=== PATIENT | male | born 1980 | race Caucasian/White ===

== ENCOUNTER 2021-05-09 17:23 | Inpatient (IN) ==
[2021-05-09] MEDS ORDERED: SODIUM CHLORIDE 0.9% 1000ML 1,000 ML IV STA (19:08)
--- NOTE | 2021-05-09 19:19 | Emergency Department Note ---
Impression & Plan Painless jaundice, Hyperbilirubinemia, Elevated INR ED Provider Note NAME: JACI HERNANDEZ AGE: 41 SEX: M : 1980 ARRIVES VIA: Walk-In INFORMANT: Patient, ED PROVIDER(S): Cesar Yousif DO CHIEF COMPLAINT: Jaundice HPI: The is a 41-year-old male who presented to the emergency department for an evaluation of jaundice. The patient's been dealing with symptoms for the last month. He is being managed at [facility]. Has been seen by a surgeon and a GI doctor. He was sent to the emergency department today to be admitted for further work-up of painless jaundice. The patient also needs his gallbladder removed. He denies having any nausea or vomiting. He does not drink alcohol as of the end of March but even before that he was not a heavy drinker. He has had no recent traveling. He does not have any fever or febrile symptoms. The patient has not had any recent exposures to hepatitis as far as he knows. He has had all the usual laboratory and radiographic studies done at [facility]. The patient has an INR that continues to go up so he was sent to the emergency department for further evaluation. The patient denies having any recent trauma. He does have some abdominal distention. He states he has shortness of breath because of abdominal distention. ROS: See above HPI for pertinent positives & negatives. A total of 10 systems reviewed and were otherwise negative. PAST MEDICAL HISTORY: See Below PAST SURGICAL HISTORY: See Below FAMILY HISTORY: See Below SOCIAL HISTORY: See Below HOME MEDICATIONS: See Below ALLERGIES: See Below VITALS: See Below PHYSICAL EXAMINATION: GENERAL: Patient is awake alert in no acute distress patient is resting comfort ably and showing no signs of anxiety EYES: The conjunctivae are jaundiced. The pupils are round and reactive. EARS, NOSE, MOUTH AND THROAT: The nose is without any evidence of any deformity. Mucous membranes are moist. NECK: The neck is nontender and supple. RESPIRATORY: Normal respiratory effort is noted there is no evidence of wheezing rhonchi or rales CARDIOVASCULAR: Regular rate and rhythm noted there no murmurs rubs or gallops normal S1 normal S2. GASTROINTESTINAL: The abdomen is moderately distended. There is no tenderness guarding rigidity elicited. MUSCULOSKELETAL/EXTREMITIES: There is no evidence of gross deformity full range of motion is noted in the hips and shoulders. SKIN: Jaundice was noted. Trace pedal edema was noted. NEUROLOGIC: Patient is awake alert and oriented x3 strength is symmetric patellar reflexes are 2+ bilaterally MEDICAL DECISION MAKING: The patient is a 41-year-old male who presented to the emergency department for an evaluation of abdominal distal angina and jaundice. The patient has had slowly worsening jaundice over the course the last few weeks. He does have a history of alcohol use but has had no alcohol use since the end of March. The patient has had worsening hyperbilirubinemia as well as jaundice. He was sent to the emergency department for further evaluation. He was felt to be a cand idate for admission because of the elevation in his bilirubin. He had no abdominal tenderness. I discussed the patient's laboratory and radiographic studies with him. I discussed his case with the on-call [facility] hospitalist. They have agreed to evaluate the patient in the emergency department for further management and disposition. Triage Nursing notes reviewed. Prior medical records reviewed Vital Signs: reviewed and remarkable for tachycardia. Differential diagnosis: Etiologies such as appendicitis, diverticulitis, obstruction, inflammatory bowel disease, renal colic, PUD, biliary pathology, pancreatitis, mesenteric ischemia, aortic pathology, infections, genitourinary, UTI, perforated viscus, as well as others were entertained. ER treatment provided: See below Diagnostics interpreted by me: ECG: none Laboratory studies: As stated above and show below. Imaging studies: See below Consultation(s): I discussed this case with Dr. Madden. He is agreed to evaluate the patient in the emergency department for further management and disposition. 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 Beliefs That Will Affect Care: None Current Living Situation: Alone Feels Safe at Home: Yes Assistive Devices: None Allergies Allergies Allergy/AdvReac Type Severity Reaction Status Date / Time bee pollen Allergy Intermediate HIVES/SWELL Verified 05/09/21 20:14 ING brompheniramine Allergy Intermediate Hives Verified 05/09/21 20:14 [From Dimetapp Cold-Allergy (PE)] phenylephrine Allergy Intermediate Hives Verified 05/09/21 20:14 [From Dimetapp Cold-Allergy (PE)] Sulfa (Sulfonamide Allergy Mild Rash Verified 05/09/21 20:14 Antibiotics) Home Meds Home Medications Medication Instructions Recorded Confirmed omeprazole 20 mg tablet,delayed 20 mg PO DAILYBB PRN 05/09/21 05/09/21 release Results & Data (ED) Vital Signs Vital Signs - 24 hr 05/09/21 17:38 Temperature 36.6 C Temperature Source Skin Pulse Rate 108 H Respiratory Rate 18 Blood Pressure 142/91 H Blood Pressure Mean 108 Pulse Oximetry 94 Sepsis Recent Fever Within 48 Hours No Sepsis New/Unexplained Change in Mental Status No Sepsis Action Taken by Nursing No Action Required Home Medications Current Medication List: was personally reviewed by me Laboratory Data Attestation: I reviewed the patient's lab results. Result diagrams: 05/09/21 19:25 05/09/21 19:25 Lab Results 05/09/21 05/09/21 05/09/21 Range/Units 19:25 19:25 19:25 WBC 7.16 (4.8-10.8) K/uL RBC 4.15 L (4.7-6.1) M/uL Hgb 14.9 (14.0-18.0) g/dL Hct 42.3 (42-52) % MCV 101.9 H (80-100) fL MCH 35.9 H (25-34) pg MCHC 35.2 (32-36) g/dL RDW Std Deviation 55.1 H (36.4-46.3) fL RDW Coeff of Michael 14.5 (11.5-14.5) % Plt Count 266 (130-400) K/uL MPV 11.1 H (7.4-10.4) fL Immature Gran % (Auto) 0.1 % Neut % (Auto) 80.3 % Lymph % (Auto) 12.8 % [place] % (Auto) 6.1 % Eos % (Auto) 0.4 % Baso % (Auto) 0.3 % Neut # (Auto) 5.74 (1.4-6.5) K/uL Lymph # (Auto) 0.92 L (1.2-3.4) K/uL [place] # (Auto) 0.44 (0.11-0.59) K/uL Eos # (Auto) 0.03 (0-0.5) K/uL Baso # (Auto) 0.02 (0-0.2) K/uL Immature Gran # (Auto) 0.01 (0.00-0.02) K/uL PT (9.0-12.0) Seconds INR (0.9-1.1) APTT (21.0-31.0) Seconds PTT Ratio Sodium 135 L (136-145) mmol/L Potassium 3.3 L (3.5-5.1) mmol/L Chloride 102 (98-107) mmol/L Carbon Dioxide 27 (21-32) mmol/L Anion Gap 6.0 (3-11) BUN 5 L (7-18) mg/dl Creatinine (0.6-1.4) mg/dl Glucose 111 H (70-99) mg/dl Calcium 8.1 L (8.5-10.1) mg/dl Magnesium (1.8-2.4) mg/dl Total Bilirubin 33.8 H (0.2-1) mg/dl Direct Bilirubin 30.0 H (0-0.2) mg/dl AST 213 H (15-37) U/L ALT 110 H (12-78) U/L Alkaline Phosphatase 164 H (45-117) U/L Total Protein (6.4-8.2) gm/dl Albumin 2.7 L (3.4-5.0) gm/dl Lipase 632 H (73-393) U/L Urine Color Urine Appearance (Clear) Urine pH (4.5-7.5) Ur Specific [place] (1.000-1.030) Urine Protein (Negative) Urine Glucose (UA) (Negative) Urine Ketones (Negative) Urine Blood (Negative) Urine Nitrite (Negative) Urine Bilirubin (Negative) Urine Urobilinogen (Negative) Ur Leukocyte Esterase (Negative) Urine WBC (Auto) (0-5) /hpf Urine RBC (Auto) (0-4) /hpf U Hyaline Cast (Auto) (0-5) /lpf U Epithel Cells (Auto) (0-5) /lpf Urine Bacteria (Auto) (Negative) Anaplasma Smear See Comment Lyme Disease IgG Ab Negative (Negative) Lyme Disease IgM Ab Equivocal A (Negative) COVID-19 Eval Order SARS-CoV-2 (PCR) (Negative) Hep Bs Antigen (Neg) Hepatitis C Antibody (Neg) Monoscreen (Negative) 05/09/21 05/09/21 05/09/21 Range/Units 19:25 19:25 19:25 WBC (4.8-10.8) K/uL RBC (4.7-6.1) M/uL Hgb (14.0-18.0) g/dL Hct (42-52) % MCV (80-100) fL MCH (25-34) pg MCHC (32-36) g/dL RDW Std Deviation (36.4-46.3) fL RDW Coeff of Michael (11.5-14.5) % Plt Count (130-400) K/uL MPV (7.4-10.4) fL Immature Gran % (Auto) % Neut % (Auto) % Lymph % (Auto) % [place] % (Auto) % Eos % (Auto) % Baso % (Auto) % Neut # (Auto) (1.4-6.5) K/uL Lymph # (Auto) (1.2-3.4) K/uL [place] # (Auto) (0.11-0.59) K/uL Eos # (Auto) (0-0.5) K/uL Baso # (Auto) (0-0.2) K/uL Immature Gran # (Auto) (0.00-0.02) K/uL PT 18.7 H (9.0-12.0) Seconds INR 1.9 H (0.9-1.1) APTT 32.2 H (21.0-31.0) Seconds PTT Ratio 1.2 Sodium (136-145) mmol/L Potassium (3.5-5.1) mmol/L Chloride (98-107) mmol/L Carbon Dioxide (21-32) mmol/L Anion Gap (3-11) BUN (7-18) mg/dl Creatinine (0.6-1.4) mg/dl Glucose (70-99) mg/dl Calcium (8.5-10.1) mg/dl Magnesium (1.8-2.4) mg/dl Total Bilirubin (0.2-1) mg/dl Direct Bilirubin (0-0.2) mg/dl AST (15-37) U/L ALT (12-78) U/L Alkaline Phosphatase (45-117) U/L Total Protein (6.4-8.2) gm/dl Albumin (3.4-5.0) gm/dl Lipase (73-393) U/L Urine Color Urine Appearance (Clear) Urine pH (4.5-7.5) Ur Specific [place] (1.000-1.030) Urine Protein (Negative) Urine Glucose (UA) (Negative) Urine Ketones (Negative) Urine Blood (Negative) Urine Nitrite (Negative) Urine Bilirubin (Negative) Urine Urobilinogen (Negative) Ur Leukocyte Esterase (Negative) Urine WBC (Auto) (0-5) /hpf Urine RBC (Auto) (0-4) /hpf U Hyaline Cast (Auto) (0-5) /lpf U Epithel Cells (Auto) (0-5) /lpf Urine Bacteria (Auto) (Negative) Anaplasma Smear Lyme Disease IgG Ab (Negative) Lyme Disease IgM Ab (Negative) COVID-19 Eval Order SARS-CoV-2 (PCR) (Negative) Hep Bs Antigen Neg (Neg) Hepatitis C Antibody Neg (Neg) Monoscreen Negative (Negative) 05/09/21 05/09/21 05/09/21 Range/Units 19:25 19:25 19:25 WBC (4.8-10.8) K/uL RBC (4.7-6.1) M/uL Hgb (14.0-18.0) g/dL Hct (42-52) % MCV (80-100) fL MCH (25-34) pg MCHC (32-36) g/dL RDW Std Deviation (36.4-46.3) fL RDW Coeff of Michael (11.5-14.5) % Plt Count (130-400) K/uL MPV (7.4-10.4) fL Immature Gran % (Auto) % Neut % (Auto) % Lymph % (Auto) % [place] % (Auto) % Eos % (Auto) % Baso % (Auto) % Neut # (Auto) (1.4-6.5) K/uL Lymph # (Auto) (1.2-3.4) K/uL [place] # (Auto) (0.11-0.59) K/uL Eos # (Auto) (0-0.5) K/uL Baso # (Auto) (0-0.2) K/uL Immature Gran # (Auto) (0.00-0.02) K/uL PT (9.0-12.0) Seconds INR (0.9-1.1) APTT (21.0-31.0) Seconds PTT Ratio Sodium (136-145) mmol/L Potassium (3.5-5.1) mmol/L Chloride (98-107) mmol/L Carbon Dioxide (21-32) mmol/L Anion Gap (3-11) BUN (7-18) mg/dl Creatinine (0.6-1.4) mg/dl Glucose (70-99) mg/dl Calcium (8.5-10.1) mg/dl Magnesium 2.5 H (1.8-2.4) mg/dl Total Bilirubin (0.2-1) mg/dl Direct Bilirubin (0-0.2) mg/dl AST (15-37) U/L ALT (12-78) U/L Alkaline Phosphatase (45-117) U/L Total Protein (6.4-8.2) gm/dl Albumin (3.4-5.0) gm/dl Lipase (73-393) U/L Urine Color Urine Appearance (Clear) Urine pH (4.5-7.5) Ur Specific [place] (1.000-1.030) Urine Protein (Negative) Urine Glucose (UA) (Negative) Urine Ketones (Negative) Urine Blood (Negative) Urine Nitrite (Negative) Urine Bilirubin (Negative) Urine Urobilinogen (Negative) Ur Leukocyte Esterase (Negative) Urine WBC (Auto) (0-5) /hpf Urine RBC (Auto) (0-4) /hpf U Hyaline Cast (Auto) (0-5) /lpf U Epithel Cells (Auto) (0-5) /lpf Urine Bacteria (Auto) (Negative) Anaplasma Smear Lyme Disease IgG Ab (Negative) Lyme Disease IgM Ab (Negative) COVID-19 Eval Order Covid19 at [facility] SARS-CoV-2 (PCR) NEGATIVE (Negative) Hep Bs Antigen (Neg) Hepatitis C Antibody (Neg) Monoscreen (Negative) 05/09/21 Range/Units 21:00 WBC (4.8-10.8) K/uL RBC (4.7-6.1) M/uL Hgb (14.0-18.0) g/dL Hct (42-52) % MCV (80-100) fL MCH (25-34) pg MCHC (32-36) g/dL RDW Std Deviation (36.4-46.3) fL RDW Coeff of Michael (11.5-14.5) % Plt Count (130-400) K/uL MPV (7.4-10.4) fL Immature Gran % (Auto) % Neut % (Auto) % Lymph % (Auto) % [place] % (Auto) % Eos % (Auto) % Baso % (Auto) % Neut # (Auto) (1.4-6.5) K/uL Lymph # (Auto) (1.2-3.4) K/uL [place] # (Auto) (0.11-0.59) K/uL Eos # (Auto) (0-0.5) K/uL Baso # (Auto) (0-0.2) K/uL Immature Gran # (Auto) (0.00-0.02) K/uL PT (9.0-12.0) Seconds INR (0.9-1.1) APTT (21.0-31.0) Seconds PTT Ratio Sodium (136-145) mmol/L Potassium (3.5-5.1) mmol/L Chloride (98-107) mmol/L Carbon Dioxide (21-32) mmol/L Anion Gap (3-11) BUN (7-18) mg/dl Creatinine (0.6-1.4) mg/dl Glucose (70-99) mg/dl Calcium (8.5-10.1) mg/dl Magnesium (1.8-2.4) mg/dl Total Bilirubin (0.2-1) mg/dl Direct Bilirubin (0-0.2) mg/dl AST (15-37) U/L ALT (12-78) U/L Alkaline Phosphatase (45-117) U/L Total Protein (6.4-8.2) gm/dl Albumin (3.4-5.0) gm/dl Lipase (73-393) U/L Urine Color Dark Yellow Urine Appearance Cloudy A (Clear) Urine pH 7.0 (4.5-7.5) Ur Specific [place] 1.009 (1.000-1.030) Urine Protein Negative (Negative) Urine Glucose (UA) Negative (Negative) Urine Ketones Negative (Negative) Urine Blood Negative (Negative) Urine Nitrite Positive A (Negative) Urine Bilirubin 3+ H (Negative) Urine Urobilinogen Negative (Negative) Ur Leukocyte Esterase Trace H (Negative) Urine WBC (Auto) 0 (0-5) /hpf Urine RBC (Auto) 10-30 H (0-4) /hpf U Hyaline Cast (Auto) 1-5 (0-5) /lpf U Epithel Cells (Auto) 0-5 (0-5) /lpf Urine Bacteria (Auto) Negative (Negative) Anaplasma Smear Lyme Disease IgG Ab (Negative) Lyme Disease IgM Ab (Negative) COVID-19 Eval Order SARS-CoV-2 (PCR) (Negative) Hep Bs Antigen (Neg) Hepatitis C Antibody (Neg) Monoscreen (Negative) Administered Medications Potassium Chloride 40 meq/ (Sodium Chloride) 1,020 mls @ 50 mls/hr IV .[id number] Stop: 06/08/21 22:14 Last Admin: 05/09/21 23:44 Dose: 50 mls/hr Documented by: [id number] Discontinued Medications Sodium Chloride (Nss 1000ml) 1,000 mls @ 999 mls/hr IV .[id number] STA Stop: 05/09/21 20:08 Last Infusion: 05/09/21 21:18 Dose: 0 mls/hr Documented by: [id number] Admin: 05/09/21 19:33 Dose: 999 mls/hr Documented by: [id number] Phytonadione 5 mg/ Sodium (Chloride) 50.5 mls @ 101 mls/hr IV ONE STA Stop: 05/09/21 21:57 Last Infusion: 05/09/21 23:05 Dose: 0 mls/hr Documented by: [id number] Admin: 05/09/21 21:52 Dose: 101 mls/hr Documented by: [id number] Potassium Chloride (Potassium Chloride Crtab 20 Meq Tabcr) 40 meq PO NOW STA Stop: 05/09/21 20:52 Last Admin: 05/09/21 21:18 Dose: 40 meq Documented by: [id number] Imaging Data Radiologist's Impression: Chest X-Ray 05/09/21 19:08 XR chest 1V portable CLINICAL HISTORY: SOB COMPARISON STUDY: No previous studies for comparison. FINDINGS: No pneumothorax. No pleural effusion. Right hemidiaphragm is elevated. Few linear densities are seen in bilateral bases likely representing atelectasis or infiltrates. Nodular prominence of pulmonary interstitium is seen within mid to lower lungs. Cardiomediastinal silhouette is within normal limits in size. No significant pulmonary vascular congestion.. Osseous structures: unremarkable IMPRESSION: 1. Atelectasis or infiltrates at bilateral bases. Right hemidiaphragm is elevated. ACT 112: Negative or not required by law. The above report was generated using voice recognition software. It may contain grammatical, syntax or spelling errors. Electronically signed by: Carine Unger DO 05/09/2021 8:12 PM Discharge Plan Visit Data Chief Complaint: Abnormal Labs/Diagnostic Testing Stated Complaint: Abnormal Labs Dr. Devi ED Provider: Cesar Yousif Discharge Problem: Painless jaundice, Hyperbilirubinemia, Elevated INR Patient Disposition: Admitted As Inpatient Condition: Good Discharge Instructions Interventions: ED Discharge Assessment Last Done: 05/09/21 23:06
[2021-05-09 19:46] LABS: Basophils # (auto) 0.02 K/uL (0-0.2); Basophils % (auto) 0.3 %; Eosinophils # (auto) 0.03 K/uL (0-0.5); Eosinophils % (auto) 0.4 %; Hematocrit (blood only) 42.3 % (42-52); Hemoglobin 14.9 g/dL (14.0-18.0); Immature Granulocytes # (auto) 0.01 K/uL (0.00-0.02); Immature Granulocytes % (auto) 0.1 %; Lymphocytes # (auto) 0.92 K/uL (1.2-3.4); Lymphocytes % (auto) 12.8 %; Mean Corpuscular Hemoglobin 35.9 pg (25-34); Mean Corpuscular Hgb Conc 35.2 g/dL (32-36); Mean Corpuscular Volume 101.9 fL (80-100); Mean Platelet Volume 11.1 fL (7.4-10.4); Monocytes # (auto) 0.44 K/uL (0.11-0.59); Monocytes % (auto) 6.1 %; Neutrophils # (auto) 5.74 K/uL (1.4-6.5); Neutrophils % (auto) 80.3 %; Platelet Count 266 K/uL (130-400); RDW Coefficient of Variation 14.5 % (11.5-14.5); RDW Standard Deviation 55.1 fL (36.4-46.3); Red Blood Count 4.15 M/uL (4.7-6.1); White Blood Count 7.16 K/uL (4.8-10.8)
[2021-05-09 19:58] LABS: INR 1.9 (0.9-1.1); Partial Thromboplastin Ratio 1.2; Partial Thromboplastin Time 32.2 Seconds (21.0-31.0); Prothrombin Time 18.7 Seconds (9.0-12.0)
--- NOTE | 2021-05-09 20:14 | XRay Report ---
XR chest 1V portable CLINICAL HISTORY: SOB COMPARISON STUDY: No previous studies for comparison. FINDINGS: No pneumothorax. No pleural effusion. Right hemidiaphragm is elevated. Few linear densities are seen in bilateral bases likely representing atelectasis or infiltrates. Nodular prominence of pulmonary interstitium is seen within mid to lower lungs. Cardiomediastinal silhouette is within normal limits in size. No significant pulmonary vascular congestion.. Osseous structures: unremarkable IMPRESSION: 1. Atelectasis or infiltrates at bilateral bases. Right hemidiaphragm is elevated. ACT 112: Negative or not required by law. The above report was generated using voice recognition software. It may contain grammatical, syntax o r spelling errors. Electronically signed by: Carine Unger DO 05/09/2021 8:12 PM
[2021-05-09 20:15] LABS: Alanine Aminotransferase 110 U/L (12-78); Albumin Level 2.7 gm/dl (3.4-5.0); Aspartate Aminotransferase 213 U/L (15-37); Blood Urea Nitrogen 5 mg/dl (7-18); Calcium 8.1 mg/dl (8.5-10.1); Carbon Dioxide 27 mmol/L (21-32); Chloride 102 mmol/L (98-107); Glucose 111 mg/dl (70-99); Lipase 632 U/L (73-393); Potassium 3.3 mmol/L (3.5-5.1); Sodium 135 mmol/L (136-145)
[2021-05-09 20:24] LABS: Alkaline Phosphatase 164 U/L (45-117); Bilirubin,Total 33.8 mg/dl (0.2-1)
[2021-05-09 20:40] LABS: Lyme Ab IgG w/WB Rflx Negative (Negative)
[2021-05-09] MEDS ORDERED: POTASSIUM CHLORIDE CRTAB 20 MEQ TABCR PO STA (20:51)
[2021-05-09 20:54] LABS: Lyme Ab IgM w/WB Rflx Equivocal (Negative)
[2021-05-09 21:22] LABS: Appearance Urine Cloudy (Clear); Bacteria Urine Automated Negative (Negative); Blood Urine Negative (Negative); Color Urine Dark Yellow; Epithelial Cell Urine Auto 0-5 /lpf (0-5); Glucose Urine UA Negative (Negative); Ketones Urine Negative (Negative); Leukocyte Esterase Urine Trace (Negative); Nitrite Urine Positive (Negative); Protein Urine Negative (Negative); Specific Gravity Urine 1.009 (1.000-1.030); Urobilinogen Urine Negative (Negative); WBC Urine Automated 0 /hpf (0-5)
[2021-05-09 21:24] LABS: Bilirubin Urine 3+ (Negative)
[2021-05-09] MEDS ORDERED: PHYTONADIONE 5 MG in SODIUM CHLORIDE 0.9% 50 ML IV STA (21:28)
--- NOTE | 2021-05-09 22:01 | History & Physical Report ---
Date of Service May 09, 2021 Assessment & Plan (1) Jaundice: Plan: History fatty liver on outpatient ultrasound December 2020 Possible alcoholic liver disease Rule out biliary pathology Hypokalemia secondary to poor p.o. intake Mood disorder, suboptimal, although patient denies suicidality. PCP following issue. 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 SCDs RE possible procedure Full code Text document was generated using [employer] voice recognition software. It may contain grammatical or spelling errors. Kindly contact undersigned for clarification of any documentation item in question. History of Present Illness Chief Complaint: Abnormal blood work, jaundice Primary Care Provider: Kyle Price DO History obtained from patient and records. Medical history significant for fatty liver, mood disorder. About 8 months ago, patient noted abdominal discomfort with bloating and fatigue symptoms. Denies inordinate Tylenol intake. Admits to alcohol consumption sometimes heavy. Outpatient provider ordered labs which showed abnormal LFTs. Outpatient abdominal ultrasound done last December 2020 showed mobile sludge within the gallbladder. Enlarged liver with increased echogenicity compatible with hepatic steatosis. Patient stopped alcohol consumption a few weeks ago. 2 weeks ago, patient noted to be jaundiced by a friend. Episodic right-sided abdominal discomfort with distention. Poor appetite. Stools pale and floating. No fever, no chills no chest pain, no S OB. Patient seen at GI office 3 days ago. LFTS at that time as follows: AST 220 ALT 102, alk phos 172, albumin 3.6, total Quinn 31.8. Differentials for jaundice and transaminitis included drug-induced versus alcoholic hepatitis versus biliary etiology as per documentation. Follow-up blood work, outpatient CT abdomen pelvis, EGD, EUS contemplated. Patient also seen [place] [facility] [place] 3 days ago. Laparoscopic cholecystectomy considered pending GI testing results. Outpatient follow-up LFTs drawn, and resulted today as follows: INR 1.83 AST 220, ALT 102, alk phos 172, total bilirubin 31.8, albumin 3.6, INR 1.83 Patient directed to ER by GI provider due to abnormal blood work. Medical History as above Surgical History : Dental surgery, inguinal hernia repair Family History : Colon cancer, liver disease Personal/Social history : Non-smoker, admits to occasional heavy alcohol intake, chiropractor Allergies Allergy/AdvReac Type Severity Reaction Status Date / Time bee pollen Allergy Intermediate HIVES/SWELL Verified 05/09/21 20:14 ING brompheniramine Allergy Intermediate Hives Verified 05/09/21 20:14 [From Dimetapp Cold-Allergy (PE)] phenylephrine Allergy Intermediate Hives Verified 05/09/21 20:14 [From Dimetapp Cold-Allergy (PE)] Sulfa (Sulfonamide Allergy Mild Rash Verified 05/09/21 20:14 Antibiotics) Home Medications Medication Instructions Recorded Confirmed Type omeprazole 20 mg tablet,delayed 20 mg PO DAILYBB PRN 05/09/21 05/09/21 History release Past Med/Surg History Medical History Anxiety and depression Elevated liver enzymes GERD (gastroesophageal reflux disease) Kidney stone on right side NO INTERVENTION "VERY SMALL" Surgical History H/O inguinal hernia repair Slow to wake up after anesthesia [place] teeth removed Family History Grandfather (Paternal) Family hx of colon cancer Other No family history of adverse response to anesthesia Social History Smoking Status: Never smoker Second Hand Exposure: Yes ( A CHILD); Hx Alcohol Use: Yes Alcohol type: beer and hard liquor Preferred Language: Canadian Communication Ability: Effective 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 Beliefs That Will Affect Care: None Current Living Situation: Alone Feels Safe at Home: Yes Safety Concerns: Feels Safe At This Time Assistive Devices: None Review of Systems Review of Systems: As per HPI, all 10 systems reviewed, all other ROS negative Physical Exam Physical Exam: GENERAL: Comfortable, slightly anxious, no respiratory distress SKIN: Jaundiced, warm HEENT: [place] palpebral conjunctivae, no ptosis, icteric sclerae, dry buccal mucosa NECK : Supple, no tenderness CHEST : CTA, no tenderness HEART : Tachycardic, no obvious murmurs ABDOMEN: distention, minimal epigastric tenderness EXTREMITIES : No LE swelling/tenderness, no other conspicuous deformities noted NEUROLOGIC : Coherent, no facial asymmetry, no other gross focality Results & Data Results & Data ([facility]) Vital Signs (Past 12 Hours) Vital Signs Temp Pulse Resp BP Pulse Ox 05/09/21 17:38 36.6 C 108 H 18 142/91 H 94 Laboratory Results Laboratory Results WBC 7.16 K/uL (4.8-10.8) 05/09/21 19:25 RBC 4.15 M/uL (4.7-6.1) L 05/09/21 19:25 Hgb 14.9 g/dL (14.0-18.0) 05/09/21 19:25 Hct 42.3 % (42-52) 05/09/21 19:25 MCV 101.9 fL (80-100) H 05/09/21 19:25 MCH 35.9 pg (25-34) H 05/09/21 19:25 MCHC 35.2 g/dL (32-36) 05/09/21 19:25 RDW Std Deviation 55.1 fL (36.4-46.3) H 05/09/21 19:25 RDW Coeff of Michael 14.5 % (11.5-14.5) 05/09/21 19:25 Plt Count 266 K/uL (130-400) 05/09/21 19:25 MPV 11.1 fL (7.4-10.4) H 05/09/21 19:25 Immature Gran % (Auto) 0.1 % 05/09/21 19:25 Neut % (Auto) 80.3 % 05/09/21 19:25 Lymph % (Auto) 12.8 % 05/09/21 19:25 [place] % (Auto) 6.1 % 05/09/21 19:25 Eos % (Auto) 0.4 % 05/09/21 19:25 Baso % (Auto) 0.3 % 05/09/21 19:25 Neut # (Auto) 5.74 K/uL (1.4-6.5) 05/09/21 19:25 Lymph # (Auto) 0.92 K/uL (1.2-3.4) L 05/09/21 19:25 [place] # (Auto) 0.44 K/uL (0.11-0.59) 05/09/21 19:25 Eos # (Auto) 0.03 K/uL (0-0.5) 05/09/21 19:25 Baso # (Auto) 0.02 K/uL (0-0.2) 05/09/21 19:25 Immature Gran # (Auto) 0.01 K/uL (0.00-0.02) 05/09/21 19:25 PT 18.7 Seconds (9.0-12.0) H 05/09/21 19:25 INR 1.9 (0.9-1.1) H 05/09/21 19:25 APTT 32.2 Seconds (21.0-31.0) H 05/09/21: PTT Ratio 1.2 05/09/21 19:25 Sodium 135 mmol/L (136-145) L 05/09/21 19: Potassium 3.3 mmol/L (3.5-5.1) L 05/09/21: Chloride 102 mmol/L (98-107) 05/09/21:25 Carbon Dioxide 27 mmol/L (21-32) 05/09/21 19:25 Anion Gap 6.0 (3-11) 05/09/21 19:25 BUN 5 mg/dl (7-18) L 05/09/21 19:25 Glucose 111 mg/dl (70-99) H 05/09/21 19:25 Calcium 8.1 mg/dl (8.5-10.1) L 05/09/21 19:25 Total Bilirubin 33.8 mg/dl (0.2-1) H 05/09/21 19:25 AST 213 U/L (15-37) H 05/09/21 19:25 ALT 110 U/L (12-78) H 05/09/21 19:25 Alkaline Phosphatase 164 U/L (45-117) H 05/09/21 19:25 Albumin 2.7 gm/dl (3.4-5.0) L 05/09/21 19:25 Lipase 632 U/L (73-393) H 05/09/21 19:25 Urine Color Dark Yellow 05/09/21 21:00 Urine Appearance Cloudy (Clear) A 05/09/21 21:00 Urine pH 7.0 (4.5-7.5) 05/09/21 21:00 Ur Specific [place] 1.009 (1.000-1.030) 05/09/21 21:00 Urine Protein Negative (Negative) 05/09/21 21:00 Urine Glucose (UA) Negative (Negative) 05/09/21 21:00 Urine Ketones Negative (Negative) 05/09/21 21:00 Urine Blood Negative (Negative) 05/09/21 21:00 Urine Nitrite Positive (Negative) A 05/09/21 21:00 Urine Bilirubin 3+ (Negative) H 05/09/21 21:00 Urine Urobilinogen Negative (Negative) 05/09/21 21:00 Ur Leukocyte Esterase Trace (Negative) H 05/09/21 21:00 Urine WBC (Auto) 0 /hpf (0-5) 05/09/21 21:00 Urine RBC (Auto) 10-30 /hpf (0-4) H 05/09/21 21:00 U Hyaline Cast (Auto) 1-5 /lpf (0-5) 05/09/21 21:00 U Epithel Cells (Auto) 0-5 /lpf (0-5) 05/09/21 21:00 Urine Bacteria (Auto) Negative (Negative) 05/09/21 21:00 Anaplasma Smear See Comment 05/09/21 19:25 Lyme Disease IgG Ab Negative (Negative) 05/09/21 19:25 Lyme Disease IgM Ab Equivocal (Negative) A 05/09/21 19:25 COVID-19 Eval Order Covid19 at [facility] 05/09/21 19:25 SARS-CoV-2 (PCR) NEGATIVE (Negative) 05/09/21 19:25 Monoscreen Negative (Negative) 05/09/21 19:25 Impressions Chest X-Ray 05/09/21 19:08 XR chest 1V portable CLINICAL HISTORY: SOB COMPARISON STUDY: No previous studies for comparison. FINDINGS: No pneumothorax. No pleural effusion. Right hemidiaphragm is elevated. Few linear densities are seen in bilateral b ases likely representing atelectasis or infiltrates. Nodular prominence of pulmonary interstitium is seen within mid to lower lungs. Cardiomediastinal silhouette is within normal limits in size. No significant pulmonary vascular congestion.. Osseous structures: unremarkable IMPRESSION: 1. Atelectasis or infiltrates at bilateral bases. Right hemidiaphragm is elevated. ACT 112: Negative or not required by law. The above report was generated using voice recognition software. It may contain grammatical, syntax or spelling errors. Electronically signed by: Carine Unger DO 05/09/2021 8:12 PM
[2021-05-09] MEDS ORDERED: THIAMINE HCL 100 MG in SYRINGE 9 ML IV STA (22:08)
[2021-05-09 23:15] LABS: Hepatitis B Surf Ag Rflx Conf Neg (Neg)
[2021-05-09] MEDS ORDERED: ACETAMINOPHEN 325 MG TAB PO PRN (23:32)
[2021-05-09] MEDS ORDERED: PROMETHAZINE HCL 12.5 MG in SODIUM CHLORIDE 0.9% 50 ML IV PRN (23:32)
[2021-05-09] MEDS ORDERED: MoRPHine SULFATE 4 MG/ML 1 ML CARP\\VIAL IV PRN (23:32)
[2021-05-09] MEDS ORDERED: LORazepam 0.5 MG/1 ML VIAL IV PRN (23:32)
[2021-05-09] MEDS ORDERED: oxyCODONE HCL IR 5 MG TAB (IMMEDIATE RELEASE) PO PRN (23:32)
[2021-05-09] MEDS ORDERED: PANTOprazole 40 MG TAB PO PRN (23:37)
[2021-05-09 23:44] LABS: Hepatitis C IgG 13Yrs+Old_Rflx Neg (Neg)
[2021-05-09] MEDS: POTASSIUM CHLORIDE 40 MEQ in SODIUM CHLORIDE 0.9% 1000ML 1,000 ML IV SCH (23:44)
[2021-05-10 06:16] LABS: Basophils # (auto) 0.04 K/uL (0-0.2); Basophils % (auto) 0.6 %; Eosinophils # (auto) 0.05 K/uL (0-0.5); Eosinophils % (auto) 0.8 %; Immature Granulocytes # (auto) 0.01 K/uL (0.00-0.02); Immature Granulocytes % (auto) 0.2 %; Lymphocytes # (auto) 1.16 K/uL (1.2-3.4); Lymphocytes % (auto) 18.2 %; Mean Corpuscular Hemoglobin 35.2 pg (25-34); Mean Corpuscular Volume 100.5 fL (80-100); Mean Platelet Volume 11.3 fL (7.4-10.4); Monocytes # (auto) 0.44 K/uL (0.11-0.59); Monocytes % (auto) 6.9 %; Neutrophils # (auto) 4.67 K/uL (1.4-6.5); Neutrophils % (auto) 73.3 %; Platelet Count 224 K/uL (130-400); RDW Coefficient of Variation 14.9 % (11.5-14.5); RDW Standard Deviation 54.7 fL (36.4-46.3); Red Blood Count 3.98 M/uL (4.7-6.1); White Blood Count 6.37 K/uL (4.8-10.8)
[2021-05-10 06:29] LABS: INR 1.7 (0.9-1.1); Prothrombin Time 16.8 Seconds (9.0-12.0)
[2021-05-10] MEDS ORDERED: PHYTONADIONE 5 MG in SODIUM CHLORIDE 0.9% 50 ML IV ONE (07:15)
[2021-05-10 07:22] LABS: Alanine Aminotransferase 95 U/L (12-78); Albumin Level 2.2 gm/dl (3.4-5.0); Alkaline Phosphatase 139 U/L (45-117); Aspartate Aminotransferase 187 U/L (15-37); Bilirubin,Total 28.5 mg/dl (0.2-1); Blood Urea Nitrogen 5 mg/dl (7-18); Calcium 7.5 mg/dl (8.5-10.1); Carbon Dioxide 24 mmol/L (21-32); Chloride 108 mmol/L (98-107); Glucose 78 mg/dl (70-99); Potassium 3.5 mmol/L (3.5-5.1); Sodium 138 mmol/L (136-145)
[2021-05-10 07:59] LABS: Estimated Average Glucose 85 mg/dl; Hemoglobin A1C 4.6 % (4.5-5.6)
[2021-05-10] MEDS ORDERED: PHYTONADIONE 10 MG in SODIUM CHLORIDE 0.9% 50 ML IV ONE (08:30)
--- NOTE | 2021-05-10 08:45 | CT Scan Report ---
ABDOMEN AND PELVIS CT WITHOUT CONTRAST CT DOSE: 666.88 mGy.cm HISTORY: Generalized abdominal pain. Jaundice. TECHNIQUE: Multiaxial CT images of the abdomen and pelvis were performed without contrast. A dose lo wering technique was utilized adhering to the principles of ALARA. COMPARISON STUDY: None. FINDINGS: Small focal superior endplate indentations within the lower thoracic and lumbar spine favor Schmorl's nodes. Old compression deformities could also have a similar appearance. There is elevatio n of the right hemidiaphragm. Bibasilar linear densities most pronounced on the right favor subsegmen andre atelectasis. No pneumoperitoneum. No pneumatosis. Diffuse hypodensity seen within the liver. This may represent hepatic steatosis or underlying hepatic pathology such as a hepatitis. The spleen is e nlarged measuring 19 cm in length. The liver is also enlarged. There is small amount of ascites seen throughout the abdomen and pelvis. Questionable minimal peripancreatic fat stranding which correlates the patient's edematous state. Multiple splenic varices are noted. There is mild periportal adenopat hy. Normal caliber abdominal aorta. There is a 5 mm stone within the right kidney. There is a punctat e left renal stone. No hydronephrosis. Hyperdensity within the gallbladder favors sludge or small sto lacho. The bladder is unremarkable. Suboptimal evaluation for bowel pathology due to the lack of intrav enous and oral contrast. However, there is no definite bowel wall thickening or obstruction. Normal a ppendix. IMPRESSION: 1. Hepatosplenomegaly with diffuse hypodensity within the liver suggesting fatty change or underlying hepatic pathology such as a hepatitis. 2. Small amount of ascites. 3. Suggestion of minimal peripancreatic inflammatory change. This could be due to the patient's diffu se edematous state or a mild acute pancreatitis. Recommend correlation with pancreatic enzymes. 4. Mild gallbladder wall thickening/edema. This likely due to the patient's diffuse edematous state. There is also increased density within the gallbladder lumen suggesting sludge or small stones. 5. No definite bowel wall thickening or obstruction. 6. Bilateral nephrolithiasis. No ureteral stones. No hydronephrosis. ACT 112: Negative or not required by law. Electronically signed by: Carlitos Abraham M.D. 05/10/2021 8:44 AM
--- NOTE | 2021-05-10 09:04 | Gastroenterology Progress Note ---
Date of Service May 10, 2021 Assessment & Plan (1) Jaundice: Plan: 41 year-old male known from outpatient clinc with jaundice, elevated transaminitis, rising INR. Etiology unknown: DILI, ETOH hepatitis, biliary etiology vs other - Vit K today - Check INR around 10 am - Arrange EGD/EUS-LB - No ETOH, No tylenol, No herbals/supplements Admission and Anticipated Discharge Date Admission Date: May 09, 2021 Supervising Physician Co-Signing Physician Notes I performed a history and physical examination of the patient today, including specifically on physical exam - soft abdomen. I have discussed the patient's management with the advanced practitioner. Please refer to the nurse practitioner's note for the documented findings and plan of care. EUS with LB today. Patient was explained in detail regarding risks, benefits, limitations and alternatives of the above endoscopic procedure. Risks of intravenous sedation used for procedure were also explained. Risks include, but not limited to perforation, bleeding, infection, respiratory distress, cardiac arrest and . Patient is also aware about the possibility of missed lesion. Patient's questions were answered. The patient verbalized understanding the information and agreed to undergo the procedure. Subjective 41 year old male admitted w/ rising INR and Tbili - Has had vague GI symptom since August. Right sided abdominal fullness associated with bloating. In december this seemed to get worse. Pain still intermittent but had episode associated with nausea, vomiting. Grew concerned as he became fatigued, had issues with sleep, had some mental health issues and took FMLA. Since FMLA started he has been watching his diet, trying to exercise more etc. Was feeling pretty well. His friend noticed her eyes and skin looking yellow about two weeks ago. Saw a friend who was a physician, started on IV vitamins unsure of specifics but he believes all fat soluble vitamins and multivitamins and noticed since this time he was jaundice. Today, he is feeling okay. No abd pain, nausea, vomiting. No GERD. Still bloated ETOH: at most 6 beers in a sitting a few times a week for about 6 months, none since April 24 Tattoos/Piercings: none IV/IN drug use: none Tylenol: none Herbals: none New medications: ativan but only used three tablets ABD US 2020: Mobile sludge within the gallbladder.Enlarged liver with increased echogenicity and attenuation compatible with hepatic steatosis CTAP: Hepatosplenomegaly with diffuse hypodensity within the liver suggesting fatty change or underlying hepatic pathology such as a hepatitis.Small amount of ascites. Suggestion of minimal peripancreatic inflammatory change. This could be due to the patient's diffuse edematous state or a mild acute pancreatitis. Recommend correlation with pancreatic enzymes. Mild gallbladder wall thickening/edema. This likely due to the patient's diffuse edematous state. There is also increased density within the gallbladder lumen suggesting sludge or small stones. No definite bowel wall thickening or obstruction. Bilateral nephrolithiasis. No ureteral stones. No hydronephrosis. Review of Systems Review of Systems: All systems reviewed & are unremarkable except as noted in HPI & below Physical Exam Constitutional: WD/WN, vitals as above Eyes: + icterus Respiratory: normal respiratory effort, lungs clear to auscultation Cardiovascular: RRR, no murmur, no edema Gastrointestinal (Abdomen): normal bowel sounds, soft, nontender, no hepatosplenomegaly Skin: + jaundice Results & Data ([facility]) Vital Signs (Past 12 Hours) Vital Signs Temp Pulse Resp BP BP Pulse Ox 05/10/21 07:11 37.2 C 99 H 16 122/73 94 05/09/21 23:15 37.4 C 104 H 16 138/85 95 05/09/21 23:06 136/88 Laboratory Results 05/10/21 05/10/21 05/10/21 Range/Units 05:23 05:23 05:23 WBC (4.8-10.8) K/uL RBC (4.7-6.1) M/uL Hgb (14.0-18.0) g/dL Hct (42-52) % MCV (80-100) fL MCH (25-34) pg MCHC (32-36) g/dL RDW Std Deviation (36.4-46.3) fL RDW Coeff of Michael (11.5-14.5) % Plt Count (130-400) K/uL MPV (7.4-10.4) fL Immature Gran % (Auto) % Neut % (Auto) % Lymph % (Auto) % [place] % (Auto) % Eos % (Auto) % Baso % (Auto) % Neut # (Auto) (1.4-6.5) K/uL Lymph # (Auto) (1.2-3.4) K/uL [place] # (Auto) (0.11-0.59) K/uL Eos # (Auto) (0-0.5) K/uL Baso # (Auto) (0-0.2) K/uL Immature Gran # (Auto) (0.00-0.02) K/uL PT 16.8 H (9.0-12.0) Seconds INR 1.7 H (0.9-1.1) APTT (21.0-31.0) Seconds PTT Ratio Sodium 138 (136-145) mmol/L Potassium 3.5 (3.5-5.1) mmol/L Chloride 108 H (98-107) mmol/L Carbon Dioxide 24 (21-32) mmol/L Anion Gap 6.0 (3-11) BUN 5 L (7-18) mg/dl Creatinine (0.6-1.4) mg/dl Est Cr Clr Drug Dosing Pending Est GFR ( Amer) Pending Est GFR (Non-Af Amer) Pending BUN/Creatinine Ratio TNP Glucose 78 (70-99) mg/dl Estimat Average Glucose mg/dl Hemoglobin A1c (4.5-5.6) % Calcium 7.5 L (8.5-10.1) mg/dl Magnesium (1.8-2.4) mg/dl Total Bilirubin 28.5 H (0.2-1) mg/dl Direct Bilirubin (0-0.2) mg/dl AST 187 H (15-37) U/L ALT 95 H (12-78) U/L Alkaline Phosphatase 139 H (45-117) U/L Total Protein (6.4-8.2) gm/dl Albumin 2.2 L (3.4-5.0) gm/dl Globulin TNP Albumin/Globulin Ratio TNP Lipase (73-393) U/L TSH 1.710 Urine Color Urine Appearance (Clear) Urine pH (4.5-7.5) Ur Specific [place] (1.000-1.030) Urine Protein (Negative) Urine Glucose (UA) (Negative) Urine Ketones (Negative) Urine Blood (Negative) Urine Nitrite (Negative) Urine Bilirubin (Negative) Urine Urobilinogen (Negative) Ur Leukocyte Esterase (Negative) Urine WBC (Auto) (0-5) /hpf Urine RBC (Auto) (0-4) /hpf U Hyaline Cast (Auto) (0-5) /lpf U Epithel Cells (Auto) (0-5) /lpf Urine Bacteria (Auto) (Negative) Anaplasma Smear A. phagocytophilum DNA Lyme Disease IgG Ab (Negative) Lyme IgG (Western Blot) Lyme IgG 18 kDa Band Lyme IgG 23 kDa Band Lyme IgG 28 kDa Band Lyme IgG 30 kDa Band Lyme IgG 39 kDa Band Lyme IgG 41 kDa Band Lyme IgG 45 kDa Band Lyme IgG 58 kDa Band Lyme IgG 66 kDa Band Lyme IgG 93 kDa Band Lyme IgM Ab (WB) Lyme Disease IgM Ab (Negative) Lyme IgM 23 kDa Band Lyme IgM 39 kDa Band Lyme IgM 41 kDa Band COVID-19 Eval Order SARS-CoV-2 (PCR) (Negative) Hepatitis A IgM Ab Hep Bs Antigen (Neg) Hep B Core IgM Ab Hepatitis C Antibody (Neg) Monoscreen (Negative) Miscellaneous Test Pending Miscellaneous Test 2 Pending Blood Type Antibody Screen 05/10/21 05/10/21 05/10/21 Range/Units 05:23 05:23 05:23 WBC 6.37 (4.8-10.8) K/uL RBC 3.98 L (4.7-6.1) M/uL Hgb 14.0 (14.0-18.0) g/dL Hct 40.0 L (42-52) % MCV 100.5 H (80-100) fL MCH 35.2 H (25-34) pg MCHC 35.0 (32-36) g/dL RDW Std Deviation 54.7 H (36.4-46.3) fL RDW Coeff of Michael 14.9 H (11.5-14.5) % Plt Count 224 (130-400) K/uL MPV 11.3 H (7.4-10.4) fL Immature Gran % (Auto) 0.2 % Neut % (Auto) 73.3 % Lymph % (Auto) 18.2 % Canyon % (Auto) 6.9 % Eos % (Auto) 0.8 % Baso % (Auto) 0.6 % Neut # (Auto) 4.67 (1.4-6.5) K/uL Lymph # (Auto) 1.16 L (1.2-3.4) K/uL [place] # (Auto) 0.44 (0.11-0.59) K/uL Eos # (Auto) 0.05 (0-0.5) K/uL Baso # (Auto) 0.04 (0-0.2) K/uL Immature Gran # (Auto) 0.01 (0.00-0.02) K/uL PT (9.0-12.0) Seconds INR (0.9-1.1) APTT (21.0-31.0) Seconds PTT Ratio Sodium (136-145) mmol/L Potassium (3.5-5.1) mmol/L Chloride (98-107) mmol/L Carbon Dioxide (21-32) mmol/L Anion Gap (3-11) BUN (7-18) mg/dl Creatinine (0.6-1.4) mg/dl Est Cr Clr Drug Dosing Est GFR ( Amer) Est GFR (Non-Af Amer) BUN/Creatinine Ratio Glucose (70-99) mg/dl Estimat Average Glucose 85 mg/dl Hemoglobin A1c 4.6 (4.5-5.6) % Calcium (8.5-10.1) mg/dl Magnesium (1.8-2.4) mg/dl Total Bilirubin (0.2-1) mg/dl Direct Bilirubin (0-0.2) mg/dl AST (15-37) U/L ALT (12-78) U/L Alkaline Phosphatase (45-117) U/L Total Protein (6.4-8.2) gm/dl Albumin (3.4-5.0) gm/dl Globulin Albumin/Globulin Ratio Lipase (73-393) U/L TSH Urine Color Urine Appearance (Clear) Urine pH (4.5-7.5) Ur Specific [place] (1.000-1.030) Urine Protein (Negative) Urine Glucose (UA) (Negative) Urine Ketones (Negative) Urine Blood (Negative) Urine Nitrite (Negative) Urine Bilirubin (Negative) Urine Urobilinogen (Negative) Ur Leukocyte Esterase (Negative) Urine WBC (Auto) (0-5) /hpf Urine RBC (Auto) (0-4) /hpf U Hyaline Cast (Auto) (0-5) /lpf U Epithel Cells (Auto) (0-5) /lpf Urine Bacteria (Auto) (Negative) Anaplasma Smear A. phagocytophilum DNA Lyme Disease IgG Ab (Negative) Lyme IgG (Western Blot) Lyme IgG 18 kDa Band Lyme IgG 23 kDa Band Lyme IgG 28 kDa Band Lyme IgG 30 kDa Band Lyme IgG 39 kDa Band Lyme IgG 41 kDa Band Lyme IgG 45 kDa Band Lyme IgG 58 kDa Band Lyme IgG 66 kDa Band Lyme IgG 93 kDa Band Lyme IgM Ab (WB) Lyme Disease IgM Ab (Negative) Lyme IgM 23 kDa Band Lyme IgM 39 kDa Band Lyme IgM 41 kDa Band COVID-19 Eval Order SARS-CoV-2 (PCR) (Negative) Hepatitis A IgM Ab Hep Bs Antigen (Neg) Hep B Core IgM Ab Hepatitis C Antibody (Neg) Monoscreen (Negative) Miscellaneous Test Miscellaneous Test 2 Blood Type A Positive Antibody Screen NEGATIVE 05/09/21 05/09/21 05/09/21 Range/Units 21:00 19:25 19:25 WBC (4.8-10.8) K/uL RBC (4.7-6.1) M/uL Hgb (14.0-18.0) g/dL Hct (42-52) % MCV (80-100) fL MCH (25-34) pg MCHC (32-36) g/dL RDW Std Deviation (36.4-46.3) fL RDW Coeff of Michael (11.5-14.5) % Plt Count (130-400) K/uL MPV (7.4-10.4) fL Immature Gran % (Auto) % Neut % (Auto) % Lymph % (Auto) % [place] % (Auto) % Eos % (Auto) % Baso % (Auto) % Neut # (Auto) (1.4-6.5) K/uL Lymph # (Auto) (1.2-3.4) K/uL [place] # (Auto) (0.11-0.59) K/uL Eos # (Auto) (0-0.5) K/uL Baso # (Auto) (0-0.2) K/uL Immature Gran # (Auto) (0.00-0.02) K/uL PT (9.0-12.0) Seconds INR (0.9-1.1) APTT (21.0-31.0) Seconds PTT Ratio Sodium (136-145) mmol/L Potassium (3.5-5.1) mmol/L Chloride (98-107) mmol/L Carbon Dioxide (21-32) mmol/L Anion Gap (3-11) BUN (7-18) mg/dl Creatinine (0.6-1.4) mg/dl Est Cr Clr Drug Dosing Est GFR ( Amer) Est GFR (Non-Af Amer) BUN/Creatinine Ratio Glucose (70-99) mg/dl Estimat Average Glucose mg/dl Hemoglobin A1c (4.5-5.6) % Calcium (8.5-10.1) mg/dl Magnesium (1.8-2.4) mg/dl Total Bilirubin (0.2-1) mg/dl Direct Bilirubin (0-0.2) mg/dl AST (15-37) U/L ALT (12-78) U/L Alkaline Phosphatase (45-117) U/L Total Protein (6.4-8.2) gm/dl Albumin (3.4-5.0) gm/dl Globulin Albumin/Globulin Ratio Lipase (73-393) U/L TSH Urine Color Dark Yellow Urine Appearance Cloudy A (Clear) Urine pH 7.0 (4.5-7.5) Ur Specific Hull 1.009 (1.000-1.030) Urine Protein Negative (Negative) Urine Glucose (UA) Negative (Negative) Urine Ketones Negative (Negative) Urine Blood Negative (Negative) Urine Nitrite Positive A (Negative) Urine Bilirubin 3+ H (Negative) Urine Urobilinogen Negative (Negative) Ur Leukocyte Esterase Trace H (Negative) Urine WBC (Auto) 0 (0-5) /hpf Urine RBC (Auto) 10-30 H (0-4) /hpf U Hyaline Cast (Auto) 1-5 (0-5) /lpf U Epithel Cells (Auto) 0-5 (0-5) /lpf Urine Bacteria (Auto) Negative (Negative) Anaplasma Smear A. phagocytophilum DNA Lyme Disease IgG Ab (Negative) Lyme IgG (Western Blot) Lyme IgG 18 kDa Band Lyme IgG 23 kDa Band Lyme IgG 28 kDa Band Lyme IgG 30 kDa Band Lyme IgG 39 kDa Band Lyme IgG 41 kDa Band Lyme IgG 45 kDa Band Lyme IgG 58 kDa Band Lyme IgG 66 kDa Band Lyme IgG 93 kDa Band Lyme IgM Ab (WB) Lyme Disease IgM Ab (Negative) Lyme IgM 23 kDa Band Lyme IgM 39 kDa Band Lyme IgM 41 kDa Band COVID-19 Eval Order SARS-CoV-2 (PCR) (Negative) Hepatitis A IgM Ab Hep Bs Antigen (Neg) Hep B Core IgM Ab Hepatitis C Antibody (Neg) Monoscreen (Negative) Miscellaneous Test Pending Miscellaneous Test 2 Pending Blood Type Antibody Screen 05/09/21 05/09/21 05/09/21 Range/Units 19:25 19:25 19:25 WBC (4.8-10.8) K/uL RBC (4.7-6.1) M/uL Hgb (14.0-18.0) g/dL Hct (42-52) % MCV (80-100) fL MCH (25-34) pg MCHC (32-36) g/dL RDW Std Deviation (36.4-46.3) fL RDW Coeff of Michael (11.5-14.5) % Plt Count (130-400) K/uL MPV (7.4-10.4) fL Immature Gran % (Auto) % Neut % (Auto) % Lymph % (Auto) % [place] % (Auto) % Eos % (Auto) % Baso % (Auto) % Neut # (Auto) (1.4-6.5) K/uL Lymph # (Auto) (1.2-3.4) K/uL [place] # (Auto) (0.11-0.59) K/uL Eos # (Auto) (0-0.5) K/uL Baso # (Auto) (0-0.2) K/uL Immature Gran # (Auto) (0.00-0.02) K/uL PT (9.0-12.0) Seconds INR (0.9-1.1) APTT (21.0-31.0) Seconds PTT Ratio Sodium (136-145) mmol/L Potassium (3.5-5.1) mmol/L Chloride (98-107) mmol/L Carbon Dioxide (21-32) mmol/L Anion Gap (3-11) BUN (7-18) mg/dl Creatinine (0.6-1.4) mg/dl Est Cr Clr Drug Dosing Est GFR ( Amer) Est GFR (Non-Af Amer) BUN/Creatinine Ratio Glucose (70-99) mg/dl Estimat Average Glucose mg/dl Hemoglobin A1c (4.5-5.6) % Calcium (8.5-10.1) mg/dl Magnesium 2.5 H (1.8-2.4) mg/dl Total Bilirubin (0.2-1) mg/dl Direct Bilirubin (0-0.2) mg/dl AST (15-37) U/L ALT (12-78) U/L Alkaline Phosphatase (45-117) U/L Total Protein (6.4-8.2) gm/dl Albumin (3.4-5.0) gm/dl Globulin Albumin/Globulin Ratio Lipase (73-393) U/L TSH Urine Color Urine Appearance (Clear) Urine pH (4.5-7.5) Ur Specific [place] (1.000-1.030) Urine Protein (Negative) Urine Glucose (UA) (Negative) Urine Ketones (Negative) Urine Blood (Negative) Urine Nitrite (Negative) Urine Bilirubin (Negative) Urine Urobilinogen (Negative) Ur Leukocyte Esterase (Negative) Urine WBC (Auto) (0-5) /hpf Urine RBC (Auto) (0-4) /hpf U Hyaline Cast (Auto) (0-5) /lpf U Epithel Cells (Auto) (0-5) /lpf Urine Bacteria (Auto) (Negative) Anaplasma Smear A. phagocytophilum DNA Lyme Disease IgG Ab (Negative) Lyme IgG (Western Blot) Pending Lyme IgG 18 kDa Band Pending Lyme IgG 23 kDa Band Pending Lyme IgG 28 kDa Band Pending Lyme IgG 30 kDa Band Pending Lyme IgG 39 kDa Band Pending Lyme IgG 41 kDa Band Pending Lyme IgG 45 kDa Band Pending Lyme IgG 58 kDa Band Pending Lyme IgG 66 kDa Band Pending Lyme IgG 93 kDa Band Pending Lyme IgM Ab (WB) Pending Lyme Disease IgM Ab (Negative) Lyme IgM 23 kDa Band Pending Lyme IgM 39 kDa Band Pending Lyme IgM 41 kDa Band Pending COVID-19 Eval Order SARS-CoV-2 (PCR) NEGATIVE (Negative) Hepatitis A IgM Ab Hep Bs Antigen (Neg) Hep B Core IgM Ab Hepatitis C Antibody (Neg) Monoscreen (Negative) Miscellaneous Test Miscellaneous Test 2 Blood Type Antibody Screen 05/09/21 05/09/21 05/09/21 Range/Units 19:25 19:25 19:25 WBC (4.8-10.8) K/uL RBC (4.7-6.1) M/uL Hgb (14.0-18.0) g/dL Hct (42-52) % MCV (80-100) fL MCH (25-34) pg MCHC (32-36) g/dL RDW Std Deviation (36.4-46.3) fL RDW Coeff of Michael (11.5-14.5) % Plt Count (130-400) K/uL MPV (7.4-10.4) fL Immature Gran % (Auto) % Neut % (Auto) % Lymph % (Auto) % [place] % (Auto) % Eos % (Auto) % Baso % (Auto) % Neut # (Auto) (1.4-6.5) K/uL Lymph # (Auto) (1.2-3.4) K/uL [place] # (Auto) (0.11-0.59) K/uL Eos # (Auto) (0-0.5) K/uL Baso # (Auto) (0-0.2) K/uL Immature Gran # (Auto) (0.00-0.02) K/uL PT (9.0-12.0) Seconds INR (0.9-1.1) APTT (21.0-31.0) Seconds PTT Ratio Sodium (136-145) mmol/L Potassium (3.5-5.1) mmol/L Chloride (98-107) mmol/L Carbon Dioxide (21-32) mmol/L Anion Gap (3-11) BUN (7-18) mg/dl Creatinine (0.6-1.4) mg/dl Est Cr Clr Drug Dosing Est GFR ( Amer) Est GFR (Non-Af Amer) BUN/Creatinine Ratio Glucose (70-99) mg/dl Estimat Average Glucose mg/dl Hemoglobin A1c (4.5-5.6) % Calcium (8.5-10.1) mg/dl Magnesium (1.8-2.4) mg/dl Total Bilirubin (0.2-1) mg/dl Direct Bilirubin (0-0.2) mg/dl AST (15-37) U/L ALT (12-78) U/L Alkaline Phosphatase (45-117) U/L Total Protein (6.4-8.2) gm/dl Albumin (3.4-5.0) gm/dl Globulin Albumin/Globulin Ratio Lipase (73-393) U/L TSH Urine Color Urine Appearance (Clear) Urine pH (4.5-7.5) Ur Specific [place] (1.000-1.030) Urine Protein (Negative) Urine Glucose (UA) (Negative) Urine Ketones (Negative) Urine Blood (Negative) Urine Nitrite (Negative) Urine Bilirubin (Negative) Urine Urobilinogen (Negative) Ur Leukocyte Esterase (Negative) Urine WBC (Auto) (0-5) /hpf Urine RBC (Auto) (0-4) /hpf U Hyaline Cast (Auto) (0-5) /lpf U Epithel Cells (Auto) (0-5) /lpf Urine Bacteria (Auto) (Negative) Anaplasma Smear A. phagocytophilum DNA Lyme Disease IgG Ab (Negative) Lyme IgG (Western Blot) Lyme IgG 18 kDa Band Lyme IgG 23 kDa Band Lyme IgG 28 kDa Band Lyme IgG 30 kDa Band Lyme IgG 39 kDa Band Lyme IgG 41 kDa Band Lyme IgG 45 kDa Band Lyme IgG 58 kDa Band Lyme IgG 66 kDa Band Lyme IgG 93 kDa Band Lyme IgM Ab (WB) Lyme Disease IgM Ab (Negative) Lyme IgM 23 kDa Band Lyme IgM 39 kDa Band Lyme IgM 41 kDa Band COVID-19 Eval [address] Covid19 at [facility] SARS-CoV-2 (PCR) (Negative) Hepatitis A IgM Ab Pending Hep Bs Antigen (Neg) Hep B Core IgM Ab Pending Hepatitis C Antibody (Neg) Monoscreen Negative (Negative) Miscellaneous Test Miscellaneous Test 2 Blood Type Antibody Screen 05/09/21 05/09/21 05/09/21 Range/Units 19:25 19:25 19:25 WBC (4.8-10.8) K/uL RBC (4.7-6.1) M/uL Hgb (14.0-18.0) g/dL Hct (42-52) % MCV (80-100) fL MCH (25-34) pg MCHC (32-36) g/dL RDW Std Deviation (36.4-46.3) fL RDW Coeff of Michael (11.5-14.5) % Plt Count (130-400) K/uL MPV (7.4-10.4) fL Immature Gran % (Auto) % Neut % (Auto) % Lymph % (Auto) % [place] % (Auto) % Eos % (Auto) % Baso % (Auto) % Neut # (Auto) (1.4-6.5) K/uL Lymph # (Auto) (1.2-3.4) K/uL [place] # (Auto) (0.11-0.59) K/uL Eos # (Auto) (0-0.5) K/uL Baso # (Auto) (0-0.2) K/uL Immature Gran # (Auto) (0.00-0.02) K/uL PT 18.7 H (9.0-12.0) Seconds INR 1.9 H (0.9-1.1) APTT 32.2 H (21.0-31.0) Seconds PTT Ratio 1.2 Sodium (136-145) mmol/L Potassium (3.5-5.1) mmol/L Chloride (98-107) mmol/L Carbon Dioxide (21-32) mmol/L Anion Gap (3-11) BUN (7-18) mg/dl Creatinine (0.6-1.4) mg/dl Est Cr Clr Drug Dosing Est GFR ( Amer) Est GFR (Non-Af Amer) BUN/Creatinine Ratio Glucose (70-99) mg/dl Estimat Average Glucose mg/dl Hemoglobin A1c (4.5-5.6) % Calcium (8.5-10.1) mg/dl Magnesium (1.8-2.4) mg/dl Total Bilirubin (0.2-1) mg/dl Direct Bilirubin (0-0.2) mg/dl AST (15-37) U/L ALT (12-78) U/L Alkaline Phosphatase (45-117) U/L Total Protein (6.4-8.2) gm/dl Albumin (3.4-5.0) gm/dl Globulin Albumin/Globulin Ratio Lipase (73-393) U/L TSH Urine Color Urine Appearance (Clear) Urine pH (4.5-7.5) Ur Specific [place] (1.000-1.030) Urine Protein (Negative) Urine Glucose (UA) (Negative) Urine Ketones (Negative) Urine Blood (Negative) Urine Nitrite (Negative) Urine Bilirubin (Negative) Urine Urobilinogen (Negative) Ur Leukocyte Esterase (Negative) Urine WBC (Auto) (0-5) /hpf Urine RBC (Auto) (0-4) /hpf U Hyaline Cast (Auto) (0-5) /lpf U Epithel Cells (Auto) (0-5) /lpf Urine Bacteria (Auto) (Negative) Anaplasma Smear A. phagocytophilum DNA Pending Lyme Disease IgG Ab (Negative) Lyme IgG (Western Blot) Lyme IgG 18 kDa Band Lyme IgG 23 kDa Band Lyme IgG 28 kDa Band Lyme IgG 30 kDa Band Lyme IgG 39 kDa Band Lyme IgG 41 kDa Band Lyme IgG 45 kDa Band Lyme IgG 58 kDa Band Lyme IgG 66 kDa Band Lyme IgG 93 kDa Band Lyme IgM Ab (WB) Lyme Disease IgM Ab (Negative) Lyme IgM 23 kDa Band Lyme IgM 39 kDa Band Lyme IgM 41 kDa Band COVID-19 Eval Order SARS-CoV-2 (PCR) (Negative) Hepatitis A IgM Ab Hep Bs Antigen Neg (Neg) Hep B Core IgM Ab Hepatitis C Antibody Neg (Neg) Monoscreen (Negative) Miscellaneous Test Miscellaneous Test 2 Blood Type Antibody Screen 05/09/21 05/09/21 05/09/21 Range/Units 19:25 19:25 19:25 WBC 7.16 (4.8-10.8) K/uL RBC 4.15 L (4.7-6.1) M/uL Hgb 14.9 (14.0-18.0) g/dL Hct 42.3 (42-52) % MCV 101.9 H (80-100) fL MCH 35.9 H (25-34) pg MCHC 35.2 (32-36) g/dL RDW Std Deviation 55.1 H (36.4-46.3) fL RDW Coeff of Michael 14.5 (11.5-14.5) % Plt Count 266 (130-400) K/uL MPV 11.1 H (7.4-10.4) fL Immature Gran % (Auto) 0.1 % Neut % (Auto) 80.3 % Lymph % (Auto) 12.8 % [place] % (Auto) 6.1 % Eos % (Auto) 0.4 % Baso % (Auto) 0.3 % Neut # (Auto) 5.74 (1.4-6.5) K/uL Lymph # (Auto) 0.92 L (1.2-3.4) K/uL [place] # (Auto) 0.44 (0.11-0.59) K/uL Eos # (Auto) 0.03 (0-0.5) K/uL Baso # (Auto) 0.02 (0-0.2) K/uL Immature Gran # (Auto) 0.01 (0.00-0.02) K/uL PT (9.0-12.0) Seconds INR (0.9-1.1) APTT (21.0-31.0) Seconds PTT Ratio Sodium 135 L (136-145) mmol/L Potassium 3.3 L (3.5-5.1) mmol/L Chloride 102 (98-107) mmol/L Carbon Dioxide 27 (21-32) mmol/L Anion Gap 6.0 (3-11) BUN 5 L (7-18) mg/dl Creatinine (0.6-1.4) mg/dl Est Cr Clr Drug Dosing TNP Est GFR ( Amer) TNP Est GFR (Non-Af Amer) TNP BUN/Creatinine Ratio TNP Glucose 111 H (70-99) mg/dl Estimat Average Glucose mg/dl Hemoglobin A1c (4.5-5.6) % Calcium 8.1 L (8.5-10.1) mg/dl Magnesium (1.8-2.4) mg/dl Total Bilirubin 33.8 H (0.2-1) mg/dl Direct Bilirubin 30.0 H (0-0.2) mg/dl AST 213 H (15-37) U/L ALT 110 H (12-78) U/L Alkaline Phosphatase 164 H (45-117) U/L Total Protein (6.4-8.2) gm/dl Albumin 2.7 L (3.4-5.0) gm/dl Globulin TNP Albumin/Globulin Ratio TNP Lipase 632 H (73-393) U/L TSH Cancelled Urine Color Urine Appearance (Clear) Urine pH (4.5-7.5) Ur Specific [place] (1.000-1.030) Urine Protein (Negative) Urine Glucose (UA) (Negative) Urine Ketones (Negative) Urine Blood (Negative) Urine Nitrite (Negative) Urine Bilirubin (Negative) Urine Urobilinogen (Negative) Ur Leukocyte Esterase (Negative) Urine WBC (Auto) (0-5) /hpf Urine RBC (Auto) (0-4) /hpf U Hyaline Cast (Auto) (0-5) /lpf U Epithel Cells (Auto) (0-5) /lpf Urine Bacteria (Auto) (Negative) Anaplasma Smear See Comment A. phagocytophilum DNA Lyme Disease IgG Ab Negative (Negative) Lyme IgG (Western Blot) Lyme IgG 18 kDa Band Lyme IgG 23 kDa Band Lyme IgG 28 kDa Band Lyme IgG 30 kDa Band Lyme IgG 39 kDa Band Lyme IgG 41 kDa Band Lyme IgG 45 kDa Band Lyme IgG 58 kDa Band Lyme IgG 66 kDa Band Lyme IgG 93 kDa Band Lyme IgM Ab (WB) Lyme Disease IgM Ab Equivocal A (Negative) Lyme IgM 23 kDa Band Lyme IgM 39 kDa Band Lyme IgM 41 kDa Band COVID-19 Eval Order SARS-CoV-2 (PCR) (Negative) Hepatitis A IgM Ab Hep Bs Antigen (Neg) Hep B Core IgM Ab Hepatitis C Antibody (Neg) Monoscreen (Negative) Miscellaneous Test Miscellaneous Test 2 Blood Type Antibody Screen
[2021-05-10] MEDS ORDERED: HEPARIN 100 UNIT/ML 5ML FLUSH ONE ×2 (09:38)
--- NOTE | 2021-05-10 10:29 | History & Physical Bridge Note ---
Date of Service May 10, 2021 History & Physical Bridge Note I have examined the patient, reviewed the History & Physical and in the interval since the performance of the History & Physical I have noted the following changes of clinical significance: no changes noted EUS +/- ERCP in case there is biliary obstruction.
[2021-05-10 10:30] LABS: INR 1.7 (0.9-1.1); Prothrombin Time 16.7 Seconds (9.0-12.0)
[2021-05-10] MEDS ORDERED: SODIUM CHLORIDE 0.9% 250 ML IV PRN (10:37)
--- NOTE | 2021-05-10 10:57 | Operative Report ---
Post Operative Report Pre & Post Diagnosis Operation Date: 05/10/21 13:30 <No data on this case meets the specified criteria> I identified the patient and participated in the time-out.: Yes Procedure Operation Date: 05/10/21 13:30 Actual Procedures p Endoscopic Ultrasonography Upper(Not Applicable) - Leola Garcia MD s Esophagogastroduodenoscopy with Liver Biopsy - Leola Garcia MD Surgeon Leola Garcia MD Nurseryperson None Estimated Blood Loss 0 Findings See Below (Hepatomegaly, biopsied) Specimens Liver biopsy Description of Procedure EUS I attest to the content of the Intraoperative Record and any orders documented therein. Any exceptions are noted below.
--- NOTE | 2021-05-10 11:09 | Communication Note ---
Date of Service: May 10, 2021 INR is 1.7, patient underwent Liver biopsy, will give 2 units FFP to avoid the risk of delayed bleeding.
--- NOTE | 2021-05-10 11:17 | GI REPORT ---
Patient Name: Jr Vera Procedure Date: 05/10/2021 10:32 AM Date of : 1980 Admit Type: Inpatient Age: 41 Gender: Male Attending MD: Leola Garcia MD Procedure: Upper GI endoscopy Providers: Leola Garcia MD Referring MD: Enedina Eddy Md Indications: Cirrhosis rule out esophageal varices Medicines: General Anesthesia Complications: No immediate complications. Estimated Blood Loss: Estimated blood loss: none. Procedure: Pre-Anesthesia Assessment: - Prior to the procedure, a History and Physical was performed, and patient medications, allergies and sensitivities were reviewed. The patient's tolerance of previous anesthesia was reviewed. - The risks and benefits of the procedure and the sedation options and risks were discussed with the patient. All questions were answered and informed consent was obtained. - Patient identification and proposed procedure were verified prior to the procedure by the physician and the nurse. The procedure was verified in the procedure room. - Pre-procedure physical examination revealed no contraindications to sedation. After obtaining informed consent, the endoscope was passed under direct vision. Throughout the procedure, the patient's blood pressure, pulse, and oxygen saturations were monitored continuously. The Endoscope was introduced through the mouth, and advanced to the second part of duodenum. The upper GI endoscopy was accomplished without difficulty. The patient tolerated the procedure well. Findings: The Z-line was regular and was found 40 cm from the incisors. Grade I varices were found in the lower third of the esophagus. Mild portal hypertensive gastropathy was found in the stomach. The duodenal bulb and second portion of the duodenum were normal. Impression: - Grade I esophageal varices. - Portal hypertensive gastropathy. - Normal duodenal bulb and second portion of the duodenum. Recommendation: - Perform an upper endoscopic ultrasound (UEUS) today. - Repeat upper endoscopy in 1 year for surveillance. Leola Garcia MD 05/10/2021 11:17:14 AM This report has been signed electronically. Note Initiated On: 05/10/2021 10:32 AM Number of Addenda: 0 I attest to the content of the Intraoperative Record and orders documented therein, exceptions below {[id number]}
--- NOTE | 2021-05-10 11:24 | GI REPORT ---
Patient Name: Jr Vera Procedure Date: 05/10/2021 10:35 AM Date of : 1980 Admit Type: Inpatient Age: 41 Gender: Male Attending MD: Leola Garcia MD Procedure: Upper EUS Providers: Leola Garcia MD Referring MD: Enedina Eddy Md Indications: Elevated liver enzymes Medicines: General Anesthesia Complications: No immediate complications. Estimated Blood Loss: Estimated blood loss: none. Procedure: Pre-Anesthesia Assessment: - Prior to the procedure, a History and Physical was performed, and patient medications, allergies and sensitivities were reviewed. The patient's tolerance of previous anesthesia was reviewed. - The risks and benefits of the procedure and the sedation options and risks were discussed with the patient. All questions were answered and informed consent was obtained. - Patient identification and proposed procedure were verified prior to the procedure by the physician and the nurse. The procedure was verified in the procedure room. - Pre-procedure physical examination revealed no contraindications to sedation. After obtaining informed consent, the endoscope was passed under direct vision. Throughout the procedure, the patient's blood pressure, pulse, and oxygen saturations were monitored continuously. The scope was introduced through the mouth, and advanced to the second part of duodenum. The upper EUS was accomplished without difficulty. The patient tolerated the procedure well. Findings: ENDOSONOGRAPHIC FINDING: : There was no sign of significant endosonographic abnormality in the ampulla. No masses were identified. There was no sign of significant endosonographic abnormality in the common bile duct. The maximum diameter of the duct was 4 mm. No stones and no biliary sludge were identified. Moderate hyperechoic material consistent with sludge was visualized endosonographically in the gallbladder. There was abnormal echogenicity in the entire examined liver. This area was hyperechoic. Fine needle biopsy was performed. Color Doppler imaging was utilized prior to needle puncture to confirm a lack of significant vascular structures within the needle path. One pass was made with the 19 gauge ultrasound core biopsy needle using a transgastric approach. A visible core of tissue was obtained. Verification of patient identification for the specimen was done by the physician and nurse using the patient's name and date. Pancreatic parenchymal abnormalities were noted in the entire pancreas. These consisted of hyperechoic strands, hyperechoic foci and lobularity. There was no sign of significant endosonographic abnormality in the visualized portion of the left adrenal gland. There was no sign of significant endosonographic abnormality involving the celiac trunk. A small amount of fluid, visualized as an anechoic feature, was found in the peritoneal cavity. Impression: - There was no sign of significant pathology in the ampulla. - There was no sign of significant pathology in the common bile duct. - Hyperechoic material consistent with sludge was visualized endosonographically in the gallbladder. - There was abnormal echogenicity in the entire examined liver suggestive of fatty infiltration. Fine needle biopsy performed. - Pancreatic parenchymal abnormalities consisting of hyperechoic strands, hyperechoic foci and lobularity were noted in the entire pancreas. - Endosonographic images of the left adrenal gland were unremarkable. - The celiac trunk was endosonographically normal. - Ascites was found on endosonographic examination of the peritoneal cavity. Recommendation: - Return patient to [facility] for [facility] care. - Await path results. - Refer to Hepatology at a Liver center in view of ongoing of decompensated liver disease, may eventually need OLT. Leola Garcia MD 05/10/2021 11:24:26 AM This report has been signed electronically. Note Initiated On: 05/10/2021 10:35 AM Number of Addenda: 0 I attest to the content of the Intraoperative Record and orders documented therein, exceptions below {[id number]}
--- NOTE | 2021-05-10 13:52 | Anesthesiology Progress Note ---
Date of Service May 10, 2021 Anesthesia Post Procedure Vital Signs Vital Signs: Temp Pulse Pulse Pulse Resp BP BP 05/10/21 13:31 36.8 C 98 H 18 116/72 05/10/21 12:49 36.8 C 97 H 20 05/10/21 12:25 37.2 C 96 H 18 122/76 05/10/21 12:15 102 H 16 131/81 05/10/21 12:05 95 H 24 121/81 05/10/21 11:55 37 C 102 H 28 H 126/81 05/10/21 11:45 106 H 28 H 132/78 05/10/21 11:35 95 H 26 H 112/73 05/10/21 11:25 95 H 26 H 110/69 05/10/21 11:15 95 H 26 H 109/68 05/10/21 11:08 36.3 C L 100 H 16 113/74 05/10/21 09:29 37.1 C 102 H 18 05/10/21 07:11 37.2 C 99 H 16 05/09/21 23:15 37.4 C 104 H 16 05/09/21 23:06 136/88 05/09/21 17:38 36.6 C 108 H 18 142/91 H BP Pulse Ox 05/10/21 13:31 94 05/10/21 12:49 114/69 91 05/10/21 12:25 93 05/10/21 12:15 93 05/10/21 12:05 93 05/10/21 11:55 92 05/10/21 11:45 92 05/10/21 11:35 95 05/10/21 11:25 94 05/10/21 11:15 94 05/10/21 11:08 94 05/10/21 09:29 126/80 94 05/10/21 07:11 122/73 94 05/09/21 23:15 138/85 95 05/09/21 23:06 05/09/21 17:38 94 Transfer of Care Handoff Completed per policy Notes Mental Status: alert / awake / arousable and participated in evaluation Patient Amnestic to Procedure: Yes Nausea / Vomiting: adequately controlled Pain: adequately controlled Airway Patency, RR, SpO2: stable & adequate BP & HR: stable & adequate Hydration State: stable & adequate Anesthetic Complications: no major complications apparent and Pt Satisfied with anesthetic care
--- NOTE | 2021-05-10 18:18 | Hospitalist Progress Note ---
Date of Service May 10, 2021 Assessment & Plan (1) Jaundice: Plan: 41-year-old male with medical history of fatty liver, alcohol abuse and mood disorder was sent to our ED 05/09 by outpatient PCP and GI evaluation for acute onset of jaundice and abnormal blood work. Is being managed for the following: #. Jaundice #. Alcohol abuse #. Fatty liver #. Elevated INR No inadvertent Tylenol use. Has been drinking couple of beers every day until few weeks ago when he stopped. Admitting CXR: Infiltrate bilateral bases. Right hemidiaphragm elevated. Admitting CTAP: Suggestive of underlying hepatic pathology versus hepatitis, s mall amount of ascites, mild gallbladder wall thickening/edema. Bilateral nephrolithiasisno ureteral stones and no hydronephrosis. Admitting hemoglobin 14.9, MCV 101, INR 1.9, albumin 2.7, total bilirubin 33.8 [direct bilirubin 30.0] Laparoscopic cholecystectomy considered pending GI testing results. Likely obstructive cholestasis 05/10 underwent upper scope and EUSliver biopsy sent, await results. Upper scope showed grade 1 esophageal varices and portal hypertensive gastropathy with normal duodenal bulb and second portion of the duodenum. Recommends upper endoscopy in 1 year for surveillance. GI on board. Appreciate recommendation. Continue monitor. Daily labs. #. Mood disorder suboptimal, although patient denies suicidality. PCP following issue. Will consult psychiatry while inpatient DVT prophylaxis. SCDs, INR elevated Full code Admission and Anticipated Discharge Date Admission Date: May 09, 2021 Subjective Patient was lying in bed, NAD, room air. Patient's reports tense belly with some lower belly pain but not tender on examination. Eating and moving bowels okay. Denies any other review of symptoms. Physical Exam Physical Exam: GENERAL: Alert and oriented x3. NAD, on RA. Yellowing of the sclera and skin noted. HEENT: No pallor, no icterus. Pupils equal, round and reactive to light. Oral mucosa moist. NECK: No JVD, no neck masses. HEART: S1 and S2 heard. Regular rate and rhythm. No murmur, no gallop. RESPIRATORY SYSTEM: Normal AP diameter. No accessory muscle use. No wheezing, no crackles. ABDOMEN: Soft, bowel sounds present, nontender, no distention. CENTRAL NERVOUS SYSTEM: Alert and oriented x3. No facial droop. Speech is clear. Obeys simple commands. Moves extremities. EXTREMITIES: 1+ edema, no erythema seen. Results & Data Results & Data ([facility]) Vital Signs (Past 12 Hours) Vital Signs Temp Pulse Pulse Resp BP BP Pulse Ox 05/10/21 15:21 36.6 C 95 H 16 126/72 94 05/10/21 14:27 36.9 C 97 H 18 121/76 94 05/10/21 13:31 36.8 C 98 H 18 116/72 94 05/10/21 12:49 36.8 C 97 H 20 114/69 91 05/10/21 12:25 37.2 C 96 H 18 122/76 93 05/10/21 12:15 102 H 16 131/81 93 05/10/21 12:05 95 H 24 121/81 93 05/10/21 11:55 37 C 102 H 28 H 126/81 92 05/10/21 11:45 106 H 28 H 132/78 92 05/10/21 11:35 95 H 26 H 112/73 95 05/10/21 11:25 95 H 26 H 110/69 94 05/10/21 11:15 95 H 26 H 109/68 94 05/10/21 11:08 36.3 C L 100 H 16 113/74 94 05/10/21 09:29 37.1 C 102 H 18 126/80 94 05/10/21 07:11 37.2 C 99 H 16 122/73 94
--- NOTE | 2021-05-10 18:46 | Ultrasound Report ---
US duplex portal hepatic veins HISTORY: 41 years-old Male Portal HTN, ? cirrhosis, r/o PVT acute upper abdominal pain with hepatosp lenomegaly and hepatic steatosis. COMPARISON: CT abdomen and pelvis of same day TECHNIQUE: Multiple real-time sonographic images of the hepatic vasculature were obtained assessing g rayscale appearance, color and spectral flow FINDINGS: Patent portal and hepatic veins. Trace perihepatic ascites. The liver is enlarged measuring up to 25 cm in length. The spleen is enlarged measuring up to 21 cm in length. Increased echogenicity of the h epatic parenchyma. The hepatic artery is also patent. IMPRESSION: 1. Hepatosplenomegaly with hepatic steatosis. 2. Patent hepatic and portal veins. 3. Trace perihepatic ascites. ACT 112: Negative or not required by law. The above report was generated using voice recognition software. It may contain grammatical, syntax o r spelling errors. Electronically signed by: Davide Sage M.D. 05/10/2021 6:45 PM
[2021-05-10] MEDS: POTASSIUM CHLORIDE 40 MEQ in SODIUM CHLORIDE 0.9% 1000ML 1,000 ML IV SCH (23:54)
[2021-05-11 05:26] LABS: Hepatitis A Antibody IgM NON-REACTIVE (NON-REACTIVE); Hepatitis B Core Antibody IgM NON-REACTIVE (NON-REACTIVE)
[2021-05-11 08:04] LABS: Alanine Aminotransferase 89 U/L (12-78); Albumin Level 2.2 gm/dl (3.4-5.0); Aspartate Aminotransferase 181 U/L (15-37); Blood Urea Nitrogen 5 mg/dl (7-18); Calcium 7.6 mg/dl (8.5-10.1); Carbon Dioxide 23 mmol/L (21-32); Chloride 108 mmol/L (98-107); Glucose 88 mg/dl (70-99); Magnesium 2.2 mg/dl (1.8-2.4); Potassium 3.4 mmol/L (3.5-5.1); Sodium 137 mmol/L (136-145)
[2021-05-11 08:22] LABS: Alkaline Phosphatase 143 U/L (45-117); Bilirubin,Total 28.7 mg/dl (0.2-1); Phosphorus 2.1 mg/dl (2.5-4.9)
[2021-05-11] MEDS ORDERED: POTASSIUM CHLORIDE CRTAB 20 MEQ TABCR PO STA (08:50)
[2021-05-11 10:24] LABS: INR 1.6 (0.9-1.1)
--- NOTE | 2021-05-11 11:55 | Gastroenterology Progress Note ---
Date of Service May 11, 2021 Assessment & Plan Admission and Anticipated Discharge Date Admission Date: May 09, 2021 Subjective Patient was seen and examined today, feels much better, says his stool color is better now. Denies abdominal pain, nausea or vomiting. Labs reviewed INR stable at 1.6 Hypokalemia Portal Doppler normal with patent PV. Recommend: Can go home from GI standpoint. He has appointment with Hepatology next week. Will follow up Liver Bx result, if consistent with alcoholic hepatitis then will treat with Prednisolone. Continue abstinence from Alcohol. Thiamin, folic acid and Potassium supplement. Recall Gi if needed. Results & Data ([facility]) Vital Signs (Past 12 Hours) Vital Signs Temp Pulse Resp BP Pulse Ox 05/11/21 08:02 37.1 C 106 H 16 129/67 93 05/11/21 00:10 37.3 C 102 H 16 126/77 92
--- NOTE | 2021-05-11 16:05 | Discharge Summary ---
Date of Service May 11, 2021 Admission HPI Per Admitting Provider History obtained from patient and records. Medical history significant for fatty liver, mood disorder. About 8 months ago, patient noted abdominal discomfort with bloating and fatigue symptoms. Denies inordinate Tylenol intake. Admits to alcohol consumption sometimes heavy. Outpatient provider ordered labs which showed abnormal LFTs. Outpatient abdominal ultrasound done last December 2020 showed mobile sludge within the gallbladder. Enlarged liver with increased echogenicity compatible with hepatic steatosis. Patient stopped alcohol consumption a few weeks ago. 2 weeks ago, patient noted to be jaundiced by a friend. Episodic right-sided abdominal discomfort with distention. Poor appetite. Stools pale and floating. No fever, no chills no chest pain, no S OB. Patient seen at GI office 3 days ago. LFTS at that time as follows: AST 220 ALT 102, alk phos 172, albumin 3.6, total Quinn 31.8. Differentials for jaundice and transaminitis included drug-induced versus alcoholic hepatitis versus biliary etiology as per documentation. Follow-up blood work, outpatient CT abdomen pelvis, EGD, EUS contemplated. Patient also seen at [facility] General Surgery 3 days ago. Laparoscopic cholecystectomy considered pending GI testing results. Outpatient follow-up LFTs drawn, and resulted today as follows: INR 1.83 AST 220, ALT 102, alk phos 172, total bilirubin 31.8, albumin 3.6, INR 1.83 Patient directed to ER by GI provider due to abnormal blood work. Medical History as above Surgical History : Dental surgery, inguinal hernia repair Family History : Colon cancer, liver disease Personal/Social history : Non-smoker, admits to occasional heavy alcohol intake, chiropractor Admission Exam Per Admitting Provider GENERAL: Comfortable, slightly anxious, no respiratory distress SKIN: Jaundiced, warm HEENT: [place] palpebral conjunctivae, no ptosis, icteric sclerae, dry buccal mucosa NECK : Supple, no tenderness CHEST : CTA, no tenderness HEART : Tachycardic, no obvious murmurs ABDOMEN: distention, minimal epigastric tenderness EXTREMITIES : No LE swelling/tenderness, no other conspicuous deformities noted NEUROLOGIC : Coherent, no facial asymmetry, no other gross focality Principal Diagnosis Obstructive jaundice Elevated INR Discharge Exam GENERAL: Alert and oriented x3. NAD, on RA. Yellowing of the sclera and skin noted. HEENT: No pallor, no icterus. Pupils equal, round and reactive to light. Oral mucosa moist. NECK: No JVD, no neck masses. HEART: S1 and S2 heard. Regular rate and rhythm. No murmur, no gallop. RESPIRATORY SYSTEM: Normal AP diameter. No accessory muscle use. No wheezing, no crackles. ABDOMEN: Soft, bowel sounds present, nontender, no distention. CENTRAL NERVOUS SYSTEM: Alert and oriented x3. No facial droop. Speech is clear. Obeys simple commands. Moves extremities. EXTREMITIES: trace edema, no erythema seen. Discharge Data Allergies Allergy/AdvReac Type Severity Reaction Status Date / Time bee pollen Allergy Intermediate HIVES/SWELL Verified 05/09/21 20:14 ING brompheniramine Allergy Intermediate Hives Verified 05/09/21 20:14 [From Dimetapp Cold-Allergy (PE)] phenylephrine Allergy Intermediate Hives Verified 05/09/21 20:14 [From Dimetapp Cold-Allergy (PE)] Sulfa (Sulfonamide Allergy Mild Rash Verified 05/09/21 20:14 Antibiotics) Consultations 05/09/21 19:25 ED Decision to Admit Stat 05/09/21 23:32 Consult Gastroenterology Routine Procedures Performed Operation Date: 05/10/21 13:30 Actual Procedures p Endoscopic Ultrasonography Upper(Not Applicable) - Leola Garcia MD s Esophagogastroduodenoscopy with Liver Biopsy - Leola Garcia MD Ordered Studies 05/10/21 01:36 CT abd pelvis wo con Urgent 05/10/21 10:10 US upper EUS PACS images Routine 05/10/21 16:51 US duplex portal hepatic veins Routine Hospital Course (1) Jaundice: 41-year-old male with medical history of fatty liver, alcohol abuse and mood disorder was sent to our ED 05/09 by outpatient PCP and GI evaluation for acute onset of jaundice and abnormal blood work. Was managed for the following: #. Jaundice #. Alcohol abuse #. Fatty liver #. Elevated INR No inadvertent Tylenol use. Has been drinking couple of beers every day until few weeks ago when he stopped. Admitting CXR: Infiltrate bilateral bases. Right hemidiaphragm elevated. Admitting CTAP: Suggestive of underlying hepatic pathology versus hepatitis, small amount of ascites, mild gallbladder wall thickening/edema. Bilateral nephrolithiasisno ureteral stones and no hydronephrosis. Admitting hemoglobin 14.9, MCV 101, INR 1.9, albumin 2.7, total bilirubin 33.8 [direct bilirubin 30.0] Laparoscopic cholecystectomy considered pending GI testing results. Likely obstructive cholestasis 05/10 underwent upper scope and EUSliver biopsy sent, await results. Upper scope showed grade 1 esophageal varices and portal hypertensive gastropathy with normal duodenal bulb and second portion of the duodenum. Recommends upper endoscopy in 1 year for surveillance. GI okay for discharge with thiamine and folic acid supplement. #. Mood disorder suboptimal, although patient denies suicidality. PCP following issue. Patient states that he was recently told not to take Remeron by his PCP as it was not helping him Full code Following instructions were communicated to the patient at time of discharge: Follow-up with your primary care physician within a week time. Get CMP and INR done in 3 to 5 days and have the results forwarded to your primary care physician. Follow-up with your GI doctor as scheduled. GI recommends upper endoscopy in 1 year for surveillance. Your liver biopsy result is pending. Follow-up with your primary care physician. Maintain follow-up with your general surgery doctor for already scheduled cholecystectomy. Take medications as prescribed. Strict alcohol avoidance. Continue to take folic acid and thiamine. Total Time Total Time Spent Total Time Spent (In Minutes): 45 Discharge Plan Discharge Items Patient Disposition: Home - Self-Care Reason For Visit: OBS JAUNDICE Discharge Diagnosis: Obstructive jaundice Elevated INR Condition on Discharge: Good Activity: Resume your previous activity Non-emergency contact: Primary Care Provider Call non-emergency contact if: you have any medication questions and your symptoms worsen Follow-up/Referrals: Benito Willoughby MD [Physician] - 05/13/21 9:15 am (Date & Time 05/13/2021 9:15 AM Provider Benito Willoughby MD Department General Surgery, [facility] ) Kyle Price DO [Primary Care Provider] - 05/17/21 11:00 am (Please arrive at office 15 min. before scheduled appointment) Silvino Alarcon MD [Outside Practitioners] - 05/25/21 10:40 am (Date & Time 05/25/2021 10:40 AM Provider [facility] Diet: Regular and Low Fat Addtl Attending Provider Instructions: Follow-up with your primary care physician within a week time. Get CMP and INR done in 3 to 5 days and have the results forwarded to your primary care physician. Follow-up with your GI doctor as scheduled. GI recommends upper endoscopy in 1 year for surveillance. Your liver biopsy result is pending. Follow-up with your primary care physician. Maintain follow-up with your general surgery doctor for already scheduled cholecystectomy. Take medications as prescribed. Strict alcohol avoidance. Continue to take folic acid and thiamine. Pending Studies at Discharge: Yes (05/10/2021 liver biopsy) Stand-Alone Forms: My [facility] Medications and DC Order Prescriptions: New folic acid 1 mg tablet 1 mg PO DAILY 30 Days Qty: 30 RF: 0 thiamine HCl (vitamin B1) 100 mg tablet 100 mg PO DAILY 30 Days Qty: 30 RF: 0 Continued omeprazole 20 mg Tablet,Delayed Release (Dr/Ec) 20 mg PO DAILYBB PRN (Reason: Heartburn) RF: 0 Discharge Orders: Discharge Order (Routine); Ordered 05/11/21 Ordered By: Enedina Melendez/Other Patient Handouts: Cholecystectomy Laparoscopic Dc Admission Data Admit Date/Time: 05/09/21 22:03 Attending Provider: Enedina Eddy Admit Provider: Rodriguez Cheek Primary Care Provider: Kyle Price Other Providers: Rodriguez Cheek ; Paola Michael ; Ally Razo ; Jordi Kerr ; Katerina Kingston ; Jonah Stauffer ; Naman Bosch ; Rosa Hernandez ; López Cabrera ; Nancy Merritt ; Yasemin Sandoval ; Gabby Eugene ; Argelia Quinones ; Leola Garcia Other Interventions: Discharge Summary Assessment (RN) Last Done: 05/11/21 11:56
[2021-05-12 02:07] LABS: 18KDIGG Band NON-REACTIVE; 23KDIGG Band NON-REACTIVE; 23KDIGM Band NON-REACTIVE; 28KDIGG Band NON-REACTIVE; 30KDIGG Band NON-REACTIVE; 39KDIGG Band NON-REACTIVE; 39KDIGM Band NON-REACTIVE; 41KDIGG Band REACTIVE; 41KDIGM Band NON-REACTIVE; 45KDIGG Band NON-REACTIVE; 58KDIGG Band NON-REACTIVE; 66KDIGG Band NON-REACTIVE; 93KDIGG Band NON-REACTIVE; Lyme Antibodies, WB IgG NEGATIVE (NEGATIVE); Lyme Antibodies, WB IgM NEGATIVE (NEGATIVE)
--- NOTE | 2021-05-19 13:38 | Coding Query ---
PATHOLOGY To promote full compliance with coding requirements relating to patient care, physician participation is requested in all cases of shoveler uncertainty. Please assist us with the question(s) below: Please review the Pathology report and please document any relevant diagnosis(es) below: Diagnosis(es): Bridging fibrosis, stage 3 of 4. Thank you Jef [facility]ASKINS [facility]
== END 2021-05-11 12:31 | disposition home or self-care (01) | DRG 421 ==
LOC: ED 17:23 → 3N 22:03 → SUATTDRO 22:03 → 3N 23:06

== ENCOUNTER 2021-08-20 19:09 | Inpatient (IN) ==
--- NOTE | 2021-08-20 20:14 | Emergency Department Note ---
Impression & Plan Acute hyponatremia, Hyperbilirubinemia, Elevated INR, Jaundice, Elevated lactic acid level, Alcohol abuse ED Provider Note Provider: Torres Graham MD DATE OF SERVICE: 08/20/2021 CHIEF COMPLAINT: Abdominal swelling, back pain, jaundice HISTORY OF PRESENT ILLNESS: Patient is a 41-year-old gentleman admitted in April for painless jaundice with a work-up finding combination of fatty live r and some alcohol abuse causing significant elevated bilirubin. Patient had paracentesis at that time. Patient states that there may be something wrong with his gallbladder but it has not been taken out in follow-up. Reports for the past 2 weeks has been feeling a bit off. States he feels a bit foggy at times. States he was fixing his shower door and bumped his right shoulder but has a bruise here. He states he does not believe he hit his head. Complaining again of feeling a bit foggy and having some pressure in his abdomen but denies abdominal pain. Reports some lower back pain but denies significant lifting. Patient states he is not been eating well but has been drinking liquids. Patient does report has been drinking some alcohol but does not answer to more specifics in my questioning. Patient denies any fevers or cold-like symptoms. REVIEW OF SYSTEMS: A total of 10 review of systems was obtained and negative except as stated above in the HPI. PAST MEDICAL HISTORY: As noted above MEDICATIONS: Reviewed home medication list SOCIAL HISTORY: History of alcohol abuse PHYSICAL EXAM: GENERAL: alert and oriented in no acute distress on stretcher Head: normocephalic and atraumatic EYES: No injection but very icteric. PERRL NECK: Trachea midline. Supple. ENT: Mucous membranes pink and moist. LUNGS: Airway patent. No retractions. Breath sounds clear with diminished bases HEART: Regular rate and rhythm. No chest wall tenderness ABDOMEN: Abdomen is distended and firm but not significantly tender. BACK: No midline tenderness, no SI joint tenderness. No bilateral flank tenderness. SKIN: Acyanotic but jaundiced in nature and dry. No significant rashes noted. EXTREMITIES: Without significant lower extremity deformity or tenderness with 1+ bilateral lower extremity edema. A healing contusion overlying the right lateral shoulder without significant bony tenderness is noted. Slight abrasion here but no laceration or foreign body noted. NEUROLOGICAL: No focal deficits. No aphasia. No facial droop or slurred speech. Patient somewhat slow to answer at times and a bit repetitive with questioning. EK bpm sinus tachycardia. No PVC. No acute ST segment elevation or depression. Normal axis. Clearly visualize P waves in this cardiogram. CONTINUOUS CARDIAC MONITORING: was ordered and showed a heart rate of 100s- 120sbpm in sinus tachycardia Patient's laboratory studies and imaging reviewed. Differential includes gastrointestinal, infection, dehydration, metabolic abnormality, hypo/hyperglycemia, electrolyte disturbance, anemia, hypoxia, cardi ac sources, intracerebral event, toxicologic, neurologic, as well as other pathologies. IMPRESSION/MEDICAL DECISION MAKING: Question if he is having some decompensated liver failure. He is quite j aundiced. Question hepatic encephalopathy. No significant reported trauma though he does have an old bruise in his right shoulder as such a CT of the head was ordered. Basic labs are ordered including ammonia level. Abdomen is not significant tender but is firm and believe he likely suffering from significant ascites. Blood work returns with a critically low sodium of 108 as well as some mild hypokalemia of 2.9. Alcohol level is detectable although the patient states he has not had any alcohol in 2 days on requestioning. Mild thrombocytopenia. No significant AV or leukocytosis. INR is elevated 3.7 and sodium again is critically low. Ammonia mildly elevated at 56 but believe his encephalopathy is likely from the sodium issue. Lactate is elevated at 5.4. Bilirubin 27.5. Negative Covid testing. Lipase not significantly elevated. AST mildly elevated ALT within normal limits. Procalcitonin 0.44. I doubt this represents sepsis picture at this point. Doubt SBP at this point. Given a small amount of normal saline. CTs per radiology report as below without significant emergent findings particularly in the head. Patient requires further admission and care regarding his liver dysfunction and his hyponatremia. Patient did complain of little bit of heartburn symptoms and given some Mylanta. The hospitalist was contacted. DIAGNOSIS: Jaundice, abdominal pain, acute hyponatremia, elevated lactate, elevated INR, alcohol abuse, confusion DISPOSITION: Hospitalist will evaluate Patient was agreeable with this plan. Critical Care I have personally spent 37 minutes of critical care time in the direct management of this patient. This includes bedside care, interpretation of diagnostic studies, and testing, discussion with consultants, patient, and other required patient management activities. These 37 minutes is in excess of all separately billable procedures. Preliminary Findings Only See Final Report For Complete Findings CT ABDOMEN & PELVIS Without Contrast: Comparison 05/10/2021 3 cm segment of jejunal jejunal small bowel intussusception left mid abdomen coronal 44 and axial 53 may be transient, clinically correlate No bowel dilation or free air Interval increase in volume of abdominal pelvic ascites now moderate to large Mesenteric and omental stranding, edema mildly increased Anasarca now present Elevation of the right hemidiaphragm with basilar atelectasis Enlarged heterogeneous fatty appearing liver and splenomegaly, varices, ascites consistent with stigmata of portal hypertension again noted Other abdominal solid organs and abdominal aorta appear within limits on noncontrast imaging Fluid within right inguinal hernia has increased in size/amount Radiologist: Mariano Camp M.D. Study ready at 21:29 and initial results transmitted at 22:05 Preliminary Findings Only See Final Report For Complete Findings CT HEAD: No intracranial hemorrhage, mass-effect or CT evidence of acute infarct Ventricles are within limits and midline Visualized paranasal sinuses, mastoids and orbits appear within limits Radiologist: Mariano Camp M.D. Study ready at 21:29 and initial results transmitted at 21:41 Past Med/Surg History Medical History Anxiety and depression Elevated liver enzymes GERD (gastroesophageal reflux disease) Kidney stone on right side NO INTERVENTION "VERY SMALL" Surgical History H/O inguinal hernia repair Slow to wake up after anesthesia Adair teeth removed Family History Grandfather (Paternal) Family hx of colon cancer Other No family history of adverse response to anesthesia Social History Smoking Status: Never smoker Second Hand Exposure: Yes ( A CHILD); Hx Alcohol Use: Yes Alcohol type: beer and hard liquor Preferred Language: Mohawk Communication Ability: Effective Tape Duplicator Required: No Beliefs That Will Affect Care: None Current Living Situation: Alone Feels Safe at Home: Yes Assistive Devices: None Allergies Allergies Allergy/AdvReac Type Severity Reaction Status Date / Time bee pollen Allergy Intermediate HIVES/SWELL Verified 08/20/21 19:41 ING brompheniramine Allergy Intermediate Hives Verified 08/20/21 19:41 [From Dimetapp Cold-Allergy (PE)] phenylephrine Allergy Intermediate Hives Verified 08/20/21 19:41 [From Dimetapp Cold-Allergy (PE)] Sulfa (Sulfonamide Allergy Mild Rash Verified 08/20/21 19:41 Antibiotics) Home Meds Home Medications Medication Instructions Recorded Confirmed omeprazole 20 mg tablet,delayed 20 mg PO DAILYBB 05/09/21 08/20/21 release Pancreat-Bet [id number] 250 1 cap PO QAM 08/20/21 08/20/21 mg-162 mg-65 mg-125 mg capsule (Super Enzyme) cetirizine 10 mg tablet 10 mg PO QAM 08/20/21 08/20/21 furosemide 20 mg tablet 20 mg PO QAM 08/20/21 08/20/21 lactulose 10 gram/15 mL oral 10 g PO QAM 08/20/21 08/20/21 solution lorazepam 0.5 mg tablet 0.5 mg PO DAILY PRN 08/20/21 08/20/21 spironolactone 50 mg tablet 50 mg PO HS 08/20/21 08/20/21 Results & Data (ED) Vital Signs Vital Signs - 24 hr 08/20/21 19:11 08/20/21 20:16 Temperature 36.7 C Temperature Source Temporal Artery Scan Pulse Rate 125 H 117 H Pulse Rhythm Regular Pulse Strength Normal Respiratory Rate 20 20 Respiratory Effort / Characteristics Non-Labored Respiratory Depth Normal Respiratory Pattern Regular Blood Pressure 155/95 H Blood Pressure Mean 115 Blood Pressure Position Lying Pulse Oximetry 93 94 Oxygen Delivery Method Room Air Room Air Sepsis Recent Fever Within 48 Hours No Sepsis New/Unexplained Change in Mental Status No Sepsis Action Taken by Nursing No Action Required Laboratory Data Result diagrams: 08/20/21 20:08 08/20/21 20:08 Lab Results 08/20/21 08/20/21 08/20/21 Range/Units 20:08 20:08 20:08 WBC 7.44 (4.8-10.8) K/uL RBC 4.16 L (4.7-6.1) M/uL Hgb 14.4 (14.0-18.0) g/dL Hct 38.0 L (42-52) % MCV 91.3 (80-100) fL MCH 34.6 H (25-34) pg MCHC 37.9 H (32-36) g/dL RDW Std Deviation 42.5 (36.4-46.3) fL RDW Coeff of Michael 12.7 (11.5-14.5) % Plt Count 116 L (130-400) K/uL MPV 12.1 H (7.4-10.4) fL Immature Gran % (Auto) 0.3 % Neut % (Auto) 85.3 % Lymph % (Auto) 6.9 % [place] % (Auto) 7.4 % Eos % (Auto) 0.0 % Baso % (Auto) 0.1 % Neut # (Auto) 6.64 H (1.4-6.5) K/uL Lymph # (Auto) 0.54 L (1.2-3.4) K/uL [place] # (Auto) 0.58 (0.11-0.59) K/uL Eos # (Auto) 0.00 (0-0.5) K/uL Baso # (Auto) 0.01 (0-0.2) K/uL Immature Gran # (Auto) 0.02 (0.00-0.02) K/uL Platelet Estimate Decreased L (Normal) Hypochromasia Present PT 33.5 H (9.0-12.0) Seconds INR 3.7 H (0.9-1.1) Sodium 108 L* (136-145) mmol/L Potassium 2.9 L (3.5-5.1) mmol/L Chloride 68 L (98-107) mmol/L Carbon Dioxide 25 (21-32) mmol/L Anion Gap 15.0 H (3-11) BUN 2 L (7-18) mg/dl Creatinine (0.6-1.4) mg/dl Est Cr Clr Drug Dosing Not Reportable Est GFR ( Amer) Not Reportable Est GFR (Non-Af Amer) Not Reportable BUN/Creatinine Ratio Not Reportable Glucose 138 H (70-99) mg/dl Lactate (0.4-2.0) mmol/L Calcium 8.5 (8.5-10.1) mg/dl Total Bilirubin 27.5 H (0.2-1) mg/dl AST 282 H (15-37) U/L ALT 54 (12-78) Alkaline Phosphatase 343 H D (45-117) U/L Ammonia (11-32) umol/L Troponin I < 0.015 (0-0.045) ng/ml Total Protein (6.4-8.2) gm/dl Albumin 2.5 L (3.4-5.0) gm/dl Globulin Not Reportable Albumin/Globulin Ratio Not Reportable Lipase 147 (73-393) U/L Procalcitonin (0-0.5) ng/ml TSH 1.470 (0.300-4.500) uIu/ml Ethyl Alcohol mg/dL (0-3) mg/dl SARS-CoV-2, RNA, NAAT (NEGATIVE) 08/20/21 08/20/21 08/20/21 Range/Units 20:08 20:08 20:08 WBC (4.8-10.8) K/uL RBC (4.7-6.1) M/uL Hgb (14.0-18.0) g/dL Hct (42-52) % MCV (80-100) fL MCH (25-34) pg MCHC (32-36) g/dL RDW Std Deviation (36.4-46.3) fL RDW Coeff of Michael (11.5-14.5) % Plt Count (130-400) K/uL MPV (7.4-10.4) fL Immature Gran % (Auto) % Neut % (Auto) % Lymph % (Auto) % [place] % (Auto) % Eos % (Auto) % Baso % (Auto) % Neut # (Auto) (1.4-6.5) K/uL Lymph # (Auto) (1.2-3.4) K/uL [place] # (Auto) (0.11-0.59) K/uL Eos # (Auto) (0-0.5) K/uL Baso # (Auto) (0-0.2) K/uL Immature Gran # (Auto) (0.00-0.02) K/uL Platelet Estimate (Normal) Hypochromasia PT (9.0-12.0) Seconds INR (0.9-1.1) Sodium (136-145) mmol/L Potassium (3.5-5.1) mmol/L Chloride (98-107) mmol/L Carbon Dioxide (21-32) mmol/L Anion Gap (3-11) BUN (7-18) mg/dl Creatinine (0.6-1.4) mg/dl Est Cr Clr Drug Dosing Est GFR ( Amer) Est GFR (Non-Af Amer) BUN/Creatinine Ratio Glucose (70-99) mg/dl Lactate (0.4-2.0) mmol/L Calcium (8.5-10.1) mg/dl Total Bilirubin (0.2-1) mg/dl AST (15-37) U/L ALT (12-78) Alkaline Phosphatase (45-117) U/L Ammonia 56.9 H (11-32) umol/L Troponin I (0-0.045) ng/ml Total Protein (6.4-8.2) gm/dl Albumin (3.4-5.0) gm/dl Globulin Albumin/Globulin Ratio Lipase (73-393) U/L Procalcitonin 0.44 (0-0.5) ng/ml TSH (0.300-4.500) uIu/ml Ethyl Alcohol mg/dL 69.4 H (0-3) mg/dl SARS-CoV-2, RNA, NAAT (NEGATIVE) 08/20/21 08/20/21 08/20/21 Range/Units 20:08 20:44 22:32 WBC (4.8-10.8) K/uL RBC (4.7-6.1) M/uL Hgb (14.0-18.0) g/dL Hct (42-52) % MCV (80-100) fL MCH (25-34) pg MCHC (32-36) g/dL RDW Std Deviation (36.4-46.3) fL RDW Coeff of Michael (11.5-14.5) % Plt Count (130-400) K/uL MPV (7.4-10.4) fL Immature Gran % (Auto) % Neut % (Auto) % Lymph % (Auto) % [place] % (Auto) % Eos % (Auto) % Baso % (Auto) % Neut # (Auto) (1.4-6.5) K/uL Lymph # (Auto) (1.2-3.4) K/uL [place] # (Auto) (0.11-0.59) K/uL Eos # (Auto) (0-0.5) K/uL Baso # (Auto) (0-0.2) K/uL Immature Gran # (Auto) (0.00-0.02) K/uL Platelet Estimate (Normal) Hypochromasia PT (9.0-12.0) Seconds INR (0.9-1.1) Sodium (136-145) mmol/L Potassium (3.5-5.1) mmol/L Chloride (98-107) mmol/L Carbon Dioxide (21-32) mmol/L Anion Gap (3-11) BUN (7-18) mg/dl Creatinine (0.6-1.4) mg/dl Est Cr Clr Drug Dosing Est GFR ( Amer) Est GFR (Non-Af Amer) BUN/Creatinine Ratio Glucose (70-99) mg/dl Lactate 5.4 H* 4.7 H* (0.4-2.0) mmol/L Calcium (8.5-10.1) mg/dl Total Bilirubin (0.2-1) mg/dl AST (15-37) U/L ALT (12-78) Alkaline Phosphatase (45-117) U/L Ammonia (11-32) umol/L Troponin I (0-0.045) ng/ml Total Protein (6.4-8.2) gm/dl Albumin (3.4-5.0) gm/dl Globulin Albumin/Globulin Ratio Lipase (73-393) U/L Procalcitonin (0-0.5) ng/ml TSH (0.300-4.500) uIu/ml Ethyl Alcohol mg/dL (0-3) mg/dl SARS-CoV-2, RNA, NAAT NEGATIVE (NEGATIVE) Administered Medications Discontinued Medications Al Hydrox/Mg Hydrox/Simethicone (Aluminum/Magnesium Susp 30 Ml Udc) Confirm Administered Dose 30 ml .ROUTE .STK-MED ONE Stop: 08/20/21 23:29 Last Admin: 08/20/21 23:31 Dose: Not Given Documented by: [id number] Al Hydrox/Mg Hydrox/Simethicone 18 ml/ Lidocaine HCl 6 ml/ BARCODE IDENTIFIER 1 ea 0 ml PO ONE ONE Stop: 08/20/21 23:05 Last Admin: 08/20/21 23:31 Dose: 24 ml Documented by: [id number] Sodium Chloride (Nss) 250 mls @ 999 mls/hr IV .Q16M ONE Stop: 08/20/21 22:24 Last Infusion: 08/20/21 23:01 Dose: 0 mls/hr Documented by: [id number] Admin: 08/20/21 22:28 Dose: 999 mls/hr Documented by: [id number] Lidocaine HCl (Lidocaine Viscous 2% 15 Ml Udc) Confirm Administered Dose 15 ml .ROUTE .STK-MED ONE Stop: 08/20/21 23:29 Last Admin: 08/20/21 23:31 Dose: Not Given Documented by: [id number] Imaging Data Radiologist's Impression: Chest X-Ray 08/20/21 19:48 XR chest 1V portable CLINICAL HISTORY: weakness. Evaluate cardiopulmonary status COMPARISON STUDY: 05/09/2021 TECHNIQUE: 1 view of the chest FINDINGS: Single frontal view of the chest demonstrates the cardiomediastinal silhouette to be within normal limits. There is again asymmetric elevation of the right hemidiaphragm. The lungs are clear of alveolar opacities. There is no evidence for pleural effusion. There is no evidence for vascular congestion. There is no acute osseous pathology. IMPRESSION: No acute cardiopulmonary disease. ACT 112: Negative or not required by law. Electronically signed by: Hima Moreira M.D. 08/20/2021 9:32 PM Abdomen/Pelvis CT 08/20/21 20:06 CT abd pelvis wo con CLINICAL HISTORY: abd pain, swelling . Vomiting and ascites with history of jaundice COMPARISON STUDY: 05/10/2021 CT DOSE: TECHNIQUE: Standard CT of the Abdomen and Pelvis was performed without IV contrast. The patient did not receive oral contrast. A dose lowering technique was utilized adhering to the principles of ALARA. FINDINGS: Lung base: The lung bases are clear. There is asymmetric elevation of the right hemidiaphragm. Abdominal cavity: There is moderate abdominal and pelvic ascites. Ascitic fluid also extends into right inguinal hernia which extends to the scrotal sac. There is no gross abdominal mass or adenopathy. However, there are extensive varices seen in the kenna hepatis at the gastric fundus. There is also mesenteric stranding related to the patient's ascites. Liver: There is marked hepatomegaly with diffuse fatty infiltration of the liver.. Spleen: There is evidence for some moderate splenomegaly with extensive splenic hilar varices. Pancreas: The pancreas is homogeneous in attenuation on these limited no ncontrast images. Gall Bladder: The gallbladder is well distended with no evidence for cholelithiasis, wall thickening or pericholecystic edema.. Adrenal glands: The adrenal glands are normal in size and attenuation on these limited noncontrast images. Kidneys: The kidneys are homogeneous in attenuation on these limited noncontrast images. There is a 5 mm nonobstructing right renal calculus. There is no evidence of left renal calculus or hydronephrosis bilaterally. There is no gross renal mass on these limited noncontrast images. Bowel: There is a focus of intussusception seen involving the jejunum in the left side of the abdomen. However, this does not produce bowel obstruction and is most likely transient. The bowel loops are otherwise normally placed within the abdomen and pelvis without evidence for dilatation or obstruction. There is no evidence for mass lesion. There are no inflammatory changes present. There is no evidence for free air. Bladder: There is no evidence for focal bladder wall thickening, calculus or diverticulum. : There is no evidence for pelvic mass or adenopathy. Vasculature: There is no evidence for focal aneurysmal dilatation of the abdominal aorta. Osseous structures: There is no acute osseous pathology. IMPRESSION: 1. Marked hepatomegaly with fatty infiltration of the liver, splenomegaly, portal and splenic varices 2. Moderate abdominal and pelvic ascites. 3. Evidence for a short loop of intussusception within the jejunum which is most likely transient. There is no bowel loop dilatation or obstruction. 4. Mesenteric stranding which is most likely related to the ascites present. 5. Nonobstructing right renal calculus. 6. Additional nonacute findings are delineated above. ACT 112: Negative or not required by law. Electronically signed by: Hima Moreira M.D. 08/20/2021 10:[address] 08/20/21 20:06 CT head/brain wo con CLINICAL HISTORY: confusion, ascites . Vomiting COMPARISON STUDY: No previous studies for comparison. CT DOSE: 2685.34 mGy.cm TECHNIQUE: Standard CT of the Brain was performed without IV contrast. A dose lowering technique was utilized adhering to the principles of ALARA. FINDINGS: Extraaxial space: There is no evidence for subdural hematoma. There are no extra-axial fluid collections. Ventricles and cisterns: The ventricles are normal in size and configuration. There is no evidence for midline shift or mass effect. Parenchyma: There is no subarachnoid or intraparenchymal hemorrhage. There is no evidence for an acute infarct or cerebral edema. There is homogeneous attenuation of the brain parenchyma. There are no gross mass lesions. Osseous structures: There is no evidence for an acute fracture. The visualized paranasal sinuses are clear. The mastoid air cells are clear bilaterally. Soft tissues: There is no evidence for focal soft tissue swelling. IMPRESSION: No acute intracerebral pathology. ACT 112: Negative or not required by law. Electronically signed by: Hima Moreira M.D. 08/20/2021 10:21 PM Discharge Plan Visit Data Chief Complaint: Illness Stated Complaint: ASCITES,BLOATING,BLOOD IN STOOL ED Provider: Torres Graham Discharge Problem: Acute hyponatremia, Hyperbilirubinemia, Elevated INR, Jaundice, Elevated lactic acid level, Alcohol abuse Patient Disposition: Admitted As Inpatient Forms Stand Alone Forms: My [facility] Prescriptions Prescriptions: No Action omeprazole 20 mg Tablet,Delayed Release (Dr/Ec) 20 mg PO DAILYBB RF: 0 cetirizine 10 mg Tablet 10 mg PO QAM RF: 0 lorazepam 0.5 mg tablet 0.5 mg PO DAILY PRN (Reason: Anxiety) RF: 0 furosemide 20 mg tablet 20 mg PO QAM RF: 0 spironolactone 50 mg tablet 50 mg PO HS RF: 0 lactulose [Cholac] 10 gram/15 mL Solution 10 g PO QAM RF: 0 Super Enzyme [id number] mg Capsule 1 cap PO QAM RF: 0 Referrals Referrals: Kyle Price DO [Primary Care Provider] -
[2021-08-20 20:43] LABS: INR 3.7 (0.9-1.1); Prothrombin Time 33.5 Seconds (9.0-12.0)
[2021-08-20 20:45] LABS: Alanine Aminotransferase 54 (12-78); Albumin Level 2.5 gm/dl (3.4-5.0); Aspartate Aminotransferase 282 U/L (15-37); Blood Urea Nitrogen 2 mg/dl (7-18); Calcium 8.5 mg/dl (8.5-10.1); Carbon Dioxide 25 mmol/L (21-32); Chloride 68 mmol/L (98-107); Glucose 138 mg/dl (70-99); Lipase 147 U/L (73-393); Potassium 2.9 mmol/L (3.5-5.1); Sodium 108 mmol/L (136-145)
[2021-08-20 20:53] LABS: Alkaline Phosphatase 343 U/L (45-117); Troponin I < 0.015 ng/ml (0-0.045)
[2021-08-20 21:10] LABS: Bilirubin,Total 27.5 mg/dl (0.2-1)
--- NOTE | 2021-08-20 21:34 | XRay Report ---
XR chest 1V portable CLINICAL HISTORY: weakness. Evaluate cardiopulmonary status COMPARISON STUDY: 05/09/2021 TECHNIQUE: 1 view of the chest FINDINGS: Single frontal view of the chest demonstrates the cardiomediastinal silhouette to be within normal li mits. There is again asymmetric elevation of the right hemidiaphragm. The lungs are clear of alveolar opacities. There is no evidence for pleural effusion. There is no evidence for vascular congestion. There is no acute osseous pathology. IMPRESSION: No acute cardiopulmonary disease. ACT 112: Negative or not required by law. Electronically signed by: Hima Moreira M.D. 08/20/2021 9:32 PM
[2021-08-20 21:40] LABS: Hemoglobin 14.4 g/dL (14.0-18.0); Mean Corpuscular Hemoglobin 34.6 pg (25-34); Mean Corpuscular Hgb Conc 37.9 g/dL (32-36); Mean Corpuscular Volume 91.3 fL (80-100); Mean Platelet Volume 12.1 fL (7.4-10.4); Platelet Count 116 K/uL (130-400); RDW Coefficient of Variation 12.7 % (11.5-14.5); RDW Standard Deviation 42.5 fL (36.4-46.3); Red Blood Count 4.16 M/uL (4.7-6.1); White Blood Count 7.44 K/uL (4.8-10.8)
[2021-08-20 21:49] LABS: Basophils # (auto) 0.01 K/uL (0-0.2); Basophils % (auto) 0.1 %; Hypochromasia Present; Immature Granulocytes # (auto) 0.02 K/uL (0.00-0.02); Immature Granulocytes % (auto) 0.3 %; Lymphocytes # (auto) 0.54 K/uL (1.2-3.4); Lymphocytes % (auto) 6.9 %; Monocytes # (auto) 0.58 K/uL (0.11-0.59); Monocytes % (auto) 7.4 %; Neutrophils # (auto) 6.64 K/uL (1.4-6.5); Neutrophils % (auto) 85.3 %; Platelet Estimate Decreased (Normal)
[2021-08-20] MEDS ORDERED: SODIUM CHLORIDE 0.9% 250 ML IV ONE (22:09)
--- NOTE | 2021-08-20 22:23 | CT Scan Report ---
CT head/brain wo con CLINICAL HISTORY: confusion, ascites . Vomiting COMPARISON STUDY: No previous studies for comparison. CT DOSE: 2685.34 mGy.cm TECHNIQUE: Standard CT of the Brain was performed without IV contrast. A dose lowering technique was utilized adhering to the principles of ALARA. FINDINGS: Extraaxial space: There is no evidence for subdural hematoma. There are no extra-axial fluid collecti ons. Ventricles and cisterns: The ventricles are normal in size and configuration. There is no evidence f or midline shift or mass effect. Parenchyma: There is no subarachnoid or intraparenchymal hemorrhage. There is no evidence for an acu te infarct or cerebral edema. There is homogeneous attenuation of the brain parenchyma. There are no gross mass lesions. Osseous structures: There is no evidence for an acute fracture. The visualized paranasal sinuses are clear. The mastoid air cells are clear bilaterally. Soft tissues: There is no evidence for focal soft tissue swelling. IMPRESSION: No acute intracerebral pathology. ACT 112: Negative or not required by law. Electronically signed by: Hima Moreira M.D. 08/20/2021 10:21 PM
--- NOTE | 2021-08-20 22:34 | CT Scan Report ---
CT abd pelvis wo con CLINICAL HISTORY: abd pain, swelling . Vomiting and ascites with history of jaundice COMPARISON STUDY: 05/10/2021 CT DOSE: TECHNIQUE: Standard CT of the Abdomen and Pelvis was performed without IV contrast. The patient did not receive oral contrast. A dose lowering technique was utilized adhering to the principles of SHIRLEY Coker. FINDINGS: Lung base: The lung bases are clear. There is asymmetric elevation of the right hemidiaphragm. Abdominal cavity: There is moderate abdominal and pelvic ascites. Ascitic fluid also extends into rig ht inguinal hernia which extends to the scrotal sac. There is no gross abdominal mass or adenopathy. However, there are extensive varices seen in the kenna hepatis at the gastric fundus. There is also mesenteric stranding related to the patient's ascites. Liver: There is marked hepatomegaly with diffuse fatty infiltration of the liver.. Spleen: There is evidence for some moderate splenomegaly with extensive splenic hilar varices. Pancreas: The pancreas is homogeneous in attenuation on these limited noncontrast images. Gall Bladder: The gallbladder is well distended with no evidence for cholelithiasis, wall thickening or pericholecystic edema.. Adrenal glands: The adrenal glands are normal in size and attenuation on these limited noncontrast im ages. Kidneys: The kidneys are homogeneous in attenuation on these limited noncontrast images. There is a 5 mm nonobstructing right renal calculus. There is no evidence of left renal calculus or hydronephrosi s bilaterally. There is no gross renal mass on these limited noncontrast images. Bowel: There is a focus of intussusception seen involving the jejunum in the left side of the abdomen . However, this does not produce bowel obstruction and is most likely transient. The bowel loops are otherwise normally placed within the abdomen and pelvis without evidence for dilatation or obstructio n. There is no evidence for mass lesion. There are no inflammatory changes present. There is no evide nce for free air. Bladder: There is no evidence for focal bladder wall thickening, calculus or diverticulum. : There is no evidence for pelvic mass or adenopathy. Vasculature: There is no evidence for focal aneurysmal dilatation of the abdominal aorta. Osseous structures: There is no acute osseous pathology. IMPRESSION: 1. Marked hepatomegaly with fatty infiltration of the liver, splenomegaly, portal and splenic varices 2. Moderate abdominal and pelvic ascites. 3. Evidence for a short loop of intussusception within the jejunum which is most likely transient. Th ere is no bowel loop dilatation or obstruction. 4. Mesenteric stranding which is most likely related to the ascites present. 5. Nonobstructing right renal calculus. 6. Additional nonacute findings are delineated above. ACT 112: Negative or not required by law. Electronically signed by: Hima Moreira M.D. 08/20/2021 10:33 PM
[2021-08-20] MEDS ORDERED: ALUMINUM/MAGNESIUM SUSP 18 ML, LIDOCAINE VISCOUS 2% SOLN 6 ML, BARCODE IDENTIFIER 1 EA PO ONE (23:04)
[2021-08-20] MEDS ORDERED: LIDOCAINE VISCOUS 2% 15 ML UDC ONE (23:28)
[2021-08-20] MEDS ORDERED: ALUMINUM/MAGNESIUM SUSP 30 ML UDC ONE (23:28)
[2021-08-21] MEDS ORDERED: POTASSIUM CHLORIDE CRTAB 20 MEQ TABCR PO STA ×2 (01:11→07:19)
[2021-08-21] MEDS ORDERED: LACTULOSE SYRUP 30 GM/45 ML UDP PO STA (01:11)
[2021-08-21] MEDS ORDERED: UREA (UREA-NA) 15 GM PACK PO STA (01:11)
[2021-08-21] MEDS ORDERED: POTASSIUM CHLORIDE / WTR 10 MEQ/100 ML PLCT IV STA (01:11)
[2021-08-21] MEDS ORDERED: GABAPENTIN 1200MG ALCOHOL WITHDRAWAL LOAD PO STA (01:11)
[2021-08-21] MEDS ORDERED: PHYTONADIONE 5 MG TAB PO STA (01:41)
[2021-08-21] MEDS ORDERED: NITROGLYCERIN SL 0.4 MG/TAB TAB SL PRN (02:01)
[2021-08-21] MEDS ORDERED: LORazepam 2 MG/4 ML VIAL IV PRN (02:01)
[2021-08-21] MEDS ORDERED: MULTI-VITAMIN INFUSION 10 ML, THIAMINE HCL 100 MG, FOLIC ACID 1 MG in SODIUM CHLORIDE 0... IV ONE (02:01)
[2021-08-21] MEDS ORDERED: GABAPENTIN 600 MG TAB PO ONE (02:01)
[2021-08-21] MEDS ORDERED: ATIVAN IV ALCOHOL WITHDRAWL IV PRN (02:01)
[2021-08-21] MEDS ORDERED: LORazepam 3 MG/6 ML VIAL IV PRN (02:01)
[2021-08-21 02:28] LABS: Appearance Urine Cloudy (Clear); Bacteria Urine Automated Negative (Negative); Bilirubin Urine 3+ (Negative); Blood Urine 3+ (Negative); Color Urine Dark Yellow; Epithelial Cell Urine Auto 0-5 /lpf (0-5); Glucose Urine UA Negative (Negative); Ketones Urine Negative (Negative); Leukocyte Esterase Urine Trace (Negative); Nitrite Urine Positive (Negative); Protein Urine Trace (Negative); RBC Urine Automated 0-4 /hpf (0-4); Specific Gravity Urine 1.016 (1.000-1.030); Urobilinogen Urine Negative (Negative); pH Urine 6.5 (4.5-7.5)
[2021-08-21] MEDS: SODIUM CHLORIDE 0.9% 1000ML 1,000 ML IV SCH ×2 (02:44→15:53)
[2021-08-21] MEDS: LORazepam 1 MG/2 ML VIAL IV PRN ×3 (02:56→23:53)
--- NOTE | 2021-08-21 03:45 | History and Physical Report ---
DATE OF ADMISSION: 08/21/2021. CHIEF COMPLAINT: Not feeling well. HISTORY OF PRESENT ILLNESS: A 41-year-old male with history of alcoholism, fatty liver, hepatic cirrhosis, adjustment disorder, persistent insomnia, ongoing alcoholism. The patient presents because of abdominal discomfort and increasing abdominal girth, not feeling well. He also says for the last 2 days is having some balance issues, some nausea, and the patient says he is not drinking much, has cut down, but his alcohol level is 69, he is smelling of alcohol. He says he was on protein shakes, but he stopped taking them 3 days ago. He was in seen in April with jaundice at that time and hepatitis, elevated INR. He underwent upper endoscopy and liver biopsy and grade 1 esophageal varices was found and portal hypertensive gastropathy was found. He also follows with hepatology. His liver biopsy showed steatohepatitis, mild iron deposition consistent with biliary obstruction. His exact cause of jaundice is unknown at this time. The patient, again today his sodium is 108, bilirubin is 27.5. Lactate is 4.7, potassium 2.9, platelets are 116. The patient is mentating fine, alert and oriented. Saturating fine. Denies any headache, no cough, no runny nose, no sore throat. Denies any chest pain, no shortness of breath. He says last week he had some blood in the stool, but he says he has internal hemorrhoids. He does not remember taking Lactulose. His ammonia level is 56. Normal bladder movements. ALLERGIES: BEE POLLEN, BROMPHENIRAMINE, PHENYLEPHRINE, SULFA. PAST MEDICAL HISTORY: As mentioned above. PAST SURGICAL HISTORY: Endoscopic ultrasound, colonoscopy, dental surgery, inguinal hernia repair. MEDICATIONS: The patient seems to be on Lasix 20 mg p.o. daily, cetirizine 10 mg p.o. a.m., lactulose 10 g p.o. a.m., lorazepam 0.5 mg p.o. daily p.r.n., omeprazole 20 mg p.o. daily, pancreatic enzymes 1 capsule p.o. a.m., spironolactone 50 mg p.o. at bedtime. FAMILY HISTORY: Significant for paternal grandmother with colon cancer, aunt has liver disease. SOCIAL HISTORY: Single, no smoking, drinking alcohol, currently he has cut down. No drug use. REVIEW OF SYSTEMS: As per HPI. Rest of the review of systems is negative. PHYSICAL EXAMINATION: GENERAL: The patient is of moderate build, not in acute distress. VITAL SIGNS: Temperature 36.7, pulse 117, respiratory rate 20, blood pressure 143/85, oxygen 93% on nasal cannula. HEENT: Icterus present. No pallor. Pupils equal, round and reactive to light. Oral mucosa moist. NECK: No JVD, no neck masses. CARDIOVASCULAR: S1 and S2 heard. Tachycardia. No murmurs. RESPIRATORY SYSTEM: Normal AP diameter. No accessory muscle use. No wheezing, no crackles. ABDOMEN: Tense, distended. Abdominal sounds present. Nontender. CENTRAL NERVOUS SYSTEM: Alert and oriented x3. Speech is clear. Insight is good. Moves extremities. EXTREMITIES: Trace pedal edema present, no erythema seen. SKIN: Jaundice. Yellow discoloration seen. LABORATORY DATA: WBC 7.4, hemoglobin 14.4, hematocrit 38, platelets 116. PT 38.5, INR 3.7. Sodium 108, potassium 2.9, chloride 68, CO2 of 25, BUN 2, serum glucose 138. Lactate 4.7, calcium 8.5, total bilirubin 27.5, AST 282, ALT 54, alkaline phosphatase 343. Ammonia 56. Troponin less than 0.015. Albumin 2.5. Procalcitonin 0.44, lipase 147. TSH is 1.4, ethyl alcohol 69. SARS-CoV-2 negative. IMAGING DATA: CT of the head, no acute findings. CT of the abdomen and pelvis, marked hepatomegaly with fatty infiltration of the liver, splenomegaly, portal and splenic varices, moderate abdominal and pelvic ascites. Evidence for short loops of intussusception within the jejunum, which is most likely transient. There is no bowel loop dilatation or obstruction. Mesenteric stranding which is most likely due to the ascites present. Nonobstructing right renal calculus. Chest x-ray, no acute cardiopulmonary disease. EKG: Accelerated junctional rhythm at 106, prolonged QT at 644. ASSESSMENT AND PLAN: This is a 41-year-old male who presents with ongoing alcoholism with liver cirrhosis with elevated bilirubin, hypokalemia, hyponatremia. 1. Hyponatremia, sodium of 108: Discussed with nephrology. Will give 15 g of urea and start on normal saline 75 mL per hour. Fluid restriction.Repeat labs in the a.m. Follow serum osmolality, urine osmolality and urine sodium levels. Possibly not eating much because of drinking alcohol, probably beer potomania. Will closely monitor for overcorrection. Monitor for any adverse reactions. 2.Hyponatremia, will replace. Follow the repeat labs. 3. Elevated lactate, most likely secondary to liver disease. His procalcitonin is negative, will monitor. 4. Liver cirrhosis: Elevated total bilirubin at 27.5. This could be possibly from alcoholic hepatitis or acute hepatitis of unknown etiology. Follows with [facility]. Endoscopic ultrasound in the last admission did not show any obvious obstruction. Discriminant function was very high at 126. Will start with methylprednisolone 30 mg daily. Holding the diuretics and getting fluids for hyponatremia. Monitor for volume overload. May need to get paracentesis when the patient is stable. The patient seems noncompliant with lactulose. Will give lactulose and follow the ammonia levels. Await GI input for further recommendations.Questionable transient intussusception on ct scan- await Gi input. 4. Alcoholism: Will place him on banana bag, IV thiamine and folic acid and gabapentin protocol and IV Ativan protocol. Monitor closely for alcohol withdrawal. 5. Gastroesophageal reflux disease: Will place him on IV Protonix. 6. Prolonged QTc: Avoid QT prolonging drugs. We will follow the electrolytes. Repeat EKG in the a.m. 7. Elevated INR from liver cirrhosis. Will give a dose of vitamin K. 8. Thrombocytopenia: From liver disease.Follow labs 9. Deep venous thrombosis prophylaxis: Sequential compression devices. DISPOSITION: Closely monitor in the tele floor. Level 1 full code. PT, OT prior to discharge. Social service to help with discharge planning. Job ID: [id number] [facility]
[2021-08-21 05:43] LABS: Basophils # (auto) 0.01 K/uL (0-0.2); Basophils % (auto) 0.1 %; Eosinophils # (auto) 0.01 K/uL (0-0.5); Eosinophils % (auto) 0.1 %; Hematocrit (blood only) 34.4 % (42-52); Immature Granulocytes # (auto) 0.02 K/uL (0.00-0.02); Immature Granulocytes % (auto) 0.2 %; Lymphocytes # (auto) 0.63 K/uL (1.2-3.4); Lymphocytes % (auto) 6.9 %; Mean Corpuscular Hemoglobin 34.7 pg (25-34); Mean Corpuscular Hgb Conc 37.8 g/dL (32-36); Mean Corpuscular Volume 91.7 fL (80-100); Mean Platelet Volume 11.2 fL (7.4-10.4); Monocytes # (auto) 1.05 K/uL (0.11-0.59); Monocytes % (auto) 11.5 %; Neutrophils # (auto) 7.38 K/uL (1.4-6.5); Neutrophils % (auto) 81.2 %; Platelet Count 122 K/uL (130-400); RDW Coefficient of Variation 12.9 % (11.5-14.5); RDW Standard Deviation 43.3 fL (36.4-46.3); Red Blood Count 3.75 M/uL (4.7-6.1)
[2021-08-21] MEDS ORDERED: cloNIDine HCL 0.1 MG TAB PO ONE (06:02)
[2021-08-21] MEDS ORDERED: cloNIDine HCL 0.1 MG TAB PO PRN (06:02)
[2021-08-21 06:06] LABS: INR 4.1 (0.9-1.1); Prothrombin Time 37.3 Seconds (9.0-12.0)
[2021-08-21] MEDS ORDERED: PANTOprazole 40 MG TAB PO SCH (06:30)
[2021-08-21 06:51] LABS: Alanine Aminotransferase 53 (12-78); Albumin Level 2.5 gm/dl (3.4-5.0); Alkaline Phosphatase 290 U/L (45-117); Aspartate Aminotransferase 274 U/L (15-37); Bilirubin,Total 26.6 mg/dl (0.2-1); Blood Urea Nitrogen 13 mg/dl (7-18); Calcium 8.6 mg/dl (8.5-10.1); Carbon Dioxide 27 mmol/L (21-32); Chloride 74 mmol/L (98-107); Glucose 95 mg/dl (70-99); Magnesium 1.5 mg/dl (1.8-2.4); Phosphorus 2.1 mg/dl (2.5-4.9); Sodium 110 mmol/L (136-145)
[2021-08-21 07:00] LABS: Bilirubin Direct 19.4 mg/dl (0-0.2); Potassium 3.4 mmol/L (3.5-5.1)
[2021-08-21] MEDS: methylPREDNISolone 30 MG in SYRINGE 0 ML IV SCH (07:51)
[2021-08-21] MEDS: CETIRIZINE HCL 10 MG TABLET PO SCH (07:51)
[2021-08-21] MEDS: THIAMINE HCL 100 MG in SYRINGE 9 ML IV SCH (07:52)
[2021-08-21] MEDS: LACTULOSE SYRUP 30 GM/45 ML UDP PO SCH ×3 (07:52→20:30)
[2021-08-21] MEDS: FOLIC ACID 1 MG in SYRINGE 9.8 ML IV SCH (07:52)
[2021-08-21] MEDS: MAGNESIUM SULFATE / D5W 1 GM/100 ML BAG IV SCH ×2 (07:53→09:58)
[2021-08-21] MEDS ORDERED: LACTULOSE SYRUP 20 GM/30 ML UDC PO SCH (09:00)
--- NOTE | 2021-08-21 09:49 | Communication Note ---
Date of Service: August 21, 2021 Patient admitted this morning. Patient seen and examined. Patient had just received Ativan for alcohol withdrawal symptoms per RN hence, was drowsy but arousable. Oriented to person and place. Review of systems limited at this time Due to drowsiness. Exam is notable for jaundice, skin, icterus distended abdomen, soft, nontender, positive ascites and pretibial edema Agree with findings and plans as detailed in H&P by Dr. Rebollar this morning. Continue to monitor sodium closely to avoid rapid correction. Nephrology consult GI consult Likely need paracentesis Other plans as detailed in H&P
[2021-08-21] MEDS ORDERED: POTASSIUM PHOS 3 MMOL/1 ML INFUSION IV STA (10:03)
[2021-08-21 10:05] LABS: Blood Urea Nitrogen 11 mg/dl (7-18); Calcium 8.4 mg/dl (8.5-10.1); Carbon Dioxide 26 mmol/L (21-32); Chloride 75 mmol/L (98-107); Glucose 123 mg/dl (70-99); Potassium 3.5 mmol/L (3.5-5.1); Sodium 112 mmol/L (136-145)
[2021-08-21] MEDS ORDERED: POTASSIUM PHOSPHATE 30 MMOL in SODIUM CHLORIDE 0.9% 500 ML IV ONE (10:30)
[2021-08-21] MEDS: GABAPENTIN 600 MG TAB PO SCH ×3 (10:52→23:53)
[2021-08-21] MEDS: PANTOprazole 40 MG in SYRINGE 0 ML IV SCH (10:52)
--- NOTE | 2021-08-21 11:24 | Consultation Report ---
NEPHROLOGY CONSULTATION NOTE DATE OF CONSULTATION: 08/21/2021. REASON FOR CONSULTATION: Critical hyponatremia. HISTORY OF PRESENT ILLNESS: The patient is a 41-year-old male with history of alcoholism, fatty liver, hepatic cirrhosis, adjustment disorder, persistent insomnia and ongoing heavy alcoholism. The patient presented to the hospital yesterday because of increasing abdominal discomfort and increasing abdominal girth and feeling very weak. He has also been having balance issues as well as nausea for the last few days prior to admission. He claimed he was drinking a lot less alcohol, but then his alcohol level was extremely high at 69 and was grossly intoxicated. His bilirubin was noted to be very low at 108 at the time of admission. Bilirubin was extremely high at 27. BUN was normal, but creatinine could not be calculated because of very high bilirubin. All of his electrolytes were also low with low potassium, low magnesium, low phosphorus. Since admission, patient has been getting normal saline at 75 mL per hour, fluid restriction and one dose of urea. He normally gets spironolactone and Lasix as an outpatient. I am not clear whether he was actually taking this medication or not. At this time, the patient just received Ativan and he is not able to give me any history. He is completely sedated at this time. His ammonia level is also very high and he is getting lactulose. ALLERGIES: List reviewed in detail. PAST MEDICAL HISTORY: Includes alcoholism, fatty liver, liver cirrhosis, adjustment disorder, persistent insomnia, ongoing heavy alcohol use. PAST SURGICAL HISTORY: Endoscopic ultrasound, colonoscopy, dental surgery, inguinal hernia. MEDICATIONS: At home was reviewed and includes Lasix 20 daily, lactulose, Ativan, omeprazole, pancreatic enzymes, spironolactone 50 daily, Lasix 20 daily. FAMILY HISTORY: Grandmother with colon cancer. Aunt has liver disease. SOCIAL HISTORY: Single. No smoking. Heavy alcohol use, even now. No drug use. REVIEW OF SYSTEMS: Unable to obtain as the patient is heavily sedated and did not answer any of my questions. PHYSICAL EXAMINATION: GENERAL: The patient is moderate built. He is sedated. His breathing looks comfortable. VITAL SIGNS: Blood pressure is 134/82, pulse rate is 128, temperature 37.3, 91% on room air. HEENT: Mucous membrane is moist. Very obvious icterus. CHEST: Bilateral decreased breath sounds, poor inspiratory effort limiting the quality exam. CARDIOVASCULAR: S1 and S2, tachycardic. ABDOMEN: Distended with ascites. EXTREMITIES: Did not show any edema. SKIN: Very jaundiced. LABORATORY TEST: Reviewed in detail. At the time of admission, his serum sodium was 108. Since then, it has been going up steadily to 110 and now it is 112. His last blood sodium was 137 at the time of discharge on 05/11/2021. Hemoglobin 13, WBC count 9, platelet count 122. Urine sediment 3+ blood. Urine osmolality and urine serum osmolarity is pending. Ammonia level is high. Lactic acid level is high. CT abdomen and pelvis showed marked hepatomegaly with fatty infiltration of the liver, splenomegaly, portal and splenic varices, ascites present. Nonobstructive right renal calculus also noted. ASSESSMENT AND PLAN: A 41-year-old male with known advanced liver disease, now admitted with weakness, confusion and very abnormal labs. I have been consulted for hyponatremia. Hyponatremia: This is in the setting of very high blood alcohol level with ongoing heavy alcohol use. The patient is sedated and unable to answer any questions, so I do not know what kind of alcoholic drink he was drinking and how much amount, but he was not eating solid food, so the combination of underlying liver disease with heavy fluid/alcohol intake with very poor solid food intake is the cause of the hyponatremia. Fortunately, the sodium is rising without any aggressive measures, it was 108 and this morning is 112. So the rate of rise is very appropriate. We aim to increase the serum sodium by about 10 mEq per day. RECOMMENDATION: 1. Continue with normal saline at 75 mL per hour. 2. Continue fluid restriction 1200 mL per day. 3. BMP every 6 hours. Given the liver disease, I would not give any more urea. 4. Continue to hold spironolactone and Lasix for the time being. I expect the serum sodium to continue to get better in the coming days, but it is not clear where it will settle. 5. Pending serum osmolality and urine osmolality. Thank you very much for the consult. Job ID: [id number] [facility]
--- NOTE | 2021-08-21 11:54 | Electrocardiogram Report ---
Test Reason : Blood Pressure : / mmHG Vent. Rate : 117 BPM Atrial Rate : 059 BPM P-R Int : 000 ms QRS Dur : 106 ms QT Int : 462 ms P-R-T Axes : 000 038 027 degrees QTc Int : 644 ms Sinus tachycardia Nonspecific ST abnormality Prolonged QT Abnormal ECG No previous ECGs available Confirmed by Cesar Kendrick ([id number]) on 08/21/2021 11:53:46 AM Referred By: REFERRED SELF Confirmed By:Cesar Kendrick
--- NOTE | 2021-08-21 11:58 | Electrocardiogram Report ---
Test Reason : Blood Pressure : / mmHG Vent. Rate : 128 BPM Atrial Rate : 128 BPM P-R Int : 154 ms QRS Dur : 100 ms QT Int : 310 ms P-R-T Axes : 032 043 015 degrees QTc Int : 452 ms Sinus tachycardia Possible Left atrial enlargement Borderline ECG When compared with ECG of 20-AUG-2021 20:14, (unconfirmed) Sinus rhythm has replaced Junctional rhythm Confirmed by Cesar Kendrick ([id number]) on 08/21/2021 11:58:22 AM Referred By: REFERRED SELF Confirmed By:Cesar Kendrick
--- NOTE | 2021-08-21 12:56 | Gastrointestinal Consultation ---
Date of Consultation August 21, 2021 Assessment & Plan (1) Alcohol abuse: (2) Jaundice: (3) Alcoholic hepatitis: DF was above 100 previously, active alcohol abuse with ascites and jaundice. currently on steroids day 2 recs: --continue steroids, check lille score on day 7 to assess response --trend LFTs daily, INR,CBC --alcohol withdrawal protocol --supportive care --consider therapeutic paracentesis this week --treatment of hyponatremia as per renal Thank you for allowing me to partiicpate in the care of this patient History of Present Illness Attending Physician: Cha Zhang MD History of Present Illness 41-year-old male with history of alcoholism, fatty liver, hepatic cirrhosis, adjustment disorder, persistent insomnia, here with jaundice and ascites in the setting of active alcohol abuse. Recently found to have Esophageal varices on EGD by [facility] and liver bx showing steatohepatitis. Alcohol level was high on admission. severely hyponatremic as well as hypokalemic, started on steroids for alcoholic hepatitis. Currently today he is feeling somewhat improved. labs reviewed, tachycardic. Allergies Allergy/AdvReac Type Severity Reaction Status Date / Time bee pollen Allergy Intermediate HIVES/SWELL Verified 08/20/21 19:41 ING brompheniramine Allergy Intermediate Hives Verified 08/20/21 19:41 [From Dimetapp Cold-Allergy (PE)] phenylephrine Allergy Intermediate Hives Verified 08/20/21 19:41 [From Dimetapp Cold-Allergy (PE)] Sulfa (Sulfonamide Allergy Mild Rash Verified 08/20/21 19:41 Antibiotics) Home Medications Medication Instructions Recorded Confirmed Type omeprazole 20 mg tablet,delayed 20 mg PO DAILYBB 05/09/21 08/20/21 History release Pancreat-Bet ZHy-olo-sect-pap 250 1 cap PO QAM 08/20/21 08/20/21 History mg-162 mg-65 mg-125 mg capsule (Super Enzyme) cetirizine 10 mg tablet 10 mg PO QAM 08/20/21 08/20/21 History furosemide 20 mg tablet 20 mg PO QAM 08/20/21 08/20/21 History lactulose 10 gram/15 mL oral 10 g PO QAM 08/20/21 08/20/21 History solution lorazepam 0.5 mg tablet 0.5 mg PO DAILY PRN 08/20/21 08/20/21 History spironolactone 50 mg tablet 50 mg PO HS 08/20/21 08/20/21 History Patient History Medical History Anxiety and depression Elevated liver enzymes GERD (gastroesophageal reflux disease) Kidney stone on right side NO INTERVENTION "VERY SMALL" Surgical History H/O inguinal hernia repair Slow to wake up after anesthesia Scobey teeth removed Family History Grandfather (Paternal) Family hx of colon cancer Other No family history of adverse response to anesthesia Social History Smoking Status: Never smoker Second Hand Exposure: Yes ( A CHILD); Hx Alcohol Use: Yes Alcohol type: beer and hard liquor Hx Substance Use: No Preferred Language: Yakut Communication Ability: Effective Automatic Lathe Tender Required: No Beliefs That Will Affect Care: None Current Living Situation: Alone Feels Safe at Home: Yes Safety Concerns: Feels Safe At This Time Assistive Devices: None Review of Systems Constitutional: no fever, no chills and no weight loss Eyes: as per Subjective / HPI Ear, Nose, Mouth, Throat: as per Subjective / HPI Respiratory: no dyspnea and no dyspnea on exertion Cardiovascular: no chest pain and no palpitations Gastrointestinal: as per Subjective / HPI Musculoskeletal: no joint pain and no swelling Integumentary: no rash and no lesions Neurologic: no numbness and no paresthesia Psychiatric: no depression and no anxiety Endocrine: no fatigue Hematologic / Lymphatic: no easy bleeding and no easy bruising Physical Exam Constitutional: WD/WN, vitals as above Eyes: EOM intact bilaterally Neck: normal visual inspection Respiratory: normal respiratory effort, lungs clear to auscultation Cardiovascular: RRR, no murmur, no edema Gastrointestinal (Abdomen): Inspection/Auscultation: abdomen normal to inspection; abdomen not distended Percussion/Palpation: abdomen soft; abdomen nontender and no hepatosplenomegaly Musculoskeletal: Extremities: no cyanosis Gait: normal gait Skin: no rashes, warm and dry Neurologic: moves all extremities Psychiatric: A+Ox3, euthymic affect Results & Data ([place]) Vital Signs (Past 12 Hours) Vital Signs Temp Pulse Pulse Resp BP BP Pulse Ox 08/21/21 11:44 36.4 C L 113 H 22 130/90 91 08/21/21 09:59 128 H 08/21/21 07:35 37.3 C 130 H 22 134/82 91 08/21/21 05:54 127 H 08/21/21 05:26 36.6 C 136 H 30 H 135/74 92 08/21/21 05:13 36.9 C 139 H 24 130/71 91 08/21/21 02:01 36.6 C 136 H 20 135/74 92 08/21/21 02:00 117 H 20 148/87 H 94 08/21/21 01:10 117 H 20 143/85 H 93 Pulse Ox 08/21/21 11:44 08/21/21 09:59 08/21/21 07:35 08/21/21 05:54 08/21/21 05:26 08/21/21 05:13 08/21/21 02:01 92 08/21/21 02:00 08/21/21 01:10 PG Care Time/CCT Total # of Minutes Spent Total Time Spent with Patient: Total time spent is greater than 50% in coordination of care (as documented) at patient's floor/unit and/or counseling patient: Coding Level of Care Code 30047 Inpt Consult Level 4 Diagnoses Alcohol abuse F10.10 Jaundice R17 Alcoholic hepatitis K70.10
[2021-08-21 13:39] LABS: Blood Urea Nitrogen 9 mg/dl (7-18); Carbon Dioxide 27 mmol/L (21-32); Chloride 78 mmol/L (98-107); Glucose 106 mg/dl (70-99); Potassium 4.2 mmol/L (3.5-5.1); Sodium 114 mmol/L (136-145)
[2021-08-21 17:52] LABS: Blood Urea Nitrogen 8 mg/dl (7-18); Calcium 7.6 mg/dl (8.5-10.1); Carbon Dioxide 26 mmol/L (21-32); Chloride 82 mmol/L (98-107); Glucose 103 mg/dl (70-99); Potassium 4.6 mmol/L (3.5-5.1); Sodium 118 mmol/L (136-145)
[2021-08-21] MEDS: SODIUM CHLORIDE 0.45 % 1,000 ML IV SCH (20:36)
[2021-08-21 22:16] LABS: Blood Urea Nitrogen 8 mg/dl (7-18); Calcium 7.5 mg/dl (8.5-10.1); Carbon Dioxide 27 mmol/L (21-32); Chloride 83 mmol/L (98-107); Glucose 102 mg/dl (70-99); Potassium 4.3 mmol/L (3.5-5.1); Sodium 119 mmol/L (136-145)
[2021-08-22 07:08] LABS: Hematocrit (blood only) 33.6 % (42-52); Hemoglobin 12.1 g/dL (14.0-18.0); Mean Corpuscular Hemoglobin 34.4 pg (25-34); Mean Corpuscular Volume 95.5 fL (80-100); RDW Standard Deviation 47.9 fL (36.4-46.3); Red Blood Count 3.52 M/uL (4.7-6.1); White Blood Count 7.15 K/uL (4.8-10.8)
[2021-08-22 07:10] LABS: Mean Platelet Volume 10.7 fL (7.4-10.4); Platelet Count 96 K/uL (130-400)
[2021-08-22 07:31] LABS: INR 4.3 (0.9-1.1); Prothrombin Time 39.2 Seconds (9.0-12.0)
--- NOTE | 2021-08-22 07:52 | Electrocardiogram Report ---
Test Reason : Blood Pressure : / mmHG Vent. Rate : 115 BPM Atrial Rate : 115 BPM P-R Int : 158 ms QRS Dur : 106 ms QT Int : 350 ms P-R-T Axes : 047 061 043 degrees QTc Int : 484 ms Sinus tachycardia Possible Left atrial enlargement Incomplete right bundle branch block Borderline ECG When compared with ECG of 21-AUG-2021 06:34, No significant change was found Confirmed by Josias Pabon ([id number]) on 08/22/2021 7:52:28 AM Referred By: REFERRED SELF Confirmed By:Bill Pabon
[2021-08-22 07:57] LABS: Alanine Aminotransferase 47 (12-78); Albumin Level 2.1 gm/dl (3.4-5.0); Alkaline Phosphatase 242 U/L (45-117); Aspartate Aminotransferase 227 U/L (15-37); Bilirubin,Total 28.2 mg/dl (0.2-1); Blood Urea Nitrogen 9 mg/dl (7-18); Calcium 8.1 mg/dl (8.5-10.1); Carbon Dioxide 26 mmol/L (21-32); Chloride 82 mmol/L (98-107); Glucose 129 mg/dl (70-99); Potassium 3.5 mmol/L (3.5-5.1); Sodium 118 mmol/L (136-145)
[2021-08-22] MEDS ORDERED: PHYTONADIONE 10 MG in SODIUM CHLORIDE 0.9% 50 ML IV ONE (08:30)
--- NOTE | 2021-08-22 08:49 | Nephrology Progress Note ---
Date of Service August 22, 2021 Assessment & Plan Admission and Anticipated Discharge Date Admission Date: August 21, 2021 Subjective PHYSICAL EXAMINATION: GENERAL: The patient is moderate built. He is sedated. His breathing looks comfortable. HEENT: Mucous membrane is moist. Very obvious icterus. CHEST: Bilateral decreased breath sounds, poor inspiratory effort limiting the quality exam. CARDIOVASCULAR: S1 and S2, tachycardic. ABDOMEN: Distended with ascites. EXTREMITIES: Did not show any edema. SKIN: Very jaundiced. LABORATORY TEST: na 119 now ASSESSMENT AND PLAN: A 41-year-old male with known advanced liver disease, now admitted with weakness, confusion and very abnormal labs. I have been consulted for hyponatremia. Hyponatremia: This is in the setting of very high blood alcohol level with ongoing heavy alcohol use. The patient is sedated and unable to answer any questions, so I do not know what kind of alcoholic drink he was drinking and how much amount, but he was not eating solid food, so the combination of underlying liver disease with heavy fluid/alcohol intake with very poor solid food intake is the cause of the hyponatremia. Fortunately, the sodium is rising without any aggressive measures, it was 108 and this morning is 112. So the rate of rise is very appropriate. We aim to increase the serum sodium by about 10 mEq per day. RECOMMENDATION: 1. Stop 1/2 NS and restart NS at 80/hr. now rate of correction is back on track. Goal will be to get + 8 by tomorrow AM. . 2. Continue fluid restriction 1200 mL per day. 3. BMP every 6 hours. Given the liver disease, I would not give any more urea. 4. Continue to hold spironolactone and Lasix for the time being. I expect the serum sodium to continue to get better in the coming days, but it is not clear where it will settle. . Results & Data ([facility]) Vital Signs (Past 12 Hours) Vital Signs Temp Pulse Pulse Resp BP BP Pulse Ox 08/22/21 08:14 119 H 08/22/21 07:53 36.6 C 109 H 18 103/61 95 08/22/21 04:09 37.0 C 110 H 21 110/68 91 08/21/21 23:40 37 C 121 H 20 126/76 90 08/21/21 22:20 113 H
[2021-08-22] MEDS: SODIUM CHLORIDE 0.9% 500 ML IV SCH ×3 (09:12→23:15)
[2021-08-22] MEDS: THIAMINE HCL 100 MG in SYRINGE 9 ML IV SCH (09:13)
[2021-08-22] MEDS: methylPREDNISolone 30 MG in SYRINGE 0 ML IV SCH (09:13)
[2021-08-22] MEDS: GABAPENTIN 600 MG TAB PO SCH ×2 (09:14→15:38)
[2021-08-22] MEDS: CETIRIZINE HCL 10 MG TABLET PO SCH (09:14)
[2021-08-22] MEDS: SODIUM CHLORIDE 0.45 % 1,000 ML IV SCH (09:20)
[2021-08-22] MEDS: FOLIC ACID 1 MG in SYRINGE 9.8 ML IV SCH (10:45)
[2021-08-22] MEDS: PANTOprazole 40 MG in SYRINGE 0 ML IV SCH (10:45)
[2021-08-22] MEDS: LACTULOSE SYRUP 30 GM/45 ML UDP PO SCH ×3 (10:45→21:35)
--- NOTE | 2021-08-22 10:57 | Psychiatric Consultation ---
Date of Consultation August 22, 2021 Impression / Recommendations Impression The patient is a 41 year old with a history of alcohol use disorder who was admitted for liver cirrhosis with electrolyte abnormalities. Diagnostically consistent with alcohol use disorder severe given significant pattern of use with difficulty decreasing intake and with medical and personal negative consequences. He does have some symptoms of depression most consistent with unspecified depression most likely alcohol-induced particularly given prominence of sleep and appetite changes. At this time he is not a good candidate to start an SSRI given his significantly low sodium and platelet abnormalities but this could be considered in the future once his medical status improves and if mood symptoms persist even with treatment for alcohol use. In the future medication assisted treatment options including naltrexone (depending on liver function) vs acamprosate vs antiabuse could be considered. There is also some data that gabapentin can be helpful for alcohol use disorders which he is currently taking and this could be dosed at qhs to help with insomnia if needed. Would avoid ativan outside of use in the hospital for alcohol withdrawal given risk of respiratory fatality in combination with alcohol use and high addictive potential. Encouragingly he is motivated to seek treatment and is scheduled to begin residential substance use treatment next week. 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 Acute risk of harm to self is low given denial of SI and denial of major depressive symptoms and future orientation and willingness to seek treatment for alcohol use. He does not require nor does he desire inpt psychiatric treatment, agree with plan for residential substance use once medically stablized. (1) Alcohol use disorder, severe, dependence: (2) Depression, unspecified: -No psychiatric medications recommended at this time -Continue AWSS with thiamine, folic acid,gabapentin and ativan as needed -Agree with plan for residential substance use tx once medically stabilized Risk Factors Assessment Male: Yes : Yes Do You Have Access To A Gun?: Yes (has hunting rifle secured at home) Health Problems: Yes Substance Use Disorders: Yes Previous Attempt: No Previous Psychiatric Hospitalization: No Hopelessness: No Smoker: No Protective Factors Assessment Stable Relationships: Yes Supportive Family: Yes Good Rapport with Provider: Yes Psych History Identifying Data 41 yo man with a history of alcohol use disorder, severe with significant medical sequelae including hepatic cirrhosis, insomnia, jaundice, INR/PT/platelet changes and significant electrolyte abnormalities including hyponatremia. Psychiatry was consulted for recommendations regarding alcohol use and possible depression. Chief Complaint "I'm ok". 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 He's never sought treatment for his alcohol use disorder before nor tried any medication assisted treatment. He did try mirtazapine and trazodone in the past to help with insomnia but had side effects. He reports insomnia and difficulty sleeping was what led him to increase his alcohol use initially. He reports some depressive symptoms with PHQ-9 score of 12 with score of 0 for question 9 and most significant scores for difficulty with sleep and poor appetite. He notes some symptoms of anhedonia, low mood, low energy and decreased self-worth. Currently he denies feeling depressed but notes periods of sadness and lower mood at times and current symptoms of low appetite and poor sleep. He admantly denies SI and he's future-oriented about starting a new independent chiropractor practice after he completes residential treatment. He's never received treatment for alcohol use disorder before nor any prior psychiatric treatment. He has been seen by his PCP for depression and prescribed ativan 0.5 mg qd prn in the past (last filled 03/2021 per [employer]GER). He denies any history of prior suicide attempts or self-harm. There is a family history of substance use in his maternal and paternal grandparents. He is motivated to get treatment for his alcohol use and has an intake scheduled at [facility] for Aug 30. He reports stable sleep currently as he finds the gabapentin and ativan helpful for this. Psychiatric ROS notable for no psychosis sx nor hx, no sx cassie, denies sx of anxiety. Past Psychiatric History Previous Psych History: see HPI Previous Psych Admissions: n/a Do You Have Access To A Gun?: Yes (has hunting rifle secured at home) History of Previous Suicide Attempt: No Past Medication Trials: trazodone, mirtazapine but had side effects Allergies Allergy/AdvReac Type Severity Reaction Status Date / Time bee pollen Allergy Intermediate HIVES/SWELL Verified 08/20/21 19:41 ING brompheniramine Allergy Intermediate Hives Verified 08/20/21 19:41 [From Dimetapp Cold-Allergy (PE)] phenylephrine Allergy Intermediate Hives Verified 08/20/21 19:41 [From Dimetapp Cold-Allergy (PE)] Sulfa (Sulfonamide Allergy Mild Rash Verified 08/20/21 19:41 Antibiotics) Home Medications Medication Instructions Recorded Confirmed Type omeprazole 20 mg tablet,delayed 20 mg PO DAILYBB 05/09/21 08/20/21 History release Pancreat-Bet AXp-fxe-zokv-pap 250 1 cap PO QAM 08/20/21 08/20/21 History mg-162 mg-65 mg-125 mg capsule (Super Enzyme) cetirizine 10 mg tablet 10 mg PO QAM 08/20/21 08/20/21 History furosemide 20 mg tablet 20 mg PO QAM 08/20/21 08/20/21 History lactulose 10 gram/15 mL oral 10 g PO QAM 08/20/21 08/20/21 History solution lorazepam 0.5 mg tablet 0.5 mg PO DAILY PRN 08/20/21 08/20/21 History spironolactone 50 mg tablet 50 mg PO HS 08/20/21 08/20/21 History Family History see HPI Substance Abuse History see HPI. No other substance use Personal History Living Arrangements: Home Highest Grade Completed: College (chiropractor) Employment Status: Unemployed Beliefs That Will Affect Care: None History of Legal Problems: none Patient History Medical History Anxiety and depression Elevated liver enzymes GERD (gastroesophageal reflux disease) Kidney stone on right side NO INTERVENTION "VERY SMALL" Surgical History H/O inguinal hernia repair Slow to wake up after anesthesia [place] teeth removed Family History Grandfather (Paternal) Family hx of colon cancer Other No family history of adverse response to anesthesia Social History Smoking Status: Never smoker Second Hand Exposure: Yes ( A CHILD); Hx Alcohol Use: Yes Alcohol type: beer and hard liquor Hx Substance Use: No Preferred Language: Tamazight Communication Ability: Effective Php Lamp Developer Required: No Beliefs That Will Affect Care: None Current Living Situation: Alone Feels Safe at Home: Yes Safety Concerns: Feels Safe At This Time Assistive Devices: None Physical Exam Psychiatric: Orientation: alert (tired, closes his eyes at times intermittently ) and oriented x 3 Apperance: appropriately dressed and appropriately groomed Eye Contact: good eye contact Motor Behavior: no abnormal motor movements Speech: normal rate/rhythm/volume of speech Affect: + constricted affect Mood: no depressed mood and no anxious mood Thought Process: goal directed thought process Thought Content: reality based without delusions Suicidal Thoughts: denies suicidal thoughts Homicidal Thoughts: denies homicidal thoughts Hallucinations: no auditory hallucinations and no visual hallucinations Cognition: recent memory grossly intact, remote memory grossly intact, attention grossly intact and language grossly intact Estimated Intelligence: consistent with education level Insight: + fair insight Judgement: + fair judgement Vital Signs (Past 24 Hours): Last Vital Signs Temp 36.6 C 08/22/21 07:53 Pulse 119 H 08/22/21 08:14 Resp 18 08/22/21 07:53 BP 103/61 08/22/21 07:53 Pulse Ox 95 08/22/21 07:53 Review of Systems All systems reviewed & are unremarkable except as noted in HPI & below (notable jaundice and stomach distention, he denies any pain ) Results & Data ([facility]) Laboratory Results Na+: 118 Elevated PT/INR Low platelets Medications Administered Cetirizine HCl (Cetirizine Hcl 10 Mg Tablet) 10 mg PO QAM [facility] Stop: 09/20/21 08:59 Last Admin: 08/22/21 09:14 Dose: 10 mg Documented by: [id number] Admin: 08/21/21 07:51 Dose: 10 mg Documented by: [id number] Gabapentin (Gabapentin 600 Mg Tab) 600 mg PO Q8H [facility]ZB[facility] Stop: 08/22/21 16:01 Last Admin: 08/22/21 09:14 Dose: 600 mg Documented by: [id number] Admin: 08/21/21 23:53 Dose: 600 mg Documented by: [id number] Thiamine HCl 100 mg/ Syringe 10 mls @ 2 mls/min IV QAM LIZBETH Stop: 09/20/21 08:59 Last Admin: 08/22/21 09:13 Dose: 2 mls/min Documented by: [id number] Admin: 08/21/21 07:52 Dose: 2 mls/min Documented by: [id number] Folic Acid 1 mg/ Syringe 10 mls @ 5 mls/min IV QAM [facility] Stop: 09/20/21 08:59 Last Admin: 08/21/21 07:52 Dose: 5 mls/min Documented by: [id number] Lorazepam (Ativan) 1 mg in 2 mls @ 2 mls/min IV UD PRN; Protocol PRN Reason: EtOH Withdrawl AWSS Score 6,7 Stop: 09/20/21 02:00 Last Admin: 08/21/21 23:53 Dose: 2 mls/min Documented by: [id number] Admin: 08/21/21 08:03 Dose: 2 mls/min Documented by: [id number] Admin: 08/21/21 02:56 Dose: 2 mls/min Documented by: [id number] Methylprednisolone 30 mg/ (Syringe) 0.48 mls @ 1.5 mls/min IV DAILY [facility] Stop: 09/20/21 08:59 Last Admin: 08/22/21 09:13 Dose: 1.5 mls/min Documented by: [id number] Admin: 08/21/21 07:51 Dose: 1.5 mls/min Documented by: [id number] Pantoprazole Sodium 40 mg/ (Syringe) 10 mls @ 5 mls/min IV DAILY@1100 [facility] Stop: 09/20/21 10:59 Last Admin: 08/21/21 10:52 Dose: 5 mls/min Documented by: [id number] Sodium Chloride (Nss) 500 mls @ 80 mls/hr IV .Q6H15M [facility] Stop: 09/21/21 08:59 Last Admin: 08/22/21 09:12 Dose: 80 mls/hr Documented by: [id number] Lactulose (Lactulose Syrup 30 Gm/45 Ml Udp) 30 gm PO TID [facility] Stop: 09/20/21 08:59 Last Admin: 08/21/21 20:30 Dose: Not Given Documented by: [id number] Admin: 08/21/21 12:45 Dose: Not Given Documented by: [id number] Admin: 08/21/21 07:52 Dose: 30 gm Documented by: [id number] Miscellaneous (Super Enzyme: Order Awaiting Action) 1 ea N/A QS [facility] Stop: 09/20/21 07:59 Last Admin: 08/22/21 09:09 Dose: Not Given Documented by: [id number] Admin: 08/22/21 00:20 Dose: Not Given Documented by: [id number] Admin: 08/21/21 15:52 Dose: Not Given Documented by: [id number] Admin: 08/21/21 07:51 Dose: Not Given Documented by: [id number] Coding Level of Care Code 80157 Inpt Consult Level 3 Diagnoses Alcohol use disorder, severe, dependence F10.20 Depression, unspecified F32.A
--- NOTE | 2021-08-22 11:46 | Hospitalist Progress Note ---
Date of Service August 22, 2021 Assessment & Plan (1) Alcoholic hepatitis: (2) Alcohol use disorder, severe, dependence: (3) Hyponatremia: (4) Elevated INR: (5) Hyperbilirubinemia: (6) Jaundice: (7) Alcohol abuse: Plan: Patient discriminant factor on admission was >100, started on steroid for alcoholic hepatitis Check Lille score on Day 7 Continue to monitor LFTs, INR daily. Patient has liver cirrhosis, likely from alcohol. Counseled extensively on need for alcohol cessation. Appreciate psych evaluation GI on board Goal of 3-4BM per day. Hold any further lactulose once goal achieved. RN aware Severe hyponatremia Currently on NSS to avoid rapid correction Na was 108 on admission. Now 118. Continue to monitor and manage appropriately Edge Stripper on board Continue to monitor mental status Continue AWSS protocol Give Vit K today to correct supratherapeutic INR so as to get therapeutic paracentesis by Radiology Get Echo to assess for alcoholic cardiomyopathy Continue IV PPI Will do SCD for now considering report of maroon stool yesterday Admission and Anticipated Discharge Date Admission Date: August 21, 2021 Subjective 41-year-old male with history of alcoholism, fatty liver, hepatic cirrhosis, adjustment disorder, persistent insomnia, ongoing alcoholism who presents with abdominal discomfort and increasing abdominal girth. Being managed for decompensated alcoholic cirrhosis. Patient seen and examined. Reports feeling better today. No tremors at this time. Denies any nausea, vomiting, abdominal pain. Reports diarrhea. Had 1 bowel movement that was maroon yesterday but reports that this morning has been normal color. Denies dysuria, frequency, urgency, incontinence Denies chest pain, palpitation, cough or shortness of breath Denies depression, suicidal or homicidal ideation Reports that his grandfather had a heart attack and he recently has issues with his job which caused him to relapse Physical Exam Constitutional: + well hydrated; no acute distress Young man with marked jaundiced skin Eyes: +icteric ENMT: external ear and nose normal, oropharynx normal Respiratory: normal respiratory effort, lungs clear to auscultation Cardiovascular: Rate/Rhythm: regular rhythm and + tachycardic S1 S2 Gastrointestinal (Abdomen): Abdomen is firm, distended, positive ascites, nontender Musculoskeletal: Leg edema Neurologic: PERRL, EOMI, accommodation nl, no face palsy, no dysarthria Psychiatric: A+Ox3, euthymic affect Results & Data Results & Data ([facility]) Vital Signs (Past 12 Hours) Vital Signs Temp Pulse Pulse Resp BP BP Pulse Ox 08/22/21 08:14 119 H 08/22/21 07:53 36.6 C 109 H 18 103/61 95 08/22/21 04:09 37.0 C 110 H 21 110/68 91 Laboratory Results Abnormal lab results 08/21/21 08/21/21 08/22/21 Range/Units 17:07 21:29 06:49 RBC 3.52 L (4.7-6.1) M/uL Hgb 12.1 L (14.0-18.0) g/dL Hct 33.6 L (42-52) % MCH 34.4 H (25-34) pg RDW Std Deviation 47.9 H (36.4-46.3) fL Plt Count 96 L (130-400) K/uL MPV 10.7 H (7.4-10.4) fL PT (9.0-12.0) Seconds INR (0.9-1.1) Sodium 118 L* 119 L* (136-145) mmol/L Chloride 82 L 83 L (98-107) mmol/L Glucose 103 H 102 H (70-99) mg/dl Calcium 7.6 L 7.5 L (8.5-10.1) mg/dl Total Bilirubin (0.2-1) mg/dl AST (15-37) U/L Alkaline Phosphatase (45-117) U/L Albumin (3.4-5.0) gm/dl 08/22/21 08/22/21 Range/Units 06:49 06:49 RBC (4.7-6.1) M/uL Hgb (14.0-18.0) g/dL Hct (42-52) % MCH (25-34) pg RDW Std Deviation (36.4-46.3) fL Plt Count (130-400) K/uL MPV (7.4-10.4) fL PT 39.2 H (9.0-12.0) Seconds INR 4.3 H (0.9-1.1) Sodium 118 L* (136-145) mmol/L Chloride 82 L (98-107) mmol/L Glucose 129 H (70-99) mg/dl Calcium 8.1 L (8.5-10.1) mg/dl Total Bilirubin 28.2 H (0.2-1) mg/dl AST 227 H (15-37) U/L Alkaline Phosphatase 242 H D (45-117) U/L Albumin 2.1 L (3.4-5.0) gm/dl
--- NOTE | 2021-08-22 14:21 | Gastroenterology Progress Note ---
Date of Service August 22, 2021 Assessment & Plan Admission and Anticipated Discharge Date Admission Date: August 21, 2021 Subjective No complaints or events. PE: appears comfortable CV: RRR Resp: CTA Abd: mod distended, + flank dullness with central tympany, no flank edema Extrem: no pedal edema, Faint asterixis Labs reviewed AP 242, Bili 28, Na 118, INR 4.3, Hgb stable; unable to calculate creat due to jaundice Bx from April shows bridging fibrosis, steatohepatitis A/P: Alcoholic hepatitis Ascites - Plan tap to r/o SBP. I discussed therapeutic tap with albumin; they do not feel this would aggravte hypoNA. I held steroids until SBP is ruled out. Diet as tolerated. Renal managing hyponatremia, fluids/diuretics. Psych consult for EtOH addiction counselling. Results & Data ([facility]) Vital Signs (Past 12 Hours) Vital Signs Temp Pulse Pulse Resp BP BP Pulse Ox 08/22/21 11:58 36.8 C 111 H 16 104/57 L 96 08/22/21 08:14 119 H 08/22/21 07:53 36.6 C 109 H 18 103/61 95 08/22/21 04:09 37.0 C 110 H 21 110/68 91
[2021-08-23] MEDS: GABAPENTIN 600 MG TAB PO SCH ×2 (05:01→21:25)
[2021-08-23] MEDS: SODIUM CHLORIDE 0.9% 500 ML IV SCH ×3 (05:01→15:07)
[2021-08-23 07:35] LABS: Hematocrit (blood only) 30.7 % (42-52); Hemoglobin 11.1 g/dL (14.0-18.0); Mean Corpuscular Hemoglobin 34.5 pg (25-34); Mean Corpuscular Hgb Conc 36.2 g/dL (32-36); Mean Corpuscular Volume 95.3 fL (80-100); Platelet Count 100 K/uL (130-400); RDW Coefficient of Variation 14.2 % (11.5-14.5); RDW Standard Deviation 48.7 fL (36.4-46.3); Red Blood Count 3.22 M/uL (4.7-6.1); White Blood Count 7.33 K/uL (4.8-10.8)
[2021-08-23 08:03] LABS: INR 3.6 (0.9-1.1); Prothrombin Time 32.6 Seconds (9.0-12.0)
[2021-08-23 08:45] LABS: Alanine Aminotransferase 42 (12-78); Albumin Level 1.9 gm/dl (3.4-5.0); Alkaline Phosphatase 213 U/L (45-117); Aspartate Aminotransferase 177 U/L (15-37); Blood Urea Nitrogen 8 mg/dl (7-18); Calcium 7.5 mg/dl (8.5-10.1); Carbon Dioxide 28 mmol/L (21-32); Chloride 89 mmol/L (98-107); Glucose 92 mg/dl (70-99); Potassium 3.5 mmol/L (3.5-5.1)
[2021-08-23] MEDS: methylPREDNISolone 30 MG in SYRINGE 0 ML IV SCH (08:48)
[2021-08-23] MEDS: CETIRIZINE HCL 10 MG TABLET PO SCH (08:48)
[2021-08-23] MEDS: LACTULOSE SYRUP 30 GM/45 ML UDP PO SCH ×3 (08:48→21:26)
[2021-08-23] MEDS: THIAMINE HCL 100 MG in SYRINGE 9 ML IV SCH (08:48)
[2021-08-23] MEDS: FOLIC ACID 1 MG in SYRINGE 9.8 ML IV SCH (08:48)
[2021-08-23 09:07] LABS: Bilirubin,Total 28.3 mg/dl (0.2-1)
[2021-08-23 09:12] LABS: Sodium 124 mmol/L (136-145)
[2021-08-23] MEDS ORDERED: PHYTONADIONE 10 MG in SODIUM CHLORIDE 0.9% 50 ML IV ONE (09:30)
--- NOTE | 2021-08-23 09:33 | Nephrology Progress Note ---
Date of Service August 23, 2021 Assessment & Plan Admission and Anticipated Discharge Date Admission Date: August 21, 2021 Subjective Assessment & Plan Admission and Anticipated Discharge Date Admission Date: August 21, 2021 Feels somnolent. Had paracentesis yesterday. na getting better Subjective PHYSICAL EXAMINATION: GENERAL: The patient is moderate built. He is sedated. His breathing looks comfortable. HEENT: Mucous membrane is moist. Very obvious icterus. CHEST: Bilateral decreased breath sounds, poor inspiratory effort limiting the quality exam. CARDIOVASCULAR: S1 and S2, tachycardic. ABDOMEN: Distended with ascites. EXTREMITIES: Trace edema. SKIN: Very jaundiced. LABORATORY TEST: na 124 now ASSESSMENT AND PLAN: A 41-year-old male with known advanced liver disease, now admitted with weakness, confusion and very abnormal labs. I have been consulted for hyponatremia. Hyponatremia: This is in the setting of very high blood alcohol level with ongoing heavy alcohol use. The patient is sedated and unable to answer any questions, so I do not know what kind of alcoholic drink he was drinking and how much amount, but he was not eating solid food, so the combination of underlying liver disease with heavy fluid/alcohol intake with very poor solid food intake is the cause of the hyponatremia. Fortunately, the sodium is rising without any aggressive measures, it was 108 and this morning is 112. So the rate of rise is very appropriate. We aim to increase the serum sodium by about 10 mEq per day. RECOMMENDATION: 1. Stop iv fluid 2. Continue fluid restriction 1200 mL per day. 3. BMP every 24 hours. Given the liver disease, I would not give any more urea. 4. Continue to hold spironolactone and Lasix for today but can restart from tomorrow.. I expect the serum sodium to continue to get better in the coming days, but it is not clear where it will settle. . Results & Data ([facility]) Vital Signs (Past 12 Hours) Vital Signs Temp Pulse Pulse Resp BP BP Pulse Ox 08/22/21 08:14 119 H 08/22/21 07:53 36.6 C 109 H 18 103/61 95 08/22/21 04:09 37.0 C A 110 H 21 110/68 91 08/21/21 23:40 37 C 121 H 20 126/76 90 08/21/21 22:20 113 H Results & Data ([facility]) Vital Signs (Past 12 Hours) Vital Signs Temp Pulse Pulse Resp BP Pulse Ox 08/23/21 08:00 37.3 C 118 H 86 16 115/62 95 08/23/21 04:00 37.3 C 108 H 17 103/53 L 91 08/22/21 23:21 37.2 C 117 H 17 113/70 92 08/22/21 22:20 116 H
[2021-08-23 09:40] LABS: Magnesium 1.9 mg/dl (1.8-2.4)
--- NOTE | 2021-08-23 10:17 | Gastroenterology Progress Note ---
Date of Service August 23, 2021 Assessment & Plan (1) Alcoholic hepatitis: Plan: See below. Plan: With cirrhosis, ascites, high DF, on steroids. Dx and therapeutic tap is pending w albumin before/after, will check fluid analysis when available to assess for SBP. Needs complete/permanent alcohol abstention. Appreciate nephrology management of hyponatremia - fluid restriction. Will continue to follow along regarding the hyponatremia. Check LFTs, Coags tomorrow. Admission and Anticipated Discharge Date Admission Date: August 21, 2021 Supervising Physician Co-Signing Physician Notes Attg add: I interviewed and examined pt, reviewed chart and labs. Pt with improved Na, stable bili, iproved INR. No complaints. Plan tap tomorrow to r/o SBP and then resume steroid trial. Emphaszied need for nutrition, EtOH abstention. Subjective 41 yr male admitted on 08/21 with ETOH hepatitis/cirrhosis with continued recent alcohol intake. Evidence of withdraw: + tachycardia, no tremors or asterixes. Fatigues, slightly lethargic but no confusion. Paracentesis pending for today for fluid analysis and comfort as moderately large ascites. On steroids x 3 days. T Bili stable at 28. Today's DF calculated at 122. Review of Systems Review of Systems: ROS: Gen: + weakness, no fevers, no weight loss. + weight gain with ascites. Eyes: + icterus; No eye redness, or pain, no recent vision changes Resp: No SOB, no cough Cardio: No palpitations/irregular beats, no chest pain GI: + enlarging abd - uncomfortable but denies signicant abdominal pain; no nausea/vomiting : Denies pain on urination Skin: No jaundice, itching or new rashes A total of 12 systems were reviewed, all others (-) Physical Exam Constitutional: well developed, + ill appearing and cooperative Eyes: + anicteric sclerae and PERRL Neck: trachea midline, no thyromegaly Respiratory: normal respiratory effort, lungs clear to auscultation Cardiovascular: RRR, no murmur, no edema Gastrointestinal (Abdomen): Percussion/Palpation: + abdomen tender (Mild diffuse adbdominal msk tenderness. + moderate to large ascites.), + guarding, + abdomen rigid and + abdomen firm (moderately with ascites) Musculoskeletal: no cyanosis or clubbing, extremities motor strength 5/5 Skin: normal turgor and + jaundice Neurologic: PERRL, EOMI, accommodation nl, no face palsy, no dysarthria awake; not confused Psychiatric: A+Ox3, euthymic affect Orientation: alert, oriented x 3 and cooperative Lymphatic: no cervical or axillary lymphadenopathy Results & Data ([facility]) Vital Signs (Past 12 Hours) Vital Signs Temp Pulse Pulse Resp BP Pulse Ox 08/23/21 08:00 37.3 C 118 H 86 16 115/62 95 08/23/21 04:00 37.3 C 108 H 17 103/53 L 91 08/22/21 23:21 37.2 C 117 H 17 113/70 92 08/22/21 22:20 116 H Laboratory Results WBC 7, Hb 11, hct 30, Plts 100, INR 3.6, Na 124, K 3.5, Cl 89, CO2 28, BUN 8, Cr - unable to calculate due to icteric sample. Diagnostic Findings CTAP w IV on 08/20/21: 1. Marked hepatomegaly with fatty infiltration of the liver, splenomegaly, portal and splenic varices 2. Moderate abdominal and pelvic ascites. 3. Evidence for a short loop of intussusception within the jejunum which is most likely transient. There is no bowel loop dilatation or obstruction. 4. Mesenteric stranding which is most likely related to the ascites present. 5. Nonobstructing right renal calculus. 6. Additional nonacute findings are delineated above. CXR on 08/20/21 (-) for acute changes.
[2021-08-23] MEDS: PANTOprazole 40 MG in SYRINGE 0 ML IV SCH (11:34)
[2021-08-23 11:39] LABS: Blood Urea Nitrogen 9 mg/dl (7-18); Calcium 7.4 mg/dl (8.5-10.1); Carbon Dioxide 27 mmol/L (21-32); Chloride 91 mmol/L (98-107); Glucose 116 mg/dl (70-99); Potassium 3.7 mmol/L (3.5-5.1); Sodium 126 mmol/L (136-145)
--- NOTE | 2021-08-23 16:43 | Hospitalist Progress Note ---
Date of Service August 23, 2021 Assessment & Plan (1) Alcoholic hepatitis: (2) Alcohol use disorder, severe, dependence: (3) Hyponatremia: (4) Elevated INR: (5) Hyperbilirubinemia: (6) Jaundice: (7) Alcohol abuse: Plan: Patient discriminant factor on admission was 126, started on steroid for alcoholic hepatitis Check Lille score on Day 7 Continue to monitor LFTs, INR daily. Patient has liver cirrhosis, likely from alcohol. Had counseled extensively on need for alcohol cessation. Reports he is planned for inpatient alcohol rehab on 08/30/21. Patient will benefit from direct dc to rehab once medically stable Appreciate psych evaluation GI on board Goal of 3-4BM per day. Hold any further lactulose once goal achieved. RN aware Severe hyponatremia Currently on NSS to avoid rapid correction Na was 108 on admission. Now 124. Continue to monitor and manage appropriately [employer] Log Mill And Carriage Operator on board Continue to monitor mental status Continue AWSS protocol Will give another dose of Vit K today to correct supratherapeutic INR so as to get therapeutic paracentesis by Radiology. Radiologist will prefer it closer/around 2.5 Give albumin before and after Echo reviewed and was normal Continue IV PPI Will do SCD for now considering report of maroon stool 2 days ago Admission and Anticipated Discharge Date Admission Date: August 21, 2021 Subjective 41-year-old male with history of alcoholism, fatty liver, hepatic cirrhosis, adjustment disorder, persistent insomnia, ongoing alcoholism who presents with abdominal discomfort and increasing abdominal girth. Being managed for decompensated alcoholic cirrhosis. Patient seen and examined. Denies any nausea, vomiting, abdominal pain. Denies dysuria, frequency, urgency, incontinence Denies chest pain, palpitation, cough or shortness of breath Denies depression, suicidal or homicidal ideation Physical Exam Constitutional: + well hydrated; no acute distress Jaundiced skin Eyes: +icterus ENMT: external ear and nose normal, oropharynx normal Respiratory: normal respiratory effort, lungs clear to auscultation Cardiovascular: Rate/Rhythm: regular rate and regular rhythm S1 S2 Gastrointestinal (Abdomen): Abdomen is firm, distended, nontender, +ascites by shifting dullness Musculoskeletal: pedal edema Neurologic: PERRL, EOMI, accommodation nl, no face palsy, no dysarthria No asterixis Psychiatric: A+Ox3, euthymic affect Results & Data Results & Data ([place]) Vital Signs (Past 12 Hours) Vital Signs Temp Pulse Pulse Resp BP Pulse Ox 08/23/21 15:00 37.4 C 86 16 102/61 99 08/23/21 08:00 37.3 C 118 H 86 16 115/62 95 Laboratory Results Abnormal lab results 08/23/21 08/23/21 08/23/21 Range/Units 07:24 07:24 07:24 RBC (4.7-6.1) M/uL Hgb (14.0-18.0) g/dL Hct (42-52) % MCH (25-34) pg MCHC (32-36) g/dL RDW Std Deviation (36.4-46.3) fL Plt Count (130-400) K/uL MPV (7.4-10.4) fL PT 32.6 H (9.0-12.0) Seconds INR 3.6 H (0.9-1.1) Sodium 124 L D (136-145) mmol/L Chloride 89 L (98-107) mmol/L Glucose (70-99) mg/dl Calcium 7.5 L (8.5-10.1) mg/dl Phosphorus 2.0 L (2.5-4.9) mg/dl Total Bilirubin 28.3 H (0.2-1) mg/dl AST 177 H (15-37) U/L Alkaline Phosphatase 213 H (45-117) U/L Ammonia (11-32) umol/L Albumin 1.9 L (3.4-5.0) gm/dl 08/23/21 08/23/21 08/23/21 Range/Units 07:25 07:25 11:07 RBC 3.22 L (4.7-6.1) M/uL Hgb 11.1 L (14.0-18.0) g/dL Hct 30.7 L (42-52) % MCH 34.5 H (25-34) pg MCHC 36.2 H (32-36) g/dL RDW Std Deviation 48.7 H (36.4-46.3) fL Plt Count 100 L (130-400) K/uL MPV 11.0 H (7.4-10.4) fL PT (9.0-12.0) Seconds INR (0.9-1.1) Sodium 126 L (136-145) mmol/L Chloride 91 L (98-107) mmol/L Glucose 116 H (70-99) mg/dl Calcium 7.4 L (8.5-10.1) mg/dl Phosphorus (2.5-4.9) mg/dl Total Bilirubin (0.2-1) mg/dl AST (15-37) U/L Alkaline Phosphatase (45-117) U/L Ammonia 43.0 H (11-32) umol/L Albumin (3.4-5.0) gm/dl
--- NOTE | 2021-08-23 17:49 | Electrocardiogram Report ---
Test Reason : Blood Pressure : / mmHG Vent. Rate : 116 BPM Atrial Rate : 116 BPM P-R Int : 156 ms QRS Dur : 104 ms QT Int : 338 ms P-R-T Axes : 028 037 019 degrees QTc Int : 469 ms Sinus tachycardia Possible Left atrial enlargement Incomplete right bundle branch block Nonspecific T wave abnormality Abnormal ECG When compared with ECG of 22-AUG-2021 06:21, No significant change was found Confirmed by Josias Pabon ([id number]) on 08/23/2021 5:48:43 PM Referred By: REFERRED SELF Confirmed By:Bill Pabon
[2021-08-23 19:36] LABS: Blood Urea Nitrogen 8 mg/dl (7-18); Calcium 7.5 mg/dl (8.5-10.1); Carbon Dioxide 26 mmol/L (21-32); Chloride 93 mmol/L (98-107); Glucose 119 mg/dl (70-99); Potassium 3.8 mmol/L (3.5-5.1); Sodium 128 mmol/L (136-145)
[2021-08-24] MEDS: SODIUM CHLORIDE 0.9% 500 ML IV SCH (00:12)
[2021-08-24] MEDS: LORazepam 1 MG/2 ML VIAL IV PRN ×2 (00:58→03:38)
[2021-08-24] MEDS ORDERED: IBUPROFEN 200 MG TAB PO STA (01:35)
[2021-08-24 04:02] LABS: INR 3.1 (0.9-1.1); Prothrombin Time 28.8 Seconds (9.0-12.0)
[2021-08-24 04:45] LABS: Alanine Aminotransferase 47 (12-78); Albumin Level 2.2 gm/dl (3.4-5.0); Alkaline Phosphatase 209 U/L (45-117); Aspartate Aminotransferase 166 U/L (15-37); Bilirubin,Total 31.4 mg/dl (0.2-1); Blood Urea Nitrogen 8 mg/dl (7-18); Calcium 7.7 mg/dl (8.5-10.1); Carbon Dioxide 27 mmol/L (21-32); Chloride 93 mmol/L (98-107); Glucose 103 mg/dl (70-99); Potassium 3.6 mmol/L (3.5-5.1); Sodium 126 mmol/L (136-145)
[2021-08-24] MEDS: FOLIC ACID 1 MG in SYRINGE 9.8 ML IV SCH (08:24)
[2021-08-24] MEDS: THIAMINE HCL 100 MG in SYRINGE 9 ML IV SCH (08:24)
[2021-08-24] MEDS: CETIRIZINE HCL 10 MG TABLET PO SCH (08:24)
[2021-08-24] MEDS: methylPREDNISolone 30 MG in SYRINGE 0 ML IV SCH (08:24)
[2021-08-24] MEDS: LACTULOSE SYRUP 30 GM/45 ML UDP PO SCH ×3 (08:25→21:16)
--- NOTE | 2021-08-24 09:33 | Nephrology Progress Note ---
Date of Service August 24, 2021 Assessment & Plan Admission and Anticipated Discharge Date Admission Date: August 21, 2021 Subjective Assessment & Plan Admission and Anticipated Discharge Date Admission Date: August 21, 2021 Feels somnolent. Had paracentesis yesterday. na getting better Subjective PHYSICAL EXAMINATION: GENERAL: The patient is moderate built. He is sedated. His breathing looks comfortable. HEENT: Mucous membrane is moist. Very obvious icterus. CHEST: Bilateral decreased breath sounds, poor inspiratory effort limiting the quality exam. CARDIOVASCULAR: S1 and S2, tachycardic. ABDOMEN: Distended with ascites. EXTREMITIES: Trace edema. SKIN: Very jaundiced. LABORATORY TEST: na 126 now--not rising anymore ASSESSMENT AND PLAN: A 41-year-old male with known advanced liver disease, now admitted with weakness, confusion and very abnormal labs. I have been consulted for hyponatremia. Hyponatremia: This is in the setting of very high blood alcohol level with ongoing heavy alcohol use. The patient is sedated and unable to answer any questions, so I do not know what kind of alcoholic drink he was drinking and how much amount, but he was not eating solid food, so the combination of underlying liver disease with heavy fluid/alcohol intake with very poor solid food intake is the cause of the hyponatremia. Fortunately, the sodium is rising without any aggressive measures, it was 108 and this morning is 112. So the rate of rise is very appropriate. We aim to increase the serum sodium by about 10 mEq per day. RECOMMENDATION: 1. Continue fluid restriction 1200 mL per day. 3. BMP every 24 hours. Given the liver disease, I would not give any more urea. 4. Restart Lasix for today. I expect the serum sodium to remain under 130. as long as more than 125 maybe the best we can expect. Results & Data ([facility]) Vital Signs (Past 12 Hours) Vital Signs Temp Pulse Pulse Resp BP BP Pulse Ox 08/24/21 07:41 38.8 C H 127 H 18 119/59 L 90 08/24/21 07:00 132 H 08/24/21 03:00 36.8 C 135 H 16 122/70 90 08/24/21 00:44 38.8 C H 134 H 19 140/81 90 08/23/21 22:59 36.6 C 125 H 18 133/80 92 08/23/21 22:20 120 H
[2021-08-24 10:11] LABS: Basophils # (auto) 0.01 K/uL (0-0.2); Basophils % (auto) 0.1 %; Hematocrit (blood only) 31.5 % (42-52); Hemoglobin 11.1 g/dL (14.0-18.0); Immature Granulocytes # (auto) 0.07 K/uL (0.00-0.02); Immature Granulocytes % (auto) 0.7 %; Lymphocytes # (auto) 1.26 K/uL (1.2-3.4); Lymphocytes % (auto) 11.9 %; Mean Corpuscular Hemoglobin 34.4 pg (25-34); Mean Corpuscular Hgb Conc 35.2 g/dL (32-36); Mean Corpuscular Volume 97.5 fL (80-100); Monocytes # (auto) 0.81 K/uL (0.11-0.59); Monocytes % (auto) 7.6 %; Neutrophils # (auto) 8.45 K/uL (1.4-6.5); Neutrophils % (auto) 79.7 %; Nucleated RBC # (auto) 0.04 K/uL (0-0); Nucleated RBC % (auto) 0.4 %; Platelet Count 126 K/uL (130-400); RDW Coefficient of Variation 15.1 % (11.5-14.5); RDW Standard Deviation 52.9 fL (36.4-46.3); Red Blood Count 3.23 M/uL (4.7-6.1)
[2021-08-24] MEDS: FUROSEMIDE 40 MG TAB PO SCH (10:39)
[2021-08-24] MEDS: cefTRIAXone SODIUM 2,000 MG in DEXTROSE 5% 50 ML IV SCH (11:00)
--- NOTE | 2021-08-24 11:22 | Gastroenterology Progress Note ---
Date of Service August 24, 2021 Assessment & Plan (1) Alcoholic hepatitis: Plan: See below. Plan: Fever - Rocephin started. Likely SBP. With cirrhosis, ascites, high DF. Steroids held today. Dx and therapeutic tap is pending w albumin before/after, will check fluid analysis when available to assess for SBP. Needs complete/permanent alcohol abstention. Appreciate nephrology management of hyponatremia - fluid restriction. Will continue to follow along regarding the hyponatremia. Check LFTs, Coags tomorrow. Admission and Anticipated Discharge Date Admission Date: August 21, 2021 Supervising Physician Co-Signing Physician Notes Attg add: i interviewed and examined pt, reviewed chart and labs. Rising/stable bili after 3 days of steroids, fever overnight with orders to brown-culture, began empiric Rocephin. Resumed lasix yesterday per renal. Follow labs, will resume steroids if tap neg SBP/cultures negative for infection. Subjective 41, male Fever overnight to 38.8. Rocephin IV started, Methylprednisone held. Plan for dx/therapeutic tap at 2PM today by radiology. Na is 126, fluid restriction. Pt tells me feels well. Was up to BR for morning self care. No confusion. Is a bit tachy at 110 - 120. Denies SOB. Abd non tender. Review of Systems Review of Systems: ROS: Gen: + weakness, no fevers, no weight loss. + weight gain with ascites. Eyes: + icterus; No eye redness, or pain, no recent vision changes Resp: No SOB, no cough Cardio: Denies feeling of rapid HR or palpitations/irregular beats, no chest pain GI: + enlarging abd (reports that it feels smaller than yesterday)- uncomfortable but denies significant abdominal pain; no nausea/vomiting : Denies pain on urination Skin: No jaundice, itching or new rashes A total of 12 systems were reviewed, all others (-) Physical Exam Constitutional: well developed, + ill appearing and cooperative Eyes: + anicteric sclerae and PERRL Neck: trachea midline, no thyromegaly Respiratory: normal respiratory effort, lungs clear to auscultation Cardiovascular: Rate/Rhythm: regular rate and regular rhythm Extremities: + edema (bilat lower leg, 1+, non pitting) Gastrointestinal (Abdomen): Percussion/Palpation: + abdomen tender (Mild diffuse adbdominal msk tenderness. + moderate to large ascites.), + guarding, + abdomen rigid and + abdomen firm (moderately with ascites) Musculoskeletal: no cyanosis or clubbing, extremities motor strength 5/5 Skin: normal turgor and + jaundice Neurologic: PERRL, EOMI, accommodation nl, no face palsy, no dysarthria awake; not confused Psychiatric: A+Ox3, euthymic affect Orientation: alert, oriented x 3 and cooperative Lymphatic: no cervical or axillary lymphadenopathy Results & Data ([facility]) Vital Signs (Past 12 Hours) Vital Signs Temp Pulse Pulse Resp BP BP Pulse Ox 08/24/21 07:41 38.8 C H 127 H 18 119/59 L 90 08/24/21 07:00 132 H 08/24/21 03:00 36.8 C 135 H 16 122/70 90 08/24/21 00:44 38.8 C H 134 H 19 140/81 90 Laboratory Results WBC 10, Hb 11, Hct 31, Plts 126, INR 3.1, Na 126, K 3.6, Cl 93, CO2 27, BUN 8, Cr unable to measure due to icteric sample, glucose 103. Diagnostic Findings CTAP non contrast 08/20: 1. Marked hepatomegaly with fatty infiltration of the liver, splenomegaly, portal and splenic varices 2. Moderate abdominal and pelvic ascites. 3. Evidence for a short loop of intussusception within the jejunum which is most likely transient. There is no bowel loop dilatation or obstruction. 4. Mesenteric stranding which is most likely related to the ascites present. 5. Nonobstructing right renal calculus. 6. Additional nonacute findings are delineated above.
[2021-08-24] MEDS ORDERED: ALBUMIN 25% 100 mL 25 GM/100 ML VIAL IV ONE ×2 (11:30→15:30)
[2021-08-24] MEDS: PANTOprazole 40 MG in SYRINGE 0 ML IV SCH (12:23)
--- NOTE | 2021-08-24 13:58 | XRay Report ---
XR chest 2V PA/lateral CLINICAL HISTORY: fever. COMPARISON STUDY: 08/20/2021 TECHNIQUE: 2 views of the chest FINDINGS: Frontal and lateral radiographs of the chest demonstrate the cardiomediastinal silhouette to be withi n normal limits. There is again asymmetric elevation of the right hemidiaphragm. Compared to previous examination, there has been interval development of an alveolar opacity in the left lower lobe on th e heart. These findings are characteristic of pneumonia. There has also been interval development of bibasilar atelectasis. There is no evidence for effusion bilaterally. There is no evidence for vascul ar congestion. There is no acute osseous pathology. IMPRESSION: Interval development of left lower lobe opacity with air bronchograms characteristic of l obar pneumonia. There is also bibasilar atelectasis. ACT 112: Negative or not required by law. Electronically signed by: Hima Moreira M.D. 08/24/2021 1:57 PM
--- NOTE | 2021-08-24 14:53 | Ultrasound Report ---
ULTRASOUND GUIDED DIAGNOSTIC AND THERAPEUTIC PARACENTESIS CLINICAL HISTORY: Decompensated cirrhosis with ascites COMPARISON STUDY: CT of the abdomen and pelvis August 20, 2021. PROCEDURE: The risks, benefits, and alternatives to the procedure were discussed with the patient inc luding the risk of bleeding, infection and injury to adjacent structures. The patient agreed to the procedure and informed written consent was obtained. Following real-time ultrasound localization, the skin of the right lower quadrant was prepped and draped. Following local anesthesia with Xylocaine, the sheath paracentesis needle was inserted and approximately 2.6 liters of straw-colored fluid was r emoved by vacuum suction. No additional fluid could be withdrawn. The patient tolerated the procedure well and no immediate complications were evident. IMPRESSION: Ultrasound-guided paracentesis with removal of 2.6 liters of ascites. 1 L of ascites was sent to the laboratory for analysis as ordered. ACT 112: Negative or not required by law. Electronically signed by: Ron Stacy M.D. 08/24/2021 2:52 PM
[2021-08-24 16:37] LABS: Appearance Peritoneal Fluid CLOUDY; Basophils, Fluid 0 %; Color Peritoneal Fluid YELLOW; Eosinophils, Fluid 0 %; Lymphocytes, Fluid 0 %; Mono,Macrophage,Mesothelial 18 %; Neutrophils, Fluid 82 %; RBC Peritoneal Fluid (A) < 3000 /uL; WBC Peritoneal Fluid (A) 6000 /ul (0-300)
[2021-08-24] MEDS ORDERED: GABAPENTIN 600 MG TAB PO SCH (18:00)
--- NOTE | 2021-08-24 21:08 | Hospitalist Progress Note ---
Date of Service August 24, 2021 Assessment & Plan (1) Alcoholic hepatitis: (2) Alcohol use disorder, severe, dependence: (3) Hyponatremia: (4) Elevated INR: (5) Hyperbilirubinemia: (6) Jaundice: (7) Alcohol abuse: Plan: Patient discriminant factor on admission was 126, started on steroid for alcoholic hepatitis Check Lille score on Day 7 Continue to monitor LFTs, INR daily. Patient has liver cirrhosis, likely from alcohol. Had counseled extensively on need for alcohol cessation. Reports he is planned for inpatient alcohol rehab on 08/30/21. Patient will benefit from direct dc to rehab once medically stable Appreciate psych evaluation GI on board Goal of 3-4BM per day. Hold any further lactulose once goal achieved. RN aware Severe hyponatremia Currently on NSS to avoid rapid correction Na was 108 on admission. Now 126. Continue to monitor and manage appropriately Extruding Press Adjuster on board -fluid restriction 1200 mL/day, BMP every 24 hours, resume Lasix. Continue to monitor mental status Continue AWSS protocol, patient was sober for 50 days after his last discharge from the hospital and started drinking again. Patient has abdominal distention secondary to ascites, for paracentesis today, will follow up with acetic fluid analysis and culture. On Rocephin for possible SBP. Give albumin before and after Echo reviewed and was normal Continue IV PPI Will do SCD for now considering report of maroon stool 2 days ago and elevated INR from liver pathology Admission and Anticipated Discharge Date Admission Date: August 21, 2021 Subjective Patient was sitting up in bed, on room air, NAD, no new acute events overnight. Patient reports multiple loose bowels, patient is on lactulose for cirrhosis. Patient reports eating okay. Patient reports distention of his belly. Patient denies fever/chills/headache/chest pain/palpitation/other review of symptoms. Physical Exam Physical Exam: GENERAL: Alert and oriented x3. NAD, on RA. HEENT: No pallor, + icterus. Pupils equal, round and reactive to light. Oral mucosa moist. NECK: No JVD, no neck masses. HEART: S1 and S2 heard. Regular rate and rhythm. No murmur, no gallop. RESPIRATORY SYSTEM: Normal AP diameter. No accessory muscle use. No wheezing, no crackles. ABDOMEN: Distended and tense, bowel sounds present, nontender. CENTRAL NERVOUS SYSTEM: No facial droop. Speech is clear. Obeys simple commands. Moves extremities. EXTREMITIES: 1+ BLE edema, no erythema seen. Results & Data Results & Data ([facility]) Vital Signs (Past 12 Hours) Vital Signs Temp Pulse Resp BP Pulse Ox 08/24/21 19:34 37.3 C 115 H 18 112/67 91 08/24/21 16:41 118 H 16 96 08/24/21 16:30 36.8 C 121 H 18 131/80 90 08/24/21 15:41 117 H 16 141/71 H 98 08/24/21 15:11 37 C 116 H 16 117/62 96 08/24/21 14:55 37.1 C 08/24/21 14:41 37.1 C 118 H 20 138/70 97 08/24/21 14:26 37.1 C 115 H 20 128/72 96 08/24/21 11:56 37.8 C H 123 H 14 116/62 95
[2021-08-25 06:28] LABS: Hematocrit (blood only) 29.3 % (42-52); Hemoglobin 10.4 g/dL (14.0-18.0); Mean Corpuscular Hemoglobin 34.6 pg (25-34); Mean Corpuscular Hgb Conc 35.5 g/dL (32-36); Mean Corpuscular Volume 97.3 fL (80-100); Mean Platelet Volume 10.6 fL (7.4-10.4); Platelet Count 107 K/uL (130-400); RDW Coefficient of Variation 15.4 % (11.5-14.5); RDW Standard Deviation 54.2 fL (36.4-46.3); Red Blood Count 3.01 M/uL (4.7-6.1); White Blood Count 8.71 K/uL (4.8-10.8)
[2021-08-25 06:39] LABS: INR 2.9 (0.9-1.1); Prothrombin Time 27.2 Seconds (9.0-12.0)
[2021-08-25 07:41] LABS: Alanine Aminotransferase 40 (12-78); Albumin Level 2.3 gm/dl (3.4-5.0); Alkaline Phosphatase 162 U/L (45-117); Aspartate Aminotransferase 102 U/L (15-37); Bilirubin,Total 32.1 mg/dl (0.2-1); Blood Urea Nitrogen 8 mg/dl (7-18); Calcium 7.9 mg/dl (8.5-10.1); Carbon Dioxide 28 mmol/L (21-32); Chloride 97 mmol/L (98-107); Glucose 101 mg/dl (70-99); Potassium 3.2 mmol/L (3.5-5.1); Sodium 131 mmol/L (136-145)
[2021-08-25] MEDS: FOLIC ACID 1 MG in SYRINGE 9.8 ML IV SCH (08:31)
[2021-08-25] MEDS: FUROSEMIDE 40 MG TAB PO SCH (08:31)
[2021-08-25] MEDS: cefTRIAXone SODIUM 2,000 MG in DEXTROSE 5% 50 ML IV SCH (08:31)
[2021-08-25] MEDS: THIAMINE HCL 100 MG in SYRINGE 9 ML IV SCH (08:31)
[2021-08-25] MEDS: LACTULOSE SYRUP 30 GM/45 ML UDP PO SCH ×3 (08:32→21:17)
[2021-08-25] MEDS: CETIRIZINE HCL 10 MG TABLET PO SCH (08:32)
[2021-08-25] MEDS: PANTOprazole 40 MG in SYRINGE 0 ML IV SCH (10:51)
--- NOTE | 2021-08-25 11:04 | Gastroenterology Progress Note ---
Date of Service August 25, 2021 Assessment & Plan (1) Alcoholic hepatitis: Plan: See below. (2) SBP (spontaneous bacterial peritonitis): Plan: See Below Plan: SBP: cont Rocephin IV, hold steroids, Albumin 25Gm TID added. Needs complete/permanent alcohol abstention. Appreciate nephrology management of hyponatremia - fluid restriction. Will continue to follow along regarding the hyponatremia. We will watch for results of blood and paracentesis fluid cultures. 2Gm sodium diet. Will continue to follow closely. Discuss high DF and possible poor prognosis associated with this. Will continue to follow closely. Admission and Anticipated Discharge Date Admission Date: August 21, 2021 Supervising Physician Co-Signing Physician Notes Attg add: I interviewed and examined pt, reviewed chart and labs. His abdomen remains distended, with fnk dullness. No tremor today. Sodium is 131, Creat on 08/23 was 1.2 and is pending from today. Tap shows SBP. Please give albumin x 3 days, follow creat over the weekend. Cont hold steroids, may consider resuming this once off abx for SBP. Subjective 41-year-old male admitted 1226 for alcoholic hepatitis with ascites imaging with cirrhosis. DF on arrival over 100. T bili slowly increasing, today 32. INR 3.2. Yesterday's 2.6 L paracentesi with SBP: >6000 WBCs, 82% neutrophils = 4930 (>250 - SBP). Na improving, today 131 (108 on arrival). Most recent fever yesterday at noon. tachycardic at 100 - 115. Pt resting comfortably and quietly in bed. States that he feels fine. No tremors, no asterixis, no confusion. Review of Systems Review of Systems: ROS: Gen: + weakness, no fevers, no weight loss. + weight gain with ascites. Eyes: + icterus; No eye redness, or pain, no recent vision changes Resp: No SOB, no cough Cardio: Denies feeling of rapid HR or palpitations/irregular beats, no chest pain GI: + enlarging abd (reports that it feels smaller than yesterday)- uncomfortable but denies significant abdominal pain; no nausea/vomiting : Denies pain on urination Skin: No jaundice, itching or new rashes A total of 12 systems were reviewed, all others (-) Physical Exam Constitutional: well developed, + ill appearing and cooperative Eyes: + anicteric sclerae and PERRL Neck: trachea midline, no thyromegaly Respiratory: normal respiratory effort, lungs clear to auscultation Cardiovascular: RRR, no murmur, no edema Rate/Rhythm: regular rate and regular rhythm Extremities: + edema (bilat lower leg, 1+, non pitting) Gastrointestinal (Abdomen): Percussion/Palpation: + abdomen tender (Mild diffuse adbdominal msk tenderness. + moderate ascites, no masses) Musculoskeletal: no cyanosis or clubbing, extremities motor strength 5/5 Skin: normal turgor and + jaundice Neurologic: PERRL, EOMI, accommodation nl, no face palsy, no dysarthria awake; not confused Psychiatric: A+Ox3, euthymic affect Orientation: alert, oriented x 3 and cooperative Lymphatic: no cervical or axillary lymphadenopathy Results & Data ([facility]) Vital Signs (Past 12 Hours) Vital Signs Temp Pulse Resp BP Pulse Ox 08/25/21 07:54 37.0 C 109 H 150/88 H 93 08/25/21 03:53 37.1 C 115 H 19 98/64 L 98 08/24/21 23:27 37.0 C 116 H 18 124/75 92 Laboratory Results WBC 8.9, Hb 10.4, HCT 29, PLT S107, NA 131, K3.2, CL 97, CO2 28, BUN 8, CR unable to be measured due to icteric sample, glucose 101 T bilirubin 32, AST 102, ALT 40, Alk Phos 162, albumin 2.3 Blood cultures and paracentesis fluid cultures pending, no growth thus far. Diagnostic Findings US yesterday: Ultrasound-guided paracentesis with removal of 2.6 liters of ascites. 1 L of ascites was sent to the laboratory for analysis as ordered.
--- NOTE | 2021-08-25 15:53 | Hospitalist Progress Note ---
Date of Service August 25, 2021 Assessment & Plan (1) Alcoholic hepatitis: (2) Alcohol use disorder, severe, dependence: (3) Hyponatremia: (4) Elevated INR: (5) Hyperbilirubinemia: (6) Jaundice: (7) Alcohol abuse: Plan: #. Alcohol abuse #. Alcoholic hepatitis #. SBP Patient was sober for 50 days after his last discharge from the hospital and started drinking again. Patient has liver cirrhosis, likely from alcohol. AST, ALP and bilirubin elevated Patient discriminant factor on admission 08/21 was 126, started on steroid for alcoholic hepatitis Check Lille score on Day 7 Continue to monitor LFTs, INR daily. INR therapeutic range from liver pathology Had counseled extensively on need for alcohol cessation. Reports he is planned for inpatient alcohol rehab on 08/30/21. Patient will benefit from direct dc to rehab once medically stable. Psych evaluated the patient while inpatient: No psychiatric medications recommended at this time, agrees with AWSS protocol with thiamine and folic acid supplementation and plan for residential substance use treatment. Goal of 3-4BM per day. Hold any further lactulose once goal achieved. RN aware GI on board: Continue with Rocephin and hold steroids. Albumin 3 times daily as needed. 08/24: US guided paracentesis with removal of 2.6 L. Analysis positive for WBC 6K 08/24 acetic fluid culture pending Pt seems to have distension on exam but pt reports no belly distension. No tenderness on exam Continue with Rocephin 08/24, steroid held 08/25 [received from 08/21-08/24] c/w awss protocol, thiamine, folic acid #. Severe hyponatremia Currently on gentle NSS to avoid rapid correction Na was 108 on admission. Now 131. Management Nurse Rn on board -fluid restriction 1200 mL/day, BMP every 24 hours, resume Lasix. Continue to monitor mental status, currently stable salt intake <2g/day #. Monitor electrolytes and replete as appropriate. Echo reviewed and was normal Continue IV PPI Will do SCD for now considering report of maroon stool 2 days ago and elevated INR from liver pathology. Hb stable Admission and Anticipated Discharge Date Admission Date: August 21, 2021 Subjective Patient was lying in bed, on room air, NAD, no new acute events overnight. Patient reports feeling better today. Patient has multiple loose bowel movements, patient is on lactulose. Patient denies headache/dizziness/chest pain/palpitation/belly pain/other review of symptoms. Patient reports eating okay. Physical Exam Physical Exam: GENERAL: Alert and oriented x3. NAD, on RA. HEENT: No pallor, + icterus. Pupils equal, round and reactive to light. Oral mucosa moist. NECK: No JVD, no neck masses. HEART: S1 and S2 heard. Regular rate and rhythm. No murmur, no gallop. RESPIRATORY SYSTEM: Normal AP diameter. No accessory muscle use. No wheezing, no crackles. ABDOMEN: Distended and tense, bowel sounds present, nontender. CENTRAL NERVOUS SYSTEM: No facial droop. Speech is clear. Obeys simple commands. Moves extremities. EXTREMITIES: 1+ BLE edema, no erythema seen. Results & Data Results & Data ([facility] [place]) Vital Signs (Past 12 Hours) Vital Signs Temp Pulse Resp BP Pulse Ox 08/25/21 15:16 37.2 C 110 H 16 103/67 94 08/25/21 11:07 37.3 C 114 H 16 116/68 92 08/25/21 07:54 37.0 C 109 H 150/88 H 93 08/25/21 03:53 37.1 C 115 H 19 98/64 L 98
[2021-08-25] MEDS: POTASSIUM CHLORIDE CRTAB 20 MEQ TABCR PO SCH ×2 (16:58→19:40)
[2021-08-25] MEDS: ALBUMIN 25% 100 mL 25 GM/100 ML VIAL IV SCH (21:17)
[2021-08-26] MEDS: ALBUMIN 25% 100 mL 25 GM/100 ML VIAL IV SCH (07:52)
[2021-08-26] MEDS: THIAMINE HCL 100 MG in SYRINGE 9 ML IV SCH (07:53)
[2021-08-26] MEDS: FOLIC ACID 1 MG in SYRINGE 9.8 ML IV SCH (07:53)
[2021-08-26] MEDS: FUROSEMIDE 40 MG TAB PO SCH (07:53)
[2021-08-26] MEDS: CETIRIZINE HCL 10 MG TABLET PO SCH (07:53)
[2021-08-26] MEDS: cefTRIAXone SODIUM 2,000 MG in DEXTROSE 5% 50 ML IV SCH (07:56)
[2021-08-26] MEDS: LACTULOSE SYRUP 30 GM/45 ML UDP PO SCH ×2 (07:57→13:51)
[2021-08-26 08:12] LABS: INR 2.5 (0.9-1.1); Prothrombin Time 23.4 Seconds (9.0-12.0)
[2021-08-26 09:09] LABS: Alanine Aminotransferase 42 (12-78); Albumin Level 2.5 gm/dl (3.4-5.0); Alkaline Phosphatase 159 U/L (45-117); Aspartate Aminotransferase 102 U/L (15-37); Blood Urea Nitrogen 9 mg/dl (7-18); Calcium 7.9 mg/dl (8.5-10.1); Carbon Dioxide 29 mmol/L (21-32); Chloride 100 mmol/L (98-107); Glucose 75 mg/dl (70-99); Potassium 3.2 mmol/L (3.5-5.1); Sodium 134 mmol/L (136-145)
[2021-08-26 09:21] LABS: Bilirubin,Total 34.5 mg/dl (0.2-1)
--- NOTE | 2021-08-26 10:07 | Nephrology Progress Note ---
Date of Service August 26, 2021 Assessment & Plan (1) Hyponatremia: Plan: A 41-year-old male with known advanced liver disease,admitted with weakness, confusion and abnormal labs.Nephrology consulted for hyponatremia. Confusion has resolved. He has paracentesis done,and is on Abx for SBP. Hyponatremia-combination of underlying liver disease with heavy fluid/alcohol intake with very poor solid food intake is the cause of the hyponatremia. - Sna has improved to 134. -Continue on Lasix and fluid restriction of 1.2 lit NO more Urea needed. -Would recommene stating on spirolactone. (2) Alcoholic hepatitis: Plan: - Managed by GI/ primary - Alert and comfortable now. Admission and Anticipated Discharge Date Admission Date: August 21, 2021 Subjective Patient was lying in bed, on room air, NAD, no new acute events overnight.Wants to go home. Abdominal pain and distention better. Review of Systems Review of Systems: Comfortable Abdomen distented, but does not c/o pain. No pedal edema. Physical Exam Physical Exam: GENERAL: The patient is moderately built.No SOB HEENT: Mucous membrane is moist. Very obvious icterus. CHEST: Bilateral decreased breath sounds, poor inspiratory effort limiting the quality exam. CARDIOVASCULAR: S1 and S2, tachycardic. ABDOMEN: Distended with ascites. EXTREMITIES:No edema. SKIN: Very jaundiced Results & Data ([facility]) Vital Signs (Past 12 Hours) Vital Signs Temp Pulse Pulse Resp BP Pulse Ox 08/26/21 07:00 37 C 112 H 16 124/82 93 08/26/21 02:47 37 C 108 H 18 110/65 93 08/26/21 01:00 109 H 08/25/21 23:49 37.2 C 112 H 18 115/71 93 Laboratory Results 08/25/21 05:43 08/26/21 07:33
[2021-08-26] MEDS ORDERED: POTASSIUM CHLORIDE CRTAB 20 MEQ TABCR PO STA ×2 (11:48→13:21)
[2021-08-26] MEDS: PANTOprazole 40 MG in SYRINGE 0 ML IV SCH (11:48)
--- NOTE | 2021-08-26 14:20 | Discharge Summary ---
Date of Service August 26, 2021 Admission HPI Per Admitting Provider CHIEF COMPLAINT: Not feeling well. HISTORY OF PRESENT ILLNESS: A 41-year-old male with history of alcoholism, fatty liver, hepatic cirrhosis, adjustment disorder, persistent insomnia, ongoing alcoholism. The patient presents because of abdominal discomfort and increasing abdominal girth, not feeling well. He also says for the last 2 days is having some balance issues, some nausea, and the patient says he is not drinking much, has cut down, but his alcohol level is 69, he is smelling of alcohol. He says he was on protein shakes, but he stopped taking them 3 days ago. He was in seen in April with jaundice at that time and hepatitis, elevated INR. He underwent upper endoscopy and liver biopsy and grade 1 esophageal varices was found and portal hypertensive gastropathy was found. He also follows with hepatology. His liver biopsy showed steatohepatitis, mild iron deposition consistent with biliary obstruction. His exact cause of jaundice is unknown at this time. The patient, again today his sodium is 108, bilirubin is 27.5. Lactate is 4.7, potassium 2.9, platelets are 116. The patient is mentating fine, alert and oriented. Saturating fine. Denies any headache, no cough, no runny nose, no sore throat. Denies any chest pain, no shortness of breath. He says last week he had some blood in the stool, but he says he has internal hemorrhoids. He does not remember taking Lactulose. His ammonia level is 56. Normal bladder movements. ALLERGIES: BEE POLLEN, BROMPHENIRAMINE, PHENYLEPHRINE, SULFA. PAST MEDICAL HISTORY: As mentioned above. PAST SURGICAL HISTORY: Endoscopic ultrasound, colonoscopy, dental surgery, inguinal hernia repair. MEDICATIONS: The patient seems to be on Lasix 20 mg p.o. daily, cetirizine 10 mg p.o. a.m., lactulose 10 g p.o. a.m., lorazepam 0.5 mg p.o. daily p.r.n., omeprazole 20 mg p.o. daily, pancreatic enzymes 1 capsule p.o. a.m., spironolactone 50 mg p.o. at bedtime. FAMILY HISTORY: Significant for paternal grandmother with colon cancer, aunt has liver disease. SOCIAL HISTORY: Single, no smoking, drinking alcohol, currently he has cut down. No drug use. REVIEW OF SYSTEMS: As per HPI. Rest of the review of systems is negative. Admission Exam Per Admitting Provider GENERAL: The patient is of moderate build, not in acute distress. VITAL SIGNS: Temperature 36.7, pulse 117, respiratory rate 20, blood pressure 143/85, oxygen 93% on nasal cannula. HEENT: Icterus present. No pallor. Pupils equal, round and reactive to light. Oral mucosa moist. NECK: No JVD, no neck masses. CARDIOVASCULAR: S1 and S2 heard. Tachycardia. No murmurs. RESPIRATORY SYSTEM: Normal AP diameter. No accessory muscle use. No wheezing, no crackles. ABDOMEN: Tense, distended. Abdominal sounds present. Nontender. CENTRAL NERVOUS SYSTEM: Alert and oriented x3. Speech is clear. Insight is good. Moves extremities. EXTREMITIES: Trace pedal edema present, no erythema seen. SKIN: Jaundice. Yellow discoloration seen. Principal Diagnosis Alcohol abuse Alcoholic cirrhosis/alcoholic hepatitis Spontaneous bacterial peritonitis Severe hyponatremia Discharge Exam GENERAL: Alert and oriented x3. NAD, on RA. HEENT: No pallor, + icterus. Pupils equal, round and reactive to light. Oral mucosa moist. NECK: No JVD, no neck masses. HEART: S1 and S2 heard. Regular rate and rhythm. No murmur, no gallop. RESPIRATORY SYSTEM: Normal AP diameter. No accessory muscle use. No wheezing, no crackles. ABDOMEN: Distended and tense, bowel sounds present, nontender. CENTRAL NERVOUS SYSTEM: No facial droop. Speech is clear. Obeys simple commands. Moves extremities. EXTREMITIES: 1+ BLE edema, no erythema seen. Discharge Data Allergies Allergy/AdvReac Type Severity Reaction Status Date / Time bee pollen Allergy Intermediate HIVES/SWELL Verified 08/20/21 19:41 ING brompheniramine Allergy Intermediate Hives Verified 08/20/21 19:41 [From Dimetapp Cold-Allergy (PE)] phenylephrine Allergy Intermediate Hives Verified 08/20/21 19:41 [From Dimetapp Cold-Allergy (PE)] Sulfa (Sulfonamide Allergy Mild Rash Verified 08/20/21 19:41 Antibiotics) Consultations 08/20/21 22:40 ED Decision to Admit Stat 08/21/21 08:00 Consult Gastroenterology Routine Consult Nephrology Routine 08/22/21 08:09 Consult Psychiatry Routine Ordered Studies 08/20/21 20:06 CT abd pelvis wo con Urgent CT head/brain wo con Urgent 08/24/21 14:00 US paracentesis abd w/image Urgent Hospital Course (1) Alcoholic hepatitis: (2) Alcohol use disorder, severe, dependence: (3) Hyponatremia: (4) Elevated INR: (5) Hyperbilirubinemia: (6) Jaundice: (7) Alcohol abuse: #. Alcohol abuse #. Alcoholic hepatitis #. SBP Patient was sober for 50 days after his last discharge from the hospital and started drinking again. Patient has liver cirrhosis, likely from alcohol. AST, ALP and bilirubin elevated Patient discriminant factor on admission 08/21 was 126, started on steroid for alcoholic hepatitis --> later on, needed to be stopped due to SBP; per GI. INR therapeutic range from liver pathology Had counseled extensively on need for alcohol cessation. Reports he is planned for inpatient alcohol rehab on 08/30/21. Patient will benefit from direct dc to rehab once medically stable. Patient insisting on going home today and wants to go to rehab from his home. Psych evaluated the patient while inpatient: No psychiatric medications recommended at this time, agrees with AWSS protocol with thiamine and folic acid supplementation and plan for residential substance use treatment. Goal of 3-4BM per day. Hold any further lactulose once goal achieved. Patient made aware on the day of discharge. Discussed with GI, can switch to Cipro to complete course of antibiotic. 08/24: US guided paracentesis with removal of 2.6 L. Analysis positive for WBC 6K 08/24 acetic fluid culture pending Patient afebrile, no belly pain, no distention. #. Severe hyponatremia Currently on gentle NSS to avoid rapid correction Na was 108 on admission. Now 134. Care Rep on board -fluid restriction 1200 mL/day, BMP every 24 hours, continue with Lasix, resume spironolactone. Continue to monitor mental status, currently stable Encourage salt intake <2g/day. CMP in a week time of discharge. #. Monitor electrolytes and replete as appropriate. Potassium on the lower side due to increasing dose of Lasix Resuming spironolactone on the day of discharge, patient will be discharged with few days worth of potassium supplement Patient advised to get BMP in 3 days upon discharge and have the results forwarded to his PCP for necessary adjustment in his potassium supplementation. Echo reviewed and was normal Patient is being discharged home with following instruction at the point of discharge: Follow-up with your primary care physician within a week time. Follow-up with your alcoholic rehab facility [facility] on August 30 as scheduled. Advised strict avoidance of alcoholic products. Get your blood work CBC and CMP done in a week time and have the results forwarded to your primary care physician. Continue with antibiotic as prescribed. Encourage fluid restriction of 1200 mL's per day and salt intake of less than 2 g a day. Follow-up with your GI doctor in 1 to 2 weeks upon discharge. Since your Lasix dose has been increased, you are being discharged on a small dose of potassium tablet, get your blood work BMP done in 3 days upon discharge and have the results forwarded to your PCP for necessary adjustment and potassium supplementation. Since you are also being discharged on the spironolactone (your prior home med), it will affect your potassium level in the opposite direction of your Lasix. Take medications as prescribed. Total Time Total Time Spent Total Time Spent (In Minutes): 45 Discharge Plan Discharge Items Patient Disposition: Home - Self-Care Reason For Visit: ILLNESS Discharge Diagnosis: Alcohol abuse Alcoholic cirrhosis/alcoholic hepatitis Spontaneous bacterial peritonitis Severe hyponatremia Activity: Resume your previous activity Non-emergency contact: Primary Care Provider Call non-emergency contact if: you have any medication questions, your symptoms worsen and your temperature is above 101 Follow-up/Referrals: Kyle Price, [Primary Care Provider] - Diet: Low Sodium (2gm) Fluids: 1200ml (5 cups) Addtl Attending Provider Instructions: Follow-up with your primary care physician within a week time. Follow-up with your alcoholic rehab facility [facility] on August 30 as scheduled. Advised strict avoidance of alcoholic products. Get your blood work CBC and CMP done in a week time and have the results forwarded to your primary care physician. Continue with antibiotic as prescribed. Encourage fluid restriction of 1200 mL's per day and salt intake of less than 2 g a day. Follow-up with your GI doctor in 1 to 2 weeks upon discharge. Since your Lasix dose has been increased, you are being discharged on a small dose of potassium tablet, get your blood work BMP done in 3 days upon discharge and have the results forwarded to your PCP for necessary adjustment and potassium supplementation. Since you are also being discharged on the spironolactone (your prior home med), it will affect your potassium level in the opposite direction of your Lasix. Take medications as prescribed. Pending Studies at Discharge: Yes (Ascitic fluid results.) Stand-Alone Forms: [facility], Smoking Cessation Medications and DC Order Prescriptions: New furosemide 40 mg Tablet 40 mg PO QAM Qty: 30 RF: 0 ciprofloxacin HCl [Cipro] 500 mg tablet 500 mg PO BID 3 Days Qty: 6 RF: 0 potassium chloride 10 mEq tablet extended release 10 meq PO DAILY Qty: 5 RF: 0 Continued omeprazole 20 mg Tablet,Delayed Release (Dr/Ec) 20 mg PO DAILYBB RF: 0 cetirizine 10 mg Tablet 10 mg PO QAM RF: 0 lorazepam 0.5 mg tablet 0.5 mg PO DAILY PRN (Reason: Anxiety) RF: 0 spironolactone 50 mg tablet 50 mg PO HS RF: 0 lactulose 10 gram/15 mL Solution 10 g PO QAM RF: 0 Super Enzyme [id number] mg Capsule 1 cap PO QAM RF: 0 Discontinued furosemide 20 mg tablet 20 mg PO QAM RF: 0 Discharge Orders: Discharge Order (Routine); Ordered 08/26/21 Ordered By: Enedina Eddy Admission Data Admit Date/Time: 08/21/21 01:11 Attending Provider: Enedina Eddy Admit Provider: Marty Rebollar Primary Care Provider: Kyle Price Other Providers: Marty Rebollar ; Jonah Stauffer Roshan ; Marden, Erica K. ; Jessica Aldrich ; Mattie Henry ; Ellis Craig Other Interventions: Discharge Summary Assessment (RN) Last Done: 08/26/21 13:26
== END 2021-08-26 14:51 | disposition home or self-care (01) | DRG 432 ==
LOC: ED 19:09 → 2S 08-21 01:11 → SUATTDRO 08-21 01:11 → 2S 08-21 02:00

== ENCOUNTER 2021-09-02 13:34 | Inpatient (IN) ==
[2021-09-02 14:12] LABS: Basophils # (auto) 0.01 K/uL (0-0.2); Basophils % (auto) 0.1 %; Hematocrit (blood only) 22.1 % (42-52); Immature Granulocytes # (auto) 0.08 K/uL (0.00-0.02); Immature Granulocytes % (auto) 0.4 %; Lymphocytes # (auto) 1.01 K/uL (1.2-3.4); Lymphocytes % (auto) 5.5 %; Mean Corpuscular Hemoglobin 36.7 pg (25-34); Mean Corpuscular Hgb Conc 36.2 g/dL (32-36); Mean Corpuscular Volume 101.4 fL (80-100); Mean Platelet Volume 10.3 fL (7.4-10.4); Monocytes # (auto) 0.75 K/uL (0.11-0.59); Monocytes % (auto) 4.1 %; Neutrophils # (auto) 16.57 K/uL (1.4-6.5); Neutrophils % (auto) 89.9 %; Platelet Count 186 K/uL (130-400); RDW Coefficient of Variation 20.1 % (11.5-14.5); RDW Standard Deviation 73.1 fL (36.4-46.3); Red Blood Count 2.18 M/uL (4.7-6.1); White Blood Count 18.42 K/uL (4.8-10.8)
--- NOTE | 2021-09-02 14:17 | Emergency Department Note ---
Impression & Plan Acute hyponatremia, Alcoholic liver failure, Alcohol abuse, Jaundice, Hyperbilirubinemia, Elevated INR, Leukocytosis, Cirrhosis ED Provider Note NAME: JACI HERNANDEZ AGE: 41 SEX: M : 1980 ARRIVES VIA: Walk-In INFORMANT: Patient ED PROVIDER(S): Anson Montez DO CHIEF COMPLAINT: swelling in abdomen, increased WBC HPI: Patient is a 41-year-old male with alcohol abuse, recent admission with SBP and painless jaundice who presents the ER referred in by [facility] for an elevated white count. Patient denies any headache or change in vision. No chest pain or shortness of breath. He admits to increased weakness which has been present for the past 3 days as well as swelling on the legs. No belly pain but does admit to belly distention. No dysuria, urgency, or frequency. No other exacerbating or remitting factors. ROS: See above HPI for pertinent positives & negatives. A total of 10 systems reviewed and were otherwise negative. PAST MEDICAL HISTORY:See Below PAST SURGICAL HISTORY:See Below FAMILY HISTORY:See Below SOCIAL HISTORY:See Below HOME MEDICATIONS:See Below ALLERGIES:See Below VITALS:See Below PHYSICAL EXAMINATION: GENERAL: Sitting up in bed, alert, well appearing, well nourished, no distress, non-toxic EYE EXAM: normal conjunctiva. Scleral icterus OROPHARYNX: no exudate, no erythema, lips, buccal mucosa, and tongue normal and mucous membranes are moist NECK: supple, no nuchal rigidity, no adenopathy, non-tender LUNGS: Clear to auscultation. Normal chest wall mechanics HEART: no murmurs, S1 normal and S2 normal ABDOMEN: abdomen soft, non-tender, normo-active bowel sounds, no masses, +fluid wave and distended SKIN: Diffuse jaundice UPPER EXTREMITIES: upper extremities are grossly normal. LOWER EXTREMITIES: No pitting edema. NEURO EXAM: Normal sensorium, cranial nerves II-XII grossly intact, normal speech, no gross weakness of arms, no gross weakness of legs. 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 Patient notes that his been having swelling in his legs for the past 2 to 3 days as well as increased swelling in his belly but otherwise has not noticed much else that has changed. IV was stopped blood was obtained. Labs show leukocytosis of 18,000. Anemia at 8 down from 10 on last admission. Platelets at 186. INR was at 2.5 which is actually improved from previous admission. Potassium slightly low 3.3 and chloride 91. Sodium was low at 123. Creatinine was at 2 and was obtained via i-STAT as otherwise was unable to obtain. T bili at 35 consistent with previous. AST up at 200 and ALT at 81. Ammonia was only less than 10. Lipase at 400. UA with nitrites although this is secondary to the bilirubin present. He had no urinary symptoms and was contaminated will not treat. I did do a diagnostic peritoneal tap which showed only 87 white cells not consistent with an infection. He was given IV fluids and Rocephin. He was admitted to the [facility] service for his hyponatremia and commendation with the alcoholic liver failure. Triage Nursing notes reviewed. Limited review of prior medical records performed Vital Signs: reviewed and remarkable for tachy Differential diagnosis: Infection, dehydration, metabolic abnormality, hypo/hyperglycemia, electrolyte disturbance, anemia, hypoxia, cardiac sources, intracerebral event, toxicologic, neurologic, as well as other pathologies. ER treatment provided: See below Diagnostics interpreted by me: ECG: Sinus rhythm rate of 95 Normal axis No PVCs QTC 530 Cardiac Monitoring: An order was placed for continuous cardiac monitoring. The monitor shows a rate of 98 with sinus rhythm. Laboratory studies: As stated above and show below. Imaging studies: CT abdomen pelvis showed ascites Chest x-ray unremarkable Consultation(s): Discussed with hospitalist for further evaluation today from [facility] service Procedures: none Critical Care: None Past Med/Surg History Medical History (Updated 09/02/21 @ 20:31 by Anson Montez DO) Alcohol use disorder, severe, dependence Anxiety and depression Ascites Cirrhosis Elevated liver enzymes GERD (gastroesophageal reflux disease) Kidney stone on right side NO INTERVENTION "VERY SMALL" Surgical History H/O inguinal hernia repair Slow to wake up after anesthesia [place] teeth removed Family History Grandfather (Paternal) Family hx of colon cancer Other No family history of adverse response to anesthesia Social History Smoking Status: Never smoker Second Hand Exposure: Yes ( A CHILD); Hx Alcohol Use: Yes Alcohol type: beer and hard liquor Hx Substance Use: No Preferred Language: Belarusian Communication Ability: Effective [employer] Required: No Beliefs That Will Affect Care: None Current Living Situation: Alone Feels Safe at Home: Yes Assistive Devices: None Allergies Allergies Allergy/AdvReac Type Severity Reaction Status Date / Time bee pollen Allergy Intermediate HIVES/SWELL Verified 08/20/21 19:41 ING brompheniramine Allergy Intermediate Hives Verified 08/20/21 19:41 [From Dimetapp Cold-Allergy (PE)] phenylephrine Allergy Intermediate Hives Verified 08/20/21 19:41 [From Dimetapp Cold-Allergy (PE)] Sulfa (Sulfonamide Allergy Mild Rash Verified 08/20/21 19:41 Antibiotics) Home Meds Home Medications Medication Instructions Recorded Confirmed omeprazole 20 mg tablet,delayed 20 mg PO DAILYBB 05/09/21 09/02/21 release lorazepam 0.5 mg tablet 0.5 mg PO DAILY PRN 08/20/21 09/02/21 spironolactone 50 mg tablet 50 mg PO DAILY 08/20/21 09/02/21 Pancreat-Bet OJo-rri-vsvx-pap 250 1 cap PO DAILY 09/02/21 09/02/21 mg-162 mg-65 mg-125 mg capsule (Super Enzyme) clonidine HCl 0.1 mg tablet 0.1 mg PO TID PRN 09/02/21 09/02/21 cyanocobalamin (vitamin B-12) 1,000 mcg PO DAILY 09/02/21 09/02/21 1,000 mcg tablet (Vitamin B-12) folic acid 1 mg tablet 1 mg PO DAILY 09/02/21 09/02/21 food supplemt, lactose-reduced 1 ea PO DAILY 09/02/21 09/02/21 (Ensure) furosemide 40 mg tablet 40 mg PO DAILY 09/02/21 09/02/21 hydroxyzine pamoate 50 mg capsule 50 mg PO TID PRN 09/02/21 09/02/21 multivitamin 1 tab PO DAILY 09/02/21 09/02/21 thiamine HCl (vitamin B1) 100 mg 100 mg PO DAILY 09/02/21 09/02/21 tablet Previous Rx's Medication Instructions Recorded potassium chloride 10 mEq 10 meq PO DAILY #5 tab 08/26/21 tablet,extended release Results & Data (ED) Vital Signs Vital Signs - 24 hr 09/02/21 13:42 09/02/21 14:22 09/02/21 16:00 Temperature 37.0 C Temperature Source Temporal Artery Scan Pulse Rate 104 H Pulse Rate [Right Finger] 99 H 84 Pulse Rhythm [Right Finger] Regular Pulse Strength [Right Finger] Normal Respiratory Rate 18 16 16 Respiratory Effort / Characteristics Non-Labored Respiratory Depth Normal Blood Pressure 108/52 L Blood Pressure [Right Arm] 108/56 L 104/58 L Blood Pressure Mean 70 Blood Pressure Mean [Right Arm] 73 73 Pulse Oximetry 94 97 93 Oxygen Delivery Method Room Air Room Air Room Air Sepsis Recent Fever Within 48 Hours No Sepsis New/Unexplained Change in Mental Status N/A Sepsis Action Taken by Nursing No Action Required Laboratory Data Result diagrams: 09/02/21 14:00 09/02/21 14:00 Lab Results 09/02/21 09/02/21 09/02/21 Range/Units 14:00 14:00 14:00 WBC 18.42 H (4.8-10.8) K/uL RBC 2.18 L (4.7-6.1) M/uL Hgb 8.0 L (14.0-18.0) g/dL POC Hgb (14.0-18.0) g/dl Hct 22.1 L (42-52) % POC Hct (42-52) % MCV 101.4 H (80-100) fL MCH 36.7 H (25-34) pg MCHC 36.2 H (32-36) g/dL RDW Std Deviation 73.1 H (36.4-46.3) fL RDW Coeff of Michael 20.1 H (11.5-14.5) % Plt Count 186 (130-400) K/uL MPV 10.3 (7.4-10.4) fL Immature Gran % (Auto) 0.4 % Neut % (Auto) 89.9 % Lymph % (Auto) 5.5 % [place] % (Auto) 4.1 % Eos % (Auto) 0.0 % Baso % (Auto) 0.1 % Neut # (Auto) 16.57 H (1.4-6.5) K/uL Lymph # (Auto) 1.01 L (1.2-3.4) K/uL [place] # (Auto) 0.75 H (0.11-0.59) K/uL Eos # (Auto) 0.00 (0-0.5) K/uL Baso # (Auto) 0.01 (0-0.2) K/uL Immature Gran # (Auto) 0.08 H (0.00-0.02) K/uL Anisocytosis Present PT (9.0-12.0) Seconds INR (0.9-1.1) POC Sodium (135-144) mmol/L Sodium 123 L (136-145) mmol/L POC Potassium (3.3-5.0) mmol/L Potassium 3.3 L (3.5-5.1) mmol/L POC Chloride (101-112) mmol/L Chloride 91 L (98-107) mmol/L Carbon Dioxide 22 (21-32) mmol/L POC Total CO2 (24-31) mmol/L Anion Gap 10.0 (3-11) POC Anion Gap (16-25) mmol/L POC BUN (7-18) mg/dl BUN 43 H (7-18) mg/dl Creatinine (0.6-1.4) mg/dl POC Creatinine (0.6-1.3) mg/dl Est Cr Clr Drug Dosing ml/min Est GFR ( Amer) Not Reportable Est GFR (Non-Af Amer) Not Reportable BUN/Creatinine Ratio (10-20) Glucose 95 (70-99) mg/dl POC Glucose (other) (70-99) mg/dl Calcium 8.0 L (8.5-10.1) mg/dl POC Ioniz Calcium Du (1.12-1.32) mmol/l Total Bilirubin 34.8 H (0.2-1) mg/dl AST 196 H (15-37) U/L ALT 81 H (12-78) Alkaline Phosphatase 152 H (45-117) U/L Ammonia < 10.0 L (11-32) umol/L Total Protein (6.4-8.2) gm/dl Albumin 2.0 L (3.4-5.0) gm/dl Globulin (2.5-4.0) gm/dl Albumin/Globulin Ratio (0.9-2) Lipase 449 H (73-393) U/L Urine Color Urine Appearance (Clear) Urine pH (4.5-7.5) Ur Specific [place] (1.000-1.030) Urine Protein (Negative) Urine Glucose (UA) (Negative) Urine Ketones (Negative) Urine Blood (Negative) Urine Nitrite (Negative) Urine Bilirubin (Negative) Urine Urobilinogen (Negative) Ur Leukocyte Esterase (Negative) Urine WBC (Auto) (0-5) /hpf Urine RBC (Auto) (0-4) /hpf U Hyaline Cast (Auto) (0-5) /lpf U Epithel Cells (Auto) (0-5) /lpf Urine Bacteria (Auto) (Negative) WBC Casts (0) /lpf SARS-CoV-2, RNA, NAAT (NEGATIVE) 09/02/21 09/02/21 09/02/21 Range/Units 14:30 14:33 15:29 WBC (4.8-10.8) K/uL RBC (4.7-6.1) M/uL Hgb (14.0-18.0) g/dL POC Hgb 10.9 L (14.0-18.0) g/dl Hct (42-52) % POC Hct 32 L (42-52) % MCV (80-100) fL MCH (25-34) pg MCHC (32-36) g/dL RDW Std Deviation (36.4-46.3) fL RDW Coeff of Michael (11.5-14.5) % Plt Count (130-400) K/uL MPV (7.4-10.4) fL Immature Gran % (Auto) % Neut % (Auto) % Lymph % (Auto) % [place] % (Auto) % Eos % (Auto) % Baso % (Auto) % Neut # (Auto) (1.4-6.5) K/uL Lymph # (Auto) (1.2-3.4) K/uL [place] # (Auto) (0.11-0.59) K/uL Eos # (Auto) (0-0.5) K/uL Baso # (Auto) (0-0.2) K/uL Immature Gran # (Auto) (0.00-0.02) K/uL Anisocytosis PT 23.4 H (9.0-12.0) Seconds INR 2.5 H (0.9-1.1) POC Sodium 123 L (135-144) mmol/L Sodium (136-145) mmol/L POC Potassium 3.6 (3.3-5.0) mmol/L Potassium (3.5-5.1) mmol/L POC Chloride 88 L (101-112) mmol/L Chloride (98-107) mmol/L Carbon Dioxide (21-32) mmol/L POC Total CO2 21 L (24-31) mmol/L Anion Gap (3-11) POC Anion Gap 18.0 (16-25) mmol/L POC BUN 40 H (7-18) mg/dl BUN (7-18) mg/dl Creatinine (0.6-1.4) mg/dl POC Creatinine 2.0 H (0.6-1.3) mg/dl Est Cr Clr Drug Dosing ml/min Est GFR ( Amer) Est GFR (Non-Af Amer) BUN/Creatinine Ratio (10-20) Glucose (70-99) mg/dl POC Glucose (other) 124 H (70-99) mg/dl Calcium (8.5-10.1) mg/dl POC Ioniz Calcium Du 0.97 L (1.12-1.32) mmol/l Total Bilirubin (0.2-1) mg/dl AST (15-37) U/L ALT (12-78) Alkaline Phosphatase (45-117) U/L Ammonia (11-32) umol/L Total Protein (6.4-8.2) gm/dl Albumin (3.4-5.0) gm/dl Globulin (2.5-4.0) gm/dl Albumin/Globulin Ratio (0.9-2) Lipase (73-393) U/L Urine Color Dark Yellow Urine Appearance Cloudy A (Clear) Urine pH 6.0 (4.5-7.5) Ur Specific [place] 1.012 (1.000-1.030) Urine Protein Negative (Negative) Urine Glucose (UA) Negative (Negative) Urine Ketones Negative (Negative) Urine Blood Negative (Negative) Urine Nitrite Positive A (Negative) Urine Bilirubin 3+ H (Negative) Urine Urobilinogen Negative (Negative) Ur Leukocyte Esterase Trace H (Negative) Urine WBC (Auto) >30 H (0-5) /hpf Urine RBC (Auto) 5-10 H (0-4) /hpf U Hyaline Cast (Auto) 0 (0-5) /lpf U Epithel Cells (Auto) 0-5 (0-5) /lpf Urine Bacteria (Auto) 1+ H (Negative) WBC Casts 20-30 H (0) /lpf SARS-CoV-2, RNA, NAAT (NEGATIVE) 09/02/21 Range/Units 16:34 WBC (4.8-10.8) K/uL RBC (4.7-6.1) M/uL Hgb (14.0-18.0) g/dL POC Hgb (14.0-18.0) g/dl Hct (42-52) % POC Hct (42-52) % MCV (80-100) fL MCH (25-34) pg MCHC (32-36) g/dL RDW Std Deviation (36.4-46.3) fL RDW Coeff of Michael (11.5-14.5) % Plt Count (130-400) K/uL MPV (7.4-10.4) fL Immature Gran % (Auto) % Neut % (Auto) % Lymph % (Auto) % [place] % (Auto) % Eos % (Auto) % Baso % (Auto) % Neut # (Auto) (1.4-6.5) K/uL Lymph # (Auto) (1.2-3.4) K/uL [place] # (Auto) (0.11-0.59) K/uL Eos # (Auto) (0-0.5) K/uL Baso # (Auto) (0-0.2) K/uL Immature Gran # (Auto) (0.00-0.02) K/uL Anisocytosis PT (9.0-12.0) Seconds INR (0.9-1.1) POC Sodium (135-144) mmol/L Sodium (136-145) mmol/L POC Potassium (3.3-5.0) mmol/L Potassium (3.5-5.1) mmol/L POC Chloride (101-112) mmol/L Chloride (98-107) mmol/L Carbon Dioxide (21-32) mmol/L POC Total CO2 (24-31) mmol/L Anion Gap (3-11) POC Anion Gap (16-25) mmol/L POC BUN (7-18) mg/dl BUN (7-18) mg/dl Creatinine (0.6-1.4) mg/dl POC Creatinine (0.6-1.3) mg/dl Est Cr Clr Drug Dosing ml/min Est GFR ( Amer) Est GFR (Non-Af Amer) BUN/Creatinine Ratio (10-20) Glucose (70-99) mg/dl POC Glucose (other) (70-99) mg/dl Calcium (8.5-10.1) mg/dl POC Ioniz Calcium Du (1.12-1.32) mmol/l Total Bilirubin (0.2-1) mg/dl AST (15-37) U/L ALT (12-78) Alkaline Phosphatase (45-117) U/L Ammonia (11-32) umol/L Total Protein (6.4-8.2) gm/dl Albumin (3.4-5.0) gm/dl Globulin (2.5-4.0) gm/dl Albumin/Globulin Ratio (0.9-2) Lipase (73-393) U/L Urine Color Urine Appearance (Clear) Urine pH (4.5-7.5) Ur Specific [place] (1.000-1.030) Urine Protein (Negative) Urine Glucose (UA) (Negative) Urine Ketones (Negative) Urine Blood (Negative) Urine Nitrite (Negative) Urine Bilirubin (Negative) Urine Urobilinogen (Negative) Ur Leukocyte Esterase (Negative) Urine WBC (Auto) (0-5) /hpf Urine RBC (Auto) (0-4) /hpf U Hyaline Cast (Auto) (0-5) /lpf U Epithel Cells (Auto) (0-5) /lpf Urine Bacteria (Auto) (Negative) WBC Casts (0) /lpf SARS-CoV-2, RNA, NAAT NEGATIVE (NEGATIVE) Administered Medications Discontinued Medications Ceftriaxone Sodium (Rocephin) 1,000 mg in 50 mls @ 100 mls/hr IV NOW STA Stop: 09/02/21 14:51 Last Infusion: 09/02/21 15:38 Dose: 0 mls/hr Documented by: [id number] Admin: 09/02/21 14:37 Dose: 100 mls/hr Documented by: [id number] Ceftriaxone Sodium 1,000 mg/ (Dextrose) 50 mls @ 100 mls/hr IV ONE ONE; Protocol Stop: 09/02/21 19:44 Last Admin: 09/02/21 20:02 Dose: 100 mls/hr Documented by: [id number] Lidocaine HCl (Lidocaine 1% Local 20 Ml Vial) Confirm Administered Dose 20 ml .ROUTE .STK-MED ONE Stop: 09/02/21 15:18 Last Admin: 09/02/21 16:33 Dose: 20 ml Documented by: [id number] Imaging Data Radiologist's Impression: Chest X-Ray 09/02/21 13:46 XR chest 1V portable HISTORY: abnormal labs, recent infection, elevated WBC COMPARISON: Chest 08/24/2021. FINDINGS: No pneumothorax. There are low lung volumes. There is mild elevation of the right hemidiaphragm, unchanged. Bibasilar linear densities persist and favor subsegmental atelectasis or scarring. No new focal lung consolidations. No evidence for pulmonary edema. The heart is normal in size. No pleural effusions. No pneumothorax. IMPRESSION: Low lung volumes with bibasilar linear densities. These are nonspecific but favor subsegmental atelectasis or scarring. A resolving pneumonia could also have a similar appearance. ACT 112: Negative or not required by law. Electronically signed by: Carlitos Abraham M.D. 09/02/2021 3:01 PM Abdomen/Pelvis CT 09/02/21 16:06 CT abd pelvis wo con CLINICAL HISTORY: abd pain wbc juan TECHNIQUE: Helical axial images of the abdomen and pelvis were obtained. Automat ed dose lowering techniques and/or adjustment according to patient size were utilized for this exam. This exam was performed without intravenous contrast. COMPARISON: Comparison is made to CT chest 08/20/2021 FINDINGS: Lower chest: Bibasilar atelectasis versus scarring is seen. Liver: Hepatic steatosis is noted. Marked hepatomegaly is seen. Gallbladder and biliary tree: The gallbladder appears contracted. Suggestion of radiodense stones without evidence of gallbladder wall thickening. No intra- or extrahepatic biliary ductal dilation. Pancreas: Unremarkable, no focal lesions. Spleen: Splenomegaly is noted, the spleen measures 20 cm in craniocaudal dimension. Adrenals: Unremarkable. Kidneys and ureters: Nonobstructive nephrolithiasis is seen. Bladder: Unremarkable. Reproductive organs: Prostatic calcifications are seen which may represent prior hemorrhage or granulomatous disease. Bowel: Colonic wall prominence is seen. Lymph nodes Retroperitoneal: Unremarkable. Mesenteric: Unremarkable. Pelvic: Unremarkable. Peritoneum: There is moderate ascites. Vessels: The aorta is unremarkable. Numerous varices are seen. Abdominal wall: Unremarkable. Bones: Unremarkable. IMPRESSION: 1. Diffuse colonic wall thickening may be secondary to ascites, however is more pronounced than in the prior exam. Clinical correlation for infectious/inflammatory colitis is recommended. 2. Hepatosplenomegaly, hepatic steatosis, and portal and splenic varices are again seen. 3. Additional findings as above. ACT 112: Negative or not required by law. Electronically signed by: Jonathan West M.D. 09/02/2021 4:37 PM Discharge Plan Visit Data Chief Complaint: Abdominal Pain Stated Complaint: BLOODWORK ISSUES, ABDOMINAL SWELLING ED Provider: Anson Montez Discharge Problem: Acute hyponatremia, Alcoholic liver failure, Alcohol abuse, Jaundice, Hyperbilirubinemia, Elevated INR, Leukocytosis, Cirrhosis Discharge Instructions Interventions: ED Discharge Assessment Last Done: 09/02/21 19:18
[2021-09-02] MEDS ORDERED: cefTRIAXone SODIUM 1,000 MG/50 ML BAG IV STA (14:22)
[2021-09-02 14:37] LABS: Anisocytosis Present
[2021-09-02 14:44] LABS: Appearance Urine Cloudy (Clear); Bilirubin Urine 3+ (Negative); Blood Urine Negative (Negative); Color Urine Dark Yellow; Epithelial Cell Urine Auto 0-5 /lpf (0-5); Glucose Urine UA Negative (Negative); Ketones Urine Negative (Negative); Leukocyte Esterase Urine Trace (Negative); Nitrite Urine Positive (Negative); Protein Urine Negative (Negative); Specific Gravity Urine 1.012 (1.000-1.030); Urobilinogen Urine Negative (Negative)
[2021-09-02 14:55] LABS: INR 2.5 (0.9-1.1); Prothrombin Time 23.4 Seconds (9.0-12.0)
--- NOTE | 2021-09-02 15:03 | XRay Report ---
XR chest 1V portable HISTORY: abnormal labs, recent infection, elevated WBC COMPARISON: Chest 08/24/2021. FINDINGS: No pneumothorax. There are low lung volumes. There is mild elevation of the right hemidiaph ragm, unchanged. Bibasilar linear densities persist and favor subsegmental atelectasis or scarring. N o new focal lung consolidations. No evidence for pulmonary edema. The heart is normal in size. No ple ural effusions. No pneumothorax. IMPRESSION: Low lung volumes with bibasilar linear densities. These are nonspecific but favor subsegmental atelec tasis or scarring. A resolving pneumonia could also have a similar appearance. ACT 112: Negative or not required by law. Electronically signed by: Carlitos Abraham M.D. 09/02/2021 3:01 PM
[2021-09-02 15:09] LABS: Cast Urine Automated 0 /lpf (0-5); White Blood Cell Casts Urine 20-30 /lpf (0)
[2021-09-02 15:10] LABS: Alanine Aminotransferase 81 (12-78); Alkaline Phosphatase 152 U/L (45-117); Aspartate Aminotransferase 196 U/L (15-37); Bilirubin,Total 34.8 mg/dl (0.2-1); Blood Urea Nitrogen 43 mg/dl (7-18); Carbon Dioxide 22 mmol/L (21-32); Chloride 91 mmol/L (98-107); Glucose 95 mg/dl (70-99); Lipase 449 U/L (73-393); Potassium 3.3 mmol/L (3.5-5.1); Sodium 123 mmol/L (136-145)
[2021-09-02 15:10] LABS: Bacteria Urine Automated 1+ (Negative); WBC Urine Automated >30 /hpf (0-5)
[2021-09-02] MEDS ORDERED: LIDOCAINE 1% LOCAL 20 ML VIAL ONE (15:17)
[2021-09-02 15:49] LABS: iSTAT Hemoglobin 10.9 g/dl (14.0-18.0); iSTAT Ionized Calcium 0.97 mmol/l (1.12-1.32); iSTAT Potassium 3.6 mmol/L (3.3-5.0)
--- NOTE | 2021-09-02 16:22 | Electrocardiogram Report ---
Test Reason : Blood Pressure : / mmHG Vent. Rate : 095 BPM Atrial Rate : 095 BPM P-R Int : 156 ms QRS Dur : 104 ms QT Int : 422 ms P-R-T Axes : 050 068 060 degrees QTc Int : 530 ms Normal sinus rhythm Prolonged QT Abnormal ECG When compared with ECG of 23-AUG-2021 05:09, Nonspecific T wave abnormality no longer evident in Anterior leads Confirmed by Cesar Kendrick ([id number]) on 09/02/2021 4:21:32 PM Referred By: Confirmed By:Cesar Kendrick
--- NOTE | 2021-09-02 16:39 | CT Scan Report ---
CT abd pelvis wo con CLINICAL HISTORY: abd pain wbc juan TECHNIQUE: Helical axial images of the abdomen and pelvis were obtained. Automated dose lowering tech niques and/or adjustment according to patient size were utilized for this exam. This exam was perfor med without intravenous contrast. COMPARISON: Comparison is made to CT chest 08/20/2021 FINDINGS: Lower chest: Bibasilar atelectasis versus scarring is seen. Liver: Hepatic steatosis is noted. Marked hepatomegaly is seen. Gallbladder and biliary tree: The gallbladder appears contracted. Suggestion of radiodense stones wit hout evidence of gallbladder wall thickening. No intra- or extrahepatic biliary ductal dilation. Pancreas: Unremarkable, no focal lesions. Spleen: Splenomegaly is noted, the spleen measures 20 cm in craniocaudal dimension. Adrenals: Unremarkable. Kidneys and ureters: Nonobstructive nephrolithiasis is seen. Bladder: Unremarkable. Reproductive organs: Prostatic calcifications are seen which may represent prior hemorrhage or granul omatous disease. Bowel: Colonic wall prominence is seen. Lymph nodes Retroperitoneal: Unremarkable. Mesenteric: Unremarkable. Pelvic: Unremarkable. Peritoneum: There is moderate ascites. Vessels: The aorta is unremarkable. Numerous varices are seen. Abdominal wall: Unremarkable. Bones: Unremarkable. IMPRESSION: 1. Diffuse colonic wall thickening may be secondary to ascites, however is more pronounced than in t he prior exam. Clinical correlation for infectious/inflammatory colitis is recommended. 2. Hepatosplenomegaly, hepatic steatosis, and portal and splenic varices are again seen. 3. Additional findings as above. ACT 112: Negative or not required by law. Electronically signed by: Jonathan West M.D. 09/02/2021 4:37 PM
--- NOTE | 2021-09-02 17:13 | History & Physical Report ---
Date of Service September 02, 2021 Assessment & Plan (1) Leukocytosis: Plan: Patient is 41 y/o M with PMH alcohol abuse, fatty liver, cirrhosis, adjustment disorder presented to ER for abnormal labs. Patient with recent admission 08/21/21-08/26/21 for alcoholic cirrhosis, SBP, severe hyponatremia with sodium of 108. F/U outpatient labs revealed leukocytosis and pt referred to ER. C/O SOB with exertion. Denies abdominal pain In ER pt afebrile, P: 104, R: 18, BP: 108/52, 94% on RA. WBC: 18. Negative covid-19 test. CXR: Low lung volumes with bibasilar linear densities. These are nonspecific but favor subsegmental atelectasis or scarring. CT Abd/Pelvis: Diffuse colonic wall thickening may be secondary to ascites, however is more pronounced than in the prior exam. 2. Hepatosplenomegaly, hepatic steatosis, and portal and splenic varices are again seen. Possible SBP Blood cultures pending In ER peritoneal fluid sent and pending In ER given Rocephin Will continue Rocephin Blood cultures (obtained after initial antibiotics) GI consult (2) Cirrhosis: (3) Hyperbilirubinemia: (4) Elevated INR: (5) Ascites: Plan: Monitor for further ascites. May need paracentesis INR: 2.5 LFT's, INR in am GI Consult. Would like opinion on pt's eligibility for TIPS procedure (6) Alcohol abuse: Plan: Last drink 08/20/21 Went to [facility] for alcohol rehab 08/30/21 Continue alcohol cessation (7) Hyponatremia: Plan: Na: 123. Was 131 on 08/25/21. 108 on 08/21/21. Monitor BMP Nephrology consult DVT Prophylaxis SCDs Full Code as per discussion with pt Follows with Dr Price for routine care Pt was seen and care coordinated with Dr Zhang. See addendum History of Present Illness Chief Complaint: Abnormal labs Primary Care Provider: Kyle Price DO Patient is 41 y/o M with PMH alcohol abuse, fatty liver, cirrhosis, adjustment disorder presented to ER for abnormal labs. Patient with recent admission 08/21/21-08/26/21 for alcoholic cirrhosis, SBP, severe hyponatremia with sodium of 108. Went to [facility] rehab 08/30/21. He had repeat labs as we suggested at hospital discharge and was found to have elevated WBC and referred to hospital. Patient states does have SOB with exertion. His legs feel heavy with ambulation. He is unsure if abdomen looks more swollen. Denies abdominal pain or known fever, chills. Has been taking furosemide 40mg daily, spironolactone 50mg daily. Having 3-4 BMs a day. Some red blood noted intermittently. Denies diaphoresis, N/V, ARIAS, dizziness, syncope, vision changes, neck pain, CP, palpitations, cough, sore throat, choking, otalgia, rhinorrhea, paresthesias, rashes, urinary symptoms. Allergies Allergy/AdvReac Type Severity Reaction Status Date / Time bee pollen Allergy Intermediate HIVES/SWELL Verified 08/20/21 19:41 ING brompheniramine Allergy Intermediate Hives Verified 08/20/21 19:41 [From Dimetapp Cold-Allergy (PE)] phenylephrine Allergy Intermediate Hives Verified 08/20/21 19:41 [From Dimetapp Cold-Allergy (PE)] Sulfa (Sulfonamide Allergy Mild Rash Verified 08/20/21 19:41 Antibiotics) Home Medications Medication Instructions Recorded Confirmed Type omeprazole 20 mg tablet,delayed 20 mg PO DAILYBB 05/09/21 09/02/21 History release Pancreat-Bet LOm-lyi-aokf-pap 250 1 cap PO QAM 08/20/21 09/02/21 History mg-162 mg-65 mg-125 mg capsule (Super Enzyme) lorazepam 0.5 mg tablet 0.5 mg PO DAILY PRN 08/20/21 09/02/21 History spironolactone 50 mg tablet 50 mg PO DAILY 08/20/21 09/02/21 History potassium chloride 10 mEq 10 meq PO DAILY #5 tab 08/26/21 09/02/21 Rx tablet,extended release Pancreat-Bet JCr-lkc-kmll-pap 250 1 cap PO DAILY 09/02/21 09/02/21 History mg-162 mg-65 mg-125 mg capsule (Super Enzyme) clonidine HCl 0.1 mg tablet 0.1 mg PO TID PRN 09/02/21 09/02/21 History cyanocobalamin (vitamin B-12) 1,000 mcg PO DAILY 09/02/21 09/02/21 History 1,000 mcg tablet (Vitamin B-12) folic acid 1 mg tablet 1 mg PO DAILY 09/02/21 09/02/21 History food supplemt, lactose-reduced 1 ea PO DAILY 09/02/21 09/02/21 History (Ensure) furosemide 20 mg tablet (Lasix) 20 mg PO DAILY 09/02/21 09/02/21 History hydroxyzine pamoate 50 mg capsule 50 mg PO TID PRN 09/02/21 09/02/21 History multivitamin 1 tab PO DAILY 09/02/21 09/02/21 History thiamine HCl (vitamin B1) 100 mg 100 mg PO DAILY 09/02/21 09/02/21 History tablet Past Med/Surg History Medical History (Updated 09/02/21 @ 18:14 by Sheeba Shultz PA-C) Alcohol use disorder, severe, dependence Anxiety and depression Ascites Cirrhosis Elevated liver enzymes GERD (gastroesophageal reflux disease) Kidney stone on right side NO INTERVENTION "VERY SMALL" Surgical History H/O inguinal hernia repair Slow to wake up after anesthesia [place] teeth removed Family History Grandfather (Paternal) Family hx of colon cancer Other No family history of adverse response to anesthesia Social History Smoking Status: Never smoker Second Hand Exposure: Yes ( A CHILD); Hx Alcohol Use: Yes Alcohol type: beer and hard liquor Hx Substance Use: No Preferred Language: Setswana Communication Ability: Effective Community Health Planning Director Required: No Beliefs That Will Affect Care: None Current Living Situation: Alone Feels Safe at Home: Yes Assistive Devices: None Review of Systems Review of Systems: All systems reviewed & are unremarkable except as noted in HPI & below Physical Exam Physical Exam: General: no acute distress, ill appearing male Head: normocephalic, atraumatic Eyes: conjunctiva non-injected, +icteric ENT: normal inspection external ears, nose, mucous membranes moist Neck: supple, trachea midline Lungs: clear, no respiratory distress, no wheezing/rhonchi/rales CV: RRR, trace pretibial edema Abd: +distended, normal BS, soft, +non-tender to palpation Ext: no cyanosis, no calf tenderness Neuro: A&O x 3, no focal deficits noted, normal affect Skin: +yellow coloration, warm, dry Results & Data Results & Data ([facility]) Vital Signs (Past 12 Hours) Vital Signs Temp Pulse Pulse Resp BP BP Pulse Ox 09/02/21 16:00 84 16 104/58 L 93 09/02/21 14:22 99 H 16 108/56 L 97 09/02/21 13:42 37.0 C 104 H 18 108/52 L 94 Laboratory Results Short CBC 09/02/21 Range/Units 14:00 WBC 18.42 H (4.8-10.8) K/uL Hgb 8.0 L (14.0-18.0) g/dL Hct 22.1 L (42-52) % Plt Count 186 (130-400) K/uL BMP 09/02/21 14:00 Sodium 123 L Potassium 3.3 L Chloride 91 L Carbon Dioxide 22 BUN 43 H Creatinine Glucose 95 Calcium 8.0 L Liver Function 09/02/21 Range/Units 14:00 Total Bilirubin 34.8 H (0.2-1) mg/dl AST 196 H (15-37) U/L ALT 81 H (12-78) Alkaline Phosphatase 152 H (45-117) U/L Albumin 2.0 L (3.4-5.0) gm/dl Urine 09/02/21 Range/Units 14:30 Urine Color Dark Yellow Urine Appearance Cloudy A (Clear) Urine pH 6.0 (4.5-7.5) Ur Specific [place] 1.012 (1.000-1.030) Urine Protein Negative (Negative) Urine Glucose (UA) Negative (Negative) Diagnostic Findings Chest X-Ray 09/02/21 13:46 XR chest 1V portable HISTORY: abnormal labs, recent infection, elevated WBC COMPARISON: Chest 08/24/2021. FINDINGS: No pneumothorax. There are low lung volumes. There is mild elevation of the right hemidiaphragm, unchanged. Bibasilar linear densities persist and favor subsegmental atelectasis or scarring. No new focal lung consolidations. No evidence for pulmonary edema. The heart is normal in size. No pleural effusions. No pneumothorax. IMPRESSION: Low lung volumes with bibasilar linear densities. These are nonspecific but favor subsegmental atelectasis or scarring. A resolving pneumonia could also have a similar appearance. ACT 112: Negative or not required by law. Electronically signed by: Carlitos Abraham M.D. 09/02/2021 3:01 PM Abdomen/Pelvis CT 09/02/21 16:06 CT abd pelvis wo con CLINICAL HISTORY: abd pain wbc juan TECHNIQUE: Helical axial images of the abdomen and pelvis were obtained. A utomated dose lowering techniques and/or adjustment according to patient size were utilized for this exam. This exam was performed without intravenous contrast. COMPARISON: Comparison is made to CT chest 08/20/2021 FINDINGS: Lower chest: Bibasilar atelectasis versus scarring is seen. Liver: Hepatic steatosis is noted. Marked hepatomegaly is seen. Gallbladder and biliary tree: The gallbladder appears contracted. Suggestion of radiodense stones without evidence of gallbladder wall thickening. No intra- or extrahepatic biliary ductal dilation. Pancreas: Unremarkable, no focal lesions. Spleen: Splenomegaly is noted, the spleen measures 20 cm in craniocaudal dimension. Adrenals: Unremarkable. Kidneys and ureters: Nonobstructive nephrolithiasis is seen. Bladder: Unremarkable. Reproductive organs: Prostatic calcifications are seen which may represent prior hemorrhage or granulomatous disease. Bowel: Colonic wall prominence is seen. Lymph nodes Retroperitoneal: Unremarkable. Mesenteric: Unremarkable. Pelvic: Unremarkable. Peritoneum: There is moderate ascites. Vessels: The aorta is unremarkable. Numerous varices are seen. Abdominal wall: Unremarkable. Bones: Unremarkable. IMPRESSION: 1. Diffuse colonic wall thickening may be secondary to ascites, however is more pronounced than in the prior exam. Clinical correlation for infectious/inflammatory colitis is recommended. 2. Hepatosplenomegaly, hepatic steatosis, and portal and splenic varices are again seen. 3. Additional findings as above. ACT 112: Negative or not required by law. Electronically signed by: Jonathan West M.D. 09/02/2021 4:37 PM Supervising Physician Co-Signing Physician Notes History and physical exam performed by me as detailed by Umm Shultz PA-C. Notable for 11-year-old man alcoholic liver cirrhosis, decompensated with ascites and jaundice who presented from rehab facility for leukocytosis. Reports leg swelling and increasing dyspnea on exertion. Denies fevers, chills, nausea, vomiting, dysuria. Exam notable for generalized jaundice, abdominal distention with ascites, bilateral leg edema Labs notable for leukocytosis, UA +nitrite/trace estease/>30WBC, elevated LFT/bilirubin, Hb of 8, Na of 123, INR 2.5 Leukocytosis. Hyponatremia Decompensated cirrhosis with ascites and hyperbilirubinemia. MELD Na 38 Based on patient history, it is unclear source of leukocytosis. No other symptoms of SBP. Diagnostic paracentesis done in ER was negative for SBP UA suggestive of possible UTI Continue ceftriaxone for now. Follow up cultures Continue diuretics Monitor Na. Fluid restriction Nephro c/s&GI c/s Agree with other plans as detailed by Sheeba Shultz PA-C
[2021-09-02 17:23] LABS: Total Protein Peritoneal Fluid 0.7 g/dl
[2021-09-02 17:51] LABS: Appearance Peritoneal Fluid CLEAR; Color Peritoneal Fluid YELLOW; RBC Peritoneal Fluid (A) < 3000 /uL; WBC Peritoneal Fluid (A) 87 /ul (0-300)
[2021-09-02 17:53] LABS: Basophils, Fluid 0 %; Eosinophils, Fluid 0 %; Lymphocytes, Fluid 24 %; Mono,Macrophage,Mesothelial 73 %; Neutrophils, Fluid 3 %
[2021-09-02] MEDS ORDERED: POLYETHYLENE (MIRALAX) 17 GM PACK PO PRN (19:01)
[2021-09-02] MEDS ORDERED: cefTRIAXone SODIUM 1,000 MG in DEXTROSE 5% 50 ML IV ONE (19:15)
[2021-09-03] MEDS: PANTOprazole 40 MG TAB PO SCH (06:19)
[2021-09-03 07:54] LABS: INR 2.3 (0.9-1.1); Prothrombin Time 21.7 Seconds (9.0-12.0)
[2021-09-03 07:56] LABS: Hematocrit (blood only) 20.7 % (42-52); Hemoglobin 7.4 g/dL (14.0-18.0); Mean Corpuscular Hemoglobin 35.9 pg (25-34); Mean Corpuscular Hgb Conc 35.7 g/dL (32-36); Mean Corpuscular Volume 100.5 fL (80-100); Mean Platelet Volume 10.9 fL (7.4-10.4); Platelet Count 139 K/uL (130-400); RDW Coefficient of Variation 20.1 % (11.5-14.5); RDW Standard Deviation 72.3 fL (36.4-46.3); Red Blood Count 2.06 M/uL (4.7-6.1); White Blood Count 13.36 K/uL (4.8-10.8)
[2021-09-03 08:12] LABS: Alanine Aminotransferase 74 (12-78); Albumin Level 1.7 gm/dl (3.4-5.0); Alkaline Phosphatase 137 U/L (45-117); Aspartate Aminotransferase 174 U/L (15-37); Blood Urea Nitrogen 53 mg/dl (7-18); Calcium 7.4 mg/dl (8.5-10.1); Carbon Dioxide 21 mmol/L (21-32); Chloride 93 mmol/L (98-107); Glucose 93 mg/dl (70-99); Potassium 3.3 mmol/L (3.5-5.1); Sodium 126 mmol/L (136-145)
[2021-09-03 08:23] LABS: Anisocytosis Present; Basophils # (auto) 0.01 K/uL (0-0.2); Basophils % (auto) 0.1 %; Eosinophils # (auto) 0.03 K/uL (0-0.5); Eosinophils % (auto) 0.2 %; Immature Granulocytes # (auto) 0.05 K/uL (0.00-0.02); Immature Granulocytes % (auto) 0.4 %; Lymphocytes # (auto) 1.12 K/uL (1.2-3.4); Lymphocytes % (auto) 8.4 %; Monocytes # (auto) 0.48 K/uL (0.11-0.59); Monocytes % (auto) 3.6 %; Neutrophils # (auto) 11.67 K/uL (1.4-6.5); Neutrophils % (auto) 87.3 %
[2021-09-03] MEDS: CYANOCOBALAMIN 500 MCG TABLET (VITAMIN B-12) PO SCH (08:31)
[2021-09-03] MEDS: MULTIVITAMIN TAB PO SCH (08:32)
[2021-09-03] MEDS: SPIRONOLACTONE 25 MG TAB PO SCH (08:32)
[2021-09-03] MEDS: THIAMINE HCL 100 MG TAB PO SCH (08:32)
[2021-09-03] MEDS: FOLIC ACID 1 MG TAB PO SCH (08:32)
[2021-09-03] MEDS ORDERED: POTASSIUM CHLORIDE CRTAB 20 MEQ TABCR PO ONE (08:37)
--- NOTE | 2021-09-03 08:37 | Nephrology Consultation ---
Date of Consultation September 03, 2021 Assessment & Plan (1) Hyponatremia: hypervolemic hyponatremia. sNa has been running mid 120s, about where he was at recent d/c but w/ worsening OL; sNa 126 this am. he is on spironolactone 50 mg daily and lasix 20 mg daily. his creatinine cannot be evaluated d/t bilirubinemia cannot correct sodium optimally w/o correcting K. it is not at all clear to me that we can improve sodium further but will work on fluid status/diuretic dosing >ordered bmp, serum osms (both for 1300); rd urine Na, urine osms > serum osms 273 (? interfering substance); rd Dorian 5; ur osms 322; K, Na noted -increased K dose to 20 mEq bid starting this am w/ additional supplementation to total 50 mEq po K this am -cont current spironolactone, lasix doses for AM > will now increase lasix to 20 IV tid (0600, noon, 1800) and further increase K to 60 mEq tid -per GI no paracentesis indicated currently History of Present Illness Reason for Consultation: hyponatremia Requesting Physician: Dr Zhang Attending Physician: Cha Zhang MD History of Present Illness 41 y/o M whom I'm asked to see for hyponatremia was sent from [facility] rehab here yesterday w/ concern worsening volume overload and WBC 18K; serum sodium on admission 123 (it's 126 this am). Admitted here late last month w/ critical hyponatremia of 108 and with SBP, alcoholic liver disease. Medical history also remarkable for adjustment disorder. He states that his legs are less heavy today and less swollen. He feels he has increasing abdominal distention though. Denies fall or unsteady gait. Denies nausea vomiting. Denies abdominal pain. Allergies Allergy/AdvReac Type Severity Reaction Status Date / Time bee pollen Allergy Intermediate HIVES/SWELL Verified 08/20/21 19:41 ING brompheniramine Allergy Intermediate Hives Verified 08/20/21 19:41 [From Dimetapp Cold-Allergy (PE)] phenylephrine Allergy Intermediate Hives Verified 08/20/21 19:41 [From Dimetapp Cold-Allergy (PE)] Sulfa (Sulfonamide Allergy Mild Rash Verified 08/20/21 19:41 Antibiotics) Home Medications Medication Instructions Recorded Confirmed Type omeprazole 20 mg tablet,delayed 20 mg PO DAILYBB 05/09/21 09/02/21 History release lorazepam 0.5 mg tablet 0.5 mg PO DAILY PRN 08/20/21 09/02/21 History spironolactone 50 mg tablet 50 mg PO DAILY 08/20/21 09/02/21 History potassium chloride 10 mEq 10 meq PO DAILY #5 tab 08/26/21 09/02/21 Rx tablet,extended release Pancreat-Bet KEu-ivi-iogi-pap 250 1 cap PO DAILY 09/02/21 09/02/21 History mg-162 mg-65 mg-125 mg capsule (Super Enzyme) clonidine HCl 0.1 mg tablet 0.1 mg PO TID PRN 09/02/21 09/02/21 History cyanocobalamin (vitamin B-12) 1,000 mcg PO DAILY 09/02/21 09/02/21 History 1,000 mcg tablet (Vitamin B-12) folic acid 1 mg tablet 1 mg PO DAILY 09/02/21 09/02/21 History food supplemt, lactose-reduced 1 ea PO DAILY 09/02/21 09/02/21 History (Ensure) furosemide 40 mg tablet 40 mg PO DAILY 09/02/21 09/02/21 History hydroxyzine pamoate 50 mg capsule 50 mg PO TID PRN 09/02/21 09/02/21 History multivitamin 1 tab PO DAILY 09/02/21 09/02/21 History thiamine HCl (vitamin B1) 100 mg 100 mg PO DAILY 09/02/21 09/02/21 History tablet Patient History Medical History Alcohol use disorder, severe, dependence Anxiety and depression Ascites Cirrhosis Elevated liver enzymes GERD (gastroesophageal reflux disease) Kidney stone on right side NO INTERVENTION "VERY SMALL" Surgical History H/O inguinal hernia repair Slow to wake up after anesthesia [place] teeth removed Family History Grandfather (Paternal) Family hx of colon cancer Other No family history of adverse response to anesthesia Social History Smoking Status: Never smoker Second Hand Exposure: Yes ( A CHILD); Hx Alcohol Use: Yes Alcohol type: beer and hard liquor Hx Substance Use: No Preferred Language: Belarusian Communication Ability: Effective Cutting Machine Tender Required: No Beliefs That Will Affect Care: None marital status: Single Current Living Situation: Rehab Feels Safe at Home: Yes Safety Concerns: Feels Safe At This Time Assistive Devices: None Review of Systems Review of Systems: All systems reviewed & are unremarkable except as noted in HPI & below Physical Exam Constitutional: well developed, + cachectic and cooperative; no acute distress Eyes: EOM intact bilaterally ENMT: Ears: no external ear abnormality Nose: no external nose abnormality Mouth: + dry oral mucous membranes Neck: no nuchal rigidity Respiratory: normal respiratory effort Auscultation: + diminished lung sounds (Especially bilateral bases) Cardiovascular: Rate/Rhythm: + tachycardic (in 90s) Heart Sounds: + murmur Extremities: + edema (2+) Gastrointestinal (Abdomen): Inspection/Auscultation: + abdomen distended and normal bowel sounds Percussion/Palpation: abdomen soft and + ascites; abdomen nontender Musculoskeletal: Extremities: strength 5/5 throughout Skin: no rashes, warm and dry Neurologic: andersen, fluent speech, no tremor Psychiatric: Orientation: alert and oriented x 3 Results & Data ([facility]) Vital Signs (Past 12 Hours) Vital Signs Temp Pulse Pulse Resp BP Pulse Ox 09/03/21 07:44 36.8 C 97 H 18 92/47 L 94 09/03/21 04:20 95 H 09/03/21 04:07 37 C 134 H 18 103/46 L 95 09/03/21 01:20 37 C 100 H 20 108/63 93 09/03/21 00:12 101 H 09/02/21 23:52 97 H 16 98/55 L 95 Laboratory Results 09/03/21 06:58 09/03/21 06:58
[2021-09-03] MEDS ORDERED: POTASSIUM CHLORIDE 10 MEQ TABCR PO SCH (09:00)
[2021-09-03] MEDS ORDERED: POTASSIUM CHLORIDE CRTAB 20 MEQ TABCR PO SCH (09:00)
[2021-09-03] MEDS ORDERED: FUROSEMIDE 40 MG TAB PO SCH (09:00)
--- NOTE | 2021-09-03 09:03 | Hospitalist Progress Note ---
Date of Service September 03, 2021 Assessment & Plan (1) Leukocytosis: Plan: 41 y/o M with PMH alcohol abuse, fatty liver, cirrhosis, adjustment disorder presented to ER for abnormal labs. Patient with recent admission 08/21/21- 08/26/21 for alcoholic cirrhosis, SBP, severe hyponatremia with sodium of 108. F/U outpatient labs revealed leukocytosis and pt referred to ER. C/O SOB with exertion. Denies abdominal pain In ER pt afebrile, P: 104, R: 18, BP: 108/52, 94% on RA. WBC: 18. Negative covid-19 test. CXR: Low lung volumes with bibasilar linear densities. These are nonspecific but favor subsegmental atelectasis or scarring. CT Abd/Pelvis: Diffuse colonic wall thickening may be secondary to ascites, however is more pronounced than in the prior exam. 2. Hepatosplenomegaly, hepatic steatosis, and portal and splenic varices are again seen. SBP ruled out based on diagnostic paracentesis done on admission. Blood cultures and lab. UA had pyuria, esterase nitrite. Possible UTI/bacteriuria. Continue ceftriaxone for now Follow-up urine culture (2) Cirrhosis: (3) Hyperbilirubinemia: (4) Elevated INR: (5) Ascites: Plan: Decompensated alcoholic cirrhosis with ascites, hyperbilirubinemia Continue diuretic Will appreciate GI evaluation. Patient will need follow-up with hepatology for continued management/possible transplant or TIPS eval No SBP based on diagnostic tap May need therapeutic tap Continue Lasix and Aldactone Continue to monitor MELD labs (6) Alcohol abuse: Plan: Last drink 08/20/21 Went to [facility] for alcohol rehab 08/30/21 Continue alcohol cessation Plan to dc back to rehab once stable (7) Hyponatremia: Plan: Na: 123 on this admission. Was 134 on recent discharge on 08/26/21. Na currently 126 [employer] evaluation and recommendation appreciated Continue fluid restriction Continue to monitor sodium levels Hypokalemia. Replete and monitor DVT Prophylaxis SCDs Admission and Anticipated Discharge Date Admission Date: September 02, 2021 Subjective Patient seen and examined Reports feeling better. Reports no cough this morning. Denies shortness of breath at rest. Abdominal distention. Denies any abdominal pain, nausea, vomiting. Having regular bowel movements Still has jaundice and leg swelling. Denies any fevers, chills Denies any chest pain, palpitations Denies dysuria, frequency, urgency Physical Exam Constitutional: + well hydrated; no acute distress Chronically ill looking Eyes: PERRL and EOM intact bilaterally; sclerae not anicteric ENMT: external ear and nose normal, oropharynx normal Respiratory: normal respiratory effort, lungs clear to auscultation Cardiovascular: Rate/Rhythm: regular rate and regular rhythm S1-S2 Gastrointestinal (Abdomen): Abdomen is distended, positive ascites, bowel sounds normal Musculoskeletal: Bilateral pedal edema Skin: Generalized jaundice skin Neurologic: PERRL, EOMI, accommodation nl, no face palsy, no dysarthria No asterixis Psychiatric: A+Ox3, euthymic affect Genitourinary: No CVA tenderness Results & Data Results & Data ([facility]) Vital Signs (Past 12 Hours) Vital Signs Temp Pulse Pulse Resp BP Pulse Ox 09/03/21 08:34 101/49 L 09/03/21 07:44 36.8 C 97 H 18 92/47 L 94 09/03/21 04:20 95 H 09/03/21 04:07 37 C 134 H 18 103/46 L 95 09/03/21 01:20 37 C 100 H 20 108/63 93 09/03/21 00:12 101 H 09/02/21 23:52 97 H 16 98/55 L 95 Laboratory Results Abnormal lab results 09/02/21 09/02/21 09/02/21 Range/Units 14:00 14:00 14:00 WBC 18.42 H (4.8-10.8) K/uL RBC 2.18 L (4.7-6.1) M/uL Hgb 8.0 L (14.0-18.0) g/dL POC Hgb (14.0-18.0) g/dl Hct 22.1 L (42-52) % POC Hct (42-52) % MCV 101.4 H (80-100) fL MCH 36.7 H (25-34) pg MCHC 36.2 H (32-36) g/dL RDW Std Deviation 73.1 H (36.4-46.3) fL RDW Coeff of Michael 20.1 H (11.5-14.5) % MPV (7.4-10.4) fL Neut # (Auto) 16.57 H (1.4-6.5) K/uL Lymph # (Auto) 1.01 L (1.2-3.4) K/uL [place] # (Auto) 0.75 H (0.11-0.59) K/uL Immature Gran # (Auto) 0.08 H (0.00-0.02) K/uL PT (9.0-12.0) Seconds INR (0.9-1.1) POC Sodium (135-144) mmol/L Sodium 123 L (136-145) mmol/L Potassium 3.3 L (3.5-5.1) mmol/L POC Chloride (101-112) mmol/L Chloride 91 L (98-107) mmol/L POC Total CO2 (24-31) mmol/L POC BUN (7-18) mg/dl BUN 43 H (7-18) mg/dl POC Creatinine (0.6-1.3) mg/dl POC Glucose (other) (70-99) mg/dl Calcium 8.0 L (8.5-10.1) mg/dl POC Ioniz Calcium Du (1.12-1.32) mmol/l Total Bilirubin 34.8 H (0.2-1) mg/dl Direct Bilirubin (0-0.2) mg/dl AST 196 H (15-37) U/L ALT 81 H (12-78) Alkaline Phosphatase 152 H (45-117) U/L Ammonia < 10.0 L (11-32) umol/L Albumin 2.0 L (3.4-5.0) gm/dl Lipase 449 H (73-393) U/L Urine Appearance (Clear) Urine Nitrite (Negative) Urine Bilirubin (Negative) Ur Leukocyte Esterase (Negative) Urine WBC (Auto) (0-5) /hpf Urine RBC (Auto) (0-4) /hpf Urine Bacteria (Auto) (Negative) WBC Casts (0) /lpf Urine Osmolality (500-800) mOsm/kg 09/02/21 09/02/21 09/02/21 Range/Units 14:30 14:33 15:29 WBC (4.8-10.8) K/uL RBC (4.7-6.1) M/uL Hgb (14.0-18.0) g/dL POC Hgb 10.9 L (14.0-18.0) g/dl Hct (42-52) % POC Hct 32 L (42-52) % MCV (80-100) fL MCH (25-34) pg MCHC (32-36) g/dL RDW Std Deviation (36.4-46.3) fL RDW Coeff of Michael (11.5-14.5) % MPV (7.4-10.4) fL Neut # (Auto) (1.4-6.5) K/uL Lymph # (Auto) (1.2-3.4) K/uL [place] # (Auto) (0.11-0.59) K/uL Immature Gran # (Auto) (0.00-0.02) K/uL PT 23.4 H (9.0-12.0) Seconds INR 2.5 H (0.9-1.1) POC Sodium 123 L (135-144) mmol/L Sodium (136-145) mmol/L Potassium (3.5-5.1) mmol/L POC Chloride 88 L (101-112) mmol/L Chloride (98-107) mmol/L POC Total CO2 21 L (24-31) mmol/L POC BUN 40 H (7-18) mg/dl BUN (7-18) mg/dl POC Creatinine 2.0 H (0.6-1.3) mg/dl POC Glucose (other) 124 H (70-99) mg/dl Calcium (8.5-10.1) mg/dl POC Ioniz Calcium Du 0.97 L (1.12-1.32) mmol/l Total Bilirubin (0.2-1) mg/dl Direct Bilirubin (0-0.2) mg/dl AST (15-37) U/L ALT (12-78) Alkaline Phosphatase (45-117) U/L Ammonia (11-32) umol/L Albumin (3.4-5.0) gm/dl Lipase (73-393) U/L Urine Appearance Cloudy A (Clear) Urine Nitrite Positive A (Negative) Urine Bilirubin 3+ H (Negative) Ur Leukocyte Esterase Trace H (Negative) Urine WBC (Auto) >30 H (0-5) /hpf Urine RBC (Auto) 5-10 H (0-4) /hpf Urine Bacteria (Auto) 1+ H (Negative) WBC Casts 20-30 H (0) /lpf Urine Osmolality (500-800) mOsm/kg 09/03/21 09/03/21 09/03/21 Range/Units 06:58 06:58 06:58 WBC 13.36 H (4.8-10.8) K/uL RBC 2.06 L (4.7-6.1) M/uL Hgb 7.4 L (14.0-18.0) g/dL POC Hgb (14.0-18.0) g/dl Hct 20.7 L* (42-52) % POC Hct (42-52) % MCV 100.5 H (80-100) fL MCH 35.9 H (25-34) pg MCHC (32-36) g/dL RDW Std Deviation 72.3 H (36.4-46.3) fL RDW Coeff of Michael 20.1 H (11.5-14.5) % MPV 10.9 H (7.4-10.4) fL Neut # (Auto) 11.67 H (1.4-6.5) K/uL Lymph # (Auto) 1.12 L (1.2-3.4) K/uL [place] # (Auto) (0.11-0.59) K/uL Immature Gran # (Auto) 0.05 H (0.00-0.02) K/uL PT 21.7 H (9.0-12.0) Seconds INR 2.3 H (0.9-1.1) POC Sodium (135-144) mmol/L Sodium 126 L (136-145) mmol/L Potassium 3.3 L (3.5-5.1) mmol/L POC Chloride (101-112) mmol/L Chloride 93 L (98-107) mmol/L POC Total CO2 (24-31) mmol/L POC BUN (7-18) mg/dl BUN 53 H (7-18) mg/dl POC Creatinine (0.6-1.3) mg/dl POC Glucose (other) (70-99) mg/dl Calcium 7.4 L (8.5-10.1) mg/dl POC Ioniz Calcium Du (1.12-1.32) mmol/l Total Bilirubin 30.2 H (0.2-1) mg/dl Direct Bilirubin 23.8 H (0-0.2) mg/dl AST 174 H (15-37) U/L ALT (12-78) Alkaline Phosphatase 137 H (45-117) U/L Ammonia (11-32) umol/L Albumin 1.7 L (3.4-5.0) gm/dl Lipase (73-393) U/L Urine Appearance (Clear) Urine Nitrite (Negative) Urine Bilirubin (Negative) Ur Leukocyte Esterase (Negative) Urine WBC (Auto) (0-5) /hpf Urine RBC (Auto) (0-4) /hpf Urine Bacteria (Auto) (Negative) WBC Casts (0) /lpf Urine Osmolality (500-800) mOsm/kg 09/03/21 Range/Units 08:25 WBC (4.8-10.8) K/uL RBC (4.7-6.1) M/uL Hgb (14.0-18.0) g/dL POC Hgb (14.0-18.0) g/dl Hct (42-52) % POC Hct (42-52) % MCV (80-100) fL MCH (25-34) pg MCHC (32-36) g/dL RDW Std Deviation (36.4-46.3) fL RDW Coeff of Michael (11.5-14.5) % MPV (7.4-10.4) fL Neut # (Auto) (1.4-6.5) K/uL Lymph # (Auto) (1.2-3.4) K/uL [place] # (Auto) (0.11-0.59) K/uL Immature Gran # (Auto) (0.00-0.02) K/uL PT (9.0-12.0) Seconds INR (0.9-1.1) POC Sodium (135-144) mmol/L Sodium (136-145) mmol/L Potassium (3.5-5.1) mmol/L POC Chloride (101-112) mmol/L Chloride (98-107) mmol/L POC Total CO2 (24-31) mmol/L POC BUN (7-18) mg/dl BUN (7-18) mg/dl POC Creatinine (0.6-1.3) mg/dl POC Glucose (other) (70-99) mg/dl Calcium (8.5-10.1) mg/dl POC Ioniz Calcium Du (1.12-1.32) mmol/l Total Bilirubin (0.2-1) mg/dl Direct Bilirubin (0-0.2) mg/dl AST (15-37) U/L ALT (12-78) Alkaline Phosphatase (45-117) U/L Ammonia (11-32) umol/L Albumin (3.4-5.0) gm/dl Lipase (73-393) U/L Urine Appearance (Clear) Urine Nitrite (Negative) Urine Bilirubin (Negative) Ur Leukocyte Esterase (Negative) Urine WBC (Auto) (0-5) /hpf Urine RBC (Auto) (0-4) /hpf Urine Bacteria (Auto) (Negative) WBC Casts (0) /lpf Urine Osmolality 322 L (500-800) mOsm/kg (1) Leukocytosis Leukocytosis type: unspecified Qualified Code(s): D72.829 - Elevated white blood cell count, unspecified (2) Cirrhosis Ascites presence: with ascites Hepatic cirrhosis type: alcoholic cirrhosis Qualified Code(s): K70.31 - Alcoholic cirrhosis of liver with ascites
[2021-09-03 10:00] LABS: Bilirubin,Total 30.2 mg/dl (0.2-1)
[2021-09-03 10:03] LABS: Bilirubin Direct 23.8 mg/dl (0-0.2)
[2021-09-03 13:29] LABS: Blood Urea Nitrogen 54 mg/dl (7-18); Carbon Dioxide 21 mmol/L (21-32); Chloride 93 mmol/L (98-107); Glucose 113 mg/dl (70-99); Potassium 3.5 mmol/L (3.5-5.1); Sodium 125 mmol/L (136-145)
--- NOTE | 2021-09-03 14:58 | Consultation Report ---
GASTROENTEROLOGY CONSULTATION SEX: Male. RACE: . ATTENDING PHYSICIAN: Dr. Zhang. CONSULTING PHYSICIAN: Ricardo Murphy DO. REASON FOR CONSULTATION: Cirrhosis, possible SBP, questionable TIPS eligibility. HISTORY OF PRESENT ILLNESS: The patient is a 41-year-old male well known to the [facility] GI service with a history of alcoholic hepatitis, cirrhosis, alcohol abuse, ascites, SBP who was hosp italized from 08/20/2021 through 08/26/2021 secondary to SBP. He was discharged to a rehab facility on 08/26/2021; however, returned to the Department of Emergency Medicine on 09/02/2021 with findings on routine blood work of elevated white blood cell count and weakness. Upon arrival to the ER, he di d undergo diagnostic and therapeutic paracentesis with 2.6 liters of ascitic fluid removed. Specimen was sent to the lab and he was not noted to have any evidence of SBP as seen previously on his prior hospitalization, was COVID negative. He was subsequently admitted. We were asked to see the patien t in consultation regarding his ascites and questionable need for a TIPS. The patient's bilirubin on admission was 34.8 with an AST of 196 and ALT of 81 and alkaline phosphata se of 152 and ammonia level less than 10, and a lipase of 449. He was hyponatremic with a sodium of 123, potassium 3.3, chloride 88, bicarbonate 22, BUN of 43 and a creatinine of 2.0. At the time that I saw the patient, he was resting comfortably in bed. He states that he is feeling much better than when he arrived. He states that he has not had any alcohol since . He states that he h ad been taking his medications as prescribed including furosemide 40 mg daily, spironolactone 50 mg d aily, hydroxyzine 50 mg p.o. t.i.d. p.r.n. for itching, and omeprazole 20 mg daily. He states that h e does not believe that he will go back to the rehab that he was at previously as he did not feel lik e it was effective with a specific complaint of not speaking to a counselor the entire time that he w as there, which amounted to a total of 4 days and states that he did not like the group therapy nor t he prayer aspect of this facility. He does recognize the need to abstain from alcohol and states trevor t he would like to further pursue rehabilitation, but not at this facility. He denied any further co mplaints including fevers, chills, nausea, vomiting, hematemesis, melena or hematochezia and denied a ny further complaints. PAST MEDICAL HISTORY: Includes alcohol-induced cirrhosis, ascites, SBP, chronic alcoholism, anxiety disorder, depression, hyponatremia, jaundice, elevated INR. ALLERGIES: DIMETAPP COLD AND ALLERGY, PHENYLEPHRINE, SULFA AND BEE POLLEN. MEDICATIONS: At present ceftriaxone 2 g IV q. 24 hours, vitamin B12 1000 mcg daily, folic acid 1 mg daily, furosemide 40 mg p.o. daily, hydroxyzine 50 mg p.o. t.i.d. p.r.n., Ativan 0.5 mg p.o. daily p. r.n., multivitamin 1 tablet daily, pantoprazole 40 mg p.o. daily, MiraLax 17 g p.o. daily p.r.n. cons tipation, spironolactone 50 mg p.o. daily, thiamine 100 mg p.o. daily. SOCIAL HISTORY: Chronic alcohol abuse, who presented from rehab facility. Denies tobacco or illicit drug use. FAMILY HISTORY: Negative for GI malignancy or inflammatory bowel disease in his first-degree relativ es. He does have a paternal grandfather with a family history of colon cancer. REVIEW OF SYSTEMS: Negative, other than pertinent positives listed in the HPI. PHYSICAL EXAMINATION: VITAL SIGNS: Temperature 36.8, pulse 108, respirations 18, blood pressure 100/44, pulse ox 94% on ro om air. GENERAL: Jaundiced, chronic ill-appearing, no acute distress. HEENT: Head: Normocephalic, atraumatic. Eyes: Pupils equally round. Extraocular muscles are inta ct. NECK: Soft and supple. There is no JVD or lymphadenopathy. CHEST: Decreased breath sounds bilateral bases. CARDIOVASCULAR: Regular rate and rhythm. ABDOMEN: Soft, nontender, nondistended. There is palpable hepatosplenomegaly. Positive bowel sound s. EXTREMITIES: No clubbing, cyanosis or edema. SKIN: Noted jaundice. Laboratory studies and radiographic studies are reviewed in the HPI. IMPRESSION: A 41-year-old male with extensive history of alcohol-induced cirrhosis with as cites and spontaneous bacterial peritonitis on last admission. PLAN: At the present time, the patient has not had his Lasix nor Aldactone maximized. I do not see where the patient has been compliant with 2 g sodium reduced diet and I do not see recurrent need for large volume paracenteses. Therefore, I do not believe that the patient is a candidate for a TIPS p rocedure at this point. I would maximize medical care through the [facility] GI team prior to evaluati on for TIPS procedure and only after he fails medical management. Again, I discussed with him the ne ed to abstain from all alcohol, which he agrees with and would like to pursue further avenues for morenita abilitation, though he does not want to return to his prior facility as he did not feel that it was h elpful. In regards to his prior SBP, the patient should be on SBP prophylaxis. He is currently on an tibiotics as an inpatient and I will defer to the primary GI team in that regard when they resume car e on Sunday morning. I will follow his clinical course and make further recommendations as needed. Once again, thank you for allowing me to participate in the care of this patient. If you have any fu rther questions, please do not hesitate in contacting me. Job ID: [id number]
[2021-09-03] MEDS ORDERED: cefTRIAXone SODIUM 2,000 MG in DEXTROSE 5% 50 ML IV SCH (16:00)
[2021-09-03] MEDS ORDERED: FUROSEMIDE 20 MG in SYRINGE 0 ML IV SCH (18:00)
[2021-09-03] MEDS: POTASSIUM CHLORIDE CRTAB 20 MEQ TABCR PO SCH (20:44)
[2021-09-03] MEDS: LORazepam 0.5 MG TAB PO PRN (20:44)
[2021-09-04] MEDS: hydrOXYzine HCl 25 MG TAB PO PRN (04:20)
[2021-09-04] MEDS: PANTOprazole 40 MG TAB PO SCH (05:50)
[2021-09-04] MEDS: FUROSEMIDE INJ 20 MG/2 ML VIAL IV SCH ×3 (05:50→18:18)
[2021-09-04 05:55] LABS: INR 2.3 (0.9-1.1)
[2021-09-04 06:19] LABS: Hematocrit (blood only) 20.9 % (42-52); Hemoglobin 7.3 g/dL (14.0-18.0); Mean Corpuscular Hemoglobin 35.4 pg (25-34); Mean Corpuscular Hgb Conc 34.9 g/dL (32-36); Mean Corpuscular Volume 101.5 fL (80-100); Mean Platelet Volume 10.5 fL (7.4-10.4); Platelet Count 145 K/uL (130-400); RDW Coefficient of Variation 19.9 % (11.5-14.5); Red Blood Count 2.06 M/uL (4.7-6.1)
[2021-09-04 06:48] LABS: Alanine Aminotransferase 80 (12-78); Albumin Level 1.8 gm/dl (3.4-5.0); Alkaline Phosphatase 140 U/L (45-117); Aspartate Aminotransferase 178 U/L (15-37); Blood Urea Nitrogen 55 mg/dl (7-18); Calcium 7.6 mg/dl (8.5-10.1); Carbon Dioxide 19 mmol/L (21-32); Chloride 94 mmol/L (98-107); Glucose 102 mg/dl (70-99); Potassium 4.1 mmol/L (3.5-5.1); Sodium 124 mmol/L (136-145)
[2021-09-04] MEDS: POTASSIUM CHLORIDE CRTAB 20 MEQ TABCR PO SCH ×3 (08:40→20:26)
[2021-09-04] MEDS: CYANOCOBALAMIN 500 MCG TABLET (VITAMIN B-12) PO SCH (08:41)
[2021-09-04] MEDS: FOLIC ACID 1 MG TAB PO SCH (08:41)
[2021-09-04] MEDS: SPIRONOLACTONE 25 MG TAB PO SCH (08:41)
[2021-09-04] MEDS: THIAMINE HCL 100 MG TAB PO SCH (08:41)
[2021-09-04] MEDS: MULTIVITAMIN TAB PO SCH (08:41)
--- NOTE | 2021-09-04 10:11 | Hospitalist Progress Note ---
Date of Service September 04, 2021 Assessment & Plan (1) Leukocytosis: Plan: 41 y/o M with PMH alcohol abuse, fatty liver, cirrhosis, adjustment disorder presented to ER for abnormal labs. Patient with recent admission 08/21/21- 08/26/21 for alcoholic cirrhosis, SBP, severe hyponatremia with sodium of 108. F/U outpatient labs revealed leukocytosis and pt referred to ER. C/O SOB with exertion. Denies abdominal pain In ER pt afebrile, P: 104, R: 18, BP: 108/52, 94% on RA. WBC: 18. Negative covid-19 test. CXR: Low lung volumes with bibasilar linear densities. These are nonspecific but favor subsegmental atelectasis or scarring. CT Abd/Pelvis: Diffuse colonic wall thickening may be secondary to ascites, however is more pronounced than in the prior exam. 2. Hepatosplenomegaly, hepatic steatosis, and portal and splenic varices are again seen. SBP ruled out based on diagnostic paracentesis done on admission. Blood cultures negative UA had pyuria, esterase nitrite. Was empirically on ceftriaxone but Urine culture result today negative Stop ceftriaxone (2) Cirrhosis: (3) Hyperbilirubinemia: (4) Elevated INR: (5) Ascites: Plan: Decompensated alcoholic cirrhosis with ascites, hyperbilirubinemia Continue diuretic GI evaluation noted. No SBP based on diagnostic tap Continue Lasix and Aldactone Continue to monitor MELD labs Will follow up with GI tomorrow to ascertain SBP prophylaxis Needs f/u with GI outpatient (6) Alcohol abuse: Plan: Last drink 08/20/21 Went to [facility] for alcohol rehab 08/30/21 Continue alcohol cessation Patient reports he will work to go to a different alcohol rehab after dc from hospital (7) Hyponatremia: Plan: Na: 123 on this admission. Was 134 on recent discharge on 08/26/21. Na currently 124 [facility] Staff Nurse evaluation and recommendation appreciated Continue fluid restriction Continue to monitor sodium levels Continue low salt diet DVT Prophylaxis SCDs Admission and Anticipated Discharge Date Admission Date: September 02, 2021 Subjective Patient seen and examined Reports no cough this morning. Denies shortness of breath at rest. Has abdominal distention. Denies any abdominal pain, nausea, vomiting. Having regular bowel movements Still has jaundice and leg swelling. Denies any fevers, chills Denies any chest pain, palpitations Denies dysuria, frequency, urgency Physical Exam Constitutional: + well hydrated; no acute distress Eyes: PERRL and EOM intact bilaterally; sclerae not anicteric ENMT: external ear and nose normal, oropharynx normal Respiratory: normal respiratory effort, lungs clear to auscultation Cardiovascular: Rate/Rhythm: regular rate and regular rhythm S1 S2 Gastrointestinal (Abdomen): Abd distended, not tender, +BS Musculoskeletal: Pedal edema Neurologic: PERRL, EOMI, accommodation nl, no face palsy, no dysarthria Psychiatric: A+Ox3, euthymic affect Results & Data Results & Data ([facility]) Vital Signs (Past 12 Hours) Vital Signs Temp Pulse Pulse Resp BP BP Pulse Ox 09/04/21 06:32 36.6 C 95 H 20 95/44 L 95 09/04/21 05:50 105/45 L 09/04/21 02:50 36.7 C 97 H 20 101/40 L 95 09/04/21 02:16 99 H 09/03/21 23:00 36.7 C 101 H 20 102/42 L 93 Laboratory Results Abnormal lab results 09/04/21 09/04/21 09/04/21 Range/Units 05:19 05:19 05:19 WBC 12.80 H (4.8-10.8) K/uL RBC 2.06 L (4.7-6.1) M/uL Hgb 7.3 L (14.0-18.0) g/dL Hct 20.9 L* (42-52) % MCV 101.5 H (80-100) fL MCH 35.4 H (25-34) pg RDW Std Deviation 73.0 H (36.4-46.3) fL RDW Coeff of Michael 19.9 H (11.5-14.5) % MPV 10.5 H (7.4-10.4) fL PT 22.0 H (9.0-12.0) Seconds INR 2.3 H (0.9-1.1) Sodium 124 L (136-145) mmol/L Chloride 94 L (98-107) mmol/L Carbon Dioxide 19 L (21-32) mmol/L BUN 55 H (7-18) mg/dl Glucose 102 H (70-99) mg/dl Calcium 7.6 L (8.5-10.1) mg/dl Total Bilirubin 31.0 H (0.2-1) mg/dl AST 178 H (15-37) U/L ALT 80 H (12-78) Alkaline Phosphatase 140 H (45-117) U/L Albumin 1.8 L (3.4-5.0) gm/dl (1) Leukocytosis Leukocytosis type: unspecified Qualified Code(s): D72.829 - Elevated white blood cell count, unspecified (2) Cirrhosis Ascites presence: with ascites Hepatic cirrhosis type: alcoholic cirrhosis Qualified Code(s): K70.31 - Alcoholic cirrhosis of liver with ascites
--- NOTE | 2021-09-04 10:41 | Nephrology Progress Note ---
Date of Service September 04, 2021 Assessment & Plan (1) Hyponatremia: Plan: hypervolemic hyponatremia. sNa has been running mid 120s, about where he was at recent d/c but w/ worsening OL; sNa 126 > 124 this am. he is on spironolactone 50 mg daily; his Lasix dose was increased from 20 mg daily p.o. to 20 milligrams IV 3 times daily at 0600, noon, 1800 (to allow for sleep) starting late September 03. his creatinine cannot be evaluated d/t bilirubinemia: He is at extremely high risk for renal failure due to his liver disease and volume issues; WBC casts on his admission urinalysis suggest he may already have some renal failure. Not a candidate for dialysis due to not being a liver transplant candidate at this time and will not discuss this unless patient brings it up cannot correct sodium optimally w/o correcting K. Serum osmolality suspiciously elevated at 273, question interfering substance such as bilirubin;rd Dorian 5; ur osms 322 >>>it is not at all clear to me that we can improve sodium further but will work on fluid status/diuretic dosing >>> He absolutely needs daily standing weights; so ordered -cont current spironolactone, lasix doses Continue current dose of K 60 mEq tid -per GI no paracentesis indicated currently; monitor for need Daily basic metabolic panel acceptable for now Admission and Anticipated Discharge Date Admission Date: September 02, 2021 Subjective No overnight events. Patient continues to complain of worsening abdominal distention but no abdominal pain. Tolerating p.o. Feels shortness of breath and lower extremity edema are slightly improved. No new or worrisome voiding symptoms Review of Systems Review of Systems: All systems reviewed & are unremarkable except as noted in Subjective Physical Exam Constitutional: well developed, + cachectic and cooperative; no acute distress Eyes: EOM intact bilaterally ENMT: Ears: no external ear abnormality Nose: no external nose abnormality Mouth: + dry oral mucous membranes Neck: no nuchal rigidity Respiratory: normal respiratory effort Auscultation: + diminished lung sounds (Especially bilateral bases) Cardiovascular: Rate/Rhythm: + tachycardic (in 90s) Heart Sounds: + murmur Extremities: + edema (1-2+) Gastrointestinal (Abdomen): Inspection/Auscultation: + abdomen distended and normal bowel sounds Percussion/Palpation: abdomen soft and + ascites; abdomen nontender Musculoskeletal: Extremities: strength 5/5 throughout Skin: no rashes, warm and dry Neurologic: Moves all extremities, fluent speech, no tremor Psychiatric: Orientation: alert and oriented x 3 Results & Data ([facility]) Vital Signs (Past 12 Hours) Vital Signs Temp Pulse Pulse Resp BP BP Pulse Ox 09/04/21 06:32 36.6 C 95 H 20 95/44 L 95 09/04/21 05:50 105/45 L 09/04/21 02:50 36.7 C 97 H 20 101/40 L 95 09/04/21 02:16 99 H 09/03/21 23:00 36.7 C 101 H 20 102/42 L 93 Laboratory Results 09/04/21 05:19 09/04/21 05:19
[2021-09-05] MEDS: hydrOXYzine HCl 25 MG TAB PO PRN (01:19)
[2021-09-05] MEDS: PANTOprazole 40 MG TAB PO SCH (05:51)
[2021-09-05] MEDS: FUROSEMIDE INJ 20 MG/2 ML VIAL IV SCH (07:20)
[2021-09-05 08:54] LABS: Hematocrit (blood only) 22.8 % (42-52); Hemoglobin 8.1 g/dL (14.0-18.0); Mean Corpuscular Hemoglobin 36.8 pg (25-34); Mean Corpuscular Hgb Conc 35.5 g/dL (32-36); Mean Corpuscular Volume 103.6 fL (80-100); Mean Platelet Volume 11.1 fL (7.4-10.4); Platelet Count 149 K/uL (130-400); RDW Coefficient of Variation 19.8 % (11.5-14.5); RDW Standard Deviation 74.9 fL (36.4-46.3); White Blood Count 12.23 K/uL (4.8-10.8)
[2021-09-05] MEDS: POTASSIUM CHLORIDE CRTAB 20 MEQ TABCR PO SCH ×2 (08:57→21:25)
[2021-09-05] MEDS: FOLIC ACID 1 MG TAB PO SCH (08:57)
[2021-09-05] MEDS: CYANOCOBALAMIN 500 MCG TABLET (VITAMIN B-12) PO SCH (08:58)
[2021-09-05] MEDS: SPIRONOLACTONE 25 MG TAB PO SCH (08:58)
[2021-09-05] MEDS: MULTIVITAMIN TAB PO SCH (08:58)
[2021-09-05] MEDS: THIAMINE HCL 100 MG TAB PO SCH (08:58)
[2021-09-05 09:05] LABS: INR 2.4 (0.9-1.1); Prothrombin Time 22.4 Seconds (9.0-12.0)
--- NOTE | 2021-09-05 10:59 | Hospitalist Progress Note ---
Date of Service September 05, 2021 Assessment & Plan (1) Decompensated hepatic cirrhosis: (2) Cirrhosis: (3) Hyperbilirubinemia: (4) Leukocytosis: (5) Elevated INR: (6) Ascites: Plan: Decompensated alcoholic cirrhosis with ascites, hyperbilirubinemia 41 y/o M with PMH alcohol abuse, fatty liver, cirrhosis, adjustment disorder presented to ER for abnormal labs. Patient with recent admission 08/21/21- 08/26/21 for alcoholic cirrhosis, SBP, severe hyponatremia with sodium of 108. F/U outpatient labs revealed leukocytosis and pt referred to ER. C/O SOB with exertion. Denies abdominal pain In ER pt afebrile, P: 104, R: 18, BP: 108/52, 94% on RA. WBC: 18. Negative covid-19 test. CXR: Low lung volumes with bibasilar linear densities. These are nonspecific but favor subsegmental atelectasis or scarring. CT Abd/Pelvis: Diffuse colonic wall thickening may be secondary to ascites, however is more pronounced than in the prior exam. 2. Hepatosplenomegaly, hepatic steatosis, and portal and splenic varices are again seen. Patient has decompensated alcoholic cirrhosis with ascites, hyperbilirubinemia. Bilirubin is markedly elevated above 30 which makes it difficult to get accurate results of the creatinine. Hence, BMP for creatinine levels has been sent to outside lab. Creatinine from 09/03/2021 resulted today And was 3.07. Patient has acute kidney injury. Possible hepatorenal syndrome. Discussed with gasket inspector. Started on midodrine, octreotide and albumin Patient getting therapeutic paracentesis today Diagnostic paracentesis done on admission was negative for SBP. Patient was empirically on ceftriaxone for possible UTI based on UA. However cultures have been negative. Ceftriaxone was discontinued. Patient started on ciprofloxacin for SBP prophylaxis Baseline patient was clinical status today and discussion with Bilingual Customer Service Specialist, recommendation was made to transfer patient to tertiary center with liver transplant capabilities. I called [facility] transfer center and spoke with them about transfer for possible liver transplant evaluation and continued management. Patient admitted to the medicine service under Dr. Field for hepatology/transplant evaluation, continued management and follow-up (7) Alcohol abuse: Plan: Last drink 08/20/[address] [facility] for alcohol rehab 08/30/21 from where he was transferred to the hospital for abnormal labs Continue alcohol cessation (8) Hyponatremia: Plan: Na: 123 on this admission. Was 134 on recent discharge on 08/26/21. Na currently 127 Penology Teacher evaluation and recommendation appreciated Continue fluid restriction Continue to monitor sodium levels Continue low salt diet DVT ppx SCD Admission and Anticipated Discharge Date Admission Date: September 02, 2021 Subjective Patient seen and examined Reports no cough this morning. Denies shortness of breath at rest. Has abdominal distention. Denies any abdominal pain, nausea, vomiting. Having regular bowel movements Still has generalized jaundice and leg swelling. Denies any fevers, chills Denies any chest pain, palpitations Denies dysuria, frequency, urgency Physical Exam Constitutional: + well hydrated; no acute distress Eyes: PERRL and EOM intact bilaterally Icterus ENMT: external ear and nose normal, oropharynx normal Respiratory: normal respiratory effort, lungs clear to auscultation Cardiovascular: Rate/Rhythm: regular rate and regular rhythm S1 S2 Gastrointestinal (Abdomen): Abd is distended, nontender, BS + Musculoskeletal: + b/l Pedal edema Skin: Jaundiced skin Neurologic: PERRL, EOMI, accommodation nl, no face palsy, no dysarthria Psychiatric: A+Ox3, euthymic affect Results & Data Results & Data ([facility]) Vital Signs (Past 12 Hours) Vital Signs Temp Pulse Pulse Resp BP BP Pulse Ox 09/05/21 07:08 36.8 C 61 20 94/45 L 94 09/05/21 05:49 101 H 96/52 L 09/05/21 03:20 36.8 C 97 H 20 98/51 L 95 09/04/21 23:56 99 H 09/04/21 23:06 36.7 C 99 H 20 100/54 L 94 Laboratory Results Abnormal lab results 09/05/21 09/05/21 09/05/21 Range/Units 08:18 08:18 08:18 WBC 12.23 H (4.8-10.8) K/uL RBC 2.20 L (4.7-6.1) M/uL Hgb 8.1 L (14.0-18.0) g/dL Hct 22.8 L (42-52) % MCV 103.6 H (80-100) fL MCH 36.8 H (25-34) pg RDW Std Deviation 74.9 H (36.4-46.3) fL RDW Coeff of Michael 19.8 H (11.5-14.5) % MPV 11.1 H (7.4-10.4) fL PT 22.4 H (9.0-12.0) Seconds INR 2.4 H (0.9-1.1) Sodium 127 L (136-145) mmol/L Chloride 97 L (98-107) mmol/L Carbon Dioxide 19 L (21-32) mmol/L BUN 57 H (7-18) mg/dl Glucose 100 H (70-99) mg/dl Calcium 7.9 L (8.5-10.1) mg/dl Total Bilirubin 35.8 H (0.2-1) mg/dl Alkaline Phosphatase 155 H (45-117) U/L Albumin 1.9 L (3.4-5.0) gm/dl (1) Leukocytosis Leukocytosis type: unspecified Qualified Code(s): D72.829 - Elevated white blood cell count, unspecified (2) Cirrhosis Ascites presence: with ascites Hepatic cirrhosis type: alcoholic cirrhosis Qualified Code(s): K70.31 - Alcoholic cirrhosis of liver with ascites
[2021-09-05] MEDS ORDERED: ALBUMIN 25% 100 mL 25 GM/100 ML VIAL IV ONE ×3 (11:30→17:52)
--- NOTE | 2021-09-05 11:32 | Nephrology Progress Note ---
Date of Service September 05, 2021 Assessment & Plan Admission and Anticipated Discharge Date Admission Date: September 02, 2021 Subjective Assessment & Plan (1) Hyponatremia: Plan: hypervolemic hyponatremia with Liver failure. sNa has been running mid 120s, about where he was at recent d/c but w/ worsening OL; sNa 126 > 124 this am. he is on spironolactone 50 mg daily; Butstillhas lot of edema. his creatinine cannot be evaluated d/t bilirubinemia: He is at extremely high risk for renal failure due to his liver disease and volume issues; WBC casts on his admission urinalysis suggest he may already have some renal failure. Not a candidate for dialysis due to not being a liver transplant candidate at this time and will not discuss this unless patient brings it up cannot correct sodium optimally w/o correcting K. Current Sodium Ptyic012 is as good as it gets. Aldactone same dose. Lower k.cl to 60 bid Raise lasix to 30 iv q8hr Daily basic metabolic panel acceptable for now Subjective No overnight events. Patient continues to complain of worsening abdominal distention but no abdominal pain. Tolerating p.o. Feels shortness of breath and lower extremity edema are slightly improved. No new or worrisome voiding symptoms Review of Systems Review of Systems: All systems reviewed & are unremarkable except as noted in Subjective Physical Exam Constitutional: well developed, + cachectic and cooperative; no acute distress Eyes: EOM intact bilaterally ENMT: Ears: no external ear abnormality Nose: no external nose abnormality Mouth: + dry oral mucous membranes Neck: no nuchal rigidity Respiratory: normal respiratory effort Auscultation: + diminished lung sounds (Especially bilateral bases) Cardiovascular: Rate/Rhythm: + tachycardic (in 90s) Heart Sounds: + murmur Extremities: + edema (1-2+) Gastrointestinal (Abdomen): Inspection/Auscultation: + abdomen distended and normal bowel sounds Percussion/Palpation: abdomen soft and + ascites; abdomen nontender Musculoskeletal: Extremities: strength 5/5 throughout Skin: no rashes, warm and dry Neurologic: Moves all extremities, fluent speech, no tremor Psychiatric: Orientation: alert and oriented x 3 Results & Data ([facility]) Vital Signs (Past 12 Hours) Vital Signs Temp Pulse Pulse Resp BP BP Pulse Ox 09/05/21 11:16 36.6 C 99 H 20 105/36 L 94 09/05/21 07:08 36.8 C 61 20 94/45 L 94 09/05/21 05:49 101 H 96/52 L 09/05/21 03:20 36.8 C 97 H 20 98/51 L 95 09/04/21 23:56 99 H
[2021-09-05] MEDS ORDERED: FUROSEMIDE INJ 20 MG/2 ML VIAL IV SCH (12:00)
[2021-09-05] MEDS ORDERED: CIPROFLOXACIN 500 MG TAB PO ONE (12:00)
--- NOTE | 2021-09-05 12:01 | Gastroenterology Progress Note ---
Date of Service September 05, 2021 Assessment & Plan Admission and Anticipated Discharge Date Admission Date: September 02, 2021 Subjective Spoke pt. He reports marked abd distention, but o/w no complaints. PE: comfortable, NAD, lucid CV: RRR Resp: CTA Abd: distended, firm. Non tender. Labs: WBC 12, Na 124, Creat 3.1, INR 2.4, Na 125. CT shows ascites. Tap studies not c/w SBP. A/P: Alc hep, MELD 40 ARF Recent SBP - Tap today. - HRS protocol with octreotide, albumin. Hold diuretics today, pending d/w renal. - Cipro for SBP prophy - Not a TIPS candidate due to recent alcohol use, poor renal function. - Uls with doppler r/o PVT. - His prognosis is poor, given rising creat and lack of improvement in bili. D/w pt. Consider transfer to center where there is early transplant for EtOH liver disease, if available. Results & Data ([facility]) Vital Signs (Past 12 Hours) Vital Signs Temp Pulse Resp BP BP Pulse Ox 09/05/21 11:16 36.6 C 99 H 20 105/36 L 94 09/05/21 07:08 36.8 C 61 20 94/45 L 94 09/05/21 05:49 101 H 96/52 L 09/05/21 03:20 36.8 C 97 H 20 98/51 L 95
[2021-09-05 13:03] LABS: Albumin Level 1.9 gm/dl (3.4-5.0); Alkaline Phosphatase 155 U/L (45-117); Bilirubin,Total 35.8 mg/dl (0.2-1); Blood Urea Nitrogen 57 mg/dl (7-18); Calcium 7.9 mg/dl (8.5-10.1); Carbon Dioxide 19 mmol/L (21-32); Chloride 97 mmol/L (98-107); Glucose 100 mg/dl (70-99); Potassium 4.3 mmol/L (3.5-5.1); Sodium 127 mmol/L (136-145)
[2021-09-05] MEDS: OCTREOTIDE ACETATE 100 MCG/ML VIAL SQ SCH ×2 (13:21→20:02)
--- NOTE | 2021-09-05 16:02 | Ultrasound Report ---
US paracentesis abd w/image CLINICAL HISTORY: 41 years-old Male with ascites. Cirrhotic liver disease with recurrent ascites COMPARISON: CT abdomen and pelvis 09/02/2021 PROCEDURE: The procedure was explained to the patient in the care including the benefits and possible risks/complications. The patient gave verbal understanding and written consent was obtained. A time -out was performed prior to the start of the procedure. The patient was placed on the ultrasound table in the supine position. Using ultrasound guidance, an appropriate procedure site in the right lower abdomen was marked. This area was then prepped and drap ed in the usual sterile fashion. Local anesthesia was achieved within 1% lidocaine. An 8-Romansh cente sis catheter was then inserted. Approximately 1 greater of yellowish fluid was removed a small bowel loop became adherent to the catheter tip and therefore the catheter was removed. Subsequently, the le ft lower quadrant was then marked, prepped and draped. Local anesthesia was used with 1% lidocaine. A n 8 Romansh catheter was then inserted into the left lower abdomen. 2.3 L additional ascitic fluid was then removed for a total of 3.3 L. 1 L was sent to the lab for analysis. The catheter was removed and external pressure was held to achieve hemostasis. A sterile dressing was applied to the procedure site. The patient tolerated the procedure well without immediate complicati ons. IMPRESSION: Successful ultrasound-guided paracentesis with removal of 3.3 L ascitic fluid. ACT 112: Negative or not required by law. The above report was generated using voice recognition software. It may contain grammatical, syntax o r spelling errors. Electronically signed by: Davide Sage M.D. 09/05/2021 4:01 PM
--- NOTE | 2021-09-05 16:54 | Ultrasound Report ---
US renal/blad retro comp CLINICAL HISTORY: Nephrolithiasis by CT. Evaluate for hydronephrosis.. COMPARISON: CT from 09/02/2021 TECHNIQUE: Multiple grayscale and color images of the kidneys and bladder. FINDINGS: Right kidney: The kidney is normal in size and echogenicity. There is a 7 mm nonobstructing right hussein al calculus. No evidence for hydronephrosis. There is no evidence for solid renal mass. There is no e vidence for medical renal disease. The kidney measures 12.3 cm in greatest length. Left kidney: The kidney is normal in size and echogenicity. There is no evidence for renal calculus o r hydronephrosis. There is no evidence for solid renal mass. There is no evidence for medical renal d isease. The kidney measures 12.8 cm in greatest length. Bladder: The bladder is distended on this study. There are bilateral ureteral jets. IMPRESSION: 1. 7 mm nonobstructing right renal calculus with no evidence for hydronephrosis. ACT 112: Negative or not required by law. Electronically signed by: Hima Moreira M.D. 09/05/2021 4:53 PM
--- NOTE | 2021-09-05 16:57 | Ultrasound Report ---
US duplex portal hepatic veins HISTORY: 41 years-old Male rule out PVT acute right upper quadrant abdominal pain COMPARISON: CT abdomen pelvis 09/02/2021 TECHNIQUE: Multiple real-time sonographic images of the abdominal right upper quadrant were obtained assessing grayscale appearance, color and spectral flow FINDINGS: Cirrhotic liver with hepatic steatosis. There is hepatofugal flow within the patent portal vein with peak systolic velocities measuring up to 19 cm/s. The pedicle artery and veins are also patent. Peak systolic velocities within the hepatic artery measure up to 245 cm/s. Patent splenic vein. Recanaliza tion of the umbilical vein. Trace ascites. IMPRESSION: 1. No evidence of portal venous thrombosis. 2. Hepatofugal flow within the portal vein compatible with portal venous hypertension. 3. Hepatic steatosis with cirrhotic liver and trace ascites. ACT 112: Negative or not required by law. The above report was generated using voice recognition software. It may contain grammatical, syntax o r spelling errors. Electronically signed by: Davide Sage M.D. 09/05/2021 4:56 PM
[2021-09-05 17:00] LABS: Appearance Peritoneal Fluid CLEAR; Basophils, Fluid 0 %; Color Peritoneal Fluid YELLOW; Eosinophils, Fluid 0 %; Lymphocytes, Fluid 18 %; Mono,Macrophage,Mesothelial 76 %; Neutrophils, Fluid 6 %; RBC Peritoneal Fluid (A) < 3000 /uL; WBC Peritoneal Fluid (A) 129 /ul (0-300)
--- NOTE | 2021-09-05 18:45 | Discharge Summary ---
Date of Service September 05, 2021 Admission HPI Per Admitting Provider Patient is 41 y/o M with PMH alcohol abuse, fatty liver, cirrhosis, adjustment disorder presented to ER for abnormal labs. Patient with recent admission 08/21/21-08/26/21 for alcoholic cirrhosis, SBP, severe hyponatremia with sodium of 108. Went to [facility] rehab 08/30/21. He had repeat labs as we suggested at hospital discharge and was found to have elevated WBC and referred to hospital. Patient states does have SOB with exertion. His legs feel heavy with ambulation. He is unsure if abdomen looks more swollen. Denies abdominal pain or known fever, chills. Has been taking furosemide 40mg daily, spironolactone 50mg daily. Having 3-4 BMs a day. Some red blood noted intermittently. Denies diaphoresis, N/V, ARIAS, dizziness, syncope, vision changes, neck pain, CP, palpitations, cough, sore throat, choking, otalgia, rhinorrhea, paresthesias, rashes, urinary symptoms. Discharge Data Allergies Allergy/AdvReac Type Severity Reaction Status Date / Time bee pollen Allergy Intermediate HIVES/SWELL Verified 08/20/21 19:41 ING brompheniramine Allergy Intermediate Hives Verified 08/20/21 19:41 [From Dimetapp Cold-Allergy (PE)] phenylephrine Allergy Intermediate Hives Verified 08/20/21 19:41 [From Dimetapp Cold-Allergy (PE)] Sulfa (Sulfonamide Allergy Mild Rash Verified 08/20/21 19:41 Antibiotics) Consultations 09/02/21 16:00 ED Decision to Admit Stat 09/02/21 17:44 Consult Nephrology Routine 09/03/21 08:00 Consult Gastroenterology Routine Ordered Studies 09/02/21 16:06 CT abd pelvis wo con Stat 09/05/21 11:04 US paracentesis abd w/image Routine 09/05/21 11:54 US duplex portal hepatic veins Routine 09/05/21 12:06 US renal/blad retro comp Urgent Discharge Plan Discharge Items Patient Disposition: Transfer Acute Care Hospital Reason For Visit: Abnormal labs Discharge Diagnosis: Decompensated liver cirrhosis with ascites, hyperbilirubinemia Acute kidney injury/hepatorenal syndrome Activity: As commented below Non-emergency contact: Primary Care Provider and Specialist Call non-emergency contact if: you have any medication questions Follow-up/Referrals: Kyle Price, [Primary Care Provider] - Diet: Low Sodium (2gm) Fluids: 1200ml (5 cups) Addtl Attending Provider Instructions: Mr Vera. You were brought to the hospital due to abnormal labs. You also reported increasing leg swelling. You were evaluated and noted to have low sodium levels and elevated white blood cell count. Evaluation for SBP (Spontaneous Bacterial Peritonitis) is negative. You have acute kidney injury and was started on albumin, octreotide and midodrine. You were also started on ciprofloxacin for SBP prophylaxis. You are being transferred to [facility] for continued management. You may be evaluated by college scouting coordinator/transplant team there for possible liver transplant. It was a pleasure taking care of you. Pending Studies at Discharge: Yes Stand-Alone Forms: My [facility] Skilled Items Patient informed of condition?: Yes DNR: No Discharge Level of Care: Other Communicable Disease: No Discharge Prognosis: Other Lines: Peripheral IV Urinary Catheter: No Medications and DC Order Prescriptions: New ciprofloxacin HCl 500 mg Tablet 500 mg PO Q24H Qty: 30 RF: 0 Continued omeprazole 20 mg Tablet,Delayed Release (Dr/Ec) 20 mg PO DAILYBB RF: 0 lorazepam 0.5 mg tablet 0.5 mg PO DAILY PRN (Reason: severe anxiety) RF: 0 spironolactone 50 mg tablet 50 mg PO DAILY RF: 0 potassium chloride 10 mEq tablet extended release 10 meq PO DAILY Qty: 5 RF: 0 Super Enzyme [id number] mg Capsule 1 cap PO DAILY RF: 0 multivitamin Tablet 1 tab PO DAILY RF: 0 cyanocobalamin (vitamin B-12) [Vitamin B-12] 1,000 mcg Tablet 1,000 mcg PO DAILY RF: 0 thiamine HCl (vitamin B1) 100 mg Tablet 100 mg PO DAILY RF: 0 folic acid 1 mg Tablet 1 mg PO DAILY RF: 0 Ensure Liquid 1 ea PO DAILY RF: 0 clonidine HCl 0.1 mg tablet 0.1 mg PO TID PRN (Reason: anxiety. etc) RF: 0 furosemide 40 mg tablet 40 mg PO DAILY RF: 0 Discontinued hydroxyzine pamoate 50 mg capsule 50 mg PO TID PRN (Reason: anxiety/los) RF: 0 Discharge Orders: Discharge Order (Routine); Ordered 09/05/21 Ordered By: Cha Zhang Admission Data Admit Date/Time: 09/02/21 17:09 Attending Provider: Cha Zhang I. Admit Provider: Cha Zhang I. Primary Care Provider: Kyle Price Other Providers: Deann Patel ; Ricardo Murphy ; Cha Zhang I.
[2021-09-06] MEDS: OCTREOTIDE ACETATE 100 MCG/ML VIAL SQ SCH ×3 (04:38→19:24)
[2021-09-06] MEDS: PANTOprazole 40 MG TAB PO SCH (05:43)
[2021-09-06] MEDS: CYANOCOBALAMIN 500 MCG TABLET (VITAMIN B-12) PO SCH (07:25)
[2021-09-06] MEDS: MULTIVITAMIN TAB PO SCH (07:25)
[2021-09-06] MEDS: THIAMINE HCL 100 MG TAB PO SCH (07:25)
[2021-09-06] MEDS: POTASSIUM CHLORIDE CRTAB 20 MEQ TABCR PO SCH ×2 (07:25→19:24)
[2021-09-06] MEDS: FOLIC ACID 1 MG TAB PO SCH (07:25)
[2021-09-06 08:24] LABS: Hematocrit (blood only) 21.3 % (42-52); Hemoglobin 7.5 g/dL (14.0-18.0); Mean Corpuscular Hemoglobin 37.1 pg (25-34); Mean Corpuscular Volume 105.4 fL (80-100); Mean Platelet Volume 10.4 fL (7.4-10.4); Platelet Count 117 K/uL (130-400); RDW Coefficient of Variation 19.3 % (11.5-14.5); RDW Standard Deviation 73.4 fL (36.4-46.3); Red Blood Count 2.02 M/uL (4.7-6.1); White Blood Count 8.29 K/uL (4.8-10.8)
[2021-09-06 08:31] LABS: Mean Corpuscular Hgb Conc 35.2 g/dL (32-36)
[2021-09-06 08:33] LABS: INR 2.3 (0.9-1.1); Prothrombin Time 21.6 Seconds (9.0-12.0)
[2021-09-06 08:43] LABS: Basophils # (auto) 0.01 K/uL (0-0.2); Basophils % (auto) 0.1 %; Eosinophils # (auto) 0.04 K/uL (0-0.5); Eosinophils % (auto) 0.5 %; Immature Granulocytes # (auto) 0.02 K/uL (0.00-0.02); Immature Granulocytes % (auto) 0.3 %; Lymphocytes % (auto) 10.1 %; Monocytes % (auto) 3.8 %; Neutrophils # (auto) 6.76 K/uL (1.4-6.5); Neutrophils % (auto) 85.2 %
[2021-09-06 09:09] LABS: Anisocytosis Present; Poikilocytosis Present; Toxic Granulation 1+
--- NOTE | 2021-09-06 09:31 | Hospitalist Progress Note ---
Date of Service September 06, 2021 Assessment & Plan (1) Decompensated hepatic cirrhosis: (2) Cirrhosis: (3) Hyperbilirubinemia: (4) Leukocytosis: (5) Elevated INR: (6) Ascites: Plan: Decompensated alcoholic cirrhosis with ascites, hyperbilirubinemia 41 y/o M with PMH alcohol abuse, fatty liver, cirrhosis, adjustment disorder presented to ER for abnormal labs. Patient with recent admission 08/21/21- 08/26/21 for alcoholic cirrhosis, SBP, severe hyponatremia with sodium of 108. F/U outpatient labs revealed leukocytosis and pt referred to ER. C/O SOB with exertion. Denies abdominal pain In ER pt afebrile, P: 104, R: 18, BP: 108/52, 94% on RA. WBC: 18. Negative covid-19 test. CXR: Low lung volumes with bibasilar linear densities. These are nonspecific but favor subsegmental atelectasis or scarring. CT Abd/Pelvis: Diffuse colonic wall thickening may be secondary to ascites, however is more pronounced than in the prior exam. 2. Hepatosplenomegaly, hepatic steatosis, and portal and splenic varices are again seen. Patient has decompensated alcoholic cirrhosis with ascites, hyperbilirubinemia. Bilirubin is markedly elevated above 30 which makes it difficult to get accurate results of the creatinine. Hence, BMP for creatinine levels has been sent to outside lab. Creatinine from 09/03/2021- 09/05/21 at 3 Patient has acute kidney injury. Hepatorenal syndrome. Got therapeutic paracentesis with removal of 3.3L on 09/05/21 Diagnostic paracentesis done on admission was negative for SBP. USS negative for portal vein thrombus. Has 7mm right nonobstructing renal calculus Continue albumin, octreotide, midodrine Patient was empirically on ceftriaxone for possible UTI based on UA. However cultures have been negative. Ceftriaxone was discontinued. Continue ciprofloxacin for SBP prophylaxis On 09/05/21, I called [facility] and spoke with them about transfer for possible liver transplant evaluation and continued management. Patient admitted to the medicine service under Dr. Field for he patology/transplant evaluation, continued management and follow-up Still awaiting bed availability and transfer to [facility] (7) Alcohol abuse: Plan: Last drink 08/20/[address] [facility] for alcohol rehab 08/30/21 from where he was transferred to the hospital for abnormal labs Continue alcohol cessation (8) Hyponatremia: Plan: Na: 123 on this admission. Was 134 on recent discharge on 08/26/21. Awaiting labs today. Was 127 yesterday Papeterie Table Assembler evaluation and recommendation appreciated Continue fluid restriction Continue to monitor sodium levels Continue low salt diet DVT ppx SCD Admission and Anticipated Discharge Date Admission Date: September 02, 2021 Subjective Patient seen and examined Reports no cough this morning. Had therapeutic paracentesis yesterday with removal of 3.3L Reports feeling better today Denies shortness of breath at rest. Denies any abdominal pain, nausea, vomiting. Having regular bowel movements Still has generalized jaundice Denies any fevers, chills Denies any chest pain, palpitations Denies dysuria, frequency, urgency Physical Exam 2 Constitutional: + well hydrated; no acute distress Eyes: PERRL and EOM intact bilaterally ENMT: external ear and nose normal, oropharynx normal Respiratory: normal respiratory effort, lungs clear to auscultation Cardiovascular: Rate/Rhythm: regular rate and regular rhythm S1 S2 Gastrointestinal (Abdomen): Abd distended (improved from yesterday), soft, nontender, normal BS Musculoskeletal: Pedal edema (improving) Skin: Generalized jaundiced skin Neurologic: PERRL, EOMI, accommodation nl, no face palsy, no dysarthria Psychiatric: A+Ox3, euthymic affect Results & Data Results & Data ([facility]) Vital Signs (Past 12 Hours) Vital Signs Temp Pulse Resp BP BP Pulse Ox 09/06/21 06:48 36.7 C 108 H 16 109/58 L 95 09/06/21 03:20 36.7 C 111 H 18 104/50 L 95 09/05/21 22:38 36.6 C 103 H 18 93/47 L 93 Laboratory Results Abnormal lab results 09/06/21 09/06/21 Range/Units 08:14 08:14 RBC 2.02 L (4.7-6.1) M/uL Hgb 7.5 L (14.0-18.0) g/dL Hct 21.3 L (42-52) % MCV 105.4 H (80-100) fL MCH 37.1 H (25-34) pg RDW Std Deviation 73.4 H (36.4-46.3) fL RDW Coeff of Michael 19.3 H (11.5-14.5) % Plt Count 117 L (130-400) K/uL Neut # (Auto) 6.76 H (1.4-6.5) K/uL Lymph # (Auto) 0.80 L (1.2-3.4) K/uL PT 21.6 H (9.0-12.0) Seconds INR 2.3 H (0.9-1.1) (1) Leukocytosis Leukocytosis type: unspecified Qualified Code(s): D72.829 - Elevated white blood cell count, unspecified (2) Cirrhosis Ascites presence: with ascites Hepatic cirrhosis type: alcoholic cirrhosis Qualified Code(s): K70.31 - Alcoholic cirrhosis of liver with ascites
--- NOTE | 2021-09-06 10:08 | Nephrology Progress Note ---
Date of Service September 06, 2021 Assessment & Plan Admission and Anticipated Discharge Date Admission Date: September 02, 2021 Subjective Subjective Assessment & Plan (1) Hyponatremia: Plan: hypervolemic hyponatremia with Liver failure. sNa has been running mid 120s, about where he was at recent d/c but w/ worsening OL; sNa 126 > 124 this am. he is on spironolactone 50 mg daily; Butstillhas lot of edema. his creatinine cannot be evaluated d/t bilirubinemia: He is at extremely high risk for renal failure due to his liver disease and volume issues; WBC casts on his admission urinalysis suggest he may already have some renal failure. Not a candidate for dialysis due to not being a liver transplant candidate at this time and will not discuss this unless patient brings it up cannot correct sodium optimally w/o correcting K. Current Sodium [id number] is as good as it gets. 2 LEANN--Most Likely Hepatorenal Syndrome +/-ATN superimposed. On Triple therapy currently for HRS. Diuretics on hold now. Getting Transferred to [facility] [place] . Subjective No overnight events. Patient continues to complain of worsening abdominal distention but no abdominal pain. Tolerating p.o. Feels shortness of breath and lower extremity edema are slightly improved. No new or worrisome voiding symptoms Review of Systems Review of Systems: All systems reviewed & are unremarkable except as noted in Subjective Physical Exam Constitutional: well developed, + cachectic and cooperative; no acute distress Eyes: EOM intact bilaterally ENMT: Ears: no external ear abnormality Nose: no external nose abnormality Mouth: + dry oral mucous membranes Neck: no nuchal rigidity Respiratory: normal respiratory effort Auscultation: + diminished lung sounds (Especially bilateral bases) Cardiovascular: Rate/Rhythm: + tachycardic (in 90s) Heart Sounds: + murmur Extremities: + edema (1-2+) Gastrointestinal (Abdomen): Inspection/Auscultation: + abdomen distended and normal bowel sounds Percussion/Palpation: abdomen soft and + ascites; abdomen nontender Musculoskeletal: Extremities: strength 5/5 throughout Skin: no rashes, warm and dry Neurologic: Moves all extremities, fluent speech, no tremor Psychiatric: Orientation: alert and oriented x 3 Results & Data ([facility]) Vital Signs (Past 12 Hours) Vital Signs Temp Pulse Resp BP BP Pulse Ox 09/06/21 06:48 36.7 C 108 H 16 109/58 L 95 09/06/21 03:20 36.7 C 111 H 18 104/50 L 95 09/05/21 22:38 36.6 C 103 H 18 93/47 L 93
[2021-09-06] MEDS: ALBUMIN 25% 100 mL 25 GM/100 ML VIAL IV SCH ×2 (10:54→17:56)
--- NOTE | 2021-09-06 12:26 | Gastroenterology Progress Note ---
Date of Service September 06, 2021 Assessment & Plan Admission and Anticipated Discharge Date Admission Date: September 02, 2021 Subjective Pt without complaints. Reports vigorous uop. S/p small vol tap, began HRS cocktail yesterday. He is comfortable, lucid conversant. Cacechtic, chronically ill. Skin: Jaundice, spiders Abd: Distended, soft, tympanic Extrem: no edema, no asterixis Labs: Hgb 7.5, WBC WNL, INR 2.3. No CMP today. U na 26 A/P: Alc hep ARF - Albumin, midodrine, octreotide - Follow creat - Inpt transplant referral. Results & Data ([facility]) Vital Signs (Past 12 Hours) Vital Signs Temp Pulse Resp BP BP Pulse Ox 09/06/21 06:48 36.7 C 108 H 16 109/58 L 95 09/06/21 03:20 36.7 C 111 H 18 104/50 L 95
[2021-09-06] MEDS: MIDODRINE HCL 2.5 MG TAB PO SCH ×2 (13:08→16:14)
[2021-09-06] MEDS: CIPROFLOXACIN 500 MG TAB PO SCH (13:46)
[2021-09-06 14:45] LABS: iSTAT Creatinine 2.7 mg/dl (0.6-1.3); iSTAT Potassium 4.6 mmol/L (3.3-5.0)
[2021-09-06 14:46] LABS: iSTAT Hemoglobin 6.8 g/dl (14.0-18.0); iSTAT Ionized Calcium 1.21 mmol/l (1.12-1.32)
[2021-09-06 15:46] LABS: Hematocrit (blood only) 20.7 % (42-52); Hemoglobin 7.2 g/dL (14.0-18.0); Mean Corpuscular Hemoglobin 36.9 pg (25-34); Mean Corpuscular Hgb Conc 34.8 g/dL (32-36); Mean Corpuscular Volume 106.2 fL (80-100); Mean Platelet Volume 10.7 fL (7.4-10.4); Platelet Count 107 K/uL (130-400); RDW Coefficient of Variation 19.1 % (11.5-14.5); RDW Standard Deviation 71.9 fL (36.4-46.3); Red Blood Count 1.95 M/uL (4.7-6.1); White Blood Count 7.35 K/uL (4.8-10.8)
[2021-09-06] MEDS ORDERED: SODIUM CHLORIDE 0.9% 250 ML IV PRN (17:16)
[2021-09-07] MEDS: ALBUMIN 25% 100 mL 25 GM/100 ML VIAL IV SCH ×3 (01:51→18:12)
[2021-09-07] MEDS: OCTREOTIDE ACETATE 100 MCG/ML VIAL SQ SCH ×3 (03:44→20:07)
[2021-09-07] MEDS: PANTOprazole 40 MG TAB PO SCH (04:45)
[2021-09-07] MEDS: POTASSIUM CHLORIDE CRTAB 20 MEQ TABCR PO SCH ×2 (07:34→20:05)
[2021-09-07] MEDS: THIAMINE HCL 100 MG TAB PO SCH (07:35)
[2021-09-07] MEDS: FOLIC ACID 1 MG TAB PO SCH (07:35)
[2021-09-07] MEDS: MIDODRINE HCL 2.5 MG TAB PO SCH ×3 (07:36→17:04)
[2021-09-07] MEDS: MULTIVITAMIN TAB PO SCH (07:36)
[2021-09-07] MEDS: CYANOCOBALAMIN 500 MCG TABLET (VITAMIN B-12) PO SCH (07:36)
[2021-09-07 07:54] LABS: Hematocrit (blood only) 20.7 % (42-52); Mean Corpuscular Hemoglobin 34.5 pg (25-34); Mean Corpuscular Hgb Conc 33.8 g/dL (32-36); Mean Platelet Volume 10.4 fL (7.4-10.4); RDW Coefficient of Variation 22.8 % (11.5-14.5); RDW Standard Deviation 84.7 fL (36.4-46.3); Red Blood Count 2.03 M/uL (4.7-6.1); White Blood Count 5.49 K/uL (4.8-10.8)
[2021-09-07 07:59] LABS: INR 2.3 (0.9-1.1); Prothrombin Time 21.7 Seconds (9.0-12.0)
[2021-09-07 08:12] LABS: Platelet Count 96 K/uL (130-400)
[2021-09-07 08:13] LABS: Platelet Estimate Decreased (Normal)
[2021-09-07] MEDS ORDERED: SODIUM CHLORIDE 0.9% 250 ML IV PRN (08:29)
[2021-09-07 09:17] LABS: Hematocrit (blood only) 22.1 % (42-52); Hemoglobin 7.5 g/dL (14.0-18.0)
--- NOTE | 2021-09-07 09:29 | Nephrology Progress Note ---
Date of Service September 07, 2021 Assessment & Plan Admission and Anticipated Discharge Date Admission Date: September 02, 2021 Subjective Assessment & Plan (1) Hyponatremia: Plan: hypervolemic hyponatremia with Liver failure. sNa has been running mid 120s, about where he was at recent d/c but w/ worsening OL; sNa 126 > 124 this am. he is on spironolactone 50 mg daily; Butstillhas lot of edema. his creatinine cannot be evaluated d/t bilirubinemia: He is at extremely high risk for renal failure due to his liver disease and volume issues; WBC casts on his admission urinalysis suggest he may already have some renal failure. Not a candidate for dialysis due to not being a liver transplant candidate at this time and will not discuss this unless patient brings it up cannot correct sodium optimally w/o correcting K. Current Sodium [id number] is as good as it gets. 2 LEANN--Most Likely Hepatorenal Syndrome +/-ATN superimposed. On Triple therapy currently for HRS. Diuretics on hold now. [place] [facility] [place] Subjective No overnight events. had Ascites tapped. Tolerating p.o. Feels shortness of breath and lower extremity edema are improved. No new or worrisome voiding symptoms Review of Systems Review of Systems: All systems reviewed & are unremarkable except as noted in Subjective Physical Exam Constitutional: well developed, + cachectic and cooperative; no acute distress Eyes: EOM intact bilaterally ENMT: Ears: no external ear abnormality Nose: no external nose abnormality Mouth: + dry oral mucous membranes Neck: no nuchal rigidity Respiratory: normal respiratory effort Auscultation: + diminished lung sounds (Especially bilateral bases) Cardiovascular: Rate/Rhythm: + tachycardic (in 90s) Heart Sounds: + murmur Extremities: + edema (1+--less now) Gastrointestinal (Abdomen): Inspection/Auscultation: + abdomen distended and normal bowel sounds Percussion/Palpation: abdomen soft and + ascites; abdomen nontender Musculoskeletal: Extremities: strength 5/5 throughout Skin: no rashes, warm and dry Neurologic: Moves all extremities, fluent speech, no tremor Psychiatric: Orientation: alert and oriented x 3 Results & Data ([facility]) Vital Signs (Past 12 Hours) Vital Signs Temp Pulse Pulse Pulse Resp BP BP 09/07/21 09:08 37.0 C 60 112/61 09/07/21 09:00 37.0 C 60 114/66 09/07/21 08:51 36.7 C 60 18 129/54 L 09/07/21 07:40 37.1 C 76 15 102/52 L 09/07/21 03:41 37.0 C 104 H 14 107/64 09/07/21 03:14 103 H 09/07/21 01:41 37.0 C 109 H 16 102/60 09/06/21 22:45 37.2 C 101 H 18 110/62 09/06/21 21:57 37.1 C 104 H 18 102/64 Pulse Ox 09/07/21 09:08 09/07/21 09:00 92 09/07/21 08:51 09/07/21 07:40 95 09/07/21 03:41 96 09/07/21 03:14 09/07/21 01:41 95 09/06/21 22:45 97 09/06/21 21:57 97
--- NOTE | 2021-09-07 10:52 | Gastroenterology Progress Note ---
Date of Service September 07, 2021 Assessment & Plan (1) Decompensated hepatic cirrhosis: (2) Alcoholic liver failure: (3) Ascites: (4) Hyponatremia: Plan: Continue 2 Gm sodium diet. Appreciate nephrology management of likely HRS. Defer management of electrolyte replacement/diuretics/tx of HRS to nephrology (Octreotide, Albumin, Midodrine). Continue Cipro daily for SBP prophylaxis. Continue Thiamine, Pantoprazole. Awaiting transfer to [place]. Admission and Anticipated Discharge Date Admission Date: September 02, 2021 Supervising Physician Co-Signing Physician Notes Attg add (late entry): No new events, uop remains adequate and creat falling. Recommendations as above. Subjective 41 yr old male ETOH hepatitis/cirrhosis, + esophageal varices and ascites, HRS (most recent creatinine approx 3), nephrology following. Most recent drink approx a month ago. On Albumin, Octreotide, Midodrine. Cipro for SBP prophylaxis after completion of tx for SBP. Paracentesis 09/05: 3L Fluid 129WBCs 6% neutrophils and no growth on culture thus no current SBP. Pt reports feels well.Eating well. Remains jaundiced. INR today 2.3. Accepted for transfer to [place] for eval for liver transplant. Review of Systems Review of Systems: ROS: Gen: +weakness, No fevers, No weight loss Eyes: + icterus; No eye redness, or pain, no recent vision changes Resp: No SOB, no cough Cardio: No palpitations/irregular beats, no chest pain GI: + enlarged abd from ascites; no abd pain, no nausea/vomiting : Denies pain on urination; +dark urine Skin: + jaundice, itching or new rashes Physical Exam Constitutional: well developed, + ill appearing, + thin and cooperative Eyes: PERRL + icterus ENMT: external ear and nose normal, oropharynx normal Neck: trachea midline, no thyromegaly Respiratory: normal respiratory effort and able to speak in complete sentences; no respiratory distress, no labored breathing, does not use accessory muscles and no cough Cardiovascular: Rate/Rhythm: regular rate, regular rhythm and + tachycardic (occasionally mildly tachycardic) Gastrointestinal (Abdomen): normal bowel sounds, soft, nontender, no hepatosplenomegaly Moderate, non tense ascites Skin: ++Jaundice; + spider angiomas Neurologic: PERRL, EOMI, accommodation nl, no face palsy, no dysarthria awake; not confused no asterix or tremor Psychiatric: A+Ox3, euthymic affect Lymphatic: no cervical or axillary lymphadenopathy Results & Data ([facility]) Vital Signs (Past 12 Hours) Vital Signs Temp Pulse Pulse Pulse Resp BP BP 09/07/21 09:45 37.1 C 106 H 111/65 09/07/21 09:08 37.0 C 60 112/61 09/07/21 09:00 37.0 C 60 114/66 09/07/21 08:51 36.7 C 60 18 129/54 L 09/07/21 07:40 37.1 C 76 15 102/52 L 09/07/21 03:41 37.0 C 104 H 14 107/64 09/07/21 03:14 103 H 09/07/21 01:41 37.0 C 109 H 16 102/60 09/06/21 22:45 37.2 C 101 H 18 110/62 Pulse Ox 09/07/21 09:45 97 09/07/21 09:08 09/07/21 09:00 92 09/07/21 08:51 09/07/21 07:40 95 09/07/21 03:41 96 09/07/21 03:14 09/07/21 01:41 95 09/06/21 22:45 97 Laboratory Results WBC 5, Hb 7, Hct 20, Plts 96, PT 23, INR 2.3 Diagnostic Findings VDUS on09/05/21: Hepatofugal flow within the portal vein compatible with portal venous hypertension. Hepatic steatosis with cirrhotic liver and trace ascites, no PVT. Renal US 09/05/21: 7 mm nonobstructing right renal calculus with no evidence for hydronephrosis.
[2021-09-07] MEDS: CIPROFLOXACIN 500 MG TAB PO SCH (12:26)
--- NOTE | 2021-09-07 19:18 | Hospitalist Progress Note ---
Date of Service September 07, 2021 Assessment & Plan (1) Decompensated hepatic cirrhosis: (2) Alcoholic liver failure: Plan: 41 y/o M with PMH alcohol abuse, fatty liver, cirrhosis, adjustment disorder presented to ER for abnormal labs. Patient with recent admission 08/21/21- 08/26/21 for alcoholic cirrhosis, SBP, severe hyponatremia with sodium of 108. F/U outpatient labs revealed leukocytosis and pt referred to ER 09/02/21. Pt complained SOB with exertion at presentation. Denies abdominal pain. He is being managed for the following: #. Decompensated hepatic cirrhosis #. Hepatorenal syndrome #. Hyperbilirubinemia #. Ascites #. Elevated INR In ER pt afebrile, P: 104, R: 18, BP: 108/52, 94% on RA. WBC: 18K. Negative covid-19 test. CXR:Low lung volumes with bibasilar linear densities. These are nonspecific but favor subsegmental atelectasis or scarring. CT Abd/Pelvis:Diffuse colonic wall thickening may be secondary to ascites, however is more pronounced than in the prior exam. 2. Hepatosplenomegaly, hepatic steatosis, and portal and splenic varices are again seen. Patient has decompensated alcoholic cirrhosis with ascites, hyperbilirubinemia. Bilirubin is markedly elevated above 30 which makes it difficult to get accurate results of the creatinine. Hence, BMP for creatinine levels has been sent to outside lab. Creatinine from 09/03/2021- 09/05/21 at 3 Patient has acute kidney injury. Hepatorenal syndrome. Got therapeutic paracentesis with removal of 3.3L on 09/05/21 Diagnostic paracentesis done on admission was negative for SBP. USS negative for portal vein thrombus. Has 7mm right nonobstructing renal calculus Continue albumin, octreotide, midodrine Patient was empirically on ceftriaxone for possible UTI based on UA. However cultures have been negative. Ceftriaxone was discontinued. Continue ciprofloxacin for SBP prophylaxis On 09/05/21, Dr. Eubanks called [facility] and spoke with them about transfer for possible liver transplant evaluation and continued management. Patient admitted to the medicine service under Dr. Field for hepatology/transplant evaluation, continued management and follow-up 09/07--> call [facility] transfer line to inquire on the status of bed availability for the patient, they are try seeing the patients and stated that they will let us know as soon as they find the patient. 09/07---> talked with Dr. Ybarra ([phone]] about the patient, he wants psychiatry to evaluate the patient and then possibly will look for bed at [facility]. Psychiatry consulted, will update Dr. Ybarra tomorrow morning. (7) Alcohol abuse: Plan: Last drink 08/20/21 Went to [facility] for alcohol rehab 08/30/21 from where he was transferred to the hospital for abnormal labs Continue alcohol cessation (8) Hyponatremia: Plan: Na: 123 on this admission. Nephrology managing, improving. Field Marketing Team Leader evaluation and recommendation appreciated Continue fluid restriction Continue to monitor sodium levels Continue low salt diet DVT ppx SCD Disposition: [place] [facility] [place] availability, paperwork done. Also working parallely with [facility] with Dr. Ybarra. Admission and Anticipated Discharge Date Admission Date: September 02, 2021 Subjective Patient was lying in bed, on room air, NAD, no new acute events overnight per patient. Patient received 1 unit blood transfusion yesterday, patient denies any bleeding/dark stools. Patient's hemoglobin in the morning was 7.0, will transfuse 1 more unit of PRBC, follow-up hemoglobin every 8 hours. Patient denies headache/dizziness/chest pain /palpitations/other review of symptoms. Physical Exam Physical Exam: GENERAL: Alert and oriented x3. NAD, on RA. HEENT: No pallor, ++ icterus. Pupils equal, round and reactive to light. Oral mucosa moist. NECK: No JVD, no neck masses. HEART: S1 and S2 heard. Regular rate and rhythm. No murmur, no gallop. RESPIRATORY SYSTEM: Normal AP diameter. No accessory muscle use. No wheezing, no crackles. ABDOMEN: Soft, bowel sounds present, nontender, + distention. CENTRAL NERVOUS SYSTEM: No facial droop. Speech is clear. Obeys simple commands. Moves extremities. EXTREMITIES: No edema, no erythema seen. Results & Data Results & Data ([facility]) Vital Signs (Past 12 Hours) Vital Signs Temp Pulse Pulse Resp BP BP BP 09/07/21 18:52 36.8 C 104 H 18 101/51 L 09/07/21 14:44 37.6 C H 107 H 20 108/56 L 09/07/21 11:16 37.0 C 105 H 112/67 09/07/21 10:46 36.8 C 108 H 105/62 09/07/21 09:45 37.1 C 106 H 111/65 09/07/21 09:08 37.0 C 60 112/61 09/07/21 09:00 37.0 C 60 114/66 09/07/21 08:51 36.7 C 60 18 129/54 L 09/07/21 07:40 37.1 C 76 15 102/52 L Pulse Ox 09/07/21 18:52 96 09/07/21 14:44 96 09/07/21 11:16 96 09/07/21 10:46 97 09/07/21 09:45 97 09/07/21 09:08 09/07/21 09:00 92 09/07/21 08:51 09/07/21 07:40 95
[2021-09-07] MEDS: LORazepam 0.5 MG TAB PO PRN (20:05)
[2021-09-07 22:36] LABS: Hematocrit (blood only) 22.5 % (42-52); Hemoglobin 7.7 g/dL (14.0-18.0)
[2021-09-08] MEDS: ALBUMIN 25% 100 mL 25 GM/100 ML VIAL IV SCH ×3 (02:23→17:46)
[2021-09-08] MEDS: OCTREOTIDE ACETATE 100 MCG/ML VIAL SQ SCH ×3 (04:04→19:51)
[2021-09-08] MEDS: PANTOprazole 40 MG TAB PO SCH (05:57)
[2021-09-08 08:08] LABS: Hematocrit (blood only) 23.1 % (42-52); Hemoglobin 7.9 g/dL (14.0-18.0); Mean Corpuscular Hemoglobin 35.1 pg (25-34); Mean Corpuscular Hgb Conc 34.2 g/dL (32-36); Mean Corpuscular Volume 102.7 fL (80-100); RDW Coefficient of Variation 23.5 % (11.5-14.5); RDW Standard Deviation 87.3 fL (36.4-46.3); Red Blood Count 2.25 M/uL (4.7-6.1); White Blood Count 4.99 K/uL (4.8-10.8)
[2021-09-08] MEDS: CYANOCOBALAMIN 500 MCG TABLET (VITAMIN B-12) PO SCH (08:19)
[2021-09-08] MEDS: MIDODRINE HCL 2.5 MG TAB PO SCH ×3 (08:19→16:55)
[2021-09-08] MEDS: POTASSIUM CHLORIDE CRTAB 20 MEQ TABCR PO SCH ×2 (08:19→19:52)
[2021-09-08] MEDS: THIAMINE HCL 100 MG TAB PO SCH (08:19)
[2021-09-08] MEDS: MULTIVITAMIN TAB PO SCH (08:20)
[2021-09-08 08:46] LABS: Platelet Count 98 K/uL (130-400); Platelet Estimate Decreased (Normal)
[2021-09-08] MEDS ORDERED: cefTRIAXone SODIUM 2,000 MG in DEXTROSE 5% 50 ML IV ONE (09:00)
--- NOTE | 2021-09-08 09:30 | Nephrology Progress Note ---
Date of Service September 08, 2021 Assessment & Plan Admission and Anticipated Discharge Date Admission Date: September 02, 2021 Subjective Subjective Assessment & Plan (1) Hyponatremia: Plan: hypervolemic hyponatremia with Liver failure. Nancy has been running mid 120s, about where he was at recent d/c but w/ worsening OL. He is at extremely high risk for renal failure due to his liver disease and volume issues; WBC casts on his admission urinalysis suggest he may already have some renal failure. Not a candidate for dialysis due to not being a liver transplant candidate at this time ( ?) and will not discuss this unless patient brings it up Current Sodium is 135 yesterday--much better 2 LEANN--Most Likely Hepatorenal Syndrome +/-ATN superimposed. On Triple therapy currently for HRS. Diuretics on hold now. Getting Transferred to [facility] [place] but has been waiting for bed. Creat yesterday was down to 2.2 from 3.1 ( Check Replaced By [facility] report ) Says making urine good. Subjective No overnight events. had Ascites tapped. Tolerating p.o. Feels shortness of breath and lower extremity edema are improved. No new or worrisome voiding symptoms Review of Systems Review of Systems: All systems reviewed & are unremarkable except as noted in Subjective Physical Exam Constitutional: well developed, + cachectic and cooperative; no acute distress Eyes: EOM intact bilaterally ENMT: Ears: no external ear abnormality Nose: no external nose abnormality Mouth: + dry oral mucous membranes Neck: no nuchal rigidity Respiratory: normal respiratory effort Auscultation: + diminished lung sounds (Especially bilateral bases) Cardiovascular: Rate/Rhythm: + tachycardic (in 90s) Heart Sounds: + murmur Extremities: + edema (1+--less now) Gastrointestinal (Abdomen):L Inspection/Auscultation: + abdomen distended and normal bowel sounds Percussion/Palpation: abdomen soft and + ascites; abdomen nontender Musculoskeletal: Extremities: strength 5/5 throughout Skin: no rashes, warm and dry Neurologic: Moves all extremities, fluent speech, no tremor Psychiatric: Orientation: alert and oriented x 3 Results & Data ([facility]) Vital Signs (Past 12 Hours) Vital Signs Temp Pulse Pulse Resp BP Pulse Ox 09/08/21 07:52 36.7 C 110 H 16 106/62 95 09/08/21 03:23 113 H 09/08/21 03:00 37.2 C 106 H 18 105/58 L 95 09/07/21 23:00 37.3 C 108 H 20 107/59 L 95
--- NOTE | 2021-09-08 09:54 | XRay Report ---
XR chest 2V PA/lateral CLINICAL HISTORY: tachycardia, r/o infection COMPARISON STUDY: Chest radiograph September 02, 2021. FINDINGS: Lung volumes are diminished. This is unchanged. Elevation of the right hemidiaphragm is unc hanged. There is no pneumothorax. No definite pleural effusion. Bibasilar opacities favor atelectasis . Cardiomediastinal silhouette is unremarkable. There is no evidence for pulmonary edema. IMPRESSION: Low lung volumes with bibasilar opacities which favor atelectasis. ACT 112: Negative or not required by law. Electronically signed by: Ron Stacy M.D. 09/08/2021 9:53 AM
--- NOTE | 2021-09-08 11:32 | Psychiatric Consultation ---
Date of Consultation September 08, 2021 Impression / Recommendations Impression The patient is a 41 year old with a history of alcohol use disorder, severe, in controlled environment who was admitted for liver cirrhosis with electrolyte abnormalities. Diagnostically consistent with alcohol use disorder severe given significant pattern of use with difficulty decreasing intake and with medical and personal negative consequences; however he has remained sober since 08/19/2021 and remains motivated to do so and followed up with his plan last month to seek residential alcohol use disorder treatment and has since required medical readmission and remained cooperative with care and all recommendations. From a psychiatric standpoint he denies any symptoms nor presents with any symptoms concerning for any co-morbid psychiatric conditions or factors which would be anticipated to complicate his candidacy for liver transplant surgery with the exception of his alcohol use disorder. Certainly the main concern is that he has only been sober for the last 20 days and historically some transplant programs require 6 months of sobriety. With that said his medical status is such that he may not survive should he have to wait six months for the surgery. Encouragingly he has wonderful social support, is financially stable, shows no cognitive deficits, can speak to healthy coping skills, has no current or recent cravings for alcohol use, has no other substance use, remains motivated to participate in any recommended substance use treatment and consistently follow-up with his medical provider appointments and has good rapport with his medical providers. Based on the High-Risk Alcoholism Relapse Scale (HRAR) he scores a 2 (9-17 drinks per day prior to 08/19/21 and 1 prior inpt substance use tx though interrupted after 3 days due to medical condition worsening) which puts him in the low risk category for relapse after liver transplant which is also strongly encouraging. Discussed with Jr recommendations to enhance his candidacy for liver transplantation by continuing to engage with sober supports, avoiding alcohol use which he remains motivated to do, and recommendation for residential treatment vs IOP and then individual therapy and daily AA meetings, depending on timing of potential surgery, and after surgery to maximize his supports and ability to remain sober. He has been provided with substance use resources in the local area and we are happy to make referrals depending on the timing of his transfer/surgery. Discussed that [facility] is one option and he's also looking into another IOP program that a friend found very helpful. Also reviewed that I would recommend he avoid ativan and any other benzodiazepines outside of use in the hospital for alcohol withdrawal given risk of respiratory fatality in combination with alcohol use and high addictive potential. As per previous note would strongly encourage consideration for medication assisted treatment in the future as his medical status improves. Acute risk of harm to self is low given denial of SI and denial of major depressive symptoms and future orientation and motivation to remain sober from alcohol use and to engage in recommended medical treatments to sustain his life. Plan: -[place] to be appropriate for liver transplantation surgery from a psychiatric perspective -Provided with substance use resources, if he discharges prior to transfer for surgery please let our service know so that we can set him up with outpatient substance use treatment (residential vs IOP and therapy) (1) Alcohol use disorder, severe, dependence: see impression above Risk Factors Assessment Male: Yes : Yes Do You Have Access To A Gun?: Yes (hunting guns at his parents home 1.5 hours away) Substance Use Disorders: Yes Previous Attempt: No Hopelessness: No Smoker: No Protective Factors Assessment Stable Relationships: Yes Supportive Family: Yes Good Rapport with Provider: Yes Psych History Identifying Data 41 yo man with a history of alcohol use disorder, severe with significant medical sequelae including hepatic cirrhosis, jaundice, INR/PT/platelet changes and significant electrolyte abnormalities including hyponatremia. Psychiatry was consulted for recommendations regarding potential transfer for liver transplant. Chief Complaint "I don't want to , that's enough motivation for me to never drink another drop again". History of Present Illness Jr was re-admitted to the medical service on 09/02/21 as a transfer from residential alcohol use treatment facility ([facility] where he presented for intake on 08/30/21) at the recommendation of the facilities's hospitalist medical director due to worsening symptoms of malaise and abdominal discomfort and labwork abnormalities. I previously consulted on Jr's care on 08/21/21, please see my prior consult note for additional information about recent history. Today Jr is resting in bed and recalls meeting with our psychiatric liason last evening. He understands that a psychiatry consultation was requested for part of the process of pursuing a potential placement at [facility] for liver transport surgery. His medical status has continued to worsen and he tearful describes meeting with his GI provider two days ago who informed Jr, his girlfriend and his mother that if he doesn't stop drinking and get more intensive treatment then he is likely to within the next six months. Jr understood that he needed to stop drinking after his admission in early Apr 2021 when he developed jaundice, and he was then able to remain sober for 60 days from Apr-Jun. 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 At that point his medical condition had worsened again and he had not realized that things were as severe as they were and he wishes he had known this before going to residential treatment as he still felt really weak and ill. Currently he remains fully motivated to never drink alcohol again and describes starting to make a list of potetential therapists he could work with and talking with friends who attend AA (one whom has attended AA for more than 20 years) who are willing to support him in starting with AA. He is also open to residential substance use treatment again, though prefers a different facility that focuses primary on alcohol use rather than methamphetamine, once he is medically stable enough for such treatment. We reviewed his history with alcohol. He started drinking at ~age 21 in college but feels that his alcohol use did not become a disorder until about two years ago when he began consistently drinking heavily. He describes growing up in a family where they didn't really talk about emotions and that this lead him to "cope with stressors" by drinking alcohol. He was previously consuming approximately 8-10 servings of alcohol per day via "sipping throughout the day" Jass and Coke and sometimes beers. He denies any history of legal consequences from drinking. Denies needing a drink on awakening or experiencing withdrawal symptoms earlier in the morning. He denies any history of complicated withdrawals. Longest period of sobreity during this time was from Apr-Jun 2021 for 60 days following medical admission for jaundice. His recent admission at [facility] for residential tx from Aug 30-2021 was his first ever treatment for alcohol use. He has never seen other providers nor attended AA nor IOP nor psychiatry for his alcohol use though he is willing to engage with any recommended services and treatments. He denies any other substance use. He describes excellent social support. His parents are retired and are willing to move in with him, his mother has already temporarily moved to [place] and is staying in his home and visiting him daily in the hospital. Additionally he has been with his girlfriend, Raquel, for three years. She is a PA in the medical field and lives a few houses down from him. He feels both his girlfriend and parents are excellent sober supports and none of them have any alcohol use problems and would be willing to remain sober to support him. He also cites his sister and many other friends as strong supports including a orthopedic surgeon friend who has offered to drive him to any appointments as well as two close friends who are actively engaged in AA. He is currently unemployed but he has a severance package from his old job until February 2022 and after that states he has significant savings and can rely on family support. Currently he denies any psychiatric symptoms. Psychiatric ROS notable for denial of hx of or current symptoms of major depression, anxiety, OCD, eating disord ers, cassie, psychosis, PTSD nor violence. PHQ-9 score was 0. He used to struggle with insomnia and this lead him to increase his alcohol consumption though he notes that then he slept poorly due to drinking and this caused a cycle of self- perpetuation. Currently he reports his sleep has been "fine" which he attributes to being sober and that he hasn't had problems sleeping in the hospital. He note s that should insomnia re-occur in the future he and his PCP discussed having him get a sleep study. He can identify alternative ways to cope with stressors instead of drinking alcohol including hiking/fishing/hunting or exercising. When we discuss how he may cope should he get the surgery and be under activity restrictions he notes that he can rely on his supports as well as his internal motivation of "I don't want to at 41, my eye is on the prize, I cannot ever drink again and I won't". He denies any current or recent alcohol cravings stating he last craved alcohol on Jun 28 when he relapsed after his grandfather . He also notes that he's been reflecting on how stress from his job at a chiropractor caused him to "put myself last" and that learning that he could has helped him rethink about his life goals and perspective and that "I love to cook and it may be my future job is to open a food truck and live a happy, simple and low stress life". On cognitive testing he scored a 30 on the MMSE when "world" was used for attention, he only got 1/5 for serial 7s calculations. Past Psychiatric History Previous Psych History: alcohol use Current Psychiatric Diagnosis: alcohol use disorder Outpatient Services: none Previous Psych Admissions: none Do You Have Access To A Gun?: Yes (hunting guns at his parents home 1.5 hours away) History of Previous Suicide Attempt: No Past Medication Trials: mirtazapine, trazodone and ambien for sleep; has been prescribed ativan 0.5 mg qd prn in the past for anxiety and insomnia Allergies Allergy/AdvReac Type Severity Reaction Status Date / Time bee pollen Allergy Intermediate HIVES/SWELL Verified 08/20/21 19:41 ING brompheniramine Allergy Intermediate Hives Verified 08/20/21 19:41 [From Dimetapp Cold-Allergy (PE)] phenylephrine Allergy Intermediate Hives Verified 08/20/21 19:41 [From Dimetapp Cold-Allergy (PE)] Sulfa (Sulfonamide Allergy Mild Rash Verified 08/20/21 19:41 Antibiotics) cantaloupe Allergy Verified 09/07/21 14:59 Home Medications Medication Instructions Recorded Confirmed Type omeprazole 20 mg tablet,delayed 20 mg PO DAILYBB 05/09/21 09/02/21 History release lorazepam 0.5 mg tablet 0.5 mg PO DAILY PRN 08/20/21 09/02/21 History spironolactone 50 mg tablet 50 mg PO DAILY 08/20/21 09/02/21 History potassium chloride 10 mEq 10 meq PO DAILY #5 tab 08/26/21 09/02/21 Rx tablet,extended release Pancreat-Bet [id number] 250 1 cap PO DAILY 09/02/21 09/02/21 History mg-162 mg-65 mg-125 mg capsule (Super Enzyme) clonidine HCl 0.1 mg tablet 0.1 mg PO TID PRN 09/02/21 09/02/21 History cyanocobalamin (vitamin B-12) 1,000 mcg PO DAILY 09/02/21 09/02/21 History 1,000 mcg tablet (Vitamin B-12) folic acid 1 mg tablet 1 mg PO DAILY 09/02/21 09/02/21 History food supplemt, lactose-reduced 1 ea PO DAILY 09/02/21 09/02/21 History (Ensure) furosemide 40 mg tablet 40 mg PO DAILY 09/02/21 09/02/21 History multivitamin 1 tab PO DAILY 09/02/21 09/02/21 History thiamine HCl (vitamin B1) 100 mg 100 mg PO DAILY 09/02/21 09/02/21 History tablet ciprofloxacin HCl 500 mg tablet 500 mg PO Q24H #30 tab 09/05/21 Rx Family History alcohol use in paternal and maternal grandparents Substance Abuse History see HPI Personal History Living Arrangements: Home (alone, gf lives few houses down the street, his mother currently living with him) 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) Employment Status: Unemployed (on severence until February 2022) Marital Status: Single (but in long-term relationship for last 3 years) Beliefs That Will Affect Care: None History of Legal Problems: denies Psychological Trauma History Comment: denies Patient History Medical History Alcohol use disorder, severe, dependence Anxiety and depression Ascites Cirrhosis Elevated liver enzymes GERD (gastroesophageal reflux disease) Kidney stone on right side NO INTERVENTION "VERY SMALL" Surgical History H/O inguinal hernia repair Slow to wake up after anesthesia [place] teeth removed Family History Grandfather (Paternal) Family hx of colon cancer Other No family history of adverse response to anesthesia Social History Smoking Status: Never smoker Second Hand Exposure: Yes ( A CHILD); Hx Alcohol Use: Yes Alcohol type: beer and hard liquor Hx Substance Use: No Preferred Language: Albanian Communication Ability: Effective Linux System Administrator Required: No Beliefs That Will Affect Care: None marital status: Single Current Living Situation: Rehab Feels Safe at Home: Yes Safety Concerns: Feels Safe At This Time Assistive Devices: None Physical Exam Psychiatric: Orientation: alert Apperance: appropriately dressed and appropriately groomed Eye Contact: good eye contact Motor Behavior: no abn ormal motor movements Speech: normal rate/rhythm/volume of speech Affect: mood congruent with affect (appropriately tearful briefly when describes shortened lifespan) Mood: no depressed mood, no anxious mood, no irritable mood and no angry mood Thought Process: goal directed thought process Thought Content: reality based without delusions Suicidal Thoughts: denies suicidal thoughts Homicidal Thoughts: denies homicidal thoughts Hallucinations: no auditory hallucinations and no visual hallucinations Cognition: recent memory grossly intact, remote memory grossly intact, attention grossly intact and language grossly intact Estimated Intelligence: consistent with education level Insight: good insight Judgement: + fair judgement Vital Signs (Past 24 Hours): Last Vital Signs Temp 37.2 C 09/08/21 10:59 Pulse 104 H 09/08/21 10:59 Resp 18 09/08/21 10:59 BP 102/59 L 09/08/21 10:59 Pulse Ox 96 09/08/21 10:59 Review of Systems All systems reviewed & are unremarkable except as noted in HPI & below Results & Data (PSY) Medications Administered Ciprofloxacin (Ciprofloxacin 500 Mg Tab) 500 mg PO Q24H [facility]; Protocol Stop: 09/16/21 11:59 Last Admin: 09/07/21 12:26 Dose: 500 mg Documented by: [id number] Admin: 09/06/21 13:46 Dose: 500 mg Documented by: [id number] Cyanocobalamin (Cyanocobalamin 500 Mcg Tablet (Vitamin B-12)) 1,000 mcg PO DAILY [facility] Stop: 10/03/21 08:59 Last Admin: 09/08/21 08:19 Dose: 1,000 mcg Documented by: [id number] Admin: 09/07/21 07:36 Dose: 1,000 mcg Documented by: [id number] Admin: 09/06/21 07:25 Dose: 1,000 mcg Documented by: [id number] Admin: 09/05/21 08:58 Dose: 1,000 mcg Documented by: [id number] Admin: 09/04/21 08:41 Dose: 1,000 mcg Documented by: [id number] Admin: 09/03/21 08:31 Dose: 1,000 mcg Documented by: [id number] Folic Acid (Folic Acid 1 Mg Tab) 1 mg PO DAILY [facility] Stop: 10/03/21 08:59 Last Admin: 09/07/21 07:35 Dose: 1 mg Documented by: [id number] Admin: 09/06/21 07:25 Dose: 1 mg Documented by: [id number] Admin: 09/05/21 08:57 Dose: 1 mg Documented by: [id number] Admin: 09/04/21 08:41 Dose: 1 mg Documented by: [id number] Admin: 09/03/21 08:32 Dose: 1 mg Documented by: [id number] Hydroxyzine HCl (Hydroxyzine Hcl 25 Mg Tab) 50 mg PO TID PRN PRN Reason: anxiety/los Stop: 10/02/21 20:06 Last Admin: 09/05/21 01:19 Dose: 50 mg Documented by: [id number] Admin: 09/04/21 04:20 Dose: 50 mg Documented by: [id number] Albumin Human (Albumin 25% 100 Ml) 25 gm in 100 mls @ 50 mls/hr IV Q8H [facility] Stop: 09/09/21 09:59 Last Admin: 09/08/21 10:59 Dose: 50 mls/hr Documented by: [id number] Infusion: 09/08/21 04:25 Dose: 0 mls/hr Documented by: [id number] Admin: 09/08/21 02:23 Dose: 50 mls/hr Documented by: [id number] Infusion: 09/07/21 20:12 Dose: 50 mls/hr Documented by: [id number] Admin: 09/07/21 18:12 Dose: 50 mls/hr Documented by: [id number] Infusion: 09/07/21 14:28 Dose: 0 mls/hr Documented by: [id number] Admin: 09/07/21 12:25 Dose: 50 mls/hr Documented by: [id number] Infusion: 09/07/21 03:43 Dose: 0 mls/hr Documented by: [id number] Admin: 09/07/21 01:51 Dose: 50 mls/hr Documented by: [id number] Infusion: 09/06/21 19:47 Dose: 0 mls/hr Documented by: [id number] Admin: 09/06/21 17:56 Dose: 50 mls/hr Documented by: [id number] Infusion: 09/06/21 13:25 Dose: 0 mls/hr Documented by: [id number] Infusion: 09/06/21 11:30 Dose: 50 mls/hr Documented by: [id number] Infusion: 09/06/21 11:13 Dose: 0 mls/hr Documented by: [id number] Admin: 09/06/21 10:54 Dose: 50 mls/hr Documented by: [id number] Lorazepam (Lorazepam 0.5 Mg Tab) 0.5 mg PO DAILY PRN PRN Reason: severe anxiety Stop: 10/02/21 20:07 Last Admin: 09/07/21 20:05 Dose: 0.5 mg Documented by: [id number] Admin: 09/03/21 20:44 Dose: 0.5 mg Documented by: [id number] Midodrine (Midodrine Hcl 2.5 Mg Tab) 5 mg PO TID@0800,1200,1700 [facility] Stop: 10/06/21 11:59 Last Admin: 09/08/21 08:19 Dose: 5 mg Documented by: [id number] Admin: 09/07/21 17:04 Dose: 5 mg Documented by: [id number] Admin: 09/07/21 12:25 Dose: 5 mg Documented by: [id number] Admin: 09/07/21 07:36 Dose: 5 mg Documented by: [id number] Admin: 09/06/21 16:14 Dose: 5 mg Documented by: [id number] Admin: 09/06/21 13:08 Dose: 5 mg Documented by: [id number] Multivitamins (Multivitamin Tab) 1 tab PO DAILY [facility] Stop: 10/03/21 08:59 Last Admin: 09/08/21 08:20 Dose: 1 tab Documented by: [id number] Admin: 09/07/21 07:36 Dose: 1 tab Documented by: [id number] Admin: 09/06/21 07:25 Dose: 1 tab Documented by: [id number] Admin: 09/05/21 08:58 Dose: 1 tab Documented by: [id number] Admin: 09/04/21 08:41 Dose: 1 tab Documented by: [id number] Admin: 09/03/21 08:32 Dose: 1 tab Documented by: [id number] Octreotide Acetate (Octreotide Acetate 100 Mcg/Ml Vial) 50 mcg SQ Q8H [facility] Stop: 10/05/21 11:59 Last Admin: 09/08/21 04:04 Dose: 50 mcg Documented by: [id number] Admin: 09/07/21 20:07 Dose: 50 mcg Documented by: [id number] Admin: 09/07/21 12:25 Dose: 50 mcg Documented by: [id number] Admin: 09/07/21 03:44 Dose: 50 mcg Documented by: [id number] Admin: 09/06/21 19:24 Dose: 50 mcg Documented by: [id number] Admin: 09/06/21 13:09 Dose: 50 mcg Documented by: [id number] Admin: 09/06/21 04:38 Dose: 50 mcg Documented by: [id number] Admin: 09/05/21 20:02 Dose: 50 mcg Documented by: [id number] Admin: 09/05/21 13:21 Dose: 50 mcg Documented by: [id number] Pantoprazole S[facility] ([facility] 40 Mg [facility]) [facility] Stop: 10/03/21 06:29 Last Admin: 09/08/21 05:57 Dose: 40 mg Documented by: [id number] Admin: 09/07/21 04:45 Dose: 40 mg Documented by: [id number] Admin: 09/06/21 05:43 Dose: 40 mg Documented by: [id number] Admin: 09/05/21 05:51 Dose: 40 mg Documented by: [id number] Admin: 09/04/21 05:50 Dose: 40 mg Documented by: [id number] Admin: 09/03/21 06:19 Dose: 40 mg Documented by: [id number] Thiamine HCl (Thiamine Hcl 100 Mg Tab) 100 mg PO DAILY [facility] Stop: 09/17/21 09:01 Last Admin: 09/08/21 08:19 Dose: 100 mg Documented by: [id number] Admin: 09/07/21 07:35 Dose: 100 mg Documented by: [id number] Admin: 09/06/21 07:25 Dose: 100 mg Documented by: [id number] Admin: 09/05/21 08:58 Dose: 100 mg Documented by: [id number] Admin: 09/04/21 08:41 Dose: 100 mg Documented by: [id number] Admin: 09/03/21 08:32 Dose: 100 mg Documented by: [id number] Coding Level of Care Code 73739 Inpt Consult Level 4 Diagnoses Alcohol use disorder, severe, dependence F10.20
[2021-09-08] MEDS: CIPROFLOXACIN 500 MG TAB PO SCH (11:49)
[2021-09-08] MEDS: FOLIC ACID 1 MG TAB PO SCH (11:49)
--- NOTE | 2021-09-08 12:09 | Gastroenterology Progress Note ---
Date of Service September 08, 2021 Assessment & Plan (1) Decompensated hepatic cirrhosis: (2) Alcoholic liver failure: (3) Ascites: (4) Hyponatremia: Plan: Due to tachycardia - concern for infection, is at high risk for SBP. CXR, blood/urine cx. Rocephin 1gm/day with renal dosing started. Pt thirsty, discussed with nephro, po liquid intake limit increased to 1800ml. Needs complete/permanent alcohol abstention. Continue 2 Gm sodium diet. Appreciate nephrology management of likely HRS. Defer management of electrolyte replacement/diuretics/tx of HRS to nephrology (Octreotide, Albumin, Midodrine). Continue Cipro daily for SBP prophylaxis. Continue Thiamine, Pantoprazole. Awaiting transfer to [place]. If continues to improve may be able to discharge home and arrange OP liver transplant workup. Admission and Anticipated Discharge Date Admission Date: September 02, 2021 Supervising Physician Co-Signing Physician Notes Attg add: I interviewed and examined pt, reviewed chart and labs. Pt without complaint. His UOP remains vigorous. Review of VS shows tachy, but VS o/w stable. On PE, he is jaundiced, with marked muscle wasting. Pleaseant, comfortable. Abd protuberant. Labs show creat of 1.9, bili of 47, INR of 2.4. Plan cont albumin, octreotide, midodrine. Can d/c octreotide once creat at baseline. Cont encourage PO intake. Subjective 41 yr old male ETOH hepatitis/cirrhosis, + esophageal varices and ascites, HRS (most recent creatinine approx 3), nephrology following. Most recent drink approx a month ago. On Albumin, Octreotide, Midodrine. Cipro for SBP prophylaxis after completion of tx for SBP. Paracentesis 09/05: 3L Fluid 129WBCs 6% neutrophils and no growth on culture thus no current SBP. Pt reports feels well. Na improved (yest 135) Cr improved (Yest 2.19). Urine output seems increased - about 800 measured plus 4 more voids in the past 24 hrs. Eating well. Remains jaundiced. INR yest 2.3. Accepted for transfer to [place] for eval for liver transplant - though no beds available. Review of Systems Review of Systems: ROS: Gen: +weakness, No fevers, No weight loss Eyes: + icterus; No eye redness, or pain, no recent vision changes Resp: No SOB, no cough Cardio: No palpitations/irregular beats, no chest pain GI: + enlarged abd from ascites; no abd pain, no nausea/vomiting : Denies pain on urination; +dark urine Skin: + jaundice, itching or new rashes Physical Exam Constitutional: well developed, + ill appearing, + thin and cooperative Eyes: PERRL ENMT: external ear and nose normal, oropharynx normal Neck: trachea midline, no thyromegaly Respiratory: normal respiratory effort and able to speak in complete sentences; no respiratory distress, no labored breathing, does not use accessory muscles and no cough Cardiovascular: Rate/Rhythm: regular rate, regular rhythm and + tachycardic (occasionally mildly tachycardic) Gastrointestinal (Abdomen): normal bowel sounds, soft, nontender, no hepatosplenomegaly Neurologic: PERRL, EOMI, accommodation nl, no face palsy, no dysarthria awake; not confused Psychiatric: A+Ox3, euthymic affect Lymphatic: no cervical or axillary lymphadenopathy Results & Data ([facility]) Vital Signs (Past 12 Hours) Vital Signs Temp Pulse Pulse Resp BP Pulse Ox 09/08/21 11:48 37.2 C 105 H 18 107/66 98 09/08/21 10:59 37.2 C 104 H 18 102/59 L 96 09/08/21 07:52 36.7 C 110 H 16 106/62 95 09/08/21 03:23 113 H 09/08/21 03:00 37.2 C 106 H 18 105/58 L 95 Laboratory Results WBC 2.5, Hb 7.9, Hct 23.1, Plts 98, INR 2.3, Na 135, K 4.5, Cl 108, CO2 18, BUN 46, Cr 2.19 Diagnostic Findings CXR today: Low lung volumes with bibasilar opacities which favor atelectasis
[2021-09-08 12:36] LABS: INR 2.4 (0.9-1.1); Prothrombin Time 23.1 Seconds (9.0-12.0)
--- NOTE | 2021-09-08 13:37 | Communication Note ---
Date of Service: September 08, 2021 I was asked by Lab to document the need for an ISTAT creatinine. This note serves and documentation. Please run an ISTAT creatinine on this inpatient. Current creatinine levels are very important for clinical decision making.
[2021-09-08 13:43] LABS: iSTAT Creatinine 1.9 mg/dl (0.6-1.3); iSTAT Hemoglobin 7.1 g/dl (14.0-18.0); iSTAT Ionized Calcium 1.31 mmol/l (1.12-1.32); iSTAT Potassium 5.1 mmol/L (3.3-5.0)
--- NOTE | 2021-09-08 14:15 | Hospitalist Progress Note ---
Date of Service September 08, 2021 Assessment & Plan (1) Decompensated hepatic cirrhosis: (2) Alcoholic liver failure: Plan: 41 y/o M with PMH alcohol abuse, fatty liver, cirrhosis, adjustment disorder presented to ER for abnormal labs. Patient with recent admission 08/21/21- 08/26/21 for alcoholic cirrhosis, SBP, severe hyponatremia with sodium of 108. F/U outpatient labs revealed leukocytosis and pt referred to ER 09/02/21. Pt complained SOB with exertion at presentation. Denies abdominal pain. He is being managed for the following: #. Decompensated hepatic cirrhosis #. Hepatorenal syndrome #. Hyperbilirubinemia #. Ascites #. Elevated INR In ER pt afebrile, P: 104, R: 18, BP: 108/52, 94% on RA. WBC: 18K. Negative covid-19 test. CXR:Low lung volumes with bibasilar linear densities. These are nonspecific but favor subsegmental atelectasis or scarring. CT Abd/Pelvis:Diffuse colonic wall thickening may be secondary to ascites, however is more pronounced than in the prior exam. 2. Hepatosplenomegaly, hepatic steatosis, and portal and splenic varices are again seen. Patient has decompensated alcoholic cirrhosis with ascites, hyperbilirubinemia. Bilirubin is markedly elevated above 30 which makes it difficult to get accurate results of the creatinine. Hence, BMP for creatinine levels has been sent to outside lab. Creatinine from 09/03/2021- 09/05/21 at 3 Patient has acute kidney injury. Hepatorenal syndrome. Cr improving 1.6 today. Got therapeutic paracentesis with removal of 3.3L on 09/05/21 Diagnostic paracentesis done on admission was negative for SBP. Culture negative. USS negative for portal vein thrombus. Has 7mm right nonobstructing renal calculus Continue albumin, octreotide, midodrine Patient was empirically on ceftriaxone for possible UTI based on UA. However cultures have been negative. Ceftriaxone was discontinued. Continue ciprofloxacin for SBP prophylaxis On 09/05/21, Dr. Eubanks called [facility] and spoke with them about transfer for possible liver transplant evaluation and continued management. Patient admitted to the medicine service under Dr. Field for hepatology/transplant evaluation, continued management and follow-up 09/07--> called [facility] transfer line to inquire on the status of bed availability for the patient, they stated they are triaging the patients and stated that they will let us know as soon as they find the bed. 09/07---> talked with Dr. Ybarra ([phone]] about the patient, he wants psychiatry to evaluate the patient and then possibly will look for bed at [facility]. 09/08-->CM notified his insurance will not be accepted at [facility] and Patient stated that he wants to wait for the bed availability at [place]. 09/08--> attempted to contact his primary contact two times, left message over voicemail to call us back. 09/08--> talked with Patient's mother at bedside, updated her on his current status and his insurance not being compatible with [facility]. answered all her questions, She voiced understanding and was agreeable to the plan of care. Psychiatry evaluated the patient, will update Dr. Ybarra after talking with the family. d/w Psychiatry --> if patient goes home without being transferred, reach out to them for setting him up with outpatient care to help support him until surgery can be completed. (7) Alcohol abuse: Plan: Last drink 08/20/21 Went to [facility] for alcohol rehab 08/30/21 from where he was transferred to the hospital for abnormal labs Pt doesn't want to go to [facility] Continue alcohol cessation (8) Hyponatremia: Plan: Na: 123 on this admission. Nephrology managing, improving. 141 today Solvent Process Extractor Operator evaluation and recommendation appreciated Continue fluid restriction to 1.8L / day Continue to monitor sodium levels Continue low salt diet DVT ppx SCD Disposition: Transfer to [facility] accepted, pending bed availability, paperwork done. Also working parallely with [facility] with Dr. Ybarra. Admission and Anticipated Discharge Date Admission Date: September 02, 2021 Subjective Patient was lying in bed, on room air, NAD, no new acute events overnight. P atient reports having 4-5 loose bowel movements daily, patient has alcoholic cirrhosis. Patient reports feeling better and having adequate urine output. He reports eating okay. Also reports feeling thirst, fluid limit has been increased by Nephro team. Patient denies fever/headache/chest/chest pain/palpitations/other review of symptoms. Patient is awaiting transfer to [place], pending bed availability. Coordinated with nursing felt finishing supervisor regarding its insurance being accepted at [facility], was notified that his insurance will not cover treatment at [facility]. Physical Exam Physical Exam: GENERAL: Alert and oriented x3. NAD, on RA. HEENT: No pallor, ++ icterus. Pupils equal, round and reactive to light. Oral mucosa moist. NECK: No JVD, no neck masses. HEART: S1 and S2 heard. tachycardia, Regular rate and rhythm. No murmur, no gallop. RESPIRATORY SYSTEM: Normal AP diameter. No accessory muscle use. No wheezing, no crackles. ABDOMEN: Soft, bowel sounds present, nontender, + distention. CENTRAL NERVOUS SYSTEM: No facial droop. Speech is clear. Obeys simple commands. Moves extremities. EXTREMITIES: No edema, no erythema seen. Results & Data Results & Data ([facility]) Vital Signs (Past 12 Hours) Vital Signs Temp Pulse Pulse Resp BP Pulse Ox 09/08/21 11:48 37.2 C 105 H 18 107/66 98 09/08/21 10:59 37.2 C 104 H 18 102/59 L 96 09/08/21 08:00 111 H 09/08/21 07:52 36.7 C 110 H 16 106/62 95 09/08/21 03:23 113 H 09/08/21 03:00 37.2 C 106 H 18 105/58 L 95
[2021-09-08] MEDS: LORazepam 0.5 MG TAB PO PRN (23:40)
[2021-09-09] MEDS: ALBUMIN 25% 100 mL 25 GM/100 ML VIAL IV SCH ×2 (02:12→18:43)
[2021-09-09] MEDS: OCTREOTIDE ACETATE 100 MCG/ML VIAL SQ SCH ×3 (04:53→20:25)
[2021-09-09] MEDS: PANTOprazole 40 MG TAB PO SCH (06:14)
[2021-09-09] MEDS: MIDODRINE HCL 2.5 MG TAB PO SCH ×3 (07:40→18:41)
[2021-09-09] MEDS: CYANOCOBALAMIN 500 MCG TABLET (VITAMIN B-12) PO SCH (07:40)
[2021-09-09] MEDS: MULTIVITAMIN TAB PO SCH (07:41)
[2021-09-09] MEDS: POTASSIUM CHLORIDE CRTAB 20 MEQ TABCR PO SCH ×2 (07:41→20:26)
[2021-09-09] MEDS: FOLIC ACID 1 MG TAB PO SCH (07:41)
[2021-09-09] MEDS: THIAMINE HCL 100 MG TAB PO SCH (07:42)
--- NOTE | 2021-09-09 10:45 | Gastroenterology Progress Note ---
Date of Service September 09, 2021 Assessment & Plan (1) Decompensated hepatic cirrhosis: (2) Alcoholic liver failure: (3) Ascites: (4) Hyponatremia: Plan: Permanent, life long alcohol abstention. Continue 2 Gm sodium diet. Appreciate nephrology management of likely HRS - resolving. Continue Cipro daily for SBP prophylaxis. Continue Thiamine, Pantoprazole. Pt has been accepted for trnx to [facility] for consideration for liver transplant for tx of alcoholic hepatitis - awaiting discharge. Had previously also been accepted to [place] but no bed availability. In the interim, he is much improved specifically from a renal standpoint but remains with significant ETOH hepatitis. Steroids are contraindicated due to fairly recent SBP. Admission and Anticipated Discharge Date Admission Date: September 02, 2021 Supervising Physician Co-Signing Physician Notes Attg add: I interviewed and examined pt, reviewed chart and lab. Creat cont to improve. Please cont midodrine, ocreotide, albumin for now. Subjective 41 yr old male ETOH hepatitis/cirrhosis, + esophageal varices and ascites, HRS - much improved, Cr yest 1.9, nephrology following. Most recent drink of ETOH approx a month ago. Was tx with Albumin (DC'ed), Octreotide (continues), Midodrine (continues). Cipro for SBP prophylaxis. Paracentesis 09/05: 3L Fluid 129WBCs 6% neutrophils and no growth on culture thus no current SBP, though carries a hx of SBP in July 2021. Pt reports feels well. Up ambulating in room. Na improved (yest 143) Cr improved (Yest 1.9). Urine output good. Eating well. Remains jaundiced T bli 47 2 days ago. INR yest 2.4. Accepted for transfer to [place] for eval for liver transplant - though no beds available. Review of Systems Review of Systems: ROS: Gen: +weakness - much improved, No fevers, No weight loss Eyes: + icterus; No eye redness, or pain, no recent vision changes Resp: No SOB, no cough Cardio: No palpitations/irregular beats, no chest pain GI: + enlarged abd from ascites but not increasing; no abd pain, no nausea/vomiting : Denies pain on urination; +dark urine Skin: + jaundice, itching or new rashes Ext: minmal edema Physical Exam Constitutional: well developed, + ill appearing, + thin and cooperative Eyes: PERRL ENMT: external ear and nose normal, oropharynx normal Neck: trachea midline, no thyromegaly Respiratory: normal respiratory effort and able to speak in complete sentences; no respiratory distress, no labored breathing, does not use accessory muscles and no cough Cardiovascular: Rate/Rhythm: regular rate, regular rhythm and + tachycardic (occasionally mildly tachycardic) Gastrointestinal (Abdomen): normal bowel sounds, soft, nontender, no hepatosplenomegaly Inspection/Auscultation: + abdomen distended (moderate, non tense ascites) Musculoskeletal: no cyanosis or clubbing, extremities motor strength 5/5 Skin: + jaundice; no rashes and no dry skin Neurologic: PERRL, EOMI, accommodation nl, no face palsy, no dysarthria awake; not confused Psychiatric: A+Ox3, euthymic affect Lymphatic: no cervical or axillary lymphadenopathy Results & Data ([facility]) Vital Signs (Past 12 Hours) Vital Signs Temp Pulse Pulse Resp BP Pulse Ox 09/09/21 07:27 108 H 09/09/21 07:00 37.1 C 105 H 20 109/63 96 09/09/21 03:00 36.8 C 106 H 20 107/62 96 09/09/21 00:00 102 H Laboratory Results YesterdaY: WBC 4.4, Hb 7.1, Hc 21, Plts 98, INR 2.4, Na 143, K 5.1, Cl 113, BUN 17, Cr 33, Plts 1.9 Diagnostic Findings CTAP 09/02/21: 1. Diffuse colonic wall thickening may be secondary to ascites, however is more pronounced than in the prior exam. Clinical correlation for infectious/inflammatory colitis is recommended. 2. Hepatosplenomegaly, hepatic steatosis, and portal and splenic varices are again seen. 3. Additional findings as above. CXR 09/02/21: Low lung volumes with bibasilar opacities which favor atelectasis. Renal US 09/02/21: 1. 7 mm nonobstructing right renal calculus with no evidence for hydronephrosis.
[2021-09-09] MEDS: CIPROFLOXACIN 500 MG TAB PO SCH (13:00)
[2021-09-09 14:05] LABS: Hematocrit (blood only) 22.2 % (42-52); Hemoglobin 7.4 g/dL (14.0-18.0); Mean Corpuscular Hemoglobin 34.6 pg (25-34); Mean Corpuscular Hgb Conc 33.3 g/dL (32-36); Mean Corpuscular Volume 103.7 fL (80-100); RDW Coefficient of Variation 22.5 % (11.5-14.5); Red Blood Count 2.14 M/uL (4.7-6.1)
[2021-09-09 14:06] LABS: Mean Platelet Volume 9.8 fL (7.4-10.4); Platelet Count 89 K/uL (130-400)
[2021-09-09 14:28] LABS: Anisocytosis Present; Basophils # (auto) 0.03 K/uL (0-0.2); Basophils % (auto) 0.6 %; Echinocytes 1+; Eosinophils # (auto) 0.05 K/uL (0-0.5); Lymphocytes # (auto) 0.79 K/uL (1.2-3.4); Lymphocytes % (auto) 16.5 %; Monocytes # (auto) 0.39 K/uL (0.11-0.59); Monocytes % (auto) 8.1 %; Neutrophils # (auto) 3.54 K/uL (1.4-6.5); Neutrophils % (auto) 73.8 %
[2021-09-09 15:19] LABS: iSTAT Creatinine 1.7 mg/dl (0.6-1.3); iSTAT Hemoglobin 7.5 g/dl (14.0-18.0); iSTAT Ionized Calcium 1.23 mmol/l (1.12-1.32)
--- NOTE | 2021-09-09 16:27 | Hospitalist Progress Note ---
Date of Service September 09, 2021 Assessment & Plan (1) Decompensated hepatic cirrhosis: (2) Alcoholic liver failure: Plan: 41 y/o M with PMH alcohol abuse, fatty liver, cirrhosis, adjustment disorder presented to ER for abnormal labs. Patient with recent admission 08/21/21- 08/26/21 for alcoholic cirrhosis, SBP, severe hyponatremia with sodium of 108. F/U outpatient labs revealed leukocytosis and pt referred to ER 09/02/21. Pt complained SOB with exertion at presentation. Denies abdominal pain. He is being managed for the following: #. Decompensated hepatic cirrhosis #. Hepatorenal syndrome #. Hyperbilirubinemia #. Ascites #. Elevated INR In ER pt afebrile, P: 104, R: 18, BP: 108/52, 94% on RA. WBC: 18K. Negative covid-19 test. CXR:Low lung volumes with bibasilar linear densities. These are nonspecific but favor subsegmental atelectasis or scarring. CT Abd/Pelvis:Diffuse colonic wall thickening may be secondary to ascites, however is more pronounced than in the prior exam. 2. Hepatosplenomegaly, hepatic steatosis, and portal and splenic varices are again seen. Patient has decompensated alcoholic cirrhosis with ascites, hyperbilirubinemia. Bilirubin is markedly elevated above 30 which makes it difficult to get accurate results of the creatinine. Hence, BMP for creatinine levels has been sent to outside lab. Creatinine from 09/03/2021- 09/05/21 at 3 Patient has acute kidney injury. Hepatorenal syndrome. Cr improving 1.7 today. Talked with lab, patient to have daily labs, communicated. Got therapeutic paracentesis with removal of 3.3L on 09/05/21 Diagnostic paracentesis done on admission was negative for SBP. Culture negative. USS negative for portal vein thrombus. Has 7mm right nonobstructing renal calculus Continue octreotide, midodrine. Albumin DC'd 09/09 per GI. Patient was empirically on ceftriaxone for possible UTI based on UA. However cultures have been negative. Ceftriaxone was discontinued. Continue ciprofloxacin for SBP prophylaxis On 09/05/21, Dr. Eubanks called [facility] transfer [facility] and spoke with them about transfer for possible liver transplant evaluation and continued management. Patient admitted to the medicine service under Dr. Field for hepatology/transplant evaluation, continued management and follow-up 1/12--> called [facility] transfer line to inquire on the status of bed availa bility for the patient, they stated they are triaging the patients and stated that they will let us know as soon as they find the bed. 09/07---> talked with Dr. Ybarra ([phone]] about the patient, he wants psychiatry to evaluate the patient and then possibly will look for bed at [facility]. 09/08-->CM notified his insurance will not be accepted at [facility] and Patient stated that he wants to wait for the bed availability at [place]. 09/08--> attempted to contact his primary contact two times, left message over voicemail to call us back. 09/08--> talked with Patient's mother at bedside, updated her on his current status and his insurance not being compatible with [facility]. answered all her questions, She voiced understanding and was agreeable to the plan of care. 09/09--> communicated with Dr. Ybarra 2 times today, pt awaiting bed assignment, he will need [facility] bed over there d/t chances he might need dialysis there. Dr. Ybarra actively working with his bed assignment there at [facility]. Psychiatry evaluated the patient, will update Dr. Ybarra after talking with the family. d/w Psychiatry --> if patient goes home without being transferred, reach out to them for setting him up with outpatient care to help support him until surgery can be completed. (7) Alcohol abuse: Plan: Last drink 08/20/21 Went to [facility] for alcohol rehab 08/30/21 from where he was transferred to the hospital for abnormal labs Pt doesn't want to go to [facility] Continue alcohol cessation (8) Hyponatremia: Plan: Na: 123 on this admission. Nephrology managing, improving. 142 today Water Taxi Operator evaluation and recommendation appreciated Continue fluid restriction to 1.8L / day Continue to monitor sodium levels Continue low salt diet DVT ppx SCD Disposition: Transfer to [facility] accepted, pending bed availability, paperwork done. Also working parallely with [facility] with Dr. Ybarra. Paperwork done for both, pending bed in both. Admission and Anticipated Discharge Date Admission Date: September 02, 2021 Subjective Patient is sitting up in bed, on room air, NAD, no new acute events overnight. Patient appears to be anxious to go to [facility], already accepted but pending bed assignment. Patient denies fever/chills/chest pain/palpitations/other review of symptoms. Patient reports eating and moving bowels at his baseline. Physical Exam Physical Exam: GENERAL: Alert and oriented x3. NAD, on RA. HEENT: No pallor, ++ icterus. Pupils equal, round and reactive to light. Oral mucosa moist. NECK: No JVD, no neck masses. HEART: S1 and S2 heard. tachycardia, Regular rate and rhythm. No murmur, no gallop. RESPIRATORY SYSTEM: Normal AP diameter. No accessory muscle use. No wheezing, no crackles. ABDOMEN: Soft, bowel sounds present, nontender, + distention. CENTRAL NERVOUS SYSTEM: No facial droop. Speech is clear. Obeys simple commands. Moves extremities. EXTREMITIES: No edema, no erythema seen. Results & Data Results & Data ([facility]) Vital Signs (Past 12 Hours) Vital Signs Temp Pulse Pulse Resp BP Pulse Ox 09/09/21 07:27 108 H 09/09/21 07:00 37.1 C 105 H 20 109/63 96
[2021-09-10] MEDS: ALBUMIN 25% 100 mL 25 GM/100 ML VIAL IV SCH ×3 (02:49→17:43)
[2021-09-10] MEDS: OCTREOTIDE ACETATE 100 MCG/ML VIAL SQ SCH ×3 (03:37→20:54)
[2021-09-10] MEDS: PANTOprazole 40 MG TAB PO SCH (06:10)
[2021-09-10] MEDS: MIDODRINE HCL 2.5 MG TAB PO SCH ×3 (08:44→17:39)
[2021-09-10] MEDS: THIAMINE HCL 100 MG TAB PO SCH (08:45)
[2021-09-10] MEDS: CYANOCOBALAMIN 500 MCG TABLET (VITAMIN B-12) PO SCH (08:45)
[2021-09-10] MEDS: FOLIC ACID 1 MG TAB PO SCH (08:45)
[2021-09-10] MEDS: MULTIVITAMIN TAB PO SCH (08:45)
[2021-09-10] MEDS: POTASSIUM CHLORIDE CRTAB 20 MEQ TABCR PO SCH (08:45)
--- NOTE | 2021-09-10 10:15 | Nephrology Progress Note ---
Date of Service September 10, 2021 Assessment & Plan (1) Hepatorenal syndrome: Plan: Patient with decompensated cirrhosis complicated by hepatorenal syndrome. Potassium is up to 5 today. We will stop potassium chloride. Continue midodrine, octreotide and albumin. Patient awaits transfer to liver transplant center and has been accepted at [facility]. We will now sign off. Please call if additional questions or concerns. Admission and Anticipated Discharge Date Admission Date: September 02, 2021 Subjective Seen for LEANN. he reports no new symptoms. No SOB. has abdominal swelling. Awaits transfer to [facility] Review of Systems Review of Systems: All other systems were reviewed and negative except as noted in HPI Physical Exam Physical Exam: General exam: Appears comfortable, no acute distress HEENT: Pupils are equal and reactive to light Neck: No JVD, neck is supple trachea is midline Respiratory system: Clear breath sounds bilaterally. Gastrointestinal: Abdomen is soft, moderately distended, non tender, bowel sounds are present CVS: Regular rate and rhythm. No murmurs, rubs or gallops Musculoskeletal: No joint or muscle tenderness Extremities: Non tender, no edema, peripheral pulses are present Neuro: Oriented, no tremors, no focal neurological deficits Skin: No rashes, deep jaundice Results & Data ([facility]) Vital Signs (Past 12 Hours) Vital Signs Temp Pulse Pulse Pulse Resp BP BP 09/10/21 07:25 102 H 09/10/21 07:00 37.1 C 100 H 18 107/64 09/10/21 02:50 37.2 C 93 H 18 101/55 L 09/10/21 01:53 102 H 09/09/21 23:05 36.6 C 97 H 16 95/60 L Pulse Ox 09/10/21 07:25 09/10/21 07:00 96 09/10/21 02:50 96 09/10/21 01:53 09/09/21 23:05 95 Laboratory Results 09/09/21 13:41 09/09/21 13:41 WBC 4.80 RBC 2.14 L MCV 103.7 H MCH 34.6 H MCHC 33.3 RDW Std Deviation 85.0 H RDW Coeff of Michael 22.5 H Plt Count 89 L MPV 9.8
[2021-09-10 10:23] LABS: Hematocrit (blood only) 22.8 % (42-52); Hemoglobin 7.6 g/dL (14.0-18.0); Mean Corpuscular Hemoglobin 34.9 pg (25-34); Mean Corpuscular Hgb Conc 33.3 g/dL (32-36); Mean Corpuscular Volume 104.6 fL (80-100); RDW Standard Deviation 83.5 fL (36.4-46.3); Red Blood Count 2.18 M/uL (4.7-6.1); White Blood Count 4.98 K/uL (4.8-10.8)
[2021-09-10 10:26] LABS: Mean Platelet Volume 9.8 fL (7.4-10.4); Platelet Count 83 K/uL (130-400)
[2021-09-10 10:33] LABS: INR 2.5 (0.9-1.1)
[2021-09-10 10:39] LABS: Anisocytosis Present; Basophils # (auto) 0.04 K/uL (0-0.2); Basophils % (auto) 0.8 %; Echinocytes 1+; Eosinophils # (auto) 0.07 K/uL (0-0.5); Eosinophils % (auto) 1.4 %; Immature Granulocytes # (auto) 0.01 K/uL (0.00-0.02); Immature Granulocytes % (auto) 0.2 %; Lymphocytes # (auto) 0.79 K/uL (1.2-3.4); Lymphocytes % (auto) 15.9 %; Monocytes # (auto) 0.36 K/uL (0.11-0.59); Monocytes % (auto) 7.2 %; Neutrophils # (auto) 3.71 K/uL (1.4-6.5); Neutrophils % (auto) 74.5 %; Tear Drop Cells 1+
--- NOTE | 2021-09-10 11:00 | Gastroenterology Progress Note ---
Date of Service September 10, 2021 Assessment & Plan (1) Decompensated hepatic cirrhosis: (2) Alcoholic liver failure: (3) Ascites: (4) Hyponatremia: Plan: Permanent, life long alcohol abstention. Continue 2 Gm sodium diet. Appreciate nephrology management of likely HRS - resolving. Continue Cipro daily for SBP prophylaxis. Continue Thiamine, Pantoprazole. Pt has been accepted for trnx to [facility] for consideration for liver transplant for tx of alcoholic hepatitis - awaiting discharge. Had previously also been accepted to [place] but no bed availability. In the interim, he is much improved specifically from a renal standpoint but remains with significant ETOH hepatitis. Steroids are contraindicated due to fairly recent SBP. Please have community coordinator call [place] to see if bed assignment has been made and arrange for transportation hopefully prior to snowstorm. Admission and Anticipated Discharge Date Admission Date: September 02, 2021 Subjective Feels better, up ambulating signs of bleeding good urine output Physical Exam Physical Exam: Jaundiced, heart, lungs, abdomen mildly distended otherwise unremarkable Results & Data ([facility]) Vital Signs (Past 12 Hours) Vital Signs Temp Pulse Pulse Pulse Resp BP BP 09/10/21 07:25 102 H 09/10/21 07:00 37.1 C 100 H 18 107/64 09/10/21 02:50 37.2 C 93 H 18 101/55 L 09/10/21 01:53 102 H 09/09/21 23:05 36.6 C 97 H 16 95/60 L Pulse Ox 09/10/21 07:25 09/10/21 07:00 96 09/10/21 02:50 96 09/10/21 01:53 09/09/21 23:05 95
[2021-09-10 11:19] LABS: Albumin Level 3.8 gm/dl (3.4-5.0); Total Protein 5.1 gm/dl (6.0-8.3)
[2021-09-10 11:53] LABS: iSTAT Potassium 5.2 mmol/L (3.3-5.0)
[2021-09-10 11:54] LABS: iSTAT Creatinine 1.6 mg/dl (0.6-1.3); iSTAT Hemoglobin 6.1 g/dl (14.0-18.0)
[2021-09-10 11:55] LABS: iSTAT Ionized Calcium 1.19 mmol/l (1.12-1.32)
[2021-09-10 11:59] LABS: Bilirubin Direct 25.6 mg/dl (0-0.2)
[2021-09-10] MEDS: CIPROFLOXACIN 500 MG TAB PO SCH (12:04)
[2021-09-10] MEDS ORDERED: SODIUM CHLORIDE 0.9% 250 ML IV PRN (12:38)
--- NOTE | 2021-09-10 16:45 | Discharge Summary ---
Date of Service September 10, 2021 Admission HPI Per Admitting Provider Patient is 41 y/o M with PMH alcohol abuse, fatty liver, cirrhosis, adjustment disorder presented to ER for abnormal labs. Patient with recent admission 08/21/21-08/26/21 for alcoholic cirrhosis, SBP, severe hyponatremia with sodium of 108. Went to [facility] rehab 08/30/21. He had repeat labs as we suggested at hospital discharge and was found to have elevated WBC and referred to hospital. Patient states does have SOB with exertion. His legs feel heavy with ambulation. He is unsure if abdomen looks more swollen. Denies abdominal pain or known fever, chills. Has been taking furosemide 40mg daily, spironolactone 50mg daily. Having 3-4 BMs a day. Some red blood noted intermittently. Denies diaphoresis, N/V, ARIAS, dizziness, syncope, vision changes, neck pain, CP, palpitations, cough, sore throat, choking, otalgia, rhinorrhea, paresthesias, rashes, urinary symptoms. Admission Exam Per Admitting Provider General: no acute distress, ill appearing male Head: normocephalic, atraumatic Eyes: conjunctiva non-injected, +icteric ENT: normal inspection external ears, nose, mucous membranes moist Neck: supple, trachea midline Lungs: clear, no respiratory distress, no wheezing/rhonchi/rales CV: RRR, trace pretibial edema Abd: +distended, normal BS, soft, +non-tender to palpation Ext: no cyanosis, no calf tenderness Neuro: A&O x 3, no focal deficits noted, normal affect Skin: +yellow coloration, warm, dry Principal Diagnosis Decompensated liver cirrhosis with ascites, hyperbilirubinemia Acute kidney injury/hepatorenal syndrome Discharge Exam GENERAL: Alert and oriented x3. NAD, on RA. HEENT: No pallor, ++ icterus. Pupils equal, round and reactive to light. Oral mucosa moist. NECK: No JVD, no neck masses. HEART: S1 and S2 heard. tachycardia, Regular rate and rhythm. No murmur, no gallop. RESPIRATORY SYSTEM: Normal AP diameter. No accessory muscle use. No wheezing, no crackles. ABDOMEN: Soft, bowel sounds present, nontender, + distention. CENTRAL NERVOUS SYSTEM: No facial droop. Speech is clear. Obeys simple com mands. Moves extremities. EXTREMITIES: No edema, no erythema seen. Discharge Data Allergies Allergy/AdvReac Type Severity Reaction Status Date / Time bee pollen Allergy Intermediate HIVES/SWELL Verified 08/20/21 19:41 ING brompheniramine Allergy Intermediate Hives Verified 08/20/21 19:41 [From Dimetapp Cold-Allergy (PE)] phenylephrine Allergy Intermediate Hives Verified 08/20/21 19:41 [From Dimetapp Cold-Allergy (PE)] Sulfa (Sulfonamide Allergy Mild Rash Verified 08/20/21 19:41 Antibiotics) cantaloupe Allergy Verified 09/07/21 14:59 Consultations 09/02/21 16:00 ED Decision to Admit Stat 09/02/21 17:44 Consult Nephrology Routine 09/03/21 08:00 Consult Gastroenterology Routine 09/07/21 18:36 Consult Psychiatry Routine Ordered Studies 09/02/21 16:06 CT abd pelvis wo con Stat 09/05/21 11:04 US paracentesis abd w/image Routine 09/05/21 11:54 US duplex portal hepatic veins Routine 09/05/21 12:06 US renal/blad retro comp Urgent Hospital Course (1) Decompensated hepatic cirrhosis: (2) Alcoholic liver failure: 41 y/o M with PMH alcohol abuse, fatty liver, cirrhosis, adjustment disorder presented to ER for abnormal labs. Patient with recent admission 08/21/21- 08/26/21 for alcoholic cirrhosis, SBP, severe hyponatremia with sodium of 108. F/U outpatient labs revealed leukocytosis and pt referred to ER 09/02/21. Pt complained SOB with exertion at presentation. Denies abdominal pain. He was being managed for the following: #. Decompensated hepatic cirrhosis #. Hepatorenal syndrome #. Hyperbilirubinemia #. Ascites #. Elevated INR In ER pt afebrile, P: 104, R: 18, BP: 108/52, 94% on RA. WBC: 18K. Negative covid-19 test. CXR:Low lung volumes with bibasilar linear densities. These are nonspecific but favor subsegmental atelectasis or scarring. CT Abd/Pelvis:Diffuse colonic wall thickening may be secondary to ascites, however is more pronounced than in the prior exam. 2. Hepatosplenomegaly, hepatic steatosis, and portal and splenic varices are again seen. Patient has decompensated alcoholic cirrhosis with ascites, hyperbilirubinemia. Bilirubin is markedly elevated above 30 which makes it difficult to get accurate results of the creatinine. Hence, BMP for creatinine levels has been sent to outside lab. Creatinine from 09/03/2021- 09/05/21 at 3 Patient has acute kidney injury. Hepatorenal syndrome. Cr improving 1.6 today. Talked with lab, patient to have daily labs, communicated. Got therapeutic paracentesis with removal of 3.3L on 09/05/21 Diagnostic paracentesis done on admission was negative for SBP. Culture negative. USS negative for portal vein thrombus. Has 7mm right nonobstructing renal calculus Continue octreotide, midodrine and albumin per GI. Patient was empirically on ceftriaxone for possible UTI based on UA. However cultures have been negative. Ceftriaxone was discontinued. Continue ciprofloxacin for SBP prophylaxis On 09/05/21, Dr. Eubanks called [facility] transfer center and spoke with them about transfer for possible liver transplant evaluation and continued management. Patient accepted to the medicine service under Dr. Field for hepatology/transplant evaluation, continued management and follow-up 09/07--> called [facility] transfer line to inquire on the status of bed availability for the patient, they stated they are triaging the patients and stated that they will let us know as soon as they find the bed. 09/07---> talked with Dr. Ybarra ([phone]] about the patient, he wants psychiatry to evaluate the patient and then possibly will look for bed at [facility]. 09/08-->CM notified his insurance will not be accepted at [facility] and Patient stated that he wants to wait for the bed availability at [facility]. 09/08--> attempted to contact his primary contact two times, left message over voicemail to call us back. 09/08--> talked with Patient's mother at bedside, updated her on his current status and his insurance not being compatible with [facility]. answered all her questions, She voiced understanding and was agreeable to the plan of care. 09/09--> communicated with Dr. Ybarra 2 times today, pt awaiting bed assignment, he [place] [facility] [place] d/t chances he might need dialysis there. Dr. Ybarra actively working with his bed assignment there at [facility]. 09/10 --> communicated with Dr. Ybarra today, updated patients current status, patient has bed available. He wants hemoglobin above 7.5 prior to transport and 2 peripheral IV lines. RN Joy Taylor communicated about the same at the bedside with patient and his mother present. RN to draw hemoglobin level after blood transfusion is done which was running at the time of this discussion at around 5 PM. Psychiatry evaluated the patient. (7) Alcohol abuse: Plan: Last drink 08/20/21 Went to [facility] for alcohol rehab 08/30/21 from where he was transferred to the hospital for abnormal labs Pt doesn't want to go to [facility] Continue alcohol cessation (8) Hyponatremia: Plan: Na: 123 on this admission. Nephrology managing, improving. 143 today Nut Tapper evaluation and recommendation appreciated Continue fluid restriction to 1.8L / day Continue to monitor sodium levels Continue low salt diet DVT ppx SCD Disposition: RN notified me that patient has got bed in [facility], is being transported to [facility] and current inpatient medications are listed in the instruction section of the discharge summary. [id number] Total Time Total Time Spent Total Time Spent (In Minutes): 45 Discharge Plan Discharge Items Patient Disposition: Transfer Acute Care Hospital Reason For Visit: Abnormal labs Discharge Diagnosis: Decompensated liver cirrhosis with ascites, hyperbilirubinemia Acute kidney injury/hepatorenal syndrome Activity: As commented below Non-emergency contact: Primary Care Provider and Specialist Call non-emergency contact if: you have any medication questions Follow-up/Referrals: Kyle Price, [Primary Care Provider] - Diet: Low Sodium (2gm) Fluids: 1200ml (5 cups) Addtl Attending Provider Instructions: Mr Vera. You were brought to the hospital due to abnormal labs. You also reported increasing leg swelling. You were evaluated and noted to have low sodium levels and elevated white blood cell count. Evaluation for SBP (Spontaneous Bacterial Peritonitis) is negative. You have acute kidney injury and was started on albumin, octreotide and midodrine. You were also started on ciprofloxacin for SBP prophylaxis. You are being transferred to [facility] for continued management. You may be evaluated by regional loss prevention manager/transplant team there for possible liver transplant. Your inpatient medications were: Current Inpatient Medications Ciprofloxacin (Ciprofloxacin 500 Mg Tab) 500 mg PO Q24H [facility]; Protocol Stop: 09/16/21 11:59 Last Admin: 09/10/21 12:04 Dose: 500 mg Documented by: Cyanocobalamin (Cyanocobalamin 500 Mcg Tablet (Vitamin B-12)) 1,000 mcg PO DAILY [facility] Stop: 10/03/21 08:59 Last Admin: 09/10/21 08:45 Dose: 1,000 mcg Documented by: Folic Acid (Folic Acid 1 Mg Tab) 1 mg PO DAILY LIZBETH Stop: 10/03/21 08:59 Last Admin: 09/10/21 08:45 Dose: 1 mg Documented by: Hydroxyzine HCl (Hydroxyzine Hcl 25 Mg Tab) 50 mg PO TID PRN PRN Reason: anxiety/los Stop: 10/02/21 20:06 Last Admin: 09/05/21 01:19 Dose: 50 mg Documented by: Albumin Human (Albumin 25% 100 Ml) 25 gm in 100 mls @ 50 mls/hr IV Q8H [facility] Stop: 09/12/21 17:59 Last Infusion: 09/10/21 12:42 Dose: Infused Documented by: Sodium Chloride (Nss) 250 mls @ 15 mls/hr IV .[id number] PRN PRN Reason: For Transfusion Stop: 09/10/21 22:38 Lorazepam (Lorazepam 0.5 Mg Tab) 0.5 mg PO DAILY PRN PRN Reason: severe anxiety Stop: 10/02/21 20:07 Last Admin: 09/08/21 23:40 Dose: 0.5 mg Documented by: Midodrine (Midodrine Hcl 2.5 Mg Tab) 5 mg PO TID@0800,1200,1700 [facility] Stop: 10/06/21 11:59 Last Admin: 09/10/21 12:04 Dose: 5 mg Documented by: Multivitamins (Multivitamin Tab) 1 tab PO DAILY [facility] Stop: 10/03/21 08:59 Last Admin: 09/10/21 08:45 Dose: 1 tab Documented by: Octreotide Acetate (Octreotide Acetate 100 Mcg/Ml Vial) 50 mcg SQ Q8H [facility] Stop: 10/05/21 11:59 Last Admin: 09/10/21 12:08 Dose: 50 mcg Documented by: Pantoprazole Sodium (Pantoprazole 40 Mg Tab) 40 mg PO DAILYBB [facility]; Protocol Stop: 10/03/21 06:29 Last Admin: 09/10/21 06:10 Dose: 40 mg Documented by: Polyethylene Glycol (Polyethylene (Miralax) 17 Gm Pack) 17 gm PO DAILY PRN PRN Reason: Constipation Stop: 10/02/21 19:00 Thiamine HCl (Thiamine Hcl 100 Mg Tab) 100 mg PO DAILY [facility] Stop: 09/17/21 09:01 Last Admin: 09/10/21 08:45 Dose: 100 mg Documented by: Pending Studies at Discharge: Yes Stand-Alone Forms: [facility] Skilled Items Patient informed of condition?: Yes DNR: No Discharge Level of Care: Other Communicable Disease: No Discharge Prognosis: Other Lines: Peripheral IV Urinary Catheter: No Medications and DC Order Prescriptions: New ciprofloxacin HCl 500 mg Tablet 500 mg PO Q24H Qty: 30 RF: 0 Continued omeprazole 20 mg Tablet,Delayed Release (Dr/Ec) 20 mg PO DAILYBB RF: 0 lorazepam 0.5 mg tablet 0.5 mg PO DAILY PRN (Reason: severe anxiety) RF: 0 spironolactone 50 mg tablet 50 mg PO DAILY RF: 0 potassium chloride 10 mEq tablet extended release 10 meq PO DAILY Qty: 5 RF: 0 Super Enzyme [phone] mg Capsule 1 cap PO DAILY RF: 0 multivitamin Tablet 1 tab PO DAILY RF: 0 cyanocobalamin (vitamin B-12) [Vitamin B-12] 1,000 mcg Tablet 1,000 mcg PO DAILY RF: 0 thiamine HCl (vitamin B1) 100 mg Tablet 100 mg PO DAILY RF: 0 folic acid 1 mg Tablet 1 mg PO DAILY RF: 0 Ensure Liquid 1 ea PO DAILY RF: 0 clonidine HCl 0.1 mg tablet 0.1 mg PO TID PRN (Reason: anxiety. etc) RF: 0 furosemide 40 mg tablet 40 mg PO DAILY RF: 0 Discontinued hydroxyzine pamoate 50 mg capsule 50 mg PO TID PRN (Reason: anxiety/los) RF: 0 Discharge Orders: Discharge Order (Routine); Ordered 09/10/21 Ordered By: Enedina Eddy Admission Data Admit Date/Time: 09/02/21 17:09 Attending Provider: Enedina Eddy Admit Provider: Cha Zhang I. Primary Care Provider: Kyle Price Other Providers: Deann Patel ; Ricardo Murphy ; Cha Zhang I. ; Mai Cotton ; Jessica Aldrich ; Mattie Henry ; Ellis Craig
[2021-09-10 20:39] LABS: Hematocrit (blood only) 24.2 % (42-52)
[2021-09-11] MEDS: ALBUMIN 25% 100 mL 25 GM/100 ML VIAL IV SCH (01:56)
[2021-09-11] MEDS: OCTREOTIDE ACETATE 100 MCG/ML VIAL SQ SCH (04:04)
[2021-09-11] MEDS: PANTOprazole 40 MG TAB PO SCH (05:43)
[2021-09-11] MEDS: CYANOCOBALAMIN 500 MCG TABLET (VITAMIN B-12) PO SCH (07:40)
[2021-09-11] MEDS: MIDODRINE HCL 2.5 MG TAB PO SCH (07:40)
[2021-09-11] MEDS: THIAMINE HCL 100 MG TAB PO SCH (07:40)
[2021-09-11] MEDS: FOLIC ACID 1 MG TAB PO SCH (07:40)
[2021-09-11] MEDS: MULTIVITAMIN TAB PO SCH (07:41)
--- NOTE | 2021-09-27 15:09 | Coding Query ---
CODING QUERY To promote full compliance with coding requirements relating to patient care, provider participation is requested in all cases of wringer operator uncertainty. Please assist us with the question(s) below: Coding Question(s): The Discharge Summary documents Alcohol Abuse and the Psychiatric Consultation on 09/08/21 documents, "Alcohol use disorder, severe, dependence". Due to conflicting documentation, please clarify below, in your clinical opinion. ( ) Alcohol Abuse ( x ) Alcohol use disorder, severe, dependence ( ) Other: Please Specify Physician's Response(s): Thank you Jessica Urena Principal Diagnosis: "that condition established after study, to be chiefly responsible for occasioning the admission of the patient to the hospital for care." Co-Existing Principal Diagnosis: "when two or more diagnoses equally meet the criteria for principal diagnosis as determined by the circumstances of admission, diagnostic work up, and/or therapy provided, and the Alphabetic Index, Tabular List, or another coding guideline does not provide sequencing direction, any one of the diagnoses may be sequenced first." "When the physician has documented what appears to be a current diagnosis in the body of the record, but has not included the diagnosis in the final diagnostic statement, the physician should be asked whether the diagnosis should be added." (Source [facility]oding [facility] 2 QTR90. p3-4) [facility]
== END 2021-09-11 08:26 | disposition short-term general hospital (02) | DRG 432 ==
LOC: ED 13:34 → EDINP 17:09 → SUATTDRO 17:09 → 2N 19:18

== ENCOUNTER 2022-07-02 10:04 | Inpatient (IN) ==
[2022-07-02] MEDS ORDERED: SODIUM CHLORIDE 0.9% 1000ML 1,000 ML IV ONE ×3 (10:26→12:27)
--- NOTE | 2022-07-02 10:49 | XRay Report ---
XR chest 1V portable CLINICAL HISTORY: Sepsis. COMPARISON STUDY: Chest radiograph September 08, 2021. FINDINGS: Lung volumes are normal. No consolidation is identified. Apparent right infrahilar opacity is likely due to pulmonary vessels. There is no pneumothorax or pleural effusion. Cardiac size is nor mal. Mediastinal contours are normal. There is no evidence for pulmonary edema. IMPRESSION: No acute cardiopulmonary findings. ACT 112: Negative or not required by law. Electronically signed by: Ron Stacy M.D. 07/02/2022 10:48 AM
[2022-07-02 11:35] LABS: Appearance Urine Cloudy (Clear); Bacteria Urine Automated Negative (Negative); Bilirubin Urine Negative (Negative); Blood Urine Negative (Negative); Color Urine Dark Yellow; Glucose Urine UA Negative (Negative); Ketones Urine Trace (Negative); Leukocyte Esterase Urine 2+ (Negative); Nitrite Urine Positive (Negative); Protein Urine 1+ (Negative); Specific Gravity Urine 1.016 (1.000-1.030); Urobilinogen Urine Negative (Negative); WBC Urine Automated >30 /hpf (0-5)
[2022-07-02 11:45] LABS: Albumin Level 3.5 gm/dl (3.4-5.0); Bilirubin Direct 1.4 mg/dl (0-0.2); Bilirubin,Total 3.4 mg/dl (0.2-1.0); Calcium 8.4 mg/dl (8.5-10.1); Creatinine Clr Calc Pharmacy 49.2 ml/min; Est GFR (African American) 45.3 ml/min; Est GFR (Non-African American) 39.1 ml/min; Magnesium 1.3 mg/dl (1.7-2.4); Potassium 3.2 mmol/L (3.5-5.1); Total Protein 5.3 gm/dl (6.0-8.3)
[2022-07-02 11:48] LABS: Cast Urine Automated 0 /lpf (0-5)
--- NOTE | 2022-07-02 11:49 | Emergency Department Note ---
Impression & Plan Sepsis, Acute pyelonephritis, LEANN (acute kidney injury), Hypomagnesemia, Thrombocytopenia ED Provider Note NAME: JACI HERNANDEZ AGE: 42 SEX: M : 1980 ARRIVES VIA: Walk-In INFORMANT: Patient, ED PROVIDER(S): Cesar Yousif DO CHIEF COMPLAINT: Fever HPI: The patient is a 16-year-old male who presented to the emergency department for an evaluation of fever. 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 He recently stopped drinking and had a liver transplant. This was done at [facility]. The patient was having problems and it was thought he might be having rejection symptoms. He had a liver biopsy done recently. He presents today because of generalized weakness and fever. The patient was hyp otensive and tachycardic in the waiting room and was brought directly back. I did receive a phone call to evaluate the patient emergently. The patient states he has no chest pain. He denies having cough or sore throat. He denies having any headache. He does complain of some abdominal pain and discomfort from the biopsy. He denies have any lower extremity swelling or rashes. He has no dysuria or frequency. ROS: See above HPI for pertinent positives & negatives. A total of 10 systems reviewed and were otherwise negative. PAST MEDICAL HISTORY: See Below PAST SURGICAL HISTORY: See Below FAMILY HISTORY: See Below SOCIAL HISTORY: See Below HOME MEDICATIONS: See Below ALLERGIES: See Below VITALS: See Below PHYSICAL EXAMINATION: GENERAL: Patient is awake alert in no acute distress patient is resting comfortably and showing no signs of anxiety EYES: The conjunctivae are icteric. The pupils are round and reactive. EARS, NOSE, MOUTH AND THROAT: The nose is without any evidence of any deformity. Mucous membranes are dry. NECK: The neck is nontender and supple. RESPIRATORY: Normal respiratory effort is noted there is no evidence of wheezing rhonchi or rales CARDIOVASCULAR: Tachycardic rate with regular rhythm was noted. There is no definite murmur. GASTROINTESTINAL: The abdomen was soft and mildly distended. There was right upper quadrant tenderness to palpation but no guarding rigidity. MUSCULOSKELETAL/EXTREMITIES: There is no evidence of gross deformity full range of motion is noted in the hips and shoulders. SKIN: There is no obvious evidence of any rash. There are no petechiae, pallor or cyanosis noted. NEUROLOGIC: Patient is awake alert and oriented x3 strength is symmetric patellar reflexes are 2+ bilaterally MEDICAL DECISION MAKING: The patient is a 16-year-old male who presented to the emergency department for an evaluation of weakness. The patient has a history of liver transplant in the past. He presented with hypotension and tachycardia. The patient recently had a liver biopsy. He did not have any significant abdominal tenderness or surgical abdomen on physical exam. I discussed the patient's laboratory and radiographic studies with him. He was treated with empiric antibiotics and fluid boluses. On reevaluation he was feeling much better. He did have an oxygen demand in the emergency department. Chest x-ray shows no acute disease. The patient appears to have an elevation in his creatinine compared to baseline as well as signs of urinary tract infection. I discussed the patient's condition with the on-call [facility] group. Triage Nursing notes reviewed. Prior medical records reviewed Vital Signs: reviewed and remarkable for hypotension and tachycardia. Differential diagnosis: Infection, dehydration, metabolic abnormality, hypo/hyperglycemia, electrolyte disturbance, anemia, hypoxia, cardiac sources, intracerebral event, toxicologic, neurologic, as well as other pathologies. ER treatment provided: See below Diagnostics interpreted by me: ECG: EKG was obtained in the emergency department. My interpretation is sinus tachycardia at 133 bpm. There is no ectopy. There is no acute ST segment abnormalities noted. This was compared to a tracing from September 02, 2021. No changes were noted. Cardiac Monitoring: An order was placed for continuous cardiac monitoring. The monitor shows a rate of 108 bpm with sinus tachycardia. Laboratory studies: As stated above and show below. Imaging studies: See below Consultation(s): I discussed this case with Suma who is on-call for the [facility] group. ED COURSE: Procedures: none Critical Care: I have personally spent greater than 45 minutes of critical care time in the direct management of this patient. This includes bedside care, interpretation of diagnostic studies, and testing, discussion with consultants, patient, and family members, and other required patient management activities. This 45 minutes is in excess of all separately billable procedures. Past Med/Surg History Medical History Alcohol use disorder, severe, dependence sober since 07/2021 Alcoholic cirrhosis Anxiety and depression Elevated liver enzymes GERD (gastroesophageal reflux disease) Kidney stone on right side NO INTERVENTION "VERY SMALL" Surgical History H/O inguinal hernia repair Liver transplant recipient Slow to wake up after anesthesia [place] teeth removed Family History Grandfather (Paternal) Family hx of colon cancer Other No family history of adverse response to anesthesia Social History Smoking Status: Never smoker Second Hand Exposure: Yes ( A CHILD); Hx Alcohol Use: Yes Alcohol type: beer and hard liquor Hx Substance Use: No Preferred Language: Algerian Communication Ability: Effective 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 Beliefs That Will Affect Care: None marital status: Single Current Living Situation: Rehab Feels Safe at Home: Yes Assistive Devices: None Allergies Allergies Allergy/AdvReac Type Severity Reaction Status Date / Time bee pollen Allergy Intermediate HIVES/SWELL Verified 07/02/22 14:06 ING brompheniramine Allergy Intermediate Hives Verified 07/02/22 14:06 [From Dimetapp Cold-Allergy (PE)] phenylephrine Allergy Intermediate Hives Verified 07/02/22 14:06 [From Dimetapp Cold-Allergy (PE)] Sulfa (Sulfonamide Allergy Mild Rash Verified 07/02/22 14:06 Antibiotics) cantaloupe Allergy Verified 07/02/22 14:06 Home Meds Home Medications Medication Instructions Recorded Confirmed cholecalciferol (vitamin D3) 50 50 mcg PO DAILY 07/02/22 07/02/22 mcg (2,000 unit) capsule (Vitamin D3) mycophenolate mofetil 500 mg 1,000 mg PO BID 07/02/22 07/02/22 tablet (CellCept) pantoprazole 40 mg tablet,delayed 40 mg PO DAILY 07/02/22 07/02/22 release prednisone 20 mg tablet 20 mg PO DAILY 07/02/22 07/02/22 tacrolimus 1 mg capsule, 7 mg PO DAILY 07/02/22 07/02/22 immediate-release Results & Data (ED) Vital Signs Vital Signs - 24 hr 07/02/22 10:18 07/02/22 11:00 07/02/22 11:11 Temperature 36.6 C Temperature Source Temporal Artery Scan Pulse Rate 142 H Pulse Rate [Apical] 114 H Pulse Rhythm [Apical] Regular Pulse Strength [Apical] Normal Respiratory Rate 20 18 Respiratory Effort / Characteristics Non-Labored Non-Labored Respiratory Depth Normal Normal Respiratory Pattern Regular Blood Pressure 92/50 L Blood Pressure [Right Arm] 85/47 L Blood Pressure Mean 64 Blood Pressure Mean [Right Arm] 59 Blood Pressure Position [Right Arm] Lying Pulse Oximetry 90 91 91 Oxygen Delivery Method Room Air Oxygen Flow Rate Sepsis Recent Fever Within 48 Hours Yes Sepsis New/Unexplained Change in Mental Status N/A Sepsis Action Taken by Nursing Physician Notified 07/02/22 11:15 07/02/22 11:30 07/02/22 11:45 Temperature Temperature Source Pulse Rate Pulse Rate [Apical] 111 H 113 H 112 H Pulse Rhythm [Apical] Regular Regular Regular Pulse Strength [Apical] Normal Normal Normal Respiratory Rate 20 21 23 Respiratory Effort / Characteristics Non-Labored Non-Labored Non-Labored Respiratory Depth Normal Normal Normal Respiratory Pattern Regular Regular Regular Blood Pressure Blood Pressure [Right Arm] 86/44 L 90/45 L 81/48 L Blood Pressure Mean Blood Pressure Mean [Right Arm] 58 60 59 Blood Pressure Position [Right Arm] Lying Lying Pulse Oximetry 93 93 92 Oxygen Delivery Method Room Air Room Air Room Air Oxygen Flow Rate Sepsis Recent Fever Within 48 Hours Sepsis New/Unexplained Change in Mental Status Sepsis Action Taken by Nursing 07/02/22 12:30 07/02/22 12:45 07/02/22 13:00 Temperature Temperature Source Pulse Rate Pulse Rate [Apical] 107 H 102 H 104 H Pulse Rhythm [Apical] Regular Regular Regular Pulse Strength [Apical] Normal Normal Normal Respiratory Rate 21 25 H 21 Respiratory Effort / Characteristics Non-Labored Non-Labored Non-Labored Respiratory Depth Normal Normal Normal Respiratory Pattern Regular Regular Regular Blood Pressure Blood Pressure [Right Arm] 77/46 L 96/44 L 92/55 L Blood Pressure Mean Blood Pressure Mean [Right Arm] 56 61 67 Blood Pressure Position [Right Arm] Pulse Oximetry 92 91 93 Oxygen Delivery Method Nasal Cannula Nasal Cannula Nasal Cannula Oxygen Flow Rate Sepsis Recent Fever Within 48 Hours Sepsis New/Unexplained Change in Mental Status Sepsis Action Taken by Nursing 07/02/22 13:15 07/02/22 13:30 07/02/22 14:00 Temperature Temperature Source Pulse Rate Pulse Rate [Apical] 109 H 106 H 110 H Pulse Rhythm [Apical] Regular Regular Regular Pulse Strength [Apical] Normal Normal Respiratory Rate 28 H 25 H 21 Respiratory Effort / Characteristics Non-Labored Non-Labored Non-Labored Respiratory Depth Normal Normal Normal Respiratory Pattern Regular Regular Regular Blood Pressure Blood Pressure [Right Arm] 96/56 L 93/48 L 74/43 L Blood Pressure Mean Blood Pressure Mean [Right Arm] 69 63 53 Blood Pressure Position [Right Arm] Lying Pulse Oximetry 92 92 94 Oxygen Delivery Method Nasal Cannula Room Air Nasal Cannula Oxygen Flow Rate 2 Sepsis Recent Fever Within 48 Hours Sepsis New/Unexplained Change in Mental Status Sepsis Action Taken by Nursing 07/02/22 14:15 07/02/22 14:45 07/02/22 15:58 Temperature 37.4 C Temperature Source Temporal Artery Scan Pulse Rate Pulse Rate [Apical] 103 H 101 H 113 H Pulse Rhythm [Apical] Regular Regular Regular Pulse Strength [Apical] Normal Normal Respiratory Rate 22 20 20 Respiratory Effort / Characteristics Non-Labored Non-Labored Non-Labored Spontaneous Respiratory Depth Normal Normal Normal Respiratory Pattern Regular Regular Regular Blood Pressure Blood Pressure [Right Arm] 96/51 L 100/59 L 95/59 L Blood Pressure Mean Blood Pressure Mean [Right Arm] 66 72 71 Blood Pressure Position [Right Arm] Lying Lying Pulse Oximetry 94 92 91 Oxygen Delivery Method Nasal Cannula Nasal Cannula Oxymask Oxygen Flow Rate 2 2 4 Sepsis Recent Fever Within 48 Hours Sepsis New/Unexplained Change in Mental Status Sepsis Action Taken by Nursing 07/02/22 16:10 Temperature 37.1 C Temperature Source Oral Pulse Rate Pulse Rate [Apical] 108 H Pulse Rhythm [Apical] Pulse Strength [Apical] Respiratory Rate 16 Respiratory Effort / Characteristics Non-Labored Spontaneous Respiratory Depth Normal Respiratory Pattern Regular Blood Pressure Blood Pressure [Right Arm] 106/66 Blood Pressure Mean Blood Pressure Mean [Right Arm] 79 Blood Pressure Position [Right Arm] Lying Pulse Oximetry 94 Oxygen Delivery Method Oxymask Oxygen Flow Rate 2 Sepsis Recent Fever Within 48 Hours Sepsis New/Unexplained Change in Mental Status Sepsis Action Taken by Care Home Medications Current Medication List: was personally reviewed by me Laboratory Data Attestation: I reviewed the patient's lab results. Result diagrams: 07/02/22 10:55 07/02/22 10:55 Lab Results 07/02/22 07/02/22 07/02/22 Range/Units 10:49 10:55 10:55 WBC 5.16 (4.8-10.8) K/ul RBC 3.07 L (4.63-6.08) M/uL Hgb 10.0 L (14.0-18.0) g/dl Hct 29.1 L (40.1-51.0) % MCV 94.8 (80.0-100.0) fL MCH 32.6 (25.0-34.0) pg MCHC 34.4 (32.0-36.0) g/dL RDW Std Deviation 49.2 H (36.4-46.3) fL RDW Coeff of Michael 14.0 (11.5-14.5) % Plt Count 31 L (130-400) K/uL MPV 12.0 (9.4-12.4) fL Immature Gran % (Auto) 1.7 % Neut % (Auto) 92.1 % Lymph % (Auto) 4.1 % [place] % (Auto) 1.7 % Eos % (Auto) 0.2 % Baso % (Auto) 0.2 % Neut # (Auto) 4.75 (1.4-6.5) K/uL Lymph # (Auto) 0.21 L (1.2-3.4) K/uL [place] # (Auto) 0.09 L (0.24-0.82) K/uL Eos # (Auto) 0.01 (0-0.50) K/uL Baso # (Auto) 0.01 (0-0.2) K/uL Immature Gran # (Auto) 0.09 H (0.00-0.02) K/uL Platelet Estimate Decreased L (Normal) PT (9.0-12.0) Seconds INR (0.9-1.1) Sodium 131 L (136-145) mmol/L Potassium 3.2 L (3.5-5.1) mmol/L Chloride 93 L (98-107) mmol/L Carbon Dioxide 27 (21-32) mmol/L Anion Gap 11 (3-11) BUN 31 H (6-23) mg/dl Creatinine 2.06 H (0.6-1.4) mg/dl Est Cr Clr Drug Dosing 49.2 ml/min Est GFR ( Amer) 45.3 ml/min Est GFR (Non-Af Amer) 39.1 ml/min BUN/Creatinine Ratio 15.0 (10-20) Glucose 103 H (70-99(Fasting)) mg/dl Lactate 3.1 H* (0.4-2.0) mmol/L Calcium 8.4 L (8.5-10.1) mg/dl Magnesium 1.3 L (1.7-2.4) mg/dl Total Bilirubin 3.4 H (0.2-1.0) mg/dl Direct Bilirubin 1.4 H (0-0.2) mg/dl AST 28 (13-39) U/L ALT 70 H (7-52) U/L Alkaline Phosphatase 103 (34-104) U/L Troponin I High Sens 119.8 H* (0-20) pg/ml Total Protein 5.3 L (6.0-8.3) gm/dl Albumin 3.5 (3.4-5.0) gm/dl Procalcitonin (0-0.5) ng/ml Urine Color Urine Appearance (Clear) Urine pH (4.5-7.5) Ur Specific [place] (1.000-1.030) Urine Protein (Negative) Urine Glucose (UA) (Negative) Urine Ketones (Negative) Urine Blood (Negative) Urine Nitrite (Negative) Urine Bilirubin (Negative) Urine Urobilinogen (Negative) Ur Leukocyte Esterase (Negative) Urine WBC (Auto) (0-5) /hpf Urine RBC (Auto) (0-4) /hpf U Hyaline Cast (Auto) (0-5) /lpf U Epithel Cells (Auto) (0-5) /lpf Urine Bacteria (Auto) (Negative) Granular Casts (0) /lpf SARS-CoV-2 (PCR) (Negative) Influenza Type A (PCR) (Neg) Influenza Type B (PCR) (Neg) RSV (RT-PCR) (Neg) 07/02/22 07/02/22 07/02/22 Range/Units 10:55 10:55 10:55 WBC (4.8-10.8) K/ul RBC (4.63-6.08) M/uL Hgb (14.0-18.0) g/dl Hct (40.1-51.0) % MCV (80.0-100.0) fL MCH (25.0-34.0) pg MCHC (32.0-36.0) g/dL RDW Std Deviation (36.4-46.3) fL RDW Coeff of Michael (11.5-14.5) % Plt Count (130-400) K/uL MPV (9.4-12.4) fL Immature Gran % (Auto) % Neut % (Auto) % Lymph % (Auto) % [place] % (Auto) % Eos % (Auto) % Baso % (Auto) % Neut # (Auto) (1.4-6.5) K/uL Lymph # (Auto) (1.2-3.4) K/uL [place] # (Auto) (0.24-0.82) K/uL Eos # (Auto) (0-0.50) K/uL Baso # (Auto) (0-0.2) K/uL Immature Gran # (Auto) (0.00-0.02) K/uL Platelet Estimate (Normal) PT 11.7 (9.0-12.0) Seconds INR 1.1 (0.9-1.1) Sodium (136-145) mmol/L Potassium (3.5-5.1) mmol/L Chloride (98-107) mmol/L Carbon Dioxide (21-32) mmol/L Anion Gap (3-11) BUN (6-23) mg/dl Creatinine (0.6-1.4) mg/dl Est Cr Clr Drug Dosing ml/min Est GFR ( Amer) ml/min Est GFR (Non-Af Amer) ml/min BUN/Creatinine Ratio (10-20) Glucose (70-99(Fasting)) mg/dl Lactate (0.4-2.0) mmol/L Calcium (8.5-10.1) mg/dl Magnesium (1.7-2.4) mg/dl Total Bilirubin (0.2-1.0) mg/dl Direct Bilirubin (0-0.2) mg/dl AST (13-39) U/L ALT (7-52) U/L Alkaline Phosphatase (34-104) U/L Troponin I High Sens (0-20) pg/ml Total Protein (6.0-8.3) gm/dl Albumin (3.4-5.0) gm/dl Procalcitonin 41.80 H (0-0.5) ng/ml Urine Color Dark Yellow Urine Appearance Cloudy A (Clear) Urine pH 5.0 (4.5-7.5) Ur Specific [place] 1.016 (1.000-1.030) Urine Protein 1+ H (Negative) Urine Glucose (UA) Negative (Negative) Urine Ketones Trace H (Negative) Urine Blood Negative (Negative) Urine Nitrite Positive A (Negative) Urine Bilirubin Negative (Negative) Urine Urobilinogen Negative (Negative) Ur Leukocyte Esterase 2+ H (Negative) Urine WBC (Auto) >30 H (0-5) /hpf Urine RBC (Auto) 5-10 H (0-4) /hpf U Hyaline Cast (Auto) 0 (0-5) /lpf U Epithel Cells (Auto) 10-20 H (0-5) /lpf Urine Bacteria (Auto) Negative (Negative) Granular Casts 5-10 H (0) /lpf SARS-CoV-2 (PCR) (Negative) Influenza Type A (PCR) (Neg) Influenza Type B (PCR) (Neg) RSV (RT-PCR) (Neg) 07/02/22 07/02/22 Range/Units 11:04 13:02 WBC (4.8-10.8) K/ul RBC (4.63-6.08) M/uL Hgb (14.0-18.0) g/dl Hct (40.1-51.0) % MCV (80.0-100.0) fL MCH (25.0-34.0) pg MCHC (32.0-36.0) g/dL RDW Std Deviation (36.4-46.3) fL RDW Coeff of Michael (11.5-14.5) % Plt Count (130-400) K/uL MPV (9.4-12.4) fL Immature Gran % (Auto) % Neut % (Auto) % Lymph % (Auto) % [place] % (Auto) % Eos % (Auto) % Baso % (Auto) % Neut # (Auto) (1.4-6.5) K/uL Lymph # (Auto) (1.2-3.4) K/uL [place] # (Auto) (0.24-0.82) K/uL Eos # (Auto) (0-0.50) K/uL Baso # (Auto) (0-0.2) K/uL Immature Gran # (Auto) (0.00-0.02) K/uL Platelet Estimate (Normal) PT (9.0-12.0) Seconds INR (0.9-1.1) Sodium (136-145) mmol/L Potassium (3.5-5.1) mmol/L Chloride (98-107) mmol/L Carbon Dioxide (21-32) mmol/L Anion Gap (3-11) BUN (6-23) mg/dl Creatinine (0.6-1.4) mg/dl Est Cr Clr Drug Dosing ml/min Est GFR ( Amer) ml/min Est GFR (Non-Af Amer) ml/min BUN/Creatinine Ratio (10-20) Glucose (70-99(Fasting)) mg/dl Lactate 1.8 (0.4-2.0) mmol/L Calcium (8.5-10.1) mg/dl Magnesium (1.7-2.4) mg/dl Total Bilirubin (0.2-1.0) mg/dl Direct Bilirubin (0-0.2) mg/dl AST (13-39) U/L ALT (7-52) U/L Alkaline Phosphatase (34-104) U/L Troponin I High Sens (0-20) pg/ml Total Protein (6.0-8.3) gm/dl Albumin (3.4-5.0) gm/dl Procalcitonin (0-0.5) ng/ml Urine Color Urine Appearance (Clear) Urine pH (4.5-7.5) Ur Specific [place] (1.000-1.030) Urine Protein (Negative) Urine Glucose (UA) (Negative) Urine Ketones (Negative) Urine Blood (Negative) Urine Nitrite (Negative) Urine Bilirubin (Negative) Urine Urobilinogen (Negative) Ur Leukocyte Esterase (Negative) Urine WBC (Auto) (0-5) /hpf Urine RBC (Auto) (0-4) /hpf U Hyaline Cast (Auto) (0-5) /lpf U Epithel Cells (Auto) (0-5) /lpf Urine Bacteria (Auto) (Negative) Granular Casts (0) /lpf SARS-CoV-2 (PCR) NEGATIVE (Negative) Influenza Type A (PCR) Negative (Neg) Influenza Type B (PCR) Negative (Neg) RSV (RT-PCR) Negative (Neg) Administered Medications Daptomycin 450 mg/ Syringe 9 mls @ 4.5 mls/min IV Q24H [facility]; Protocol Stop: 07/12/22 15:59 Last Admin: 07/02/22 15:23 Dose: 4.5 mls/min Documented By: OAM Discontinued Medications Sodium Chloride (Nss 1000ml) 1,000 mls @ 999 mls/hr IV .Q1H1M ONE Stop: 07/02/22 11:26 Last Infusion: 07/02/22 12:05 Dose: 0 mls/hr Documented By: Admin: 07/02/22 10:54 Dose: 999 mls/hr Documented By: SMM Sodium Chloride (Nss 1000ml) 1,000 mls @ 999 mls/hr IV .Q1H1M ONE Stop: 07/02/22 12:25 Last Infusion: 07/02/22 12:48 Dose: 0 mls/hr Documented By: Admin: 07/02/22 11:35 Dose: 999 mls/hr Documented By: OASara Magnesium Sulfate/Dextrose (Magnesium Sulfate / D5w) 1 gm in 100 mls @ 100 mls/hr IV Q1H LIZBETH Stop: 07/02/22 13:49 Last Infusion: 07/02/22 14:49 Dose: 0 mls/hr Documented By: Admin: 07/02/22 13:42 Dose: 100 mls/hr Documented By: Infusion: 07/02/22 13:41 Dose: 100 mls/hr Documented By: Admin: 07/02/22 12:41 Dose: 100 mls/hr Documented By: OASara Piperacillin Sod/Tazobactam Sod (Zosyn) 4.5 gm in 120 mls @ 240 mls/hr IV NOW ONE Stop: 07/02/22 12:19 Last Infusion: 07/02/22 12:31 Dose: 0 mls/hr Documented By: Admin: 07/02/22 12:00 Dose: 240 mls/hr Documented By: OAM Sodium Chloride (Nss 1000ml) 1,000 mls @ 999 mls/hr IV .Q1H1M ONE Stop: 07/02/22 13:27 Last Infusion: 07/02/22 13:45 Dose: 0 mls/hr Documented By: Admin: 07/02/22 12:42 Dose: 999 mls/hr Documented By: [facility] Imaging Data Radiologist's Impression: Chest X-Ray 07/02/22 10:26 XR chest 1V portable CLINICAL HISTORY: Sepsis. COMPARISON STUDY: Chest radiograph September 08, 2021. FINDINGS: Lung volumes are normal. No consolidation is identified. Apparent right infrahilar opacity is likely due to pulmonary vessels. There is no pneumothorax or pleural effusion. Cardiac size is normal. Mediastinal contours are normal. There is no evidence for pulmonary edema. IMPRESSION: No acute cardiopulmonary findings. ACT 112: Negative or not required by law. Electronically signed by: Ron Stacy M.D. 07/02/2022 10:48 AM Abdomen/Pelvis CT 07/02/22 11:49 CT OF THE ABDOMEN AND PELVIS WITHOUT CONTRAST CLINICAL HISTORY: Fever. Liver transplant in August 2021. COMPARISON STUDY: CT of the abdomen and pelvis March 02, 2022 and renal ultrasound September 05, 2021. TECHNIQUE: Axial images of the abdomen and pelvis were obtained without IV contrast. Images were reviewed in the axial, sagittal, and coronal planes. Automated exposure control was utilized for the study. A dose lowering technique was utilized adhering to the principles of ALARA. FINDINGS: There is no consolidation within the lower lungs to suggest pneumonia. Subpleural opacities represent atelectasis. No pneumatosis, free air or portal venous gas is present. Evaluation of the abdomen and pelvis is suboptimal on this unenhanced exam. Borderline enlargement of the transplanted liver is noted. Moderate splenomegaly has slightly increased since prior CT. Biliary stents are place. There is associated pneumobilia. 5 mm right renal calculus is present. A 3 mm calculus projects over the right posterior aspect of the bladder. There is no hydronephrosis. No left-sided urinary calculi are present. Unenhanced images of the adrenal glands and pancreas are unremarkable. There is no evidence for a bowel obstruction. The appendix is normal. No abdominal or pelvic lymphadenopathy is present. There is no collection to suggest abscess. Trace abdominal ascites is present. Minimal mesenteric stranding is noted. This is decreased when compared to prior exam. No acute fracture is identified within the visualized skeletal structures. IMPRESSION: 1. No bowel obstruction. No bowel wall thickening on unenhanced exam. 2. Status post liver transplant. Biliary stents in place. Pneumobilia, as expected. Minimal increase in splenomegaly since prior CT. Trace ascites. 3. 3 mm calculus projects over the right posterior aspect of the bladder. This could represent a bladder calculus or ureterovesical junction calculus however there is no hydronephrosis. 5 mm right renal calculus. 4. Normal appendix. ACT 112: Negative or not required by law. Electronically signed by: Ron Stacy M.D. 07/02/2022 12:36 PM Abdomen Fluoroscopy 07/02/22 14:44 FL KUB CLINICAL HISTORY: RT STENT COMPARISON STUDY: CT of the abdomen and pelvis performed earlier today. FLUOROSCOPY TIME: 5 seconds. FLUOROSCOPIC IMAGES: 3 FINDINGS: Fluoroscopy was provided during placement of a right ureteral stent. Incidental note is made of stents within the common bile duct. IMPRESSION: Fluoroscopy provided during placement of a right ureteral stent. ACT 112: Negative or not required by law. Electronically signed by: Ron Stacy M.D. 07/02/2022 4:03 PM Discharge Plan Visit Data Chief Complaint: Fever Stated Complaint: LIVER TRANSPLANT PT,FEVER,NAUSEA ED Provider: Cesar Yousif Discharge Problem: Sepsis, Acute pyelonephritis, LEANN (acute kidney injury), Hypomagnesemia, Thrombocytopenia Patient Disposition: Being Evaluated by Hospitalist Discharge Instructions Interventions: ED Discharge Assessment Last Done: 07/02/22 14:45 Forms Stand Alone Forms: [employer] Prescriptions Prescriptions: No Action mycophenolate mofetil [CellCept] 500 mg Tablet 1,000 mg PO BID pantoprazole 40 mg Tablet,Delayed Release (Dr/Ec) 40 mg PO DAILY cholecalciferol (vitamin D3) [Vitamin D3] 50 mcg (2,000 unit) Capsule 50 mcg PO DAILY prednisone 20 mg Tablet 20 mg PO DAILY tacrolimus 1 mg Capsule 7 mg PO DAILY Referrals Referrals: Kyle Price DO [Primary Care Provider] -
[2022-07-02] MEDS ORDERED: PIPERACILLIN/TAZOBACTAM 4.5 GM/120 ML BAG IV ONE (11:50)
[2022-07-02 11:59] LABS: Hematocrit (blood only) 29.1 % (40.1-51.0); Mean Corpuscular Hemoglobin 32.6 pg (25.0-34.0); Mean Corpuscular Hgb Conc 34.4 g/dL (32.0-36.0); Mean Corpuscular Volume 94.8 fL (80.0-100.0); Platelet Count 31 K/uL (130-400); RDW Standard Deviation 49.2 fL (36.4-46.3); Red Blood Count 3.07 M/uL (4.63-6.08); White Blood Count 5.16 K/ul (4.8-10.8)
[2022-07-02 12:00] LABS: Basophils # (auto) 0.01 K/uL (0-0.2); Basophils % (auto) 0.2 %; Eosinophils # (auto) 0.01 K/uL (0-0.50); Eosinophils % (auto) 0.2 %; Immature Granulocytes # (auto) 0.09 K/uL (0.00-0.02); Immature Granulocytes % (auto) 1.7 %; Lymphocytes # (auto) 0.21 K/uL (1.2-3.4); Lymphocytes % (auto) 4.1 %; Monocytes # (auto) 0.09 K/uL (0.24-0.82); Monocytes % (auto) 1.7 %; Neutrophils # (auto) 4.75 K/uL (1.4-6.5); Neutrophils % (auto) 92.1 %; Platelet Estimate Decreased (Normal)
[2022-07-02 12:05] LABS: Influenza A virus by PCR Negative (Neg); Influenza B virus by PCR Negative (Neg); RSV by PCR Negative (Neg); SARS CoV2 RNA(COVID-19)Cepheid NEGATIVE (Negative)
--- NOTE | 2022-07-02 12:38 | CT Scan Report ---
CT OF THE ABDOMEN AND PELVIS WITHOUT CONTRAST CLINICAL HISTORY: Fever. Liver transplant in August 2021. COMPARISON STUDY: CT of the abdomen and pelvis March 02, 2022 and renal ultrasound September 05, 2021. TECHNIQUE: Axial images of the abdomen and pelvis were obtained without IV contrast. Images were revi ewed in the axial, sagittal, and coronal planes. Automated exposure control was utilized for the diane dy. A dose lowering technique was utilized adhering to the principles of ALARA. FINDINGS: There is no consolidation within the lower lungs to suggest pneumonia. Subpleural opacities represent atelectasis. No pneumatosis, free air or portal venous gas is present. Evaluation of the a bdomen and pelvis is suboptimal on this unenhanced exam. Borderline enlargement of the transplanted l iver is noted. Moderate splenomegaly has slightly increased since prior CT. Biliary stents are place. There is associated pneumobilia. 5 mm right renal calculus is present. A 3 mm calculus projects over the right posterior aspect of the bladder. There is no hydronephrosis. No left-sided urinary calculi are present. Unenhanced images of the adrenal glands and pancreas are unremarkable. There is no evid ence for a bowel obstruction. The appendix is normal. No abdominal or pelvic lymphadenopathy is prese nt. There is no collection to suggest abscess. Trace abdominal ascites is present. Minimal mesenteric stranding is noted. This is decreased when compared to prior exam. No acute fracture is identified w ithin the visualized skeletal structures. IMPRESSION: 1. No bowel obstruction. No bowel wall thickening on unenhanced exam. 2. Status post liver transplant. Biliary stents in place. Pneumobilia, as expected. Minimal increase in splenomegaly since prior CT. Trace ascites. 3. 3 mm calculus projects over the right posterior aspect of the bladder. This could represent a blad harlan calculus or ureterovesical junction calculus however there is no hydronephrosis. 5 mm right renal calculus. 4. Normal appendix. ACT 112: Negative or not required by law. Electronically signed by: Ron Stacy M.D. 07/02/2022 12:36 PM
[2022-07-02] MEDS: MAGNESIUM SULFATE / D5W 1 GM/100 ML BAG IV SCH ×2 (12:41→13:42)
[2022-07-02 13:05] LABS: Troponin I High Sensitivity 119.8 pg/ml (0-20)
--- NOTE | 2022-07-02 14:06 | Electrocardiogram Report ---
Test Reason : Blood Pressure : / mmHG Vent. Rate : 133 BPM Atrial Rate : 133 BPM P-R Int : 128 ms QRS Dur : 094 ms QT Int : 300 ms P-R-T Axes : 068 070 015 degrees QTc Int : 446 ms Sinus tachycardia Possible Left atrial enlargement Borderline ECG When compared with ECG of 02-SEP-2021 13:54, QTc has normalized Confirmed by Roberto Mortensen ([id number]) on 07/02/2022 2:05:58 PM Referred By: Confirmed By:Roberto Mortensen
[2022-07-02 14:08] LABS: INR 1.1 (0.9-1.1); Prothrombin Time 11.7 Seconds (9.0-12.0)
[2022-07-02] MEDS ORDERED: MIDAZOLAM HCL 1 MG/ML 2ML VIAL ONE (15:00)
[2022-07-02] MEDS ORDERED: PROPOFOL IV EMULSION 10 MG/ML 20 ML VIAL IV ONE (15:00)
[2022-07-02] MEDS ORDERED: fentaNYL citrate 100 MCG/2 ML VIAL ONE (15:01)
--- NOTE | 2022-07-02 15:13 | Urology Consultation ---
Date of Consultation July 02, 2022 Assessment & Plan (1) Sepsis: (2) LEANN (acute kidney injury): (3) Right kidney stone: Plan Obstructing right UVJ stone with suspected urosepsis Nitrate positive UA Already has received daptomycin and Zosyn Platelet count of 31 Recent liver transplant Unfortunately he is a very high risk patient and despite the fact that he appears to be relatively clinically stable on exam, he is acutely ill with a life-threatening problem I have discussed the findings and suggested we need to proceed with cystoscopy and right ureteral stent placement immediately He understands the risk of his low platelet count and underlying medical issues Consent is on the chart Plan to move to the operating room now History of Present Illness History of Present Illness 42-year-old male with a complex medical history including a liver transplant in August who now presents to the emergency room with hypotension, tachycardia and signs of sepsis CT shows a distal ureteral calculus at the extreme aspect of the UVJ, possibly protruding into the bladder His urine is nitrite positive He has had dysuria He denies severe flank pain but has generalized abdominal pain but also recently underwent liver biopsy secondary to concerns of possible early liver rejection He has known about a right renal stone for some time but not required surgery in the past He still has a 5 mm right renal stone which will not be addressed acutely Allergies Allergy/AdvReac Type Severity Reaction Status Date / Time bee pollen Allergy Intermediate HIVES/SWELL Verified 07/02/22 14:06 ING brompheniramine Allergy Intermediate Hives Verified 07/02/22 14:06 [From Dimetapp Cold-Allergy (PE)] phenylephrine Allergy Intermediate Hives Verified 07/02/22 14:06 [From Dimetapp Cold-Allergy (PE)] Sulfa (Sulfonamide Allergy Mild Rash Verified 07/02/22 14:06 Antibiotics) cantaloupe Allergy Verified 07/02/22 14:06 Home Medications Medication Instructions Recorded Confirmed Type cholecalciferol (vitamin D3) 50 50 mcg PO DAILY 07/02/22 07/02/22 History mcg (2,000 unit) capsule (Vitamin D3) mycophenolate mofetil 500 mg 1,000 mg PO BID 07/02/22 07/02/22 History tablet (CellCept) pantoprazole 40 mg tablet,delayed 40 mg PO DAILY 07/02/22 07/02/22 History release prednisone 20 mg tablet 20 mg PO DAILY 07/02/22 07/02/22 History tacrolimus 1 mg capsule, 7 mg PO DAILY 07/02/22 07/02/22 History immediate-release Patient History Medical History Alcohol use disorder, severe, dependence sober since 07/2021 Alcoholic cirrhosis Anxiety and depression Elevated liver enzymes GERD (gastroesophageal reflux disease) Kidney stone on right side NO INTERVENTION "VERY SMALL" Surgical History H/O inguinal hernia repair Liver transplant recipient Slow to wake up after anesthesia [place] teeth removed Family History Grandfather (Paternal) Family hx of colon cancer Other No family history of adverse response to anesthesia Social History Smoking Status: Never smoker Second Hand Exposure: Yes ( A CHILD); Hx Alcohol Use: Yes Alcohol type: beer and hard liquor Hx Substance Use: No Preferred Language: Serbian Communication Ability: Effective Trial Lawyer Required: No Beliefs That Will Affect Care: None marital status: Single Current Living Situation: Rehab Feels Safe at Home: Yes Assistive Devices: None Review of Systems Constitutional: + fever, + chills and + fatigue Eyes: no worsening vision Ear, Nose, Mouth, Throat: no facial pain and no pain with swallowing Respiratory: no cough and no dyspnea Cardiovascular: no chest pain and no palpitations Gastrointestinal: + abdominal pain and + bloating; no nausea and no vomiting Genitourinary: + dysuria Musculoskeletal: no back pain Integumentary: no rash and no urticaria Neurologic: no gait abnormality and no unsteadiness Psychiatric: no behavioral changes and no depression Physical Exam Constitutional: well developed (Looks better on exam than he does objectively with vitals and lab work) and well nourished Neck: neck nontender Respiratory: normal respiratory effort; no respiratory distress and does not use accessory muscles Cardiovascular: Rate/Rhythm: regular rate Vessels: radial pulses present Extremities: no edema Gastrointestinal (Abdomen): Percussion/Palpation: abdomen soft; abdomen nontender and no guarding Musculoskeletal: Head/Neck/Chest: normocephalic and head atraumatic Extremities: extremities normal to inspection Skin: no rashes and no lesions Trauma: no evidence of skin trauma Neurologic: awake; not obtunded Speech / Cognition: normal speech Motor/Sensory: no tremor Psychiatric: Orientation: alert and oriented x 3 Genitourinary: no CVA tenderness Lymphatic: no lymphadenopathy Results & Data ([facility]) Vital Signs (Past 12 Hours) Vital Signs Temp Pulse Pulse Resp BP BP Pulse Ox 07/02/22 14:45 101 H 20 100/59 L 92 07/02/22 14:15 103 H 22 96/51 L 94 07/02/22 14:00 110 H 21 74/43 L 94 07/02/22 13:30 106 H 25 H 93/48 L 92 07/02/22 13:15 109 H 28 H 96/56 L 92 07/02/22 13:00 104 H 21 92/55 L 93 07/02/22 12:45 102 H 25 H 96/44 L 91 07/02/22 12:30 107 H 21 77/46 L 92 07/02/22 11:45 112 H 23 81/48 L 92 07/02/22 11:30 113 H 21 90/45 L 93 07/02/22 11:15 111 H 20 86/44 L 93 07/02/22 11:11 91 07/02/22 11:00 114 H 18 85/47 L 91 07/02/22 10:18 36.6 C 142 H 20 92/50 L 90 O2 Del Method O2 Flow Rate 07/02/22 14:45 Nasal Cannula 2 07/02/22 14:15 Nasal Cannula 2 07/02/22 14:00 Nasal Cannula 2 07/02/22 13:30 Room Air 07/02/22 13:15 Nasal Cannula 07/02/22 13:00 Nasal Cannula 07/02/22 12:45 Nasal Cannula 07/02/22 12:30 Nasal Cannula 07/02/22 11:45 Room Air 07/02/22 11:30 Room Air 07/02/22 11:15 Room Air 07/02/22 11:11 07/02/22 11:00 07/02/22 10:18 Room Air PG Care Time/CCT Total # of Minutes Spent Total Time Spent with Patient: Total time spent is greater than 50% in coordination of care (as documented) at patient's floor/unit and/or counseling patient: Coding Level of Care Code 83727 Inpt Consult Level 5 Diagnoses Sepsis A41.9 Sepsis acute organ dysfunction status: unspecified Sepsis type: sepsis due to unspecified organism LEANN (acute kidney injury) N17.9 Right kidney stone N20.0 (1) Sepsis Sepsis acute organ dysfunction status: unspecified Sepsis type: sepsis due to unspecified organism Qualified Code(s): A41.9 - Sepsis, unspecified organism
[2022-07-02] MEDS ORDERED: fentaNYL citrate 100 MCG/2 ML VIAL IV PRN (15:24)
[2022-07-02] MEDS ORDERED: ATROPINE SULFATE 0.1 MG/ML 10ML SYR IV PRN (15:24)
[2022-07-02] MEDS ORDERED: ONDANSETRON INJ 2 MG/ML 2 ML VIAL IV PRN (15:24)
[2022-07-02] MEDS ORDERED: ePHEDrine sulfate 50 MG/ML AMP IV PRN (15:24)
--- NOTE | 2022-07-02 15:24 | Anesthesiology Consultation ---
Date of Service July 02, 2022 Assessment & Plan ASA [id number] Proposed Anesthesia Anesthesia Type: MAC Risk / Benefits Reviewed With: PT / POA / Parent / Guardian, Accepts Plan and Informed Consent Obtained Additional Comments: pt is septic. surgeon aware of thrombocytopenia. pt will be minimal sedation because of his clinical picture History Surgery Operation Date: 07/02/22 14:30 Proposed Procedures p Cystoscopy - Josias Milton MD s Ureteral Stent Insertion/Removal(Right) - Josias Milton MD Height/Weight Height: 5 ft 10 in Weight: 82.2 kg Allergies Allergy/AdvReac Type Severity Reaction Status Date / Time bee pollen Allergy Intermediate HIVES/SWELL Verified 07/02/22 14:06 ING brompheniramine Allergy Intermediate Hives Verified 07/02/22 14:06 [From Dimetapp Cold-Allergy (PE)] phenylephrine Allergy Intermediate Hives Verified 07/02/22 14:06 [From Dimetapp Cold-Allergy (PE)] Sulfa (Sulfonamide Allergy Mild Rash Verified 07/02/22 14:06 Antibiotics) cantaloupe Allergy Verified 07/02/22 14:06 Medications Home Medications Medication Instructions Recorded Confirmed Last Taken cholecalciferol (vitamin D3) 50 50 mcg PO DAILY 07/02/22 07/02/22 07/02/22 mcg (2,000 unit) capsule (Vitamin D3) mycophenolate mofetil 500 mg 1,000 mg PO BID 07/02/22 07/02/22 07/02/22 tablet (CellCept) pantoprazole 40 mg tablet,delayed 40 mg PO DAILY 07/02/22 07/02/22 07/02/22 release prednisone 20 mg tablet 20 mg PO DAILY 07/02/22 07/02/22 07/02/22 tacrolimus 1 mg capsule, 7 mg PO DAILY 07/02/22 07/02/22 07/02/22 immediate-release Active Medications Generic Name Dose Route Start Last Admin Trade Name Freq PRN Reason Stop Dose Admin Daptomycin 450 mg/ Syringe 9 mls @ 4.5 mls/min 07/02/22 16:00 07/02/22 15:23 IV 07/12/22 15:59 4.5 mls/min Q24H LIZBETH Administration Protocol NPO Date Last Intake of Fluids: 07/02/22 Time Last Intake of Fluids: 06:00 Date Last Intake of Solids: 07/02/22 Time Last Intake of Solids: 08:00 Past Medical History Medical History Alcohol use disorder, severe, dependence sober since 07/2021 Alcoholic cirrhosis Anxiety and depression Elevated liver enzymes GERD (gastroesophageal reflux disease) Kidney stone on right side NO INTERVENTION "VERY SMALL" Exercise / Class Metabolic Activity II 4-5 Yardwork/Stairs/Walk up hill Past Family History Family History Grandfather (Paternal) Family hx of colon cancer Other No family history of adverse response to anesthesia Past Surgical History Surgical History H/O inguinal hernia repair Liver transplant recipient Slow to wake up after anesthesia [place] teeth removed Past Anesthesia History No Hx of Anesthesia Complications and No Family Hx of Anesthesia Complications History of PONV No Hx of PONV and No Hx of Motion Sickness Social History Smoking Status: Never smoker Hx Alcohol Use: Yes Alcohol type: beer and hard liquor alcohol intake frequency: a few times a week Hx Substance Use: No substance use type: does not use Review of Systems denies fever/cough/ colds/ chest pain/ SOB/ CHERI denies CHERI Physical Exam Vital Signs Last Vital Signs Temp 36.6 C 07/02/22 10:18 Pulse 101 H 07/02/22 14:45 Resp 20 07/02/22 14:45 BP 100/59 L 07/02/22 14:45 Pulse Ox 92 07/02/22 14:45 O2 Del Method 07/02/22 14:45 O2 Flow Rate 2 07/02/22 14:45 ENMT Mouth: no TMJ abnormality and no dentition abnormality Thyromental Distance: > or= 3.5 Finger Breadths Mallampati Class: II Neck neck extension not limited Respiratory normal respiratory effort; no respiratory distress Auscultation: lungs clear to auscultation bilaterally Cardiovascular Rate/Rhythm: regular rate and regular rhythm Neurologic moves all extremities Psychiatric Orientation: alert and oriented x 3 Testing Laboratory Results 07/02/22 10:55 07/02/22 10:55 PT 11.7 Seconds (9.0-12.0) 07/02/22 10:55 INR 1.1 (0.9-1.1) 07/02/22 10:55 Urine Color Dark Yellow 07/02/22 10:55 Urine Appearance Cloudy (Clear) A 07/02/22 10:55 Urine pH 5.0 (4.5-7.5) 07/02/22 10:55 Ur Specific [place] 1.016 (1.000-1.030) 07/02/22 10:55 Urine Protein 1+ (Negative) H 07/02/22 10:55 Urine Glucose (UA) Negative (Negative) 07/02/22 10:55 Urine Ketones Trace (Negative) H 07/02/22 10:55 Urine Nitrite Positive (Negative) A 07/02/22 10:55 Ur Leukocyte Esterase 2+ (Negative) H 07/02/22 10:55 Urine WBC (Auto) >30 /hpf (0-5) H 07/02/22 10:55 Urine RBC (Auto) 5-10 /hpf (0-4) H 07/02/22 10:55 U Hyaline Cast (Auto) 0 /lpf (0-5) 07/02/22 10:55 U Epithel Cells (Auto) 10-20 /lpf (0-5) H 07/02/22 10:55 Urine Bacteria (Auto) Negative (Negative) 07/02/22 10:55
[2022-07-02] MEDS ORDERED: PHENYLEPHRINE HCL 10 MG/ML VIAL ONE (15:37)
[2022-07-02] MEDS ORDERED: ONDANSETRON INJ 2 MG/ML 2 ML VIAL ONE (15:37)
--- NOTE | 2022-07-02 15:59 | Operative Report ---
PG Post Operative Report Pre & Post Diagnosis Operation Date: 07/02/22 14:30 Pre-Op Diagnosis: Right kidney stone Post-Op Diagnosis: Right kidney stone I identified the patient and participated in the time-out.: Yes Procedure Operation Date: 07/02/22 14:30 Actual Procedures p Cystoscopy - Josias Milton MD s Ureteral Stent Insertion(Right) - Josias Milton MD Surgeon Josias Milton MD Range Scientist none Estimated Blood Loss 0 Findings Consistent with Post-Op Diagnosis Specimens stone for chemical analysis Anesthesia Type MAC Description of Procedure The patient was identified in the preoperative holding area, appropriate informed consents were reviewed and completed and the patient was transferred to the operative suite. Upon arrival, appropriate antibiotics and anesthesia were administered and the patient was placed in dorsal lithotomy position and prepped and draped in sterile fashion. To begin the case a past 21 Bengali cystoscope with 30 degree lens. He has a healthy-appearing urethra and a small prostate. Inspection of the bladder revealed mounding around the right UO with the distal tip of the stone visualized protruding from the orifice. Utilizing a 5 Bengali open-ended catheter I was able to dislodge the stone and help it pass into the bladder. I collected the stone and passed it off the table. I still intubated the right UO and passed a sensor wire into the kidney and placed a 6 Bengali by 26 cm double-J stent. I elected to place the stent because of his clinical presentation and concern for sepsis. I did leave a string attached to the stent with the thought that as he progresses and recovers we can likely remove the stent. After completing the case he was reversed of anesthesia and taken to the recovery room in stable condition. There were no complications. I attest to the content of the Intraoperative Record and any orders documented therein. Any exceptions are noted below.
[2022-07-02] MEDS ORDERED: DAPTOmycin 450 MG in SYRINGE 0 ML IV SCH (16:00)
--- NOTE | 2022-07-02 16:04 | Fluoroscopy Report ---
FL KUB CLINICAL HISTORY: RT STENT COMPARISON STUDY: CT of the abdomen and pelvis performed earlier today. FLUOROSCOPY TIME: 5 seconds. FLUOROSCOPIC IMAGES: 3 FINDINGS: Fluoroscopy was provided during placement of a right ureteral stent. Incidental note is mad e of stents within the common bile duct. IMPRESSION: Fluoroscopy provided during placement of a right ureteral stent. ACT 112: Negative or not required by law. Electronically signed by: Ron Stacy M.D. 07/02/2022 4:03 PM
--- NOTE | 2022-07-02 16:13 | Anesthesiology Progress Note ---
Date of Service July 02, 2022 Anesthesia Post Procedure Vital Signs Vital Signs: Temp Pulse Pulse Resp BP BP Pulse Ox 07/02/22 16:10 37.1 C 108 H 16 106/66 94 07/02/22 15:58 37.4 C 113 H 20 95/59 L 91 07/02/22 14:45 101 H 20 100/59 L 92 07/02/22 14:15 103 H 22 96/51 L 94 07/02/22 14:00 110 H 21 74/43 L 94 07/02/22 13:30 106 H 25 H 93/48 L 92 07/02/22 13:15 109 H 28 H 96/56 L 92 07/02/22 13:00 104 H 21 92/55 L 93 07/02/22 12:45 102 H 25 H 96/44 L 91 07/02/22 12:30 107 H 21 77/46 L 92 07/02/22 11:45 112 H 23 81/48 L 92 07/02/22 11:30 113 H 21 90/45 L 93 07/02/22 11:15 111 H 20 86/44 L 93 07/02/22 11:11 91 07/02/22 11:00 114 H 18 85/47 L 91 07/02/22 10:18 36.6 C 142 H 20 92/50 L 90 O2 Del Method O2 Flow Rate 07/02/22 16:10 Oxymask 2 07/02/22 15:58 Oxymask 4 07/02/22 14:45 Nasal Cannula 2 07/02/22 14:15 Nasal Cannula 2 07/02/22 14:00 Nasal Cannula 2 07/02/22 13:30 Room Air 07/02/22 13:15 Nasal Cannula 07/02/22 13:00 Nasal Cannula 07/02/22 12:45 Nasal Cannula 07/02/22 12:30 Nasal Cannula 07/02/22 11:45 Room Air 07/02/22 11:30 Room Air 07/02/22 11:15 Room Air 07/02/22 11:11 07/02/22 11:00 07/02/22 10:18 Room Air Transfer of Care Handoff Completed per policy Notes Mental Status: alert / awake / arousable and participated in evaluation Patient Amnestic to Procedure: Yes Nausea / Vomiting: adequately controlled Pain: adequately controlled Airway Patency, RR, SpO2: stable & adequate BP & HR: stable & adequate Hydration State: stable & adequate Anesthetic Complications: no major complications apparent and Pt Satisfied with anesthetic care
--- NOTE | 2022-07-02 16:43 | History & Physical Report ---
Date of Service July 02, 2022 Assessment & Plan (1) Sepsis: Plan: Given 3L IVF in ER, BP improved, lactate improved to 1.8. Broad spectrum abx given and ?source control with UPJ stone removed. (2) Acute pyelonephritis: Plan: Appears to has a presentation consistent with gram negative sepsis. This may be the source as patient has an intermittent right flank pain and painful urination. He was resuscitated in the ER and Urology performed urgent cystoscopy based on concerns for ureteral obstruction on CT scan. There was a UPJ stone on the right that was removed with stent placement. He was transferred to PCU post operatively and continues on broad spectrum daptomycin and zosyn. transplant service was notified and recommends transfer tomorrow if not clinically improved. Cont monitoring in PCU. (3) Hypoxia: Plan: Related to sepsis. Clear lungs on auscultation. Clear CXR and subpleural opacities of lung bases on CT ad/pelvis are consistent with atelectasis, which is likely also contributing. With prolong sedentary state, long car-ride, elevated inflammation in sepsis, tachycardia and chest wall pain, PE is considered. However, it is thought the right flank pain may be from the kidney UPJ stone, so will continue to monitor as he recovers from having this removed. If pain still present, may consider additional workup for PE. Hold off for now as creatinine also may improve with resuscitation which would allow for a better study if needed. (4) Thrombocytopenia: Plan: Historically has low platelets which are more depressed in setting of sepsis. Cont current therapy and CBC in am. (5) Liver transplant recipient: Plan: transplant team notified. Hold CellCept in infection, hold Progra, cont prednisone. Consider stress dose steroids if clinically worsens overnight. (6) Right kidney stone: Plan: Urology urgently consulted and took him for cystoscopy this afternoon. No alison pus or signs of infection seen, however, stone in UPJ was removed and ureteral stent placed. Cont supportive care and abx as above. Per Urology, they would like to try and remove stent prior to discharge this admission. Urology to follow. (7) LEANN (acute kidney injury): Plan: Pre-renal related to poor PO intake with dehydration and sepsis. Repeat BMP after rehydration. Cont to monitor. Renally dose medications as needed. (8) Hypokalemia: Plan: Replaced and likely related to poor oral intake. (9) Hypomagnesemia: Plan: Replacement given. Repeat level in am. (10) Alcohol use disorder, severe, dependence: Plan: s/p liver transplant, patient is not currently drinking. (11) DVT prophylaxis: Plan: SCDs, chemoprophylaxis contraindicated in thrombocytopenia. Full Code [facility]ticipated Discharge Date Admission Date: July 02, 2022 History of Present Illness Chief Complaint: RUQ pain, fever, trouble breathing Primary Care Provider: Kyle Price DO 42 yo M s/p liver transplant 09/23/21 presents to the ER with reports of fever, shortness of breath with hypoxia, and RUQ pain that is dull and radiating into his subxiphoid process. Symptoms began right after undergoing a liver biopsy on of last week (4 days ago). He also reports burning with urination that is new and frequent urination without going much in volume. Urine color is dark in color and he is dehydrated, unable to keep food down for several days. He reports vomiting twice. Fever has been intermittent. He is typically very active and has been sedentary since which is unlike him. Liver biopsy was to assess for signs of rejection. He otherwise denies any symptoms. CT revealed possible kidney stone on the right at the UPJ so Urology was consulted and took him to the OR urgently for source control. Intraoperatively the stone was removed and a stent was placed. There were no overt signs of infection seen. He was evaluated again in recovery on the floor and had significant dysuria and penile pain which was treated with Tramadol and Tylenol. Pyridium was also started. I spoke with Transplant physical Dr. Torres Quinteros who recommended holding MMF, Prograf and keeping his prednisone on board. If he worsens overnight, he may also need stress dose steroids. Currently post-resuscitation he is doing well. Dr. Quinteros asked to have his labs repeated in am to ensure his bilirubin is decreasing and see if he is clinically improving. If he is not improving by tomorrow, he would strongly consider transferring him to . [place] [facility] which is the transfer center is aware and will coordinate the transfer if needed. Contact number is [phone]. Allergies Allergy/AdvReac Type Severity Reaction Status Date / Time brompheniramine Allergy Intermediate Hives Verified 07/02/22 14:06 [From Dimetapp Cold-Allergy (PE)] phenylephrine Allergy Intermediate Hives Verified 07/02/22 14:06 [From Dimetapp Cold-Allergy (PE)] Sulfa (Sulfonamide Allergy Mild Rash Verified 07/02/22 14:06 Antibiotics) cantaloupe Allergy Unknown Verified 07/02/22 19:31 bee venom protein (honey bee) AdvReac Severe Anaphylaxis Verified 07/02/22 16:29 grapefruit AdvReac Unknown drug Verified 07/02/22 19:31 interactions Home Medications Medication Instructions Recorded Confirmed Type cholecalciferol (vitamin D3) 50 50 mcg PO DAILY 07/02/22 07/02/22 History mcg (2,000 unit) capsule (Vitamin D3) mycophenolate mofetil 500 mg 1,000 mg PO BID 07/02/22 07/02/22 History tablet (CellCept) pantoprazole 40 mg tablet,delayed 40 mg PO DAILY 07/02/22 07/02/22 History release prednisone 20 mg tablet 20 mg PO DAILY 07/02/22 07/02/22 History tacrolimus 1 mg capsule, 7 mg PO DAILY 07/02/22 07/02/22 History immediate-release Past Med/Surg History Medical History Alcohol use disorder, severe, dependence sober since 07/2021 Alcoholic cirrhosis Anxiety and depression Elevated liver enzymes GERD (gastroesophageal reflux disease) Kidney stone on right side NO INTERVENTION "VERY SMALL" Surgical History H/O inguinal hernia repair Liver transplant recipient Slow to wake up after anesthesia [place] teeth removed Family History Grandfather (Paternal) Family hx of colon cancer Other No family history of adverse response to anesthesia Social History Smoking Status: Never smoker Second Hand Exposure: Yes ( A CHILD); Hx Alcohol Use: Yes Alcohol type: beer and hard liquor Hx Substance Use: No Preferred Language: Taiwanese Communication Ability: Effective Practice Director Required: No Beliefs That Will Affect Care: None marital status: Single Current Living Situation: Alone Feels Safe at Home: Yes Assistive Devices: None Review of Systems Review of Systems: All systems were reviewed and negative except as indicated on HPI above. Physical Exam Physical Exam: CONSTITUTIONAL: WNWD, vitals as above, generally ill- appearing, +jaundiced EYES: PERRL, normal conjunctivae, +scleral icterus ENT: external ear and nose normal, oropharynx clear, mucous membranes are dry. NECK: trachea midline RESPIRATORY: clear to auscultation bilaterally, no crackles, rales or wheezes, normal respiratory effort CARDIOVASCULAR: regular rate and rhythm, S1 and 2 heard without murmurs, gallops or rubs, no JVD, no peripheral edema CHEST: inspection of chest was normal GASTROINTESTINAL: soft, TTP in RUQ and feels pain in RUQ when pushing on left. No guarding, Nondistended and no fluid wave present. No damion where biopsy was performed, no erythema. MUSCULOSKELETAL: strength 5/5 throughout, head is normocephalic and atraumatic, SKIN: warm and dry, no rashes NEUROLOGIC: CN 2-12 grossly intact, no sensory deficit, normal cognition, normal speech, no tremor, no gross focal deficit. PSYCHIATRIC: alert cooperative and oriented to person, place and time. Euthymic mood, makes good eye contact, language grossly intact, recent and remote memory grossly intact. Results & Data Results & Data ([facility]) Vital Signs (Past 12 Hours) Vital Signs Temp Pulse Pulse Resp BP BP Pulse Ox 07/02/22 16:10 37.1 C 108 H 16 106/66 94 07/02/22 15:58 37.4 C 113 H 20 95/59 L 91 07/02/22 14:45 101 H 20 100/59 L 92 07/02/22 14:15 103 H 22 96/51 L 94 07/02/22 14:00 110 H 21 74/43 L 94 07/02/22 13:30 106 H 25 H 93/48 L 92 07/02/22 13:15 109 H 28 H 96/56 L 92 07/02/22 13:00 104 H 21 92/55 L 93 07/02/22 12:45 102 H 25 H 96/44 L 91 07/02/22 12:30 107 H 21 77/46 L 92 07/02/22 11:45 112 H 23 81/48 L 92 07/02/22 11:30 113 H 21 90/45 L 93 07/02/22 11:15 111 H 20 86/44 L 93 07/02/22 11:11 91 07/02/22 11:00 114 H 18 85/47 L 91 07/02/22 10:18 36.6 C 142 H 20 92/50 L 90 O2 Del Method O2 Flow Rate 07/02/22 16:10 Oxymask 2 07/02/22 15:58 Oxymask 4 07/02/22 14:45 Nasal Cannula 2 07/02/22 14:15 Nasal Cannula 2 07/02/22 14:00 Nasal Cannula 2 07/02/22 13:30 Room Air 07/02/22 13:15 Nasal Cannula 07/02/22 13:00 Nasal Cannula 07/02/22 12:45 Nasal Cannula 07/02/22 12:30 Nasal Cannula 07/02/22 11:45 Room Air 07/02/22 11:30 Room Air 07/02/22 11:15 Room Air 07/02/22 11:11 07/02/22 11:00 07/02/22 10:18 Room Air Laboratory Results Short CBC 07/02/22 Range/Units 10:55 WBC 5.16 (4.8-10.8) K/ul Hgb 10.0 L (14.0-18.0) g/dl Hct 29.1 L (40.1-51.0) % Plt Count 31 L (130-400) K/uL BMP 07/02/22 10:55 Sodium 131 L Potassium 3.2 L Chloride 93 L Carbon Dioxide 27 BUN 31 H Creatinine 2.06 H Glucose 103 H Calcium 8.4 L Liver Function 07/02/22 Range/Units 10:55 Total Bilirubin 3.4 H (0.2-1.0) mg/dl Direct Bilirubin 1.4 H (0-0.2) mg/dl AST 28 (13-39) U/L ALT 70 H (7-52) U/L Alkaline Phosphatase 103 (34-104) U/L Albumin 3.5 (3.4-5.0) gm/dl Urine 07/02/22 Range/Units 10:55 Urine Color Dark Yellow Urine Appearance Cloudy A (Clear) Urine pH 5.0 (4.5-7.5) Ur Specific [place] 1.016 (1.000-1.030) Urine Protein 1+ H (Negative) Urine Glucose (UA) Negative (Negative) Diagnostic Findings Chest X-Ray 07/02/22 10:26 XR chest 1V portable CLINICAL HISTORY: Sepsis. COMPARISON STUDY: Chest radiograph September 08, 2021. FINDINGS: Lung volumes are normal. No consolidation is identified. Apparent right infrahilar opacity is likely due to pulmonary vessels. There is no pneumothorax or pleural effusion. Cardiac size is normal. Mediastinal contours are normal. There is no evidence for pulmonary edema. IMPRESSION: No acute cardiopulmonary findings. ACT 112: Negative or not required by law. Electronically signed by: Ron Stacy M.D. 07/02/2022 10:48 AM Abdomen/Pelvis CT 07/02/22 11:49 CT OF THE ABDOMEN AND PELVIS WITHOUT CONTRAST CLINICAL HISTORY: Fever. Liver transplant in August 2021. COMPARISON STUDY: CT of the abdomen and pelvis March 02, 2022 and renal ultrasound September 05, 2021. TECHNIQUE: Axial images of the abdomen and pelvis were obtained without IV contrast. Images were reviewed in the axial, sagittal, and coronal planes. Automated exposure control was utilized for the study. A dose lowering technique was utilized adhering to the principles of ALARA. FINDINGS: There is no consolidation within the lower lungs to suggest pneumonia. Subpleural opacities represent atelectasis. No pneumatosis, free air or portal venous gas is present. Evaluation of the abdomen and pelvis is suboptimal on this unenhanced exam. Borderline enlargement of the transplanted liver is noted. Moderate splenomegaly has slightly increased since prior CT. Biliary stents are place. There is associated pneumobilia. 5 mm right renal calculus is present. A 3 mm calculus projects over the right posterior aspect of the bladder. There is no hydronephrosis. No left-sided urinary calculi are present. Unenhanced images of the adrenal glands and pancreas are unremarkable. There is no evidence for a bowel obstruction. The appendix is normal. No abdominal or pelvic lymphadenopathy is present. There is no collection to suggest abscess. Trace abdominal ascites is present. Minimal mesenteric stranding is noted. This is decreased when compared to prior exam. No acute fracture is identified within the visualized skeletal structures. IMPRESSION: 1. No bowel obstruction. No bowel wall thickening on unenhanced exam. 2. Status post liver transplant. Biliary stents in place. Pneumobilia, as expected. Minimal increase in splenomegaly since prior CT. Trace ascites. 3. 3 mm calculus projects over the right posterior aspect of the bladder. This could represent a bladder calculus or ureterovesical junction calculus however there is no hydronephrosis. 5 mm right renal calculus. 4. Normal appendix. ACT 112: Negative or not required by law. Electronically signed by: Ron Stacy M.D. 07/02/2022 12:36 PM Abdomen Fluoroscopy 07/02/22 14:44 FL KUB CLINICAL HISTORY: RT STENT COMPARISON STUDY: CT of the abdomen and pelvis performed earlier today. FLUOROSCOPY TIME: 5 seconds. FLUOROSCOPIC IMAGES: 3 FINDINGS: Fluoroscopy was provided during placement of a right ureteral stent. Incidental note is made of stents within the common bile duct. IMPRESSION: Fluoroscopy provided during placement of a right ureteral stent. ACT 112: Negative or not required by law. Electronically signed by: Ron Stacy M.D. 07/02/2022 4:03 PM Code Status & VTE Plan VTE Prophylaxis Plan VTE Prophylaxis will be ordered: Yes (1) Sepsis Sepsis acute organ dysfunction status: unspecified Sepsis type: sepsis due to unspecified organism Qualified Code(s): A41.9 - Sepsis, unspecified organism
[2022-07-02] MEDS: POTASSIUM CHLORIDE / WTR 10 MEQ/100 ML PLCT IV SCH ×4 (17:22→20:51)
[2022-07-02] MEDS ORDERED: OXYBUTYNIN CHLORIDE XL 5 MG TABCR PO PRN (17:29)
[2022-07-02] MEDS: ACETAMINOPHEN 325 MG TAB PO PRN (17:37)
[2022-07-02] MEDS: traMADol HCL 50 MG TABLET PO PRN (17:38)
[2022-07-02] MEDS: LACTATED RINGER'S 1,000 ML IV SCH (18:23)
[2022-07-02] MEDS: PIPERACILLIN/TAZOBACTAM 3.375 GM in DEXTROSE 5% 100 ML IV SCH (18:26)
[2022-07-02 19:25] LABS: BUN Creatinine Ratio 15.3 (10-20); Calcium 7.2 mg/dl (8.5-10.1); Creatinine Clr Calc Pharmacy 57.3 ml/min; Est GFR (African American) 54.5 ml/min; Potassium 3.8 mmol/L (3.5-5.1)
[2022-07-02] MEDS: TAMSULOSIN HCL 0.4 MG CAP PO SCH (19:48)
[2022-07-02] MEDS: PHENAZOPYRIDINE HCL 200 MG TAB PO SCH (19:48)
[2022-07-02 19:55] LABS: Troponin I High Sensitivity 63.2 pg/ml (0-20)
[2022-07-02 23:38] LABS: A calco-baum cmplx NotReported Not Detected (NotDetected); Bact fragilis Not Reported Not Detected (NotDetected); C auris Not Reported Not Detected (NotDetected); CTX-M Resistant Gene Not Detected (NotDetected); Calbicans Not Reported Not Detected (NotDetected); Candida glabrata Not Reported Not Detected (NotDetected); Candida krusei Not Reported Not Detected (NotDetected); Cneoformans/gatti Not Reported Not Detected (NotDetected); Cparapsilosis Not Reported Not Detected (NotDetected); Ctropicalis Not Reported Not Detected (NotDetected); E cloacae compx Not Reported Not Detected (NotDetected); Efaecalis Not Reported Not Detected (NotDetected); Efaecium Not Reported Not Detected (NotDetected); Enterobacterales DETECTED (NotDetected); Enterobacterales Not Reported DETECTED (NotDetected); Escherichia coli Not Reported Not Detected (NotDetected); H influenzae Not Reported Not Detected (NotDetected); IMP Resistant Gene Not Detected (NotDetected); K aerogenes Not Reported Not Detected (NotDetected); KPC Resistant Gene Not Detected (NotDetected); Koxytoca Not Reported Not Detected (NotDetected); Kpneumoniae grp Not Reported DETECTED (NotDetected); Lmonocyt Not Reported Not Detected (NotDetected); N meningitidis Not Reported Not Detected (NotDetected); NDM Resistant Gene Not Detected (NotDetected); OXA 48 Like Resistant Gene Not Detected (NotDetected); P aeruginosa Not Reported Not Detected (NotDetected); Proteus spp Not Reported Not Detected (NotDetected); Salmonella spp Not Reported Not Detected (NotDetected); Smarcescens Not Reported Not Detected (NotDetected); Staph lugdunensis Not Reported Not Detected (NotDetected); Staph spp. Not Reported Not Detected (NotDetected); Staphaureus Not Reported Not Detected (NotDetected); Staphepi Not Reported Not Detected (NotDetected); Stenmaltophilia Not Reported Not Detected (NotDetected); Strep agal(GrpB) Not Reported Not Detected (NotDetected); Strep pneum Not Reported Not Detected (NotDetected); Strep pyog (GrpA) Not Reported Not Detected (NotDetected); Strep spp Not Reported Not Detected (NotDetected); VIM Resistant Gene Not Detected (NotDetected); mcr-1 Colistin Resistant Gene Not Detected (NotDetected)
[2022-07-02 23:45] LABS: Klebsiella pneumoniae group DETECTED (NotDetected)
[2022-07-03] MEDS: LACTATED RINGER'S 1,000 ML IV SCH (01:32)
[2022-07-03] MEDS: PIPERACILLIN/TAZOBACTAM 3.375 GM in DEXTROSE 5% 100 ML IV SCH ×3 (01:33→19:04)
[2022-07-03] MEDS: traMADol HCL 50 MG TABLET PO PRN ×2 (04:46→21:59)
[2022-07-03 06:42] LABS: Basophils # (auto) 0.03 K/uL (0-0.2); Basophils % (auto) 0.4 %; Eosinophils # (auto) 0.05 K/uL (0-0.50); Eosinophils % (auto) 0.7 %; Hematocrit (blood only) 26.3 % (40.1-51.0); Hemoglobin 8.8 g/dl (14.0-18.0); Immature Granulocytes # (auto) 0.08 K/uL (0.00-0.02); Immature Granulocytes % (auto) 1.1 %; Lymphocytes # (auto) 0.56 K/uL (1.2-3.4); Lymphocytes % (auto) 7.8 %; Mean Corpuscular Hemoglobin 32.2 pg (25.0-34.0); Mean Corpuscular Hgb Conc 33.5 g/dL (32.0-36.0); Mean Corpuscular Volume 96.3 fL (80.0-100.0); Mean Platelet Volume 11.8 fL (9.4-12.4); Monocytes # (auto) 0.52 K/uL (0.24-0.82); Monocytes % (auto) 7.2 %; Neutrophils # (auto) 5.94 K/uL (1.4-6.5); Neutrophils % (auto) 82.8 %; Platelet Count 35 K/uL (130-400); Platelet Estimate Decreased (Normal); RDW Coefficient of Variation 14.5 % (11.5-14.5); Red Blood Count 2.73 M/uL (4.63-6.08); White Blood Count 7.18 K/ul (4.8-10.8)
[2022-07-03 06:58] LABS: Albumin Globulin Ratio 1.8 (0.9-2); Albumin Level 2.9 gm/dl (3.4-5.0); BUN Creatinine Ratio 14.6 (10-20); Bilirubin,Total 3.9 mg/dl (0.2-1.0); Calcium 7.5 mg/dl (8.5-10.1); Creatinine Clr Calc Pharmacy 70.4 ml/min; Est GFR (African American) 69.9 ml/min; Est GFR (Non-African American) 60.3 ml/min; Globulin 1.6 gm/dl (2.5-4.0); Magnesium 1.9 mg/dl (1.7-2.4); Phosphorus 2.4 mg/dl (2.5-4.9); Potassium 3.4 mmol/L (3.5-5.1); Total Protein 4.5 gm/dl (6.0-8.3)
[2022-07-03] MEDS ORDERED: POTASSIUM PHOS 3 MMOL/1 ML INFUSION IV STA (07:51)
[2022-07-03] MEDS: predniSONE 20 MG TAB PO SCH (08:51)
[2022-07-03] MEDS: PANTOprazole 40 MG TAB PO SCH (08:51)
[2022-07-03] MEDS: PHENAZOPYRIDINE HCL 200 MG TAB PO SCH ×3 (08:54→21:06)
[2022-07-03] MEDS: ACETAMINOPHEN 325 MG TAB PO PRN (09:00)
[2022-07-03] MEDS ORDERED: POTASSIUM PHOSPHATE 9 MMOL in SODIUM CHLORIDE 0.9% 250 ML IV ONE (09:00)
[2022-07-03] MEDS ORDERED: TACROLIMUS 1 MG CAP PO SCH (09:00)
--- NOTE | 2022-07-03 10:19 | XRay Report ---
SINGLE VIEW CHEST CLINICAL HISTORY: Hypoxia. Sepsis. FINDINGS: An AP, portable, upright chest radiograph is compared to study dated 07/02/2022. The cardiom ediastinal silhouette is unremarkable. The lungs and pleural spaces are clear noting bibasilar atelec tasis. No pneumothorax is seen. The bony thorax is grossly intact. IMPRESSION: Bibasilar atelectasis with no acute cardiopulmonary abnormality. ACT 112: Negative or not required by law. Electronically signed by: Castillo Haq M.D. 07/03/2022 10:18 AM
--- NOTE | 2022-07-03 10:34 | Gastrointestinal Consultation ---
Date of Consultation July 03, 2022 Assessment & Plan (1) Liver transplant recipient: (2) Sepsis: Pt is a 42 yo male s/p liver transplant in 08/2021 (at [facility]) for hx of ETOH liver disease. Has issues w biliary stricture post transplant and had underwent several ERCPs for biliary stent placement. He presented over the weekend with fever, chills, weakness. CT w evidence of UPJ stone, he was taken to OR for stone removal + ureteral stent placement. Urine and blood cx growing gram negative bacilli. Suspected he may have bacteremia related to recent liver bx/cholangitis, possible hematogenous urosepsis. - Obtain MRCP - Continue current antibx - Urology following - Will contact [facility] Liver transplant team and Gastroenterology: possible transfer +/- repeat ERCP Supervising Physician Co-Signing Physician Notes Attg add: I interviewed and examined pt, reviewed chart and labs. Pt admit with sepsis post liver bx, UA and blood cx GNR, s/p emergent cystoscopy with removal of a stone, elevated bili now improved on abx. Follow on abx. D/w Rads - pt unable to receive IV contrast, will request MRCP ro lver abscess and intrahepatic dre dil. Increased bili likely related to spesis, but if continues then would consider ERCP to check biliary patency. Transfer when available. Primary team to .u increased troponins andlow plts. History of Present Illness Reason for Consultation: s/p Liver transplant Requesting Physician: Dr. Diana Sigala Attending Physician: Dr. Rosa Hernandez History of Present Illness Patient is a 42 years old male with past medical history including status post liver transplant at [facility] in August 2021 for alcoholic liver disease. Had biliary strictures w stent placements via ERCPs. He presented to the ED over the weekend with complaints of fevers, shortness of breath with hypoxia, right upper quadrant abdominal pain. He had underwent liver biopsy last at [facility]. States that on his way home to [place] he start ed having chills, feeling weak, abdominal pain which radiates to his flank and back. He did start having urinary symptoms including burning with urination, frequent urination, dark urine. Upon evaluation he was noted to have elevated LFTs, lactate level, and CT evidence of kidney stones in the right UPJ. Additionally his biliary stents are noted to be in place and there was evidence of pneumobilia. Given concerns for urosepsis, Urology was consulted, and he was taken to OR yesterday for stone removal and R ureteral stent placement. He feels much improved today. However in still having some fevers, tachycardia and O2 sats remaining at 90% w 2L NC. LFTs: Tbili 3.9, AST 19, ALT 45, Alk phos 60 (was normal prior to liver bx). Blood and urine cultures growing gram negative bacilli. He denies any n/v but appetite is low. Is having RUQ abd pain still. Currently on Daptomycin, Zosyn IV. MMF and Tacrolimus held. On Prednisone 20mg Allergies Allergy/AdvReac Type Severity Reaction Status Date / Time brompheniramine Allergy Intermediate Hives Verified 07/02/22 14:06 [From Dimetapp Cold-Allergy (PE)] phenylephrine Allergy Intermediate Hives Verified 07/02/22 14:06 [From Dimetapp Cold-Allergy (PE)] Sulfa (Sulfonamide Allergy Mild Rash Verified 07/02/22 14:06 Antibiotics) cantaloupe Allergy Unknown Verified 07/02/22 19:31 bee venom protein (honey bee) AdvReac Severe Anaphylaxis Verified 07/02/22 16:29 grapefruit AdvReac Unknown drug Verified 07/02/22 19:31 interactions Home Medications Medication Instructions Recorded Confirmed Type cholecalciferol (vitamin D3) 50 50 mcg PO DAILY 07/02/22 07/02/22 History mcg (2,000 unit) capsule (Vitamin D3) mycophenolate mofetil 500 mg 1,000 mg PO BID 07/02/22 07/02/22 History tablet (CellCept) pantoprazole 40 mg tablet,delayed 40 mg PO DAILY 07/02/22 07/02/22 History release prednisone 20 mg tablet 20 mg PO DAILY 07/02/22 07/02/22 History tacrolimus 1 mg capsule, 7 mg PO DAILY 07/02/22 07/02/22 History immediate-release tamsulosin 0.4 mg capsule 0.4 mg PO HS #30 caps 07/03/22 Rx Patient History Medical History Alcohol use disorder, severe, dependence sober since 07/2021 Alcoholic cirrhosis Anxiety and depression Elevated liver enzymes GERD (gastroesophageal reflux disease) Kidney stone on right side NO INTERVENTION "VERY SMALL" Surgical History H/O inguinal hernia repair Liver transplant recipient Slow to wake up after anesthesia [place] teeth removed Family History Grandfather (Paternal) Family hx of colon cancer Other No family history of adverse response to anesthesia Social History Smoking Status: Never smoker Second Hand Exposure: Yes ( A CHILD); Hx Alcohol Use: Yes Alcohol type: beer and hard liquor Hx Substance Use: No Preferred Language: Romansh Communication Ability: Effective Brake [employer] Required: No Beliefs That Will Affect Care: None marital status: Single Current Living Situation: Alone Feels Safe at Home: Yes Assistive Devices: None Review of Systems Review of Systems: All systems reviewed & are unremarkable except as noted in HPI & below Physical Exam Constitutional: WD/WN, vitals as above well groomed, cooperative and comfortable Eyes: PERRL, conjunctivae normal, anicteric sclerae ENMT: external ear and nose normal, oropharynx normal Respiratory: normal respiratory effort, lungs clear to auscultation Cardiovascular: RRR, no murmur, no edema Gastrointestinal (Abdomen): RUQ abd TTP, BS present, soft. Skin: no rashes, warm and dry + jaundice Neurologic: Motor/Sensory: no asterixis Psychiatric: A+Ox3, euthymic affect Lymphatic: no lymphedema Results & Data ([facility]) Vital Signs (Past 12 Hours) Vital Signs Temp Pulse Pulse Resp BP BP Pulse Ox 07/03/22 08:10 108 H 07/03/22 07:10 37.8 C H 108 H 18 111/59 L 90 07/03/22 02:49 36.6 C 88 18 99/61 L 90 07/02/22 22:39 37 C 106 H 18 111/61 90 O2 Del Method O2 Flow Rate 07/03/22 08:10 07/03/22 07:10 Nasal Cannula 2 07/03/22 02:49 07/02/22 22:39 (1) Sepsis Sepsis acute organ dysfunction status: unspecified Sepsis type: sepsis due to unspecified organism Qualified Code(s): A41.9 - Sepsis, unspecified organism
--- NOTE | 2022-07-03 16:33 | Discharge Summary ---
Date of Service July 03, 2022 Admission HPI Per Admitting Provider 42 yo M s/p liver transplant 09/23/21 presents to the ER with reports of fever, shortness of breath with hypoxia, and RUQ pain that is dull and radiating into his subxiphoid process. Symptoms began right after undergoing a liver biopsy on of last week (4 days ago). He also reports burning with urination that is new and frequent urination without going much in volume. Urine color is dark in color and he is dehydrated, unable to keep food down for several days. He reports vomiting twice. Fever has been intermittent. He is typically very active and has been sedentary since which is unlike him. Liver biopsy was to assess for signs of rejection. He otherwise denies any symptoms. CT revealed possible kidney stone on the right at the UPJ so Urology was consulted and took him to the OR urgently for source control. Intraoperatively the stone was removed and a stent was placed. There were no overt signs of infection seen. He was evaluated again in recovery on the floor and had signi ficant dysuria and penile pain which was treated with Tramadol and Tylenol. Pyridium was also started. I spoke with Transplant physical Dr. Torres Quinteros who recommended holding MMF, Prograf and keeping his prednisone on board. If he worsens overnight, he may also need stress dose steroids. Currently post-resuscitation he is doing well. Dr. Quinteros asked to have his labs repeated in am to ensure his bilirubin is decreasing and see if he is clinically improving. If he is not improving by tomorrow, he would strongly consider transferring him to . [facility] ([facility]) which is the transfer center is aware and will coordinate the transfer if needed. Contact number is [phone]. Discharge Data Allergies Allergy/AdvReac Type Severity Reaction Status Date / Time brompheniramine Allergy Intermediate Hives Verified 07/02/22 14:06 [From Dimetapp Cold-Allergy (PE)] phenylephrine Allergy Intermediate Hives Verified 07/02/22 14:06 [From Dimetapp Cold-Allergy (PE)] Sulfa (Sulfonamide Allergy Mild Rash Verified 07/02/22 14:06 Antibiotics) cantaloupe Allergy Unknown Verified 07/02/22 19:31 bee venom protein (honey bee) AdvReac Severe Anaphylaxis Verified 07/02/22 16:29 grapefruit AdvReac Unknown drug Verified 07/02/22 19:31 interactions Consultations 07/02/22 13:30 ED Decision to Admit Stat 07/02/22 17:09 Consult Gastroenterology Routine 07/03/22 09:56 Consult Urology Routine Procedures Performed Operation Date: 07/02/22 14:30 Actual Procedures p Cystoscopy - Josias Milton MD s Ureteral Stent Insertion - Right (Right) - Josias Milton MD Ordered Studies 07/02/22 11:49 CT abd pelvis wo con Stat 07/02/22 14:44 FL KUB Routine 07/03/22 10:12 MR MRCP Routine Hospital Course (1) Sepsis: Given 3L IVF in ER, BP improved, lactate improved to 1.8. Broad spectrum abx given and ?source control with UPJ stone removed. (2) Acute pyelonephritis: Appears to has a presentation consistent with gram negative sepsis. This may be the source as patient has an intermittent right flank pain and painful urination. He was resuscitated in the ER and Urology performed urgent cystoscopy based on concerns for ureteral obstruction on CT scan. There was a UPJ stone on the right that was removed with stent placement. He was transferred to PCU post operatively and continues on broad spectrum daptomycin and zosyn. transplant service was notified and recommends transfer tomorrow if not clinically improved. Cont monitoring in PCU. (3) Hypoxia: Related to sepsis. Clear lungs on auscultation. Clear CXR and subpleural opacities of lung bases on CT ad/pelvis are consistent with atelectasis, which is likely also contributing. With prolong sedentary state, long car-ride, elevated inflammation in sepsis, tachycardia and chest wall pain, PE is considered. However, it is thought the right flank pain may be from the kidney UPJ stone, so will continue to monitor as he recovers from having this removed. If pain still present, may consider additional workup for PE. Hold off for now as creatinine also may improve with resuscitation which would allow for a better study if needed. (4) Thrombocytopenia: Historically has low platelets which are more depressed in setting of sepsis. Cont current therapy and CBC in am. (5) Liver transplant recipient: transplant team notified. Hold CellCept in infection, hold Progra, cont prednisone. Consider stress dose steroids if clinically worsens overnight. (6) Right kidney stone: Urology urgently consulted and took him for cystoscopy this afternoon. No alison pus or signs of infection seen, however, stone in UPJ was removed and ureteral stent placed. Cont supportive care and abx as above. Per Urology, they would like to try and remove stent prior to discharge this admission. Urology to follow. (7) LEANN (acute kidney injury): Pre-renal related to poor PO intake with dehydration and sepsis. Repeat BMP after rehydration. Cont to monitor. Renally dose medications as needed. (8) Hypokalemia: Replaced and likely related to poor oral intake. (9) Hypomagnesemia: Replacement given. Repeat level in am. (10) Alcohol use disorder, severe, dependence: s/p liver transplant, patient is not currently drinking. (11) DVT prophylaxis: SCDs, chemoprophylaxis contraindicated in thrombocytopenia. Full Code Dispo-to PCU Discharge Plan Discharge Items Patient Disposition: Transfer Acute Care Hospital Reason For Visit: SEPSIS,UTI Discharge Diagnosis: (1) Liver transplant recipient: (2) Sepsis: (3) renal stone s/p ureteral stent placement (4) Acute kidney failure Activity: Resume your previous activity Non-emergency contact: Primary Care Provider Call non-emergency contact if: you have any medication questions and your temperature is above 101 Follow-up/Referrals: Kyle Price, [Primary Care Provider] - Diet: Heart Healthy Addtl Attending Provider Instructions: Transfer to [facility] for ERCP while monitor by the transplant team Continue IV antibiotic for now with Zosyn Pending Studies at Discharge: Yes Studies:: Urine and Blood culture Stand-Alone Forms: My [facility] Skilled Items Patient informed of condition?: Yes DNR: No Discharge Level of Care: Other Communicable Disease: No Discharge Prognosis: Stable Lines: Peripheral IV Urinary Catheter: No Medications and DC Order Prescriptions: New tamsulosin 0.4 mg Capsule 0.4 mg PO HS Qty: 30 0RF Continued mycophenolate mofetil [CellCept] 500 mg Tablet 1,000 mg PO BID pantoprazole 40 mg Tablet,Delayed Release (Dr/Ec) 40 mg PO DAILY cholecalciferol (vitamin D3) [Vitamin D3] 50 mcg (2,000 unit) Capsule 50 mcg PO DAILY prednisone 20 mg Tablet 20 mg PO DAILY tacrolimus 1 mg Capsule 7 mg PO DAILY Discharge Orders: Discharge Order (Routine); Ordered 07/03/22 Ordered By: Diana Sigala Admission Data Admit Date/Time: 07/02/22 13:54 Attending Provider: Diana Sigala Admit Provider: Anna Marie Yu Primary Care Provider: Kyle Price Other Providers: Anna Marie Yu ; Matt Parikh Jr ; Josias Milton
--- NOTE | 2022-07-03 16:35 | Magnetic Resonance Report ---
MR MRCP HISTORY: r/o liver abscesses, cholangitis. TECHNIQUE: MRCP of the abdomen was performed without contrast according to standard departmental prot ocol. COMPARISON STUDY: Abdomen and pelvis CT 07/02/2022. FINDINGS: Interval development of trace bilateral pleural effusions. There is trace perihepatic and p erisplenic ascites which is also slightly progressed. The main portal vein appears patent. Splenic va rices again noted. History of prior liver transplant. No hepatic abscesses identified. The spleen rem ains enlarged measuring 18 cm in length. Multiple common bile duct stents remain unchanged in positio n. This likely accounts for the common bile duct distention of 15 mm. Trace pneumobilia is again note d. Nondiagnostic evaluation of the common bile duct due to the multiple indwelling stents. No intrahe patic bile duct filling defects identified. No hydronephrosis. The pancreas and adrenal glands are un remarkable. Mild diffuse mesenteric edema is present. Mild motion artifact. Abdominal aorta is normal in caliber. IMPRESSION: 1. Interval development of trace bilateral pleural effusions and trace ascites. 2. Splenomegaly, unchanged. 3. Prior liver transplant. No hepatic masses or abscess identified. 4. Multiple common bile duct stents appear and good position. This likely accounts for the common dre e duct distention up to 1.5 cm. ACT 112: Negative or not required by law. Electronically signed by: Carlitos Abraham M.D. 07/03/2022 4:34 PM
--- NOTE | 2022-07-03 20:34 | Hospitalist Progress Note ---
Date of Service July 03, 2022 Assessment & Plan (1) Sepsis: Plan: Me sepsis criteria n admission with tachycardia, febrile Blood cx and urine cx grew gram negative bacilli Received IV Zosyn in admission Currently on IV Zosyn and Dapto Dr. Isabel from [facility] suggested to continue th IV Zosyn and Dapto discontinued Continue monitor closely (2) Right kidney stone: Plan: Intermittent right flank pain associated with burning urination CT/abd pelvis showed 3 mm calculus projects over the right posterior aspect of the bladder. 5 mm right renal calculus. s/p emergent cystoscopy and ureteral stent placement by urology Dr. Milton Continue pyridium, abx, flomax and tylenol Continue to improve (3) Liver transplant recipient: Plan: Total Bilirubin 3.9 , AST and ALT normal transplant team notified. Due to acute infection admtting team discussed case with transplant team that recommended to hold Prograf and cellcept He was seen by GI that recommended to transfer to [facility] for ERCP GI discussed the case with GI at [facility] I called the transfer line at [facility] transplant and discussed the case with Dr. Mimi Isabel who accepted him on transfer Pt will be transferred to [facility] later for possible ERCP (4) Thrombocytopenia: Plan: Historically has low platelets which are more depressed in setting of sepsis. Platelet 35K today Continue monitor CBC (5) Hypoxia: Plan: CXR negative Oxygen taper then discontinued saturated well on RA (6) Elevated troponin: Plan: Mostly related to sepsis/LEANN troponin on admission 119 then trending down to 39 ECG showed no acute ischemic changes Denies any chest pain Stable (7) LEANN (acute kidney injury): Plan: Pre-renal related to poor PO intake with dehydration and sepsis. creatinine on admission 1.7, improved to 1.44 today avoid nephrotoxic agents Continue monitor BMP (8) Hypokalemia: Plan: Replaced and likely related to poor oral intake. (9) Hypomagnesemia: Plan: Replacement given. Repeat level in am. (10) Alcohol use disorder, severe, dependence: Plan: s/p liver transplant, patient is not currently drinking. (11) DVT prophylaxis: Plan: SCDs, chemoprophylaxis contraindicated in thrombocytopenia. Full Code Dispo-to PCU Admission and Anticipated Discharge Date Admission Date: July 02, 2022 Subjective Pt was seen and examined for follow up of right side pain, right kidney stone Lying in bed with no acute distress Pt said that his pain improve significantly He said that bladder pain improves He was seen by GI that recommended to transfer to [facility] for ERCP GI discussed the case with [facility] I called the transfer line at [facility] transplant and discussed the case with Dr. Mimi Isabel who accepted him on transfer Denies any chest pain, palpitation, dizziness and SOB Review of Systems Review of Systems: All systems reviewed & are unremarkable except as noted in Subjective Physical Exam Physical Exam: General- No acute distress Head- atraumatic Eyes- PERRL, EOMI, ENT- oropharynx clear Neck- supple, no JVD Lungs- clear to auscultation Heart- regular rhythm; no murmur Abdomen- normal bowel sounds, soft, RUQ tenderness with palpation, old healing surgery scar across the abdomen Extremities- no calf tenderness Neuro- alert, oriented x 3; PERRL, EOMI; no facial palsy; no dysarthria Skin- warm & dry Results & Data Results & Data ([facility]) Vital Signs (Past 12 Hours) Vital Signs Temp Pulse Pulse Resp BP Pulse Ox O2 Del Method 07/03/22 20:07 37.1 C 87 18 121/71 92 07/03/22 18:03 36.9 C 109 H 20 120/68 91 Room Air 07/03/22 15:30 87 07/03/22 12:24 37.0 C 90 19 108/62 90 Nasal Cannula 07/03/22 11:15 Nasal Cannula O2 Flow Rate 07/03/22 20:07 07/03/22 18:03 07/03/22 15:30 07/03/22 12:24 2 07/03/22 11:15 2 (1) Sepsis Sepsis acute organ dysfunction status: unspecified Sepsis type: sepsis due to unspecified organism Qualified Code(s): A41.9 - Sepsis, unspecified organism
[2022-07-03] MEDS: TAMSULOSIN HCL 0.4 MG CAP PO SCH (21:06)
[2022-07-04] MEDS: PIPERACILLIN/TAZOBACTAM 3.375 GM in DEXTROSE 5% 100 ML IV SCH (02:37)
[2022-07-04 06:25] LABS: Hematocrit (blood only) 29.6 % (40.1-51.0); Hemoglobin 9.6 g/dl (14.0-18.0); Mean Corpuscular Hgb Conc 32.4 g/dL (32.0-36.0); Mean Corpuscular Volume 98.7 fL (80.0-100.0); Mean Platelet Volume 11.9 fL (9.4-12.4); Platelet Count 50 K/uL (130-400); RDW Coefficient of Variation 14.5 % (11.5-14.5); RDW Standard Deviation 52.4 fL (36.4-46.3); White Blood Count 9.36 K/ul (4.8-10.8)
[2022-07-04 06:38] LABS: Albumin Globulin Ratio 1.6 (0.9-2); Albumin Level 3.1 gm/dl (3.4-5.0); Bilirubin,Total 2.9 mg/dl (0.2-1.0); Creatinine Clr Calc Pharmacy 69.9 ml/min; Est GFR (African American) 69.3 ml/min; Est GFR (Non-African American) 59.8 ml/min; Globulin 1.9 gm/dl (2.5-4.0); Magnesium 1.9 mg/dl (1.7-2.4); Phosphorus 3.7 mg/dl (2.5-4.9); Potassium 3.6 mmol/L (3.5-5.1)
--- NOTE | 2022-07-04 09:07 | Urology Progress Note ---
Date of Service July 04, 2022 Assessment & Plan (1) Right kidney stone: (2) Sepsis: Plan Excellent progression over the past 48 hours Stent was removed yesterday No discomfort today No fever since yesterday morning Hemodynamically much more stable Originally was pending transfer to [place] because of his liver transplant but I think it is probably reasonable to continue his care here as I think he is likely close to discharge home I discussed this with the primary care team and they may repeat cultures to confirm appropriate improvement but otherwise it seems that his primary issue during this hospitalization was urosepsis Admission and Anticipated Discharge Date Admission Date: July 02, 2022 Subjective Much better today Happy to have the stent removed yesterday No hematuria or dysuria Reports that he is feeling better than he has in several weeks Physical Exam Physical Exam: Comfortable appearing Abdomen soft Results & Data ([facility]) Vital Signs (Past 12 Hours) Vital Signs Temp Pulse Pulse Resp BP Pulse Ox O2 Del Method 07/04/22 08:25 36.8 C 85 18 115/59 L 91 Room Air 07/04/22 07:30 94 H 07/04/22 02:44 36.8 C 89 16 104/61 92 Nasal Cannula 07/04/22 00:05 94 H 07/03/22 23:33 37.1 C 105 H 20 108/63 92 Nasal Cannula O2 Flow Rate 07/04/22 08:25 07/04/22 07:30 07/04/22 02:44 1 07/04/22 00:05 07/03/22 23:33 2 PG Care Time/CCT Total # of Minutes Spent Total Time Spent with Patient: Total time spent is greater than 50% in coordination of care (as documented) at patient's floor/unit and/or counseling patient: Coding Level of Care Code 76272 Subseq Hosp Care Lvl 2 Diagnoses Right kidney stone N20.0 Sepsis A41.9 Sepsis acute organ dysfunction status: unspecified Sepsis type: sepsis due to unspecified organism (1) Sepsis Sepsis acute organ dysfunction status: unspecified Sepsis type: sepsis due to unspecified organism Qualified Code(s): A41.9 - Sepsis, unspecified organism
[2022-07-04] MEDS: PANTOprazole 40 MG TAB PO SCH (09:21)
[2022-07-04] MEDS: PHENAZOPYRIDINE HCL 200 MG TAB PO SCH ×3 (09:21→20:18)
[2022-07-04] MEDS: predniSONE 20 MG TAB PO SCH (09:21)
--- NOTE | 2022-07-04 09:36 | Gastroenterology Progress Note ---
Date of Service July 04, 2022 Assessment & Plan (1) Liver transplant recipient: (2) Sepsis: Plan: Pt is a 42 yo male s/p liver transplant in 08/[address] ([address] [facility]) for hx of ETOH liver disease. Has issues w biliary stricture post transplant and had underwent several ERCPs for biliary stent placement. He presented over the weekend with fever, chills, weakness. CT w evidence of UPJ stone, he was taken to OR for stone removal + ureteral stent placement. Urine and blood cx growing gram negative bacilli. Suspected he may have bacteremia related to recent liver bx/cholangitis, possible hematogenous urosepsis. Clinically improved. Patient has been afebrile for 24 hours now. Off O2. LFTs, Cr trending down. MRCP w signs of liver abscess. Blood and urine cultures grew K. pneumoniae, sensitive to Zosyn. - Trend LFTs - Continue Zosyn IV - Urology following - Given clinical improvement and stability, may consider cancelling transfer to [facility]. Will discuss with [facility]'s transplant team. Admission and Anticipated Discharge Date Admission Date: July 02, 2022 Supervising Physician Co-Signing Physician Notes Attg add: I interviewed and examined pt, reviewed chart and labs. Pt feels well, although has diffuse macular rash. Febrile o/n, with cx now growing GPC/chains. Abx revised - On rocephin, dapto. Awaiting MARTIN for endocarditis w/u given GPC/chains. Follow for now. If persistent febrile, may consider re-image liver. Subjective He denies any chills, chest pain, shortness of breath. Still having some mild discomfort on the right upper quadrant abdominal area at the site of his liver biopsy. Denies any nausea or vomiting. Had his ureteral stent removed last night. Review of Systems Review of Systems: All systems reviewed & are unremarkable except as noted in HPI & below Physical Exam Constitutional: WD/WN, vitals as above well groomed, cooperative and comfortable Eyes: PERRL, conjunctivae normal, anicteric sclerae ENMT: external ear and nose normal, oropharynx normal Respiratory: normal respiratory effort, lungs clear to auscultation Cardiovascular: RRR, no murmur, no edema Gastrointestinal (Abdomen): Mild tender to palpation in right upper quadrant area, bowel sounds present, soft Skin: no rashes, warm and dry Neurologic: Motor/Sensory: no asterixis Psychiatric: A+Ox3, euthymic affect Lymphatic: no lymphedema Results & Data ([facility]) Vital Signs (Past 12 Hours) Vital Signs Temp Pulse Pulse Resp BP Pulse Ox O2 Del Method 07/04/22 08:25 36.8 C 85 18 115/59 L 91 Room Air 07/04/22 07:30 94 H 07/04/22 02:44 36.8 C 89 16 104/61 92 Nasal Cannula 07/04/22 00:05 94 H 07/03/22 23:33 37.1 C 105 H 20 108/63 92 Nasal Cannula O2 Flow Rate 07/04/22 08:25 07/04/22 07:30 07/04/22 02:44 1 07/04/22 00:05 07/03/22 23:33 2 (1) Sepsis Sepsis acute organ dysfunction status: unspecified Sepsis type: sepsis due to unspecified organism Qualified Code(s): A41.9 - Sepsis, unspecified organism
[2022-07-04] MEDS: cefTRIAXone SODIUM 2,000 MG in DEXTROSE 5% 50 ML IV SCH (10:32)
[2022-07-04] MEDS: ACETAMINOPHEN 325 MG TAB PO PRN (16:37)
[2022-07-04] MEDS: diphenhydrAMINE Capsule 25 MG CAP PO PRN (18:42)
[2022-07-04] MEDS: TAMSULOSIN HCL 0.4 MG CAP PO SCH (20:18)
[2022-07-04] MEDS: traMADol HCL 50 MG TABLET PO PRN (20:20)
--- NOTE | 2022-07-05 01:00 | Hospitalist Progress Note ---
Date of Service July 04, 2022 Assessment & Plan (1) Sepsis: Plan: Met sepsis criteria on admission with tachycardia, febrile Blood cx and urine cx grew gram negative bacilli - Klebsiella Received IV Zosyn in admission Currently on IV Zosyn and Dapto Dr. Isabel from [facility] suggested to continue th IV Zosyn and Dapto discontinued Pt develops diffused skin rash, will d/c IV zosyn Abx changed to Rocephin Repeat blood cx pending Continue monitor closely (2) Right kidney stone: Plan: Intermittent right flank pain associated with burning urination CT/abd pelvis showed 3 mm calculus projects over the right posterior aspect of the bladder. 5 mm right renal calculus. s/p emergent cystoscopy and ureteral stent placement by urology Dr. Milton Ureteral stent removed yesterday Continue Flomax and Tylenol Continue to improve (3) Liver transplant recipient: Plan: Total Bilirubin 3.9 , AST and ALT normal transplant team notified. Due to acute infection admtting team discussed case with transplant team that recommended to hold Prograf and cellcept He was seen by GI that recommended to transfer to [facility] for ERCP GI discussed the case with GI at [facility] I called the transfer line at [facility] transplant and discussed the case with Dr. Mimi Isabel who accepted him on transfer Was not able to find transportation last night Today pt feels better. Bilirubin trending down and mrcp was unremarkable Gastro and urology evaluated him and they don't thing he needs to be transferred since pt is doing better He agreed if he becomes unstable to transfer to [facility] GI spoke to [facility] to let them know that pt is stable and will continue to monitor at [facility] I spoke to patient transplant coordinate as well Pt does not want to transfer since he is getting better and do not want to go to [facility] just for observation if pt becomes unstable, [facility] Pt agreed with the plan (4) Thrombocytopenia: Plan: Historically has low platelets which are more depressed in setting of sepsis. Platelet 50K today Continue monitor CBC (5) Hypoxia: Plan: CXR negative Oxygen taper then discontinued saturated well on RA (6) Elevated troponin: Plan: Mostly related to sepsis/LEANN troponin on admission 119 then trending down to 39 ECG showed no acute ischemic changes Denies any chest pain Stable (7) LEANN (acute kidney injury): Plan: Pre-renal related to poor PO intake with dehydration and sepsis. creatinine on admission 1.7, improved to 1.4 today avoid nephrotoxic agents Continue monitor BMP (8) Hypokalemia: Plan: Replaced and likely related to poor oral intake. (9) Hypomagnesemia: Plan: Replacement given. Repeat level in am. (10) Alcohol use disorder, severe, dependence: Plan: s/p liver transplant, patient is not currently drinking. (11) DVT prophylaxis: Plan: SCDs, chemoprophylaxis contraindicated in thrombocytopenia. Full Code Dispo-to PCU Admission and Anticipated Discharge Date Admission Date: July 02, 2022 Subjective Pt was seen and examined for follow up of right side pain, right kidney stone Lying in bed with no acute distress Pt said that he feels alot better He said that pain is significantly improves Gastro and urology evaluated him and they don't thing he needs to be transferred since pt is doing better Pt does not want to transfer just to monitor him He agreed if he becomes unstable to transfer to [facility] GI spoke to [facility] to let them know that pt is stable and will continue to monitor at [facility] I spoke to patient transplant coordinate as well Pt does not want to transfer since he is getting better and do not want to go to [facility] just for observation if pt becomes unstable, will call back [facility] to proceed with the transfer Denies any chest pain, palpitation, dizziness and SOB Review of Systems Review of Systems: All systems reviewed & are unremarkable except as noted in Subjective Results & Data Results & Data ([place]) Vital Signs (Past 12 Hours) Vital Signs Temp Pulse Pulse Resp BP Pulse Ox O2 Del Method 07/05/22 00:30 109 H 07/04/22 22:22 36.8 C 105 H 18 117/72 94 Room Air 07/04/22 19:32 37.3 C 90 18 105/61 92 Room Air 07/04/22 16:35 38.3 C H 07/04/22 16:01 37.9 C H 92 H 18 111/65 91 Room Air 07/04/22 15:20 99 H (1) Sepsis Sepsis acute organ dysfunction status: unspecified Sepsis type: sepsis due to unspecified organism Qualified Code(s): A41.9 - Sepsis, unspecified organism
[2022-07-05] MEDS: ACETAMINOPHEN 325 MG TAB PO PRN ×2 (03:01→20:50)
[2022-07-05] MEDS ORDERED: LACTATED RINGER'S 1,000 ML IV ONE (03:05)
[2022-07-05] MEDS ORDERED: POTASSIUM CHLORIDE PWD 20 MEQ PACK PO STA (04:10)
[2022-07-05] MEDS ORDERED: MAGNESIUM SULFATE / D5W 1 GM/100 ML BAG IV ONE (04:30)
[2022-07-05 06:38] LABS: Albumin Globulin Ratio 1.7 (0.9-2); Albumin Level 2.9 gm/dl (3.4-5.0); BUN Creatinine Ratio 8.5 (10-20); Bilirubin,Total 1.6 mg/dl (0.2-1.0); Calcium 7.6 mg/dl (8.5-10.1); Creatinine Clr Calc Pharmacy 71.4 ml/min; Est GFR (African American) 71.1 ml/min; Est GFR (Non-African American) 61.3 ml/min; Globulin 1.7 gm/dl (2.5-4.0); Magnesium 1.3 mg/dl (1.7-2.4); Potassium 3.5 mmol/L (3.5-5.1); Total Protein 4.6 gm/dl (6.0-8.3)
[2022-07-05 06:44] LABS: Hematocrit (blood only) 24.6 % (40.1-51.0); Hemoglobin 8.1 g/dl (14.0-18.0); Mean Corpuscular Hemoglobin 32.1 pg (25.0-34.0); Mean Corpuscular Hgb Conc 32.9 g/dL (32.0-36.0); Mean Corpuscular Volume 97.6 fL (80.0-100.0); Mean Platelet Volume 11.5 fL (9.4-12.4); Platelet Count 61 K/uL (130-400); RDW Coefficient of Variation 14.4 % (11.5-14.5); RDW Standard Deviation 50.9 fL (36.4-46.3); Red Blood Count 2.52 M/uL (4.63-6.08); White Blood Count 4.46 K/ul (4.8-10.8)
[2022-07-05] MEDS: MAGNESIUM SULFATE / D5W 1 GM/100 ML BAG IV SCH ×2 (07:41→09:47)
[2022-07-05] MEDS: predniSONE 20 MG TAB PO SCH (08:31)
[2022-07-05] MEDS: PANTOprazole 40 MG TAB PO SCH (08:31)
[2022-07-05] MEDS: PHENAZOPYRIDINE HCL 200 MG TAB PO SCH ×3 (08:31→20:47)
[2022-07-05] MEDS: TACROLIMUS 1 MG CAP PO SCH ×2 (08:31→20:47)
[2022-07-05] MEDS ORDERED: DAPTOmycin 450 MG in SYRINGE 0 ML IV SCH (09:45)
--- NOTE | 2022-07-05 09:59 | Gastroenterology Progress Note ---
Date of Service July 05, 2022 Assessment & Plan (1) Liver transplant recipient: (2) Sepsis: Plan: Pt is a 42 yo male s/p liver transplant in 08/2021 (at [facility]) for hx of ETOH liver disease. Has issues w biliary stricture post transplant and had underwent several ERCPs for biliary stent placement. He presented over the weekend with fever, chills, weakness. CT w evidence of UPJ stone, he was taken to OR for stone removal + ureteral stent placement. Urine and blood cx growing gram negative bacilli. Suspected he may have bacteremia related to recent liver bx/cholangitis, possible hematogenous urosepsis. LFTs, Cr trending down. O2 sat 95% on RA now. MRCP w signs of liver abscess. Initial blood and urine cultures grew K. pneumoniae, sensitive to Zosyn. However he became febrile yesterday, repeat blood cultures growing gram-positive cocci. Currently he is on ceftriaxone IV. - Trend LFTs - F/U blood cx and adjust antibx coverage as needed - Urology following - Continue Prednisone and Tacrolimus as dosed. Hold MMF until after DC Admission and Anticipated Discharge Date Admission Date: July 02, 2022 Subjective Pt febrile overnight. Blood cx growing gram positive cocci. LFTs trending down. Patient was having chills last night, denies any chest pain, shortness of breath, abdominal pain, nausea and vomiting. Review of Systems Review of Systems: All systems reviewed & are unremarkable except as noted in HPI & below Physical Exam Constitutional: WD/WN, vitals as above well groomed, cooperative and comfortable Eyes: PERRL, conjunctivae normal, anicteric sclerae ENMT: external ear and nose normal, oropharynx normal Respiratory: normal respiratory effort, lungs clear to auscultation Cardiovascular: RRR, no murmur, no edema Gastrointestinal (Abdomen): normal bowel sounds, soft, nontender, no hepatosplenomegaly Skin: no rashes, warm and dry Neurologic: Motor/Sensory: no asterixis Psychiatric: A+Ox3, euthymic affect Lymphatic: no lymphedema Results & Data ([facility]) Vital Signs (Past 12 Hours) Vital Signs Temp Pulse Pulse Resp BP Pulse Ox O2 Del Method 07/05/22 07:37 36.7 C 108 H 18 111/57 L 95 Room Air 07/05/22 06:38 37.3 C 07/05/22 04:30 37.2 C 07/05/22 03:24 39.3 C H 117 H 18 99/53 L 94 Room Air 07/05/22 00:30 109 H 07/04/22 22:22 36.8 C 105 H 18 117/72 94 Room Air (1) Sepsis Sepsis acute organ dysfunction status: unspecified Sepsis type: sepsis due to unspecified organism Qualified Code(s): A41.9 - Sepsis, unspecified organism
[2022-07-05] MEDS: cefTRIAXone SODIUM 2,000 MG in DEXTROSE 5% 50 ML IV SCH (11:18)
[2022-07-05 12:13] LABS: A calco-baum cmplx NotReported Not Detected (NotDetected); Bact fragilis Not Reported Not Detected (NotDetected); C auris Not Reported Not Detected (NotDetected); Calbicans Not Reported Not Detected (NotDetected); Candida glabrata Not Reported Not Detected (NotDetected); Candida krusei Not Reported Not Detected (NotDetected); Cneoformans/gatti Not Reported Not Detected (NotDetected); Cparapsilosis Not Reported Not Detected (NotDetected); Ctropicalis Not Reported Not Detected (NotDetected); E cloacae compx Not Reported Not Detected (NotDetected); Efaecalis Not Reported Not Detected (NotDetected); Efaecium Not Reported DETECTED (NotDetected); Enterobacterales Not Reported Not Detected (NotDetected); Enterococcus faecium DETECTED (NotDetected); Escherichia coli Not Reported Not Detected (NotDetected); H influenzae Not Reported Not Detected (NotDetected); K aerogenes Not Reported Not Detected (NotDetected); Koxytoca Not Reported Not Detected (NotDetected); Kpneumoniae grp Not Reported Not Detected (NotDetected); Lmonocyt Not Reported Not Detected (NotDetected); N meningitidis Not Reported Not Detected (NotDetected); P aeruginosa Not Reported Not Detected (NotDetected); Proteus spp Not Reported Not Detected (NotDetected); Salmonella spp Not Reported Not Detected (NotDetected); Smarcescens Not Reported Not Detected (NotDetected); Staph lugdunensis Not Reported Not Detected (NotDetected); Staph spp. Not Reported Not Detected (NotDetected); Staphaureus Not Reported Not Detected (NotDetected); Staphepi Not Reported Not Detected (NotDetected); Stenmaltophilia Not Reported Not Detected (NotDetected); Strep agal(GrpB) Not Reported Not Detected (NotDetected); Strep pneum Not Reported Not Detected (NotDetected); Strep pyog (GrpA) Not Reported Not Detected (NotDetected); Strep spp Not Reported Not Detected (NotDetected); VanAB Resistant Gene VRE Not Detected (NotDetected)
[2022-07-05] MEDS ORDERED: DAPTOmycin 200 MG in SYRINGE 0 ML IV ONE (14:30)
--- NOTE | 2022-07-05 14:32 | Cardiology Consultation ---
Date of Consultation July 05, 2022 Assessment & Plan (1) Mitral valve mass: (2) Elevated troponin: (3) Acute pyelonephritis: (4) Thrombocytopenia: (5) Liver transplant recipient: (6) Alcohol use disorder, severe, dependence: (7) Immunocompromised state due to drug therapy: Plan Given the findings of his echocardiogram along with his immunocompromise state and gram-positive cocci positive on blood cultures we will proceed with MARTIN in the a.m. The procedure along with the risks, benefits and alternatives were discussed with the patient. He is in agreement to proceed. There is also question of mass in the IVC but CAT scan reviewed with radiology again by primary team and appears to be artifact from a surgical suture, will evaluate further with MARTIN as well. Already on broad-spectrum antibiotics Current thrombocytopenia so would avoid anticoagulation unless further objective findings of thrombus Impaired renal function so would avoid CTA at this time unless thrombus potentially visualized on MARTIN N.p.o. after midnight. History of Present Illness Reason for Consultation: abnormal echocardiogram Requesting Physician: Dr. Shipman Attending Physician: Jorge Shipman MD History of Present Illness It was my pleasure to see Dr. Vera in cardiac consultation today. He is a very pleasant 42 yo liver transplant recipient who presented to [facility] ED on 07/02/22 with complaints of fever, myalgias, abdominal pain and weakness. A few days prior to presentation he had a screening liver biopsy at [facility]. He denied any chest pain, sob, palpitations or lightheadedness. He was treated for sepsis. An echocardiogram was performed which revealed possible mitral valve vegetations and IVC thrombus. Cardiology was then consulted to perform a MARTIN. Currently, he states that he is feeling much better. Allergies Allergy/AdvReac Type Severity Reaction Status Date / Time brompheniramine Allergy Intermediate Hives Verified 07/02/22 14:06 [From Dimetapp Cold-Allergy (PE)] phenylephrine Allergy Intermediate Hives Verified 07/02/22 14:06 [From Dimetapp Cold-Allergy (PE)] Sulfa (Sulfonamide Allergy Mild Rash Verified 07/02/22 14:06 Antibiotics) cantaloupe Allergy Unknown Verified 07/02/22 19:31 bee venom protein (honey bee) AdvReac Severe Anaphylaxis Verified 07/02/22 16:29 grapefruit AdvReac Unknown drug Verified 07/02/22 19:31 interactions Home Medications Medication Instructions Recorded Confirmed Type cholecalciferol (vitamin D3) 50 50 mcg PO DAILY 07/02/22 07/02/22 History mcg (2,000 unit) capsule (Vitamin D3) mycophenolate mofetil 500 mg 1,000 mg PO BID 07/02/22 07/02/22 History tablet (CellCept) pantoprazole 40 mg tablet,delayed 40 mg PO DAILY 07/02/22 07/02/22 History release prednisone 20 mg tablet 20 mg PO DAILY 07/02/22 07/02/22 History tacrolimus 1 mg capsule, 7 mg PO DAILY 07/02/22 07/02/22 History immediate-release tamsulosin 0.4 mg capsule 0.4 mg PO HS #30 caps 07/03/22 Rx Patient History Medical History Alcohol use disorder, severe, dependence sober since 07/2021 Alcoholic cirrhosis Anxiety and depression Elevated liver enzymes GERD (gastroesophageal reflux disease) Kidney stone on right side NO INTERVENTION "VERY SMALL" Surgical History H/O inguinal hernia repair Liver transplant recipient Slow to wake up after anesthesia Vail teeth removed Family History Grandfather (Paternal) Family hx of colon cancer Other No family history of adverse response to anesthesia Social History Smoking Status: Never smoker Second Hand Exposure: Yes ( A CHILD); Hx Alcohol Use: Yes Alcohol type: beer and hard liquor Hx Substance Use: No Preferred Language: Amharic Communication Ability: Effective Industrial Cleaning Technician Required: No Beliefs That Will Affect Care: None marital status: Single Current Living Situation: Alone Feels Safe at Home: Yes Assistive Devices: None Review of Systems Review of Systems: All systems reviewed & are unremarkable except as noted in HPI & below Physical Exam Physical Exam: General: Awake, alert and oriented x 3. No acute distress. HEENT: Normocephalic, atraumatic. Pupils equal, round and reactive to light and accommodation. Extraocular muscles are intact. Anicteric sclera. Moist mucous membranes. Neck: No JVD. No bruit. Cardiovascular: Regular. Positive S-4. Normal S-1 and S-2. No S-3. No murmurs or rubs. Pulmonary: Clear to auscultation B/L. No rales, rhonchi or wheezing Abdomen: Bowel sounds x 4, soft. No rebound, guarding or tenderness. No organomegaly. Extremities: No clubbing, cyanosis or edema. +2 pedal pulses bilaterally. Skin: Warm and dry. Diffuse macular papular rash Results & Data ([facility]) Vital Signs (Past 12 Hours) Vital Signs Temp Pulse Resp BP Pulse Ox O2 Del Method 07/05/22 12:17 37.4 C 112 H 18 124/78 92 Room Air 07/05/22 07:37 36.7 C 108 H 18 111/57 L 95 Room Air 07/05/22 06:38 37.3 C 07/05/22 04:30 37.2 C 07/05/22 03:24 39.3 C H 117 H 18 99/53 L 94 Room Air
--- NOTE | 2022-07-05 16:11 | Hospitalist Progress Note ---
Date of Service July 05, 2022 Assessment & Plan (1) Sepsis: Plan: - Met sepsis criteria on admission with tachycardia, fever, positive UA - Blood cx and urine cx grew gram negative bacilli - Klebsiella, now E faecium after cystoscopy - Received IV Zosyn in admission - s/p zosyn, ceftriaxone, daptomycin - patient had drug rash with zoysn - monitor for improvement - ID consulted for complicated medical course - on Unasyn due to susceptibilities - Repeat blood cx pending from 07/05/2022 - TTE with possible vegetation - Cardiology consulted - plan for TTE 07/06/2022 for better visualization - NPO midnight 07/06/2022 - Continue monitor closely (2) Right kidney stone: Plan: - intermittent right flank pain associated with burning urination - CT/abd pelvis showed 3 mm calculus projects over the right posterior aspect of the bladder. 5 mm right renal calculus. - s/p emergent cystoscopy and ureteral stent placement by urology Dr. Milton - Ureteral stent removed during admission - Continue Flomax and Tylenol (3) Liver transplant recipient: Plan: - Total Bilirubin 3.9 , AST and ALT normal, elevated ALP initially - transplant team notified. - Due to acute infection admitting team discussed case with transplant team that recommended to hold Prograf and CellCept - [facility] transplant contacted and discussed the case with Dr. Mimi Isabel who accepted him on transfer - He was seen by GI that recommended to transfer to [facility] for ERCP - MRCP negative, LFTs improved - transfer cancelled - LFTs continued to improve - low threshold for reinitiated transfer if LFTs acutely worsen - stable for now - continuing to hold CellCept - Tacrolimus restarted - repeat Tacrolimus level ordered for 07/05/2022 8PM prior to nighttime dose (4) Thrombocytopenia: Plan: - Historically has low platelets which are more depressed in setting of sepsis. - PLTs stable - no signs of bleeding at this time - hgb stable - Continue monitor CBC (5) LEANN (acute kidney injury): Plan: - Pre-renal related to poor PO intake with dehydration and sepsis. - creatinine on admission 1.7 - continues to improve - gentle IVF - avoid nephrotoxic agents - Continue monitor BMP (6) Alcohol use disorder, severe, dependence: Plan: - s/p liver transplant, patient is not currently drinking. - noted (7) Anemia: Plan: - hgb stable 8-9s - no signs of bleeding - iron studies, folate, b12 ordered - will monitor for now - folic acid and thiamine Plan DVT ppx: SCDs, chemoprophylaxis contraindicated in thrombocytopenia. Code Status: Full Code Dispo: PCU Jorge Shipman MD [facility] Medicine Admission and Anticipated Discharge Date Admission Date: July 02, 2022 Subjective Patient with h/o ETOH cirrosis s/p liver transplant 08/2021, CKD presented with fever after liver biopsy 1 week prior to admission. found to have acute elevation in LFTs, as well as Klebsiella UTI and bacteremia in setting of 3mm right ureteral stone, s/p stent placement with urology. GI consulted for elevated LFTs, initial plan to transfer to [facility] transplant [place] but LFTs improved, MRCP negative. Later with positive GPC in clusters with E faecium on 11/28 blood cultures, on ceftriaxone and daptomycin. ID consulted, switch to Unasyn due to Enterococcus and Klebsiella sensitive to Unasyn. TTE with questionable vegetation, Cardiology consulted for MARTIN to better characterize possible vegetation. Blood cultures repeated. Patient reports chills and fever overnight, denies chest pain, shortness of breath, n/v/d, abdominal pain, leg swelling, dysuria, flank pain. Review of Systems Review of Systems: All systems were reviewed and negative except as indicated on HPI above. Physical Exam Physical Exam: General- No acute distress Head- atraumatic Eyes- PERRL, EOMI, ENT- oropharynx clear Neck- supple, no JVD Lungs- clear to auscultation Heart- regular rhythm; no murmur Abdomen- normal bowel sounds, soft, no RUQ tenderness with palpation, old healing surgery scar across the abdomen Extremities- no calf tenderness Neuro- alert, oriented x 3; PERRL, EOMI; no facial palsy; no dysarthria Skin- warm & dry Results & Data Results & Data ([facility]) Vital Signs (Past 12 Hours) Vital Signs Temp Pulse Resp BP Pulse Ox O2 Del Method 07/05/22 12:17 37.4 C 112 H 18 124/78 92 Room Air 07/05/22 07:37 36.7 C 108 H 18 111/57 L 95 Room Air 07/05/22 06:38 37.3 C 07/05/22 04:30 37.2 C Diagnostic Findings Laboratory Results WBC 4.46 K/ul (4.8-10.8) L 07/05/22 05:38 RBC 2.52 M/uL (4.63-6.08) L 07/05/22 05:38 Hgb 8.1 g/dl (14.0-18.0) L 07/05/22 05:38 Hct 24.6 % (40.1-51.0) L 07/05/22 05:38 MCV 97.6 fL (80.0-100.0) 07/05/22 05:38 MCH 32.1 pg (25.0-34.0) 07/05/22 05:38 MCHC 32.9 g/dL (32.0-36.0) 07/05/22 05:38 RDW Std Deviation 50.9 fL (36.4-46.3) H 07/05/22 05:38 RDW Coeff of Michael 14.4 % (11.5-14.5) 07/05/22 05:38 Plt Count 61 K/uL (130-400) L 07/05/22 05:38 MPV 11.5 fL (9.4-12.4) 07/05/22 05:38 Immature Gran % (Auto) 1.1 % 07/03/22 05:53 Neut % (Auto) 82.8 % 07/03/22 05:53 Lymph % (Auto) 7.8 % 07/03/22 05:53 Hawkins % (Auto) 7.2 % 07/03/22 05:53 Eos % (Auto) 0.7 % 07/03/22 05:53 Baso % (Auto) 0.4 % 07/03/22 05:53 Neut # (Auto) 5.94 K/uL (1.4-6.5) 07/03/22 05:53 Lymph # (Auto) 0.56 K/uL (1.2-3.4) L 07/03/22 05:53 Hawkins # (Auto) 0.52 K/uL (0.24-0.82) 07/03/22 05:53 Eos # (Auto) 0.05 K/uL (0-0.50) 07/03/22 05:53 Baso # (Auto) 0.03 K/uL (0-0.2) 07/03/22 05:53 Immature Gran # (Auto) 0.08 K/uL (0.00-0.02) H 07/03/22 05:53 Platelet Estimate Decreased (Normal) L 07/03/22 05:53 PT 11.7 Seconds (9.0-12.0) 07/02/22 10:55 INR 1.1 (0.9-1.1) 07/02/22 10:55 Sodium 134 mmol/L (136-145) L 07/05/22 05:38 Potassium 3.5 mmol/L (3.5-5.1) 07/05/22 05:38 Chloride 102 mmol/L (98-107) 07/05/22 05:38 Carbon Dioxide 26 mmol/L (21-32) 07/05/22 05:38 Anion Gap 6 (3-11) 07/05/22 05:38 BUN 12 mg/dl (6-23) 07/05/22 05:38 Creatinine 1.42 mg/dl (0.6-1.4) H 07/05/22 05:38 Est Cr Clr Drug Dosing 71.4 ml/min 07/05/22 05:38 Est GFR ( Amer) 71.1 ml/min 07/05/22 05:38 Est GFR (Non-Af Amer) 61.3 ml/min 07/05/22 05:38 BUN/Creatinine Ratio 8.5 (10-20) L 07/05/22 05:38 Glucose 105 mg/dl (70-99(Fasting)) H 07/05/22 05:38 Lactate 0.8 mmol/L (0.4-2.0) 07/05/22 05:38 Calcium 7.6 mg/dl (8.5-10.1) L 07/05/22 05:38 Phosphorus 3.7 mg/dl (2.5-4.9) D 07/04/22 05:46 Magnesium 1.3 mg/dl (1.7-2.4) L 07/05/22 05:38 Total Bilirubin 1.6 mg/dl (0.2-1.0) H 07/05/22 05:38 Direct Bilirubin 1.4 mg/dl (0-0.2) H 07/02/22 10:55 AST 15 U/L (13-39) 07/05/22 05:38 ALT 28 U/L (7-52) 07/05/22 05:38 Alkaline Phosphatase 83 U/L (34-104) 07/05/22 05:38 Troponin I High Sens 39.7 pg/ml (0-20) H D 07/03/22 00:14 Total Protein 4.6 gm/dl (6.0-8.3) L 07/05/22 05:38 Albumin 2.9 gm/dl (3.4-5.0) L 07/05/22 05:38 Globulin 1.7 gm/dl (2.5-4.0) L 07/05/22 05:38 Albumin/Globulin Ratio 1.7 (0.9-2) 07/05/22 05:38 Procalcitonin 41.80 ng/ml (0-0.5) H 07/02/22 10:55 Urine Color Dark Yellow 07/02/22 10:55 Urine Appearance Cloudy (Clear) A 07/02/22 10:55 Urine pH 5.0 (4.5-7.5) 07/02/22 10:55 Ur Specific [place] 1.016 (1.000-1.030) 07/02/22 10:55 Urine Protein 1+ (Negative) H 07/02/22 10:55 Urine Glucose (UA) Negative (Negative) 07/02/22 10:55 Urine Ketones Trace (Negative) H 07/02/22 10:55 Urine Blood Negative (Negative) 07/02/22 10:55 Urine Nitrite Positive (Negative) A 07/02/22 10:55 Urine Bilirubin Negative (Negative) 07/02/22 10:55 Urine Urobilinogen Negative (Negative) 07/02/22 10:55 Ur Leukocyte Esterase 2+ (Negative) H 07/02/22 10:55 Urine WBC (Auto) >30 /hpf (0-5) H 07/02/22 10:55 Urine RBC (Auto) 5-10 /hpf (0-4) H 07/02/22 10:55 U Hyaline Cast (Auto) 0 /lpf (0-5) 07/02/22 10:55 U Epithel Cells (Auto) 10-20 /lpf (0-5) H 07/02/22 10:55 Urine Bacteria (Auto) Negative (Negative) 07/02/22 10:55 Granular Casts 5-10 /lpf (0) H 07/02/22 10:55 SARS-CoV-2 (PCR) NEGATIVE (Negative) 07/02/22 11:04 Enterobacterales (PCR) DETECTED (NotDetected) A 07/02/22 10:55 Enterococc faecium PCR DETECTED (NotDetected) A 07/04/22 10:35 Influenza Type A (PCR) Negative (Neg) 07/02/22 11:04 Influenza Type B (PCR) Negative (Neg) 07/02/22 11:04 K. pneumoniae group (PCR) DETECTED (NotDetected) A 07/02/22 10:55 RSV (RT-PCR) Negative (Neg) 07/02/22 11:04 mcr-1 Colistin Res Gene PCR Not Detected (NotDetected) 07/02/22 10:55 Manuel/B-Vanco Res Genes VRE Not Detected (NotDetected) 07/04/22 10:35 blaIMP Car res Gene PCR Not Detected (NotDetected) 07/02/22 10:55 KPC-Carbap Res Gene PCR Not Detected (NotDetected) 07/02/22 10:55 blaNDM Car Res Gene PCR Not Detected (NotDetected) 07/02/22 10:55 OXA-48 Carbapenem Resis Gene (PCR) Not Detected (NotDetected) 07/02/22 10:55 blaVIM Car Res Gene PCR Not Detected (NotDetected) 07/02/22 10:55 CTX-M Gene Resistance (PCR) Not Detected (NotDetected) 07/02/22 10:55 Bld Cult ID Panel PCR See PCR Comment (NotDetected) 07/04/22 10:35 Impressions Abdomen/Pelvis CT 07/02/22 11:49 CT OF THE ABDOMEN AND PELVIS WITHOUT CONTRAST CLINICAL HISTORY: Fever. Liver transplant in August 2021. COMPARISON STUDY: CT of the abdomen and pelvis March 02, 2022 and renal ultrasound September 05, 2021. TECHNIQUE: Axial images of the abdomen and pelvis were obtained without IV contrast. Images were reviewed in the axial, sagittal, and coronal planes. Automated exposure control was utilized for the study. A dose lowering technique was utilized adhering to the principles of ALARA. FINDINGS: There is no consolidation within the lower lungs to suggest pneumonia. Subpleural opacities represent atelectasis. No pneumatosis, free air or portal venous gas is present. Evaluation of the abdomen and pelvis is suboptimal on this unenhanced exam. Borderline enlargement of the transplanted liver is noted. Moderate splenomegaly has slightly increased since prior CT. Biliary stents are place. There is associated pneumobilia. 5 mm right renal calculus is present. A 3 mm calculus projects over the right posterior aspect of the bladder. There is no hydronephrosis. No left-sided urinary calculi are present. Unenhanced images of the adrenal glands and pancreas are unremarkable. There is no evidence for a bowel obstruction. The appendix is normal. No abdominal or pelvic lymphadenopathy is present. There is no collection to suggest abscess. Trace abdominal ascites is present. Minimal mesenteric stranding is noted. This is decreased when compared to prior exam. No acute fracture is identified within the visualized skeletal structures. IMPRESSION: 1. No bowel obstruction. No bowel wall thickening on unenhanced exam. 2. Status post liver transplant. Biliary stents in place. Pneumobilia, as expected. Minimal increase in splenomegaly since prior CT. Trace ascites. 3. 3 mm calculus projects over the right posterior aspect of the bladder. This could represent a bladder calculus or ureterovesical junction calculus however there is no hydronephrosis. 5 mm right renal calculus. 4. Normal appendix. ACT 112: Negative or not required by law. Electronically signed by: Ron Stacy M.D. 07/02/2022 12:36 PM Abdomen Fluoroscopy 07/02/22 14:44 FL KUB CLINICAL HISTORY: RT STENT COMPARISON STUDY: CT of the abdomen and pelvis performed earlier today. FLUOROSCOPY TIME: 5 seconds. FLUOROSCOPIC IMAGES: 3 FINDINGS: Fluoroscopy was provided during placement of a right ureteral stent. Incidental note is made of stents within the common bile duct. IMPRESSION: Fluoroscopy provided during placement of a right ureteral stent. ACT 112: Negative or not required by law. Electronically signed by: Ron Stacy M.D. 07/02/2022 4:03 PM Chest X-Ray 07/03/22 07:00 SINGLE VIEW CHEST CLINICAL HISTORY: Hypoxia. Sepsis. FINDINGS: An AP, portable, upright chest radiograph is compared to study dated 07/02/2022. The cardiomediastinal silhouette is unremarkable. The lungs and pleural spaces are clear noting bibasilar atelectasis. No pneumothorax is seen. The bony thorax is grossly intact. IMPRESSION: Bibasilar atelectasis with no acute cardiopulmonary abnormality. ACT 112: Negative or not required by law. Electronically signed by: Castillo Haq M.D. 07/03/2022 10:18 AM Cholangiopancreatography MRI 07/03/22 10:12 MR MRCP HISTORY: r/o liver abscesses, cholangitis. TECHNIQUE: MRCP of the abdomen was performed without contrast according to standard departmental protocol. COMPARISON STUDY: Abdomen and pelvis CT 07/02/2022. FINDINGS: Interval development of trace bilateral pleural effusions. There is trace perihepatic and perisplenic ascites which is also slightly progressed. The main portal vein appears patent. Splenic varices again noted. History of prior liver transplant. No hepatic abscesses identified. The spleen remains enlarged measuring 18 cm in length. Multiple common bile duct stents remain unchanged in position. This likely accounts for the common bile duct distention of 15 mm. Trace pneumobilia is again noted. Nondiagnostic evaluation of the common bile duct due to the multiple indwelling stents. No intrahepatic bile duct filling defects identified. No hydronephrosis. The pancreas and adrenal glands are unremarkable. Mild diffuse mesenteric edema is present. Mild motion artifact. Abdominal aorta is normal in caliber. IMPRESSION: 1. Interval development of trace bilateral pleural effusions and trace ascites. 2. Splenomegaly, unchanged. 3. Prior liver transplant. No hepatic masses or abscess identified. 4. Multiple common bile duct stents appear and good position. This likely accounts for the common bile duct distention up to 1.5 cm. ACT 112: Negative or not required by law. Electronically signed by: Carlitos Abraham M.D. 07/03/2022 4:34 PM Medications Administered Current Inpatient Medications Acetaminophen (Acetaminophen 325 Mg Tab) 650 mg PO Q4H PRN PRN Reason: Pain or Fever Stop: 08/01/22 17:08 Last Admin: 07/05/22 03:01 Dose: 650 mg Diphenhydramine HCl (Diphenhydramine Capsule 25 Mg Cap) 25 mg PO Q12H PRN PRN Reason: Rash Stop: 08/03/22 16:44 Last Admin: 07/04/22 18:42 Dose: 25 mg Ceftriaxone Sodium 2,000 mg/ (Dextrose) 70 mls @ 100 mls/hr IV Q24H LIZBETH; Protocol Stop: 07/18/22 09:59 Last Infusion: 07/05/22 12:00 Dose: Infused Daptomycin 650 mg/ Syringe 13 mls @ 6.5 mls/min IV Q24H [facility]; Protocol Stop: 07/20/22 10:59 Oxybutynin Chloride (Oxybutynin Chloride Xl 5 Mg Tabcr) 5 mg PO DAILY PRN PRN Reason: bladder spasms Stop: 08/02/22 08:59 Pantoprazole Sodium (Pantoprazole 40 Mg Tab) 40 mg PO DAILY LIZBETH Stop: 08/02/22 08:59 Last Admin: 07/05/22 08:31 Dose: 40 mg Phenazopyridine HCl (Phenazopyridine Hcl 200 Mg Tab) 200 mg PO TID [facility] Stop: 08/01/22 20:59 Last Admin: 07/05/22 13:38 Dose: 200 mg Prednisone (Prednisone 20 Mg Tab) 20 mg PO DAILY LIZBETH Stop: 08/02/22 08:59 Last Admin: 07/05/22 08:31 Dose: 20 mg Tacrolimus (Tacrolimus 1 Mg Cap) 4 mg PO BID LIZBETH Stop: 08/04/22 08:59 Last Admin: 07/05/22 08:31 Dose: 4 mg Tamsulosin HCl (Tamsulosin Hcl 0.4 Mg Cap) 0.4 mg PO HS [facility] Stop: 08/01/22 20:59 Last Admin: 07/04/22 20:18 Dose: 0.4 mg Tramadol HCl (Tramadol Hcl 50 Mg Tablet) 50 mg PO Q6H PRN PRN Reason: moderate pain Stop: 08/01/22 17:08 Last Admin: 07/04/22 20:20 Dose: 50 mg (1) Sepsis Sepsis acute organ dysfunction status: unspecified Sepsis type: sepsis due to unspecified organism Qualified Code(s): A41.9 - Sepsis, unspecified organism
[2022-07-05 17:18] LABS: Ferritin 269.6 ng/ml (8-388)
[2022-07-05] MEDS: AMPICILLIN/SULBACTAM SOD 3,000 MG in 0.9 % SODIUM CHLORIDE 100 ML IV SCH ×2 (17:31→23:10)
[2022-07-05] MEDS ORDERED: DAPTOmycin 725 MG in SYRINGE 0 ML IV SCH (18:00)
[2022-07-05] MEDS: TAMSULOSIN HCL 0.4 MG CAP PO SCH (20:47)
[2022-07-05] MEDS: diphenhydrAMINE Capsule 25 MG CAP PO PRN (20:50)
[2022-07-06] MEDS: traMADol HCL 50 MG TABLET PO PRN (01:34)
[2022-07-06] MEDS ORDERED: CETIRIZINE HCL 10 MG TABLET PO ONE (01:40)
[2022-07-06] MEDS: AMPICILLIN/SULBACTAM SOD 3,000 MG in 0.9 % SODIUM CHLORIDE 100 ML IV SCH ×2 (05:34→13:37)
[2022-07-06 08:06] LABS: INR 1.1 (0.9-1.1); Prothrombin Time 11.9 Seconds (9.0-12.0)
[2022-07-06 08:26] LABS: Albumin Globulin Ratio 1.6 (0.9-2); Albumin Level 3.1 gm/dl (3.4-5.0); BUN Creatinine Ratio 8.7 (10-20); Bilirubin,Total 1.5 mg/dl (0.2-1.0); Calcium 8.1 mg/dl (8.5-10.1); Creatinine Clr Calc Pharmacy 79.8 ml/min; Est GFR (African American) 81.4 ml/min; Est GFR (Non-African American) 70.2 ml/min; Globulin 1.9 gm/dl (2.5-4.0); Magnesium 1.7 mg/dl (1.7-2.4); Potassium 3.6 mmol/L (3.5-5.1)
[2022-07-06] MEDS ORDERED: THIAMINE HCL 100 MG TAB PO SCH (09:00)
[2022-07-06] MEDS ORDERED: FOLIC ACID 1 MG TAB PO SCH (09:00)
[2022-07-06] MEDS ORDERED: BENZOCAINE/TETRACAIN/BUTAM 50 APPLN/5 GM CAN EXT ONE (09:14)
[2022-07-06] MEDS ORDERED: MIDAZOLAM HCL 5 MG/ML 1 ML VIAL ONE ×3 (09:14→10:00)
[2022-07-06] MEDS ORDERED: fentaNYL citrate 100 MCG/2 ML VIAL ONE (09:14)
[2022-07-06] MEDS ORDERED: MoRPHine SULFATE 10 MG/ML CARP/VIAL ONE (09:36)
--- NOTE | 2022-07-06 09:44 | History & Physical Bridge Note ---
Date of Service July 06, 2022 History & Physical Bridge Note I have examined the patient, reviewed the History & Physical and in the interval since the performance of the History & Physical I have noted the following changes of clinical significance: no changes noted
--- NOTE | 2022-07-06 09:44 | Pre Anesthesia Assessment ---
Date of Service July 06, 2022 Pre Sedation Assessment Vital Signs Temp Pulse Pulse Resp BP Pulse Ox O2 Del Method 07/06/22 08:00 88 07/06/22 07:10 36.7 C 91 H 19 107/62 95 Room Air 07/06/22 03:22 36.6 C 86 18 110/55 L 93 Room Air 07/05/22 23:27 37.1 C 74 19 116/64 97 Room Air 07/05/22 23:26 94 H 07/05/22 19:21 36.9 C 80 18 114/66 95 Room Air 07/05/22 15:21 37.4 C 88 18 113/72 94 Room Air 07/05/22 12:17 37.4 C 112 H 18 124/78 92 Room Air Pre-Sedation Airway Assessment Smoking Status: Never smoker Hx Sleep Apnea: No Short, Thick Neck: No Thyromental Distance: > or= 3.5 Finger Breadths Oral Cavity: + WNL Mallampati Class: III ASA: ASA3 NPO Status Date of Last Intake of Fluids: 07/05/22 Date of Last Intake of Solid Food: 07/05/22 Notes The planned sedation has been discussed with the patient. Informed Consent was obtained. I have identified the patient, determined the appropriateness of sedation and have assessed the patient immediately prior to the procedure. All medicine(s) and interventions are by my order.
--- NOTE | 2022-07-06 10:00 | Gastroenterology Progress Note ---
Date of Service July 06, 2022 Assessment & Plan (1) Liver transplant recipient: (2) Sepsis: Plan: Pt is a 42 yo male s/p liver transplant in 08/2021 (at [facility]) for hx of ETOH liver disease. Has issues w biliary stricture post transplant and had underwent several ERCPs for biliary stent placement. He presented over the weekend with fever, chills, weakness. CT w evidence of UPJ stone, he was taken to OR for stone removal + ureteral stent placement. Urine and blood cx growing gram negative bacilli. Suspected he may have bacteremia related to recent liver bx/cholangitis, possible hematogenous urosepsis. Still febrile. Repeat blood cultures yesterday growing Enterococcus faecium. No VRE. Currently on Daptomycin IV. Echocardiogram concerning for possible vegetation vs thrombus in tricuspid annulus area. - Monitor LFTs - Continue Daptomycin IV. F/U blood cx sensitivity results - MARTIN today per Cardiology - Benadryl prn itching for rash Admission and Anticipated Discharge Date Admission Date: July 02, 2022 Supervising Physician Co-Signing Physician Notes Attg add: I interviewed and examined pt, reviewed chart and labs. Pt feels well, although febrile on dapto. ECHO this am shows vegetations, also IVC thrombus that was not seen earlier on non con imaging done this admission. Pt being x ferred to [facility] for further care. Subjective Patient febrile again overnight. He otherwise feels well. Has been n.p.o. for MARTIN this morning. Denies any chest pain, shortness of breath, abdominal pain, nausea or vomiting. Review of Systems Review of Systems: All systems reviewed & are unremarkable except as noted in HPI & below Physical Exam Constitutional: WD/WN, vitals as above well groomed, cooperative and comfortable Eyes: PERRL, conjunctivae normal, anicteric sclerae ENMT: external ear and nose normal, oropharynx normal Respiratory: normal respiratory effort, lungs clear to auscultation Cardiovascular: RRR, no murmur, no edema Gastrointestinal (Abdomen): normal bowel sounds, soft, nontender, no hepatosplenomegaly Skin: + rashes Neurologic: Motor/Sensory: no asterixis Psychiatric: A+Ox3, euthymic affect Lymphatic: no lymphedema Results & Data ([facility]) Vital Signs (Past 12 Hours) Vital Signs Temp Pulse Pulse Resp BP Pulse Ox O2 Del Method 07/06/22 08:00 88 11/10/22 07:10 36.7 C 91 H 19 107/62 95 Room Air 07/06/22 03:22 36.6 C 86 18 110/55 L 93 Room Air 07/05/22 23:27 37.1 C 74 19 116/64 97 Room Air 07/05/22 23:26 94 H (1) Sepsis Sepsis acute organ dysfunction status: unspecified Sepsis type: sepsis due to unspecified organism Qualified Code(s): A41.9 - Sepsis, unspecified organism
--- NOTE | 2022-07-06 10:34 | Post Anesthesia Assessment ---
Date of Service July 06, 2022 Post Sedation Assessment Vital Signs Temp Pulse Pulse Resp BP Pulse Ox O2 Del Method 07/06/22 10:20 97 H 16 122/62 98 Nasal Cannula 07/06/22 10:15 97 H 16 105/76 98 Nasal Cannula 07/06/22 10:10 98 H 16 124/69 98 Nasal Cannula 07/06/22 10:05 102 H 16 122/68 98 Nasal Cannula 07/06/22 10:00 92 H 16 119/69 94 Nasal Cannula 07/06/22 09:55 100 H 16 125/72 94 Nasal Cannula 07/06/22 08:00 88 07/06/22 07:10 36.7 C 91 H 19 107/62 95 Room Air 07/06/22 03:22 36.6 C 86 18 110/55 L 93 Room Air 07/05/22 23:27 37.1 C 74 19 116/64 97 Room Air 07/05/22 23:26 94 H 07/05/22 19:21 36.9 C 80 18 114/66 95 Room Air 07/05/22 15:21 37.4 C 88 18 113/72 94 Room Air 07/05/22 12:17 37.4 C 112 H 18 124/78 92 Room Air O2 Flow Rate 07/06/22 10:20 4 07/06/22 10:15 4 07/06/22 10:10 4 07/06/22 10:05 4 07/06/22 10:00 4 07/06/22 09:55 4 07/06/22 08:00 07/06/22 07:10 07/06/22 03:22 07/05/22 23:27 07/05/22 23:26 07/05/22 19:21 07/05/22 15:21 07/05/22 12:17 Recovery Score Activity: Moves 4 extremities Respiration: Deep Breath/Cough Circulation: +/-20% PreAnes Value Consciousness: Fully Awake Oxygen Saturation: > 92% On Room Air Post Anesthesia Score: 10 Discharge Sedation Level of Care: Fast Track Phase II Post Sedation Plan On clinical assessment, the patient appears to have tolerated the sedation without complications. Patient is recovering as anticipated. Patient will continue to be monitored by nursing and may be discharged when sedation discharge criteria are met per below protocol. Upon Completions of procedure up to 15 minutes continue every 5 minute vital signs and the P.A.R. score; then discharge to a Phase I or Fast Track to Phase II per the following guidelines: * Discharge Patient to appropriate Phase II area if PAR is 8 or greater or return to pre- procedure baseline. The post - procedure orders will be as directed. * If PAR score is less than 8 or not return to pre-procedure baseline then patient will follow Phase I monitoring till PAR is reached for Phase II. The Phase I may be done in procedure room or may call to secure a Phase I area. * If naloxone or flumazenil are used for reversal, hold in Phase I for continued monitoring from when last reversal dose was given for a minimum of 60 minutes or longer pending the nurse and/or physician discretion of patient condition before discharge to Phase II. Please call the Sedation Physician to re-evaluate and complete post-note for discharge to Phase II area. Do NOT discharge from procedure sedation or Phase 1 until post- sedation evaluation note is complete by procedure /sedation MD Sedation Discharge Instructions to be given to the patient at discharge to home.
--- NOTE | 2022-07-06 10:35 | Operative Report ---
Post Operative Report Pre & Post Diagnosis Operation Date: 07/02/22 14:30 Pre-Op Diagnosis: Right kidney stone Post-Op Diagnosis: Right kidney stone Operation Date: 07/06/22 10:00 <No data on this case meets the specified criteria> I identified the patient and participated in the time-out.: Yes Procedure Operation Date: 07/02/22 14:30 Actual Procedures p Cystoscopy - MD aleena Mari Ureteral Stent Insertion - Right (Right) - Josias Milton MD Operation Date: 07/06/22 10:00 Actual Procedures p Echo Transesophageal - Shayne Delgado, s Echo Color Flow - Shayne Delgado DO s Echo Doppler Complete - Shayne Delgado DO Surgeon Shayne Delgado DO Scale Balancer none Estimated Blood Loss 0 Findings Consistent with Post-Op Diagnosis As above Specimens None Description of Procedure Informed consent obtained. Patient prepped. Adequate moderate sedation achieved with a total of Versed 7mg and morphine 4mg MARTIN completed without complication, see separate report for details. In summary: Large thrombus present in the proximal IVC extending into the right atrium along with multiple lesions on the mitral valve apparatus consistent with vegetations. Start time: 1002 Stop time:1024 Plan: I discussed with the hospitalist and he will be started on anticoagulation with IV heparin He will also call [place] [facility] ora to arrange transport for higher level of care Will likely benefit from endovascular thrombectomy along with terminal computer operator antibiotics I attest to the content of the Intraoperative Record and any orders documented therein. Any exceptions are noted below.
--- NOTE | 2022-07-06 10:50 | Cardiology Progress Note ---
Date of Service July 06, 2022 Assessment & Plan (1) Mitral valve mass: (2) Elevated troponin: (3) Acute pyelonephritis: (4) Thrombocytopenia: (5) Liver transplant recipient: (6) Alcohol use disorder, severe, dependence: (7) Immunocompromised state due to drug therapy: Plan MARTIN performed and revealed large thrombus formation in the IVC with extension into the right atrium Also, multiple lesions on the mitral valve and chordae tendon a consistent with vegetations. Discussed care with the hospitalist team. Anticoagulation will be started for the thrombus along with arrangement for transfer to tertiary care center for possible endovascular thrombectomy Also on antibiotics, blood cultures from 07/04/2022 showed gram-positive cocci in chains, no further identification documented at this time Patient in agreement with the above plan Admission and Anticipated Discharge Date Admission Date: July 02, 2022 Subjective Patient seen and examined. Chart reviewed. Telemetry reviewed. No complaints overnight other than ongoing rash. Review of Systems Review of Systems: All systems reviewed & are unremarkable except as noted in HPI & below Physical Exam Physical Exam: General: Awake, alert and oriented x 3. No acute distress. HEENT: Normocephalic, atraumatic. Pupils equal, round and reactive to light and accommodation. Extraocular muscles are intact. Anicteric sclera. Moist mucous membranes. Neck: No JVD. No bruit. Cardiovascular: Regular. Positive S-4. Normal S-1 and S-2. No S-3. No murmurs or rubs. Pulmonary: Clear to auscultation B/L. No rales, rhonchi or wheezing Abdomen: Bowel sounds x 4, soft. No rebound, guarding or tenderness. No organomegaly. Extremities: No clubbing, cyanosis or edema. +2 pedal pulses bilaterally. Skin: Warm and dry. Diffuse macular papular rash ENMT: Mallampati Class: III Results & Data ([facility]) Vital Signs (Past 12 Hours) Vital Signs Temp Pulse Pulse Resp BP Pulse Ox O2 Del Method 07/06/22 10:20 97 H 16 122/62 98 Nasal Cannula 07/06/22 10:15 97 H 16 105/76 98 Nasal Cannula 07/06/22 10:10 98 H 16 124/69 98 Nasal Cannula 07/06/22 10:05 102 H 16 122/68 98 Nasal Cannula 07/06/22 10:00 92 H 16 119/69 94 Nasal Cannula 07/06/22 10:40 98 H 16 110/58 L 94 Room Air 07/06/22 10:25 107 H 16 120/67 94 Room Air 07/06/22 09:55 100 H 16 125/72 94 Nasal Cannula 07/06/22 08:00 88 07/06/22 07:10 36.7 C 91 H 19 107/62 95 Room Air 07/06/22 03:22 36.6 C 86 18 110/55 L 93 Room Air 07/05/22 23:27 37.1 C 74 19 116/64 97 Room Air 07/05/22 23:26 94 H O2 Flow Rate 07/06/22 10:20 4 07/06/22 10:15 4 07/06/22 10:10 4 07/06/22 10:05 4 07/06/22 10:00 4 07/06/22 10:40 07/06/22 10:25 07/06/22 09:55 4 07/06/22 08:00 07/06/22 07:10 07/06/22 03:22 07/05/22 23:27 07/05/22 23:26
[2022-07-06] MEDS ORDERED: DAPTOmycin 650 MG in SYRINGE 0 ML IV SCH (11:00)
[2022-07-06] MEDS ORDERED: Heparin IV Adult Wt-Based Standard *NO* Bolus Protocol IV SCH (11:15)
[2022-07-06] MEDS ORDERED: HEPARIN SODIUM/DEXTROSE 25,000 UNITS/500 ML BAG IV SCH (11:15)
[2022-07-06] MEDS ORDERED: CETIRIZINE HCL 10 MG TABLET PO PRN (11:43)
[2022-07-06] MEDS: predniSONE 20 MG TAB PO SCH (11:46)
[2022-07-06] MEDS: TACROLIMUS 1 MG CAP PO SCH (11:46)
[2022-07-06] MEDS: PHENAZOPYRIDINE HCL 200 MG TAB PO SCH (11:46)
[2022-07-06] MEDS: PANTOprazole 40 MG TAB PO SCH (11:47)
--- NOTE | 2022-07-06 11:54 | Discharge Summary ---
Date of Service July 06, 2022 Admission HPI Per Admitting Provider Chief Complaint: RUQ pain, fever, trouble breathing Primary Care Provider: Kyle Price, DO 42 yo M s/p liver transplant 09/23/21 presents to the ER with reports of fever, shortness of breath with hypoxia, and RUQ pain that is dull and radiating into his subxiphoid process. Symptoms began right after undergoing a liver biopsy on of last week (4 days ago). He also reports burning with urination that is new and frequent urination without going much in volume. Urine color is dark in color and he is dehydrated, unable to keep food down for several days. He reports vomiting twice. Fever has been intermittent. He is typically very active and has been sedentary since which is unlike him. Liver biopsy was to assess for signs of rejection. He otherwise denies any symptoms. CT revealed possible kidney stone on the right at the UPJ so Urology was consulted and took him to the OR urgently for source control. Intraoperatively the stone was removed and a stent was placed. There were no overt signs of infection seen. He was evaluated again in recovery on the floor and had significant dysuria and penile pain which was treated with Tramadol and Tylenol. Pyridium was also started. I spoke with Transplant physical Dr. Torres Quinteros who recommended holding MMF, Prograf and keeping his prednisone on board. If he worsens overnight, he may also need stress dose steroids. Currently post-resuscitation he is doing well. Dr. Quinteros asked to have his labs repeated in am to ensure his bilirubin is decreasing and see if he is clinically improving. If he is not improving by tomorrow, he would strongly consider transferring him to . [facility] ([facility]) which is the transfer center is aware and will coordinate the transfer if needed. Contact number is [phone] Admission Exam Per Admitting Provider CONSTITUTIONAL: WNWD, vitals as above, generally ill-appearing, +jaundiced EYES: PERRL, normal conjunctivae, +scleral icterus ENT: external ear and nose normal, oropharynx clear, mucous membranes are dry. NECK: trachea midline RESPIRATORY: clear to auscultation bilaterally, no crackles, rales or wheezes, normal respiratory effort CARDIOVASCULAR: regular rate and rhythm, S1 and 2 heard without murmurs, gallops or rubs, no JVD, no peripheral edema CHEST: inspection of chest was normal GASTROINTESTINAL: soft, TTP in RUQ and feels pain in RUQ when pushing on left. No guarding, Nondistended and no fluid wave present. No tim where biopsy was performed, no erythema. MUSCULOSKELETAL: strength 5/5 throughout, head is normocephalic and atraumatic, SKIN: warm and dry, no rashes NEUROLOGIC: CN 2-12 grossly intact, no sensory deficit, normal cognition, normal speech, no tremor, no gross focal deficit. PSYCHIATRIC: alert cooperative and oriented to person, place and time. Euthymic mood, makes good eye contact, language grossly intact, recent and remote memory grossly intact. Principal Diagnosis sepsis - klebsiella UTI/bacteremia, E faecium bacteremia with endocarditis Discharge Exam General- No acute distress Head- atraumatic Eyes- PERRL, EOMI, ENT- oropharynx clear Neck- supple, no JVD Lungs- clear to auscultation Heart- regular rhythm; no murmur Abdomen- normal bowel sounds, soft, no RUQ tenderness with palpation, old healing surgery scar across the abdomen Extremities- no calf tenderness Neuro- alert, oriented x 3; PERRL, EOMI; no facial palsy; no dysarthria Skin- warm & dry, diffuse morbilliform eruption Discharge Data Allergies Allergy/AdvReac Type Severity Reaction Status Date / Time brompheniramine Allergy Intermediate Hives Verified 07/02/22 14:06 [From Dimetapp Cold-Allergy (PE)] phenylephrine Allergy Intermediate Hives Verified 07/02/22 14:06 [From Dimetapp Cold-Allergy (PE)] Sulfa (Sulfonamide Allergy Mild Rash Verified 07/02/22 14:06 Antibiotics) cantaloupe Allergy Unknown Verified 07/02/22 19:31 bee venom protein (honey bee) AdvReac Severe Anaphylaxis Verified 07/02/22 16:29 grapefruit AdvReac Unknown drug Verified 07/02/22 19:31 interactions Consultations 07/02/22 13:30 ED Decision to Admit Stat 07/02/22 17:09 Consult Gastroenterology Routine 07/03/22 09:56 Consult Urology Routine 07/03/22 17:18 Burn CD for patient Routine 07/05/22 01:50 Consult Infectious Diseases Routine 07/05/22 12:20 Consult Cardiology Routine Procedures Performed Operation Date: 07/02/22 14:30 Actual Procedures p Cystoscopy - Josias Milton MD s Ureteral Stent Insertion - Right (Right) - Josias Milton MD Operation Date: 07/06/22 10:00 Actual Procedures p Echo Transesophageal - Shayne Delgado, DO s Echo Color Flow - Shayne Delgado, DO s Echo Doppler Complete - Shayne Delgado DO Ordered Studies 07/02/22 11:49 CT abd pelvis wo con Stat 07/02/22 14:44 FL KUB Routine 07/03/22 10:12 MR MRCP Routine Hospital Course (1) Sepsis: - Met sepsis criteria on admission with tachycardia, fever, positive UA - Blood cx and urine cx grew gram negative bacilli - Klebsiella, now E faecium after cystoscopy - Received IV Zosyn in admission - s/p zosyn, ceftriaxone, daptomycin - patient had drug rash with zoysn - monitor for improvement - ID consulted for complicated medical course - on Unasyn due to susceptibilities, daptomycin continued - Repeat blood cx pending from 07/05/2022 - TTE with possible vegetation - MARTIN 07/06/2022 with mitral valve vegatation, IVC/RA thrombus noted - continue daptomycin and unasyn - Tranfer to accepted by Dr. Isabel, liver transplant surgeon - urgent transfer initiated - Continue monitor closely on PCU (2) Endocarditis: - noted on TTE and confirmed on MARTIN 07/06/2022 on mitral valve - blood cultures positive for E faecium 07/04/2022 - continue on daptomycin and unasyn for now - ID on consult - repeat blood cultures 07/05/2022 NGTD - transfer to for CTS evaluation as patient is liver transplant recipient from this instituation (3) Acute thrombosis of inferior vena cava: - noted on TTE and confirmed on MARTIN 07/06/2022 with [facility]di[facility] - extension into RA - started on heparin drip - monitor closely - transfer to as above (4) Right kidney stone: - intermittent right flank pain associated with burning urination - CT/abd pelvis showed 3 mm calculus projects over the right posterior aspect of the bladder. 5 mm right renal calculus. - s/p emergent cystoscopy and ureteral stent placement by urology Dr. Milton - Ureteral stent removed during admission - Continue Flomax and Tylenol (5) Liver transplant recipient: - Total Bilirubin 3.9 , AST and ALT normal, elevated ALP initially - transplant team notified. - Due to acute infection admitting team discussed case with transplant team that recommended to hold Prograf and CellCept - [facility] transplant contacted and discussed the case with Dr. Mimi Isabel who accepted him on transfer - He was seen by GI that recommended to transfer to [facility] for ERCP - MRCP negative, LFTs improved - transfer cancelled - LFTs continued to improve - low threshold for reinitiated transfer if LFTs acutely worsen - stable for now - continuing to hold CellCept - Tacrolimus restarted - repeat Tacrolimus level pending from 07/05/2022 (6) Thrombocytopenia: - Historically has low platelets which are more depressed in setting of sepsis. - PLTs stable - no signs of bleeding at this time - hgb stable - Continue monitor CBC now that on heparin drip (7) LEANN (acute kidney injury): - Pre-renal related to poor PO intake with dehydration and sepsis. - creatinine on admission 1.7 - continues to improve - gentle IVF - avoid nephrotoxic agents - Continue monitor BMP - improving (8) Alcohol use disorder, severe, dependence: - s/p liver transplant, patient is not currently drinking. - noted (9) Anemia: - hgb stable 8-9s - no signs of bleeding - iron studies, folate, b12 ordered - will monitor for now - folic acid and thiamine Plan DVT ppx: heparin drip given IVC/RA thrombus Code Status: Full Code Dispo: PCU Jorge Shipman MD [facility] Medicine Total Time Total Time Spent Total Time Spent (In Minutes): 55 Total Time Includes: Examination of the Patient, Discharge Planning, Medication Reconciliation and Communication With Other Providers Discharge Plan Discharge Items Patient Disposition: Transfer Acute [facility] Reason For Visit: SEPSIS,UTI Discharge Diagnosis: (1) Liver transplant recipient: (2) Sepsis: Endocarditis (3) IVC/RA thrombus (4) renal stone s/p ureteral stent placement (5) Acute kidney failure (6) Electrolytes imbalance Activity: Resume your previous activity Non-emergency contact: Primary Care Provider, Aircraft Part Assembler and Urologist Call non-emergency contact if: you have any medication questions and your temperature is above 101 Follow-up/Referrals: Kyle Price, [Primary Care Provider] - Diet: Heart Healthy Addtl Attending Provider Instructions: Transfer to [facility] for ERCP while monitor by the transplant team Continue IV antibiotic for now with Zosyn Follow up with urology dr. Milton Pending Studies at Discharge: Yes Studies:: Urine and Blood culture Stand-Alone Forms: My [facility] Skilled Items Patient informed of condition?: Yes DNR: No Discharge Level of Care: Other Communicable Disease: No Discharge Prognosis: Stable Lines: Peripheral IV Urinary Catheter: No Medications and DC Order Prescriptions: New tamsulosin 0.4 mg Capsule 0.4 mg PO HS Qty: 30 0RF Continued mycophenolate mofetil [CellCept] 500 mg Tablet 1,000 mg PO BID pantoprazole 40 mg Tablet,Delayed Release (Dr/Ec) 40 mg PO DAILY cholecalciferol (vitamin D3) [Vitamin D3] 50 mcg (2,000 unit) Capsule 50 mcg PO DAILY prednisone 20 mg Tablet 20 mg PO DAILY tacrolimus 1 mg Capsule 7 mg PO DAILY Admission Data Admit Date/Time: 07/02/22 13:54 Attending Provider: Jorge Shipman Admit Provider: Anna Marie Yu Primary Care Provider: Kyle Price Other Providers: Anna Marie Yu ; Matt Parikh Jr ; Josias Milton ; Victor Manuel Antonio ; Sang Quispe ; Elvin Benitez I. ; Glenn Lanza II ; Anne-Marie Martinez ; Tim Aquino ; Mariano Garcia ; Joyce Sol ; Shayne Delgado
--- NOTE | 2022-07-06 12:00 | Hospitalist Progress Note ---
Date of Service July 06, 2022 Assessment & Plan (1) Sepsis: Plan: - Met sepsis criteria on admission with tachycardia, fever, positive UA - Blood cx and urine cx grew gram negative bacilli - Klebsiella, now E faecium after cystoscopy - Received IV Zosyn in admission - s/p zosyn, ceftriaxone, daptomycin - patient had drug rash with zoysn - monitor for improvement - ID consulted for complicated medical course - on Unasyn due to susceptibilities, daptomycin continued - Repeat blood cx pending from 07/05/2022 - TTE with possible vegetation - MARTIN 07/06/2022 with mitral valve vegatation, IVC/RA thrombus noted - continue daptomycin and unasyn - Tranfer to accepted by Dr. Isabel, liver transplant surgeon - urgent transfer initiated - Continue monitor closely on PCU (2) Endocarditis: Plan: - noted on TTE and confirmed on MARTIN 07/06/2022 on mitral valve - blood cultures positive for E faecium 07/04/2022 - continue on daptomycin and unasyn for now - ID on consult - repeat blood cultures 07/05/2022 NGTD - transfer to for CTS evaluation as patient is liver transplant recipient from this instituation (3) Acute thrombosis of inferior vena cava: Plan: - noted on TTE and confirmed on MARTIN 07/06/2022 with CArdiology - extension into RA - started on heparin drip - monitor closely - transfer to as above (4) Right kidney stone: Plan: - intermittent right flank pain associated with burning urination - CT/abd pelvis showed 3 mm calculus projects over the right posterior aspect of the bladder. 5 mm right renal calculus. - s/p emergent cystoscopy and ureteral stent placement by urology Dr. Milton - Ureteral stent removed during admission - Continue Flomax and Tylenol (5) Liver transplant recipient: Plan: - Total Bilirubin 3.9 , AST and ALT normal, elevated ALP initially - transplant team notified. - Due to acute infection admitting team discussed case with transplant team that recommended to hold Prograf and CellCept - [facility] transplant contacted and discussed the case with Dr. Mimi Isabel who accepted him on transfer - He was seen by GI that recommended to transfer to [facility] for ERCP - MRCP negative, LFTs improved - transfer cancelled - LFTs continued to improve - low threshold for reinitiated transfer if LFTs acutely worsen - stable for now - continuing to hold CellCept - Tacrolimus restarted - repeat Tacrolimus level pending from 07/05/2022 (6) Thrombocytopenia: Plan: - Historically has low platelets which are more depressed in setting of sepsis. - PLTs stable - no signs of bleeding at this time - hgb stable - Continue monitor CBC now that on heparin drip (7) LEANN (acute kidney injury): Plan: - Pre-renal related to poor PO intake with dehydration and sepsis. - creatinine on admission 1.7 - continues to improve - gentle IVF - avoid nephrotoxic agents - Continue monitor BMP - improving (8) Alcohol use disorder, severe, dependence: Plan: - s/p liver transplant, patient is not currently drinking. - noted (9) Anemia: Plan: - hgb stable 8-9s - no signs of bleeding - iron studies, folate, b12 ordered - will monitor for now - folic acid and thiamine Plan DVT ppx: heparin drip given IVC/RA thrombus Code Status: Full Code Dispo: PCU Jorge Shipman MD Hospital Medicine Admission and Anticipated Discharge Date Admission Date: July 02, 2022 Subjective Patient with h/o ETOH cirrosis s/p liver transplant 08/2021, CKD presented with fever after liver biopsy 1 week prior to admission. found to have acute elevation in LFTs, as well as Klebsiella UTI and bacteremia in setting of 3mm right ureteral stone, s/p stent placement with urology. GI consulted for elevated LFTs, initial plan to transfer to [facility] transplant center but LFTs improved, MRCP negative. Later with positive GPC in clusters with E faecium on / blood cultures, on ceftriaxone and daptomycin. ID consulted, switch to Unasyn due to Enterococcus and Klebsiella sensitive to Unasyn, continue daptomycin for now. TTE with questionable vegetation, Cardiology consulted for MARTIN to better characterize possible vegetation, confirmed MV vegetation as well as IVC/RA thrombus noted on MARTIN 07/06/2022. Blood cultures repeated 07/05/2022 NGTD. Patient reports doing well and feeling ok today. denies chest pain, shortness of breath, n/v/d, abdominal pain, leg swelling, dysuria, flank pain. Itching from rash, likely related to antibiotics. Review of Systems Review of Systems: All systems were reviewed and negative except as indicated on HPI above. Physical Exam Physical Exam: General- No acute distress Head- atraumatic Eyes- PERRL, EOMI, ENT- oropharynx clear Neck- supple, no JVD Lungs- clear to auscultation Heart- regular rhythm; no murmur Abdomen- normal bowel sounds, soft, no RUQ tenderness with palpation, old healing surgery scar across the abdomen Extremities- no calf tenderness Neuro- alert, oriented x 3; PERRL, EOMI; no facial palsy; no dysarthria Skin- warm & dry, diffuse morbilliform eruption Results & Data Results & Data ([facility]) Vital Signs (Past 12 Hours) Vital Signs Temp Pulse Pulse Resp BP Pulse Ox O2 Del Method 07/06/22 11:16 36.8 C 93 H 19 92/58 L 94 Room Air 07/06/22 10:20 97 H 16 122/62 98 Nasal Cannula 07/06/22 10:15 97 H 16 105/76 98 Nasal Cannula 07/06/22 10:10 98 H 16 124/69 98 Nasal Cannula 07/06/22 10:05 102 H 16 122/68 98 Nasal Cannula 07/06/22 10:00 92 H 16 119/69 94 Nasal Cannula 07/06/22 10:40 98 H 16 110/58 L 94 Room Air 07/06/22 10:25 107 H 16 120/67 94 Room Air 07/06/22 09:55 100 H 16 125/72 94 Nasal Cannula 07/06/22 08:00 88 07/06/22 07:10 36.7 C 91 H 19 107/62 95 Room Air 07/06/22 03:22 36.6 C 86 18 110/55 L 93 Room Air O2 Flow Rate 07/06/22 11:16 07/06/22 10:20 4 07/06/22 10:15 4 07/06/22 10:10 4 07/06/22 10:05 4 07/06/22 10:00 4 07/06/22 10:40 07/06/22 10:25 07/06/22 09:55 4 07/06/22 08:00 07/06/22 07:10 07/06/22 03:22 Diagnostic Findings Laboratory Results WBC 4.46 K/ul (4.8-10.8) L 07/05/22 05:38 RBC 2.52 M/uL (4.63-6.08) L 07/05/22 05:38 Hgb 8.1 g/dl (14.0-18.0) L 07/05/22 05:38 Hct 24.6 % (40.1-51.0) L 07/05/22 05:38 MCV 97.6 fL (80.0-100.0) 07/05/22 05:38 MCH 32.1 pg (25.0-34.0) 07/05/22 05:38 MCHC 32.9 g/dL (32.0-36.0) 07/05/22 05:38 RDW Std Deviation 50.9 fL (36.4-46.3) H 07/05/22 05:38 RDW Coeff of Michael 14.4 % (11.5-14.5) 07/05/22 05:38 Plt Count 61 K/uL (130-400) L 07/05/22 05:38 MPV 11.5 fL (9.4-12.4) 07/05/22 05:38 Immature Gran % (Auto) 1.1 % 07/03/22 05:53 Neut % (Auto) 82.8 % 07/03/22 05:53 Lymph % (Auto) 7.8 % 07/03/22 05:53 [place] % (Auto) 7.2 % 07/03/22 05:53 Eos % (Auto) 0.7 % 07/03/22 05:53 Baso % (Auto) 0.4 % 07/03/22 05:53 Neut # (Auto) 5.94 K/uL (1.4-6.5) 07/03/22 05:53 Lymph # (Auto) 0.56 K/uL (1.2-3.4) L 07/03/22 05:53 [place] # (Auto) 0.52 K/uL (0.24-0.82) 07/03/22 05:53 Eos # (Auto) 0.05 K/uL (0-0.50) 07/03/22 05:53 Baso # (Auto) 0.03 K/uL (0-0.2) 07/03/22 05:53 Immature Gran # (Auto) 0.08 K/uL (0.00-0.02) H 07/03/22 05:53 Platelet Estimate Decreased (Normal) L 07/03/22 05:53 PT 11.9 Seconds (9.0-12.0) 07/06/22 07:40 INR 1.1 (0.9-1.1) 07/06/22 07:40 Sodium 139 mmol/L (136-145) 07/06/22 07:40 Potassium 3.6 mmol/L (3.5-5.1) 07/06/22 07:40 Chloride 106 mmol/L (98-107) 07/06/22 07:40 Carbon Dioxide 29 mmol/L (21-32) 07/06/22 07:40 Anion Gap 4 (3-11) 07/06/22 07:40 BUN 11 mg/dl (6-23) 07/06/22 07:40 Creatinine 1.27 mg/dl (0.6-1.4) 07/06/22 07:40 Est Cr Clr Drug Dosing 79.8 ml/min 07/06/22 07:40 Est GFR ( Amer) 81.4 ml/min 07/06/22 07:40 Est GFR (Non-Af Amer) 70.2 ml/min 07/06/22 07:40 BUN/Creatinine Ratio 8.7 (10-20) L 07/06/22 07:40 Glucose 108 mg/dl (70-99(Fasting)) H 07/06/22 07:40 Lactate 0.8 mmol/L (0.4-2.0) 07/05/22 05:38 Calcium 8.1 mg/dl (8.5-10.1) L 07/06/22 07:40 Phosphorus 4.0 mg/dl (2.5-4.9) 07/06/22 07:40 Magnesium 1.7 mg/dl (1.7-2.4) 07/06/22 07:40 Iron 31 mcg/dl (35-175) L 07/05/22 05:38 Unsaturated IBC 191 mcg/dl (155-355) 07/05/22 05:38 Ferritin 269.6 ng/ml (8-388) 07/05/22 05:38 Total Bilirubin 1.5 mg/dl (0.2-1.0) H 07/06/22 07:40 Direct Bilirubin 1.4 mg/dl (0-0.2) H 07/02/22 10:55 AST 19 U/L (13-39) 07/06/22 07:40 ALT 26 U/L (7-52) 07/06/22 07:40 Alkaline Phosphatase 67 U/L (34-104) 07/06/22 07:40 Troponin I High Sens 39.7 pg/ml (0-20) H D 07/03/22 00:14 Total Protein 5.0 gm/dl (6.0-8.3) L 07/06/22 07:40 Albumin 3.1 gm/dl (3.4-5.0) L 07/06/22 07:40 Globulin 1.9 gm/dl (2.5-4.0) L 07/06/22 07:40 Albumin/Globulin Ratio 1.6 (0.9-2) 07/06/22 07:40 Vitamin B12 1188 pg/ml (180-914) H 07/06/22 07:40 Folate 9.78 ng/ml (>5.38) 07/06/22 07:40 Procalcitonin 41.80 ng/ml (0-0.5) H 07/02/22 10:55 Urine Color Dark Yellow 07/02/22 10:55 Urine Appearance Cloudy (Clear) A 07/02/22 10:55 Urine pH 5.0 (4.5-7.5) 07/02/22 10:55 Ur Specific [place] 1.016 (1.000-1.030) 07/02/22 10:55 Urine Protein 1+ (Negative) H 07/02/22 10:55 Urine Glucose (UA) Negative (Negative) 07/02/22 10:55 Urine Ketones Trace (Negative) H 07/02/22 10:55 Urine Blood Negative (Negative) 07/02/22 10:55 Urine Nitrite Positive (Negative) A 07/02/22 10:55 Urine Bilirubin Negative (Negative) 07/02/22 10:55 Urine Urobilinogen Negative (Negative) 07/02/22 10:55 Ur Leukocyte Esterase 2+ (Negative) H 07/02/22 10:55 Urine WBC (Auto) >30 /hpf (0-5) H 07/02/22 10:55 Urine RBC (Auto) 5-10 /hpf (0-4) H 07/02/22 10:55 U Hyaline Cast (Auto) 0 /lpf (0-5) 07/02/22 10:55 U Epithel Cells (Auto) 10-20 /lpf (0-5) H 07/02/22 10:55 Urine Bacteria (Auto) Negative (Negative) 07/02/22 10:55 Granular Casts 5-10 /lpf (0) H 07/02/22 10:55 SARS-CoV-2 (PCR) NEGATIVE (Negative) 07/02/22 11:04 Enterobacterales (PCR) DETECTED (NotDetected) A 07/02/22 10:55 Enterococc faecium PCR DETECTED (NotDetected) A 07/04/22 10:35 Influenza Type A (PCR) Negative (Neg) 07/02/22 11:04 Influenza Type B (PCR) Negative (Neg) 07/02/22 11:04 K. pneumoniae group (PCR) DETECTED (NotDetected) A 07/02/22 10:55 RSV (RT-PCR) Negative (Neg) 07/02/22 11:04 mcr-1 [place] Res Gene PCR Not Detected (NotDetected) 07/02/22 10:55 Manuel/B-Vanco Res Genes VRE Not Detected (NotDetected) 07/04/22 10:35 blaIMP Car res Gene PCR Not Detected (NotDetected) 07/02/22 10:55 KPC-Carbap Res Gene PCR Not Detected (NotDetected) 07/02/22 10:55 blaNDM Car Res Gene PCR Not Detected (NotDetected) 07/02/22 10:55 OXA-48 Carbapenem Resis Gene (PCR) Not Detected (NotDetected) 07/02/22 10:55 blaVIM Car Res Gene PCR Not Detected (NotDetected) 07/02/22 10:55 CTX-M Gene Resistance (PCR) Not Detected (NotDetected) 07/02/22 10:55 Bld Cult ID Panel PCR See PCR Comment (NotDetected) 07/04/22 10:35 Impressions Abdomen/Pelvis CT 07/02/22 11:49 CT OF THE ABDOMEN AND PELVIS WITHOUT CONTRAST CLINICAL HISTORY: Fever. Liver transplant in August 2021. COMPARISON STUDY: CT of the abdomen and pelvis March 02, 2022 and renal ultrasound September 05, 2021. TECHNIQUE: Axial images of the abdomen and pelvis were obtained without IV contrast. Images were reviewed in the axial, sagittal, and coronal planes. Automated exposure control was utilized for the study. A dose lowering technique was utilized adhering to the principles of ALARA. FINDINGS: There is no consolidation within the lower lungs to suggest pneumonia. Subpleural opacities represent atelectasis. No pneumatosis, free air or portal venous gas is present. Evaluation of the abdomen and pelvis is suboptimal on this unenhanced exam. Borderline enlargement of the transplanted liver is noted. Moderate splenomegaly has slightly increased since prior CT. Biliary stents are place. There is associated pneumobilia. 5 mm right renal calculus is present. A 3 mm calculus projects over the right posterior aspect of the bladder. There is no hydronephrosis. No left-sided urinary calculi are present. Unenhanced images of the adrenal glands and pancreas are unremarkable. There is no evidence for a bowel obstruction. The appendix is normal. No abdominal or pelvic lymphadenopathy is present. There is no collection to suggest abscess. Trace abdominal ascites is present. Minimal mesenteric stranding is noted. This is decreased when compared to prior exam. No acute fracture is identified within the visualized skeletal structures. IMPRESSION: 1. No bowel obstruction. No bowel wall thickening on unenhanced exam. 2. Status post liver transplant. Biliary stents in place. Pneumobilia, as expected. Minimal increase in splenomegaly since prior CT. Trace ascites. 3. 3 mm calculus projects over the right posterior aspect of the bladder. This could represent a bladder calculus or ureterovesical junction calculus however there is no hydronephrosis. 5 mm right renal calculus. 4. Normal appendix. ACT 112: Negative or not required by law. Electronically signed by: Ron Stacy M.D. 07/02/2022 12:36 PM Abdomen Fluoroscopy 07/02/22 14:44 FL KUB CLINICAL HISTORY: RT STENT COMPARISON STUDY: CT of the abdomen and pelvis performed earlier today. FLUOROSCOPY TIME: 5 seconds. FLUOROSCOPIC IMAGES: 3 FINDINGS: Fluoroscopy was provided during placement of a right ureteral stent. Incidental note is made of stents within the common bile duct. IMPRESSION: Fluoroscopy provided during placement of a right ureteral stent. ACT 112: Negative or not required by law. Electronically signed by: Ron Stacy M.D. 07/02/2022 4:03 PM Chest X-Ray 07/03/22 07:00 SINGLE VIEW CHEST CLINICAL HISTORY: Hypoxia. Sepsis. FINDINGS: An AP, portable, upright chest radiograph is compared to study dated 07/02/2022. The cardiomediastinal silhouette is unremarkable. The lungs and pleural spaces are clear noting bibasilar atelectasis. No pneumothorax is seen. The bony thorax is grossly intact. IMPRESSION: Bibasilar atelectasis with no acute cardiopulmonary abnormality. ACT 112: Negative or not required by law. Electronically signed by: Castillo Haq M.D. 07/03/2022 10:18 AM Cholangiopancreatography MRI 07/03/22 10:12 MR MRCP HISTORY: r/o liver abscesses, cholangitis. TECHNIQUE: MRCP of the abdomen was performed without contrast according to standard departmental protocol. COMPARISON STUDY: Abdomen and pelvis CT 07/02/2022. FINDINGS: Interval development of trace bilateral pleural effusions. There is trace perihepatic and perisplenic ascites which is also slightly progressed. The main portal vein appears patent. Splenic varices again noted. History of prior liver transplant. No hepatic abscesses identified. The spleen remains enlarged measuring 18 cm in length. Multiple common bile duct stents remain unchanged in position. This likely accounts for the common bile duct distention of 15 mm. Trace pneumobilia is again noted. Nondiagnostic evaluation of the common bile duct due to the multiple indwelling stents. No intrahepatic bile duct filling defects identified. No hydronephrosis. The pancreas and adrenal glands are unremarkable. Mild diffuse mesenteric edema is present. Mild motion artifact. Abdominal aorta is normal in caliber. IMPRESSION: 1. Interval development of trace bilateral pleural effusions and trace ascites. 2. Splenomegaly, unchanged. 3. Prior liver transplant. No hepatic masses or abscess identified. 4. Multiple common bile duct stents appear and good position. This likely accounts for the common bile duct distention up to 1.5 cm. ACT 112: Negative or not required by law. Electronically signed by: Carlitos Abraham M.D. 07/03/2022 4:34 PM Medications Administered Current Inpatient Medications Acetaminophen (Acetaminophen 325 Mg Tab) 650 mg PO Q4H PRN PRN Reason: Pain or Fever Stop: 08/01/22 17:08 Last Admin: 07/05/22 20:50 Dose: 650 mg Cetirizine HCl (Cetirizine Hcl 10 Mg Tablet) 10 mg PO BID PRN PRN Reason: itching Stop: 08/05/22 11:42 Diphenhydramine HCl (Diphenhydramine Capsule 25 Mg Cap) 25 mg PO Q12H PRN PRN Reason: Rash Stop: 08/03/22 16:44 Last Admin: 07/05/22 20:50 Dose: 25 mg Folic Acid (Folic Acid 1 Mg Tab) 1 mg PO QAM LIZBETH Stop: 08/05/22 08:59 Last Admin: 07/06/22 11:46 Dose: 1 mg Ampicillin Sodium/Sulbactam Sodium 3,000 mg/ Sodium Chloride 108 mls @ 200 mls/hr IV Q6H LIZBETH; Protocol Stop: 08/16/22 17:59 Last Infusion: 07/06/22 07:00 Dose: Infused Daptomycin 725 mg/ Syringe 14.5 mls @ 7.25 mls/min IV Q24H LIZBETH; Protocol Stop: 08/16/22 17:59 Last Admin: 07/05/22 19:07 Dose: 7.25 mls/min Heparin Sodium/Dextrose (Heparin Sodium/Dextrose) 25,000 units in 500 mls @ 28 mls/hr IV .[id number] LIZBETH; Protocol Stop: 08/05/22 11:14 Oxybutynin Chloride (Oxybutynin Chloride Xl 5 Mg Tabcr) 5 mg PO DAILY PRN PRN Reason: bladder spasms Stop: 08/02/22 08:59 Pantoprazole Sodium (Pantoprazole 40 Mg Tab) 40 mg PO DAILY LIZBETH Stop: 08/02/22 08:59 Last Admin: 07/06/22 11:47 Dose: 40 mg Phenazopyridine HCl (Phenazopyridine Hcl 200 Mg Tab) 200 mg PO TID LIZBETH Stop: 08/01/22 20:59 Last Admin: 07/06/22 11:46 Dose: 200 mg Prednisone (Prednisone 20 Mg Tab) 20 mg PO DAILY LIZBETH Stop: 08/02/22 08:59 Last Admin: 07/06/22 11:46 Dose: 20 mg Tacrolimus (Tacrolimus 1 Mg Cap) 4 mg PO BID LIZBETH Stop: 08/04/22 08:59 Last Admin: 07/06/22 11:46 Dose: 4 mg Tamsulosin HCl (Tamsulosin Hcl 0.4 Mg Cap) 0.4 mg PO HS [facility] Stop: 08/01/22 20:59 Last Admin: 07/05/22 20:47 Dose: 0.4 mg Thiamine HCl (Thiamine Hcl 100 Mg Tab) 100 mg PO QAM LIZBETH Stop: 08/05/22 08:59 Last Admin: 07/06/22 11:47 Dose: 100 mg Tramadol HCl (Tramadol Hcl 50 Mg Tablet) 50 mg PO Q6H PRN PRN Reason: moderate pain Stop: 08/01/22 17:08 Last Admin: 07/06/22 01:34 Dose: 50 mg (1) Sepsis Sepsis acute organ dysfunction status: unspecified Sepsis type: sepsis due to unspecified organism Qualified Code(s): A41.9 - Sepsis, unspecified organism
[2022-07-06] MEDS ORDERED: ENOXAPARIN 1 MG/KG SC SCH (12:30)
[2022-07-06] MEDS ORDERED: ENOXAPARIN 100 MG/1ML SYR SQ SCH (13:00)
[2022-07-06 14:01] LABS: Component 2 DNR; Source KIDNEY STONE
[2022-07-06] MEDS ORDERED: LACTATED RINGER'S 500 ML IV ONE (14:31)
== END 2022-07-06 15:02 | disposition short-term general hospital (02) | DRG 853 ==
LOC: ED 10:04 → SUATTDRO 13:54 → 4W 13:54